=== PATIENT | female | born 1960 | race Caucasian/White ===

== ENCOUNTER → 2017-10-23 08:38 | Outpatient (CLI) | payer OTHER, SELFPAY ==
--- NOTE | 2017-10-23 08:40 | RAD_ITS ---
STUDY: X-RAY - ESOPHAGUS (BARIUM SWALLOW) WITH FLUOROSCOPY REASON FOR EXAM: Female, 57 years old. History of Sjogren's syndrome. TECHNIQUE: 14 view(s) of the esophagus were obtained following swallowing of barium. FLUOROSCOPY TIME (if supplied): (0:25) minutes/seconds COMPARISON: None. FINDINGS: There is no demonstrated esophageal foreign body. There is no demonstrated stricture or mucosal abnormality. Normal gastroesophageal junction, without a demonstrated hiatal hernia. The patient ingested a 12 mm tablet of barium without any difficulty. Normal visualized aortic arch and descending thoracic aorta. Normal visualized pulmonary parenchyma. Normal visualized osseous structures of the thorax. RAD/Esophagus Only IMPRESSION: Normal plain film x-ray examination (barium swallow) of the esophagus. Electronically Signed: Wilfrid Srinivasan MD at 9:34 EST Tel [phone], Service support ,
== END ==
PROVIDERS: Family Provider Family Medicine; PCP Family Medicine; Visit Provider Otolaryngology Otolaryngology/Facial Plastic Surgery
DX: R13.10 Dysphagia, unspecified (principal)
CPT/HCPCS: 74220

== ENCOUNTER 2017-12-03 21:17 | Observation (INO) | payer OTHER, SELFPAY ==
[2017-12-03 21:18] VITALS: BP 140/95; PULSE 77; RESP 20; TEMP 36.9; O2SAT 98; BMI 24.6
--- NOTE | 2017-12-03 22:05 | EKG12_ITS ---
Test Reason : JAW PAIN/L ARM TINGL Blood Pressure : / mmHG Vent. Rate : 067 BPM Atrial Rate : 067 BPM P-R Int : 152 ms QRS Dur : 084 ms QT Int : 392 ms P-R-T Axes : 025 053 043 degrees QTc Int : 414 ms Normal sinus rhythm Normal ECG Confirmed by RAMAN MEJIA ([id number]), news assignment editor CARLOS ORTIZ ([id number]) on 12/08/2017 1:54:56 PM Referred By: ELVIS Confirmed By:RAMAN MEJIA
--- NOTE | 2017-12-03 22:05 | RAD_ITS ---
STUDY: X-RAY CHEST REASON FOR EXAM: Female, 57 years old. Chest pain, jaw pain TECHNIQUE: Single AP portable view of the chest. COMPARISON: 07/27/2017. FINDINGS: The lungs are clear and expanded. Stable right upper lung granuloma. There is no demonstrated pleural abnormality. Normal size heart. Normal mediastinum and rika. Normal visualized pulmonary arteries. Normal visualized aortic arch and descending thoracic aorta. Normal visualized thoracic spine. Normal visualized ribs, clavicles, and shoulders. There is no demonstrated abnormality of the visualized soft tissue structures of the upper abdomen. RAD/Chest 1 View (Portable) IMPRESSION: No acute cardiopulmonary disease.. Stable right upper lung granuloma. Electronically Signed: Ghulam Hardy DO at 23:15 EDT , Service support ,
--- NOTE | 2017-12-03 22:07 | ED.VISSUMM ---
- ER Visit Summary Date of Service: 12/03/17 Chief Complaint: Left-sided jaw pain and left arm pain History of Present Illness: The patient is a 57 F presenting with intermittent left-sided jaw pain and left arm pain. This has been ongoing for the past 2 days. She complains of dizziness associated with this. She denies chest pain or shortness of breath. She has a family history of early heart disease in her father. She is a previous smoker. Denies PE/DVT risk factors. Physical Examination: Vitals are stable. Patient is afebrile. Alert no acute distress. HEENT exam is unremarkable. No intraoral fluctuance. No sublingual edema. No tenderness to palpation of the teeth. Neck is supple. Lungs are clear and equal bilaterally. Heart is regular rate and rhythm. Abdomen is soft nontender nondistended. Extremities are unremarkable. Skin is warm and dry. No focal neurologic deficit. Remainder of exam is unremarkable. Emergency Department Course and Treatment: Patient was given aspirin. EKG is sinus rhythm rate of 67 with no acute ischemic changes. CBC, chemistries unremarkable. Troponin is negative. Chest x-ray shows no acute process. Patient has had intermittent jaw pain while in the emergency department. She is given morphine and Zofran. Will discuss with the hospitalist for observation. Disposition: Observation Impression: Left jaw, left arm pain. This note was generated with MovieSet dictation software. It may contain incorrect words, spelling, and punctuation that were not noted in review of the chart prior to signing ED Disposition - Plan for ED Patient: Chief Complaint: General Illness Referrals: Charles Monroe MD [Primary Care Provider] -
[2017-12-03] MEDS: Aspirin 81 MG TAB.CHEW 324 MG PO (22:37)
[2017-12-03 22:49] LABS: Absolute Lymphocyte Count 2.08 X10^3/ul (0.83-4.51); Absolute Neutrophil Count 3.6 X10^3/uL (2.0-7.7); Basophil# 0.03 X10^3/uL; Basophil% 0.5 % (0-1); Eosinophil# 0.18 X10^3/uL; Eosinophils% 2.9 % (0-5); Hematocrit 41.8 % (37-47); Lymphocyte # 2.08 X10^3/ul (4.0); Lymphocyte % 33.5 % (19-41); Mean Corp Hgb Conc 33.5 g/gl (32-36); Mean Corpuscular Volume 95.7 fL (81-99); Mean Platelet Vol. 10.6 fl (6.2-12.0); Monocyte# 0.35 X10^3/uL; Monocyte% 5.6 % (0-10); Neutrophil # 3.55 X10^3/uL (2.7-7.7); Neutrophil % 57.3 % (47-70); Platelet Count 174 K/mm3 (150-450); RBC Distribution Width CV 12.3 % (11.6-14.6); RBC Distribution Width SD 42.8 fl (35.1-43.9); Red Blood Count 4.37 M/mm3 (4.2-5.4); White Blood Count 6.2 K/mm3 (4.4-11.0)
[2017-12-03 22:50] LABS: POSITIVE COUNT NO; POSITIVE DIFFERENTIAL NO; POSITIVE MORPHOLOGY NO
[2017-12-03 23:02] LABS: Anion Gap 7 (5-15); BUN 21 mg/dL (7-18); BUN/Creat Ratio 28.4 RATIO (10-20); Calcium,Total 8.8 mg/dL (8.5-10.1); Chloride 106 mmol/L (98-107); Creatinine, Serum 0.74 mg/dL (0.55-1.02); EST Glomerular Filtration Rate 87 mL/min (>60); Est Glom Filt Rate - Afr Amer 105 mL/min (>60); Estimated Creatinine Clearance 86.65 ml/min; Glucose 83 mg/dL (74-106); Sodium Level 139 mmol/L (136-145)
[2017-12-03 23:38] VITALS: PULSE 62; RESP 15; O2SAT 98
[2017-12-03] MEDS: Ondansetron 4 MG/2 ML Vial IV (23:45)
--- NOTE | 2017-12-03 23:45 | PCM.HP.STD ---
Problem List (1) Migraines Status: Chronic Qualifiers: Migraine type: unspecified Status migrainosus presence: without status migrainosus Intractability: not intractable Qualified Code(s): G43.909 - Migraine, unspecified, not intractable, without status migrainosus (2) Anxiety and depression Status: Chronic (3) Hiatal hernia Status: Chronic (4) GERD (gastroesophageal reflux disease) Status: Chronic Qualifiers: Esophagitis presence: esophagitis presence not specified Qualified Code(s): K21.9 - Gastro-esophageal reflux disease without esophagitis (5) PFO (patent foramen ovale) Status: Chronic (6) Hypothyroidism Status: Chronic Qualifiers: Hypothyroidism type: unspecified Qualified Code(s): E03.9 - Hypothyroidism, unspecified (7) Chest pain Status: Acute Qualifiers: Chest pain type: unspecified Qualified Code(s): R07.9 - Chest pain, unspecified History of Present Illness Date of Admission: 12/03/17 Chief Complaint: Chest pain The patient is a 57 y/o F w/ PMHx: Migraines, Anxiety and Depression, Hiatal Hernia w/ GERD, Hx PFO, Hx Thyroid nodules w/ Hypothyroidism who presents to the [facility] ED on 12/03/17 with history of ongoing intermittent (lasting hours) left sided jaw pain in addition to LUE paresthesias with associated nausea, dizziness and lightheadedness as well as dyspnea x 3 days. She notes recently increased stress over the last week. She noted ongoing unchanged discomfort but given ongoing discomfort she presented to the ED. In the ED work-up included T98.4, HR 60-70s, BP 140/95, RR 20-->14, 99% on RA, unremarkable CBC, unremarkable BMP, trop normal x 1, EKG NSR, CXR without acute process. In the ED patient administered asa, morphine, zofran. She noted improvement in the ED of her jaw discomfort, still residual LUE paresthesias. She denied any marked associated light or sound sensitivity. Past Medical History Past Medical History (Chronic Problems): Chronic Problems Migraines (Chronic) Anxiety and depression (Chronic) Hiatal hernia (Chronic) GERD (gastroesophageal reflux disease) (Chronic) PFO (patent foramen ovale) (Chronic) Hypothyroidism (Chronic) Allergies latex Allergy (Verified 12/03/17 21:21) Swelling Sulfa (Sulfonamide Antibiotics) Allergy (Verified 12/03/17 21:21) Swelling codeine Adverse Reaction (Verified 12/03/17 21:21) Other AGITATION duloxetine HCl [From Cymbalta] Adverse Reaction (Verified 12/03/17 21:21) Other MENTAL STATUS CHANGE escitalopram oxalate [From Lexapro] Adverse Reaction (Verified 12/03/17 21:21) Other AGITATION paroxetine [Paroxetine] Adverse Reaction (Verified 12/03/17 21:21) Other DEPRESSION/AGITATION venlafaxine HCl [From Effexor] Adverse Reaction (Verified 12/03/17 21:21) Other INTOLERANCE/HYPER Home Medications: Ambulatory Orders Medication Instructions Recorded Clonazepam [Klonopin] 0.5 mg PO QHS 10/07/13 Nicotine [Nicoderm Cq] 21 mg TRANSDERM. DAILY 10/07/13 Rizatriptan Benzoate [Maxalt] 10 mg PO .X1 PRN PRN 10/07/13 Surgical History: - - Cholecystectomy, Hysterectomy, x 3. 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 Tobacco Use: Non-smoker Alcohol: Rare Drugs: None - *Family History Maternal History Items: - - Mother with history of PAF. Paternal History Items: Heart Disease Sibling History Items: Heart Disease - Sister with history of HD. Offspring History Items: Cancer - Daughter with history of breast CA, passed young. Review of Systems Constitutional: Reports: Fatigue. Denies: Chills, Fever, Weight Change HEENT: Reports: Head Aches. Denies: Sinus Congestion, Sinus Drainage Cardiovascular: Reports: Light Headedness. Denies: Chest Pain, Palpitations Respiratory: Reports: Shortness of Breath, Shortness of breath at rest, Shortness of breath upon exertion. Denies: Cough, Sputum production Gastrointestinal: Reports: Abdominal Pain, Nausea. Denies: Vomiting Genitourinary: Denies: Dysuria Musculoskeletal: Denies: Joint Pain, Joint Tenderness Skin: Denies: Rash, Wounds Neurological: Reports: Numbness, Tingling. Denies: Focal weakness Psychiatric: Reports: Anxiety, Depression. Denies: Homicidal Ideations, Suicidal Ideations Hematologic/ Lymphatic: Denies: Easy Bruising, Easy Bleeding VTE Information - Inpt Only VTE Present on Admission: No VTE Mechan Device Prophylaxis: SCD's VTE Pharm Prophylaxis ordered?: Yes Patient Problems: Active and Suspected Problems Chest pain (Acute) Subjective: Seated upright in the ED bed, fatigued appearing, scleral injection. Objective: Physical Examination: General: awake, alert, oriented x 3 and cooperative, seated upright in the ED bed in no apparent distress. Skin: normal color, turgor, no icterus, cyanosis. HEENT: AT/NC, EOMI, PERRLA, dry MM, scleral injection BL, no carotid bruits or JVD noted. Lungs: CTA bilaterally, moderate effort, mild decrease BL bases, no rales, ronchi or wheezing. Heart: Regular rate and rhythm; no gallop, rub audible. Abdomen: soft, NTTP, ND, normal BS, no HSM. Extremities: no cyanosis, clubbing, or edema. Neurological: patient awake, alert, oriented x 3; cognitive function intact; pupils equally reactive to light and accomodation; cranial nerves II-XII grossly normal, moving all 4 extremities, no focal deficits, strength mildly to moderately globally decreased secondary to acute presentation, ongoing LUE paresthesias. Psychiatric: affect appears fatigued, no acute evidence of depressive or anxiety feelings. - Physical Exam Vital Signs Temp Pulse Resp BP Pulse Ox 98.4 F 62 15 140/95 H 98 12/03/17 21:18 12/03/17 23:38 12/03/17 23:38 12/03/17 21:18 12/03/17 23:38 Oxygen Delivery Method Room Air Weight: 162 lb 0.636 oz Body Mass Index (BMI) 24.6 Laboratory Tests Past 24 Hrs 12/03/17 12/03/17 22:30 22:30 WBC 6.2 RBC 4.37 Hgb 14.0 Hct 41.8 MCV 95.7 MCH 32.0 MCHC 33.5 RDW 12.3 RDW Differential 42.8 Plt Count 174 MPV 10.6 Immature Gran % (Auto) 0.200 Neut % (Auto) 57.3 Lymph % (Auto) 33.5 [place] % (Auto) 5.6 Eos % (Auto) 2.9 Baso % (Auto) 0.5 Absolute Neuts (auto) 3.6 Absolute Lymphs (auto) 2.08 Total Counted Not Reportable Sodium 139 Potassium 4.0 Chloride 106 Carbon Dioxide 26.0 Anion Gap 7 BUN 21 H Creatinine 0.74 Estim Creat Clear Calc 86.65 Est GFR (MDRD) Af Amer 105 Est GFR (MDRD) Non-Af 87 BUN/Creatinine Ratio 28.4 H Glucose 83 Calcium 8.8 Troponin I < 0.02 Assessment/Plan Active and Suspected Problems Chest pain (Acute) The patient is a 57 y/o F w/ PMHx: Migraines, Anxiety and Depression, Hiatal Hernia w/ GERD, Hx PFO, Hx Thyroid nodules w/ Hypothyroidism who presents to the [facility] ED on 12/03/17 with history of ongoing intermittent left sided jaw pain in addition to LUE paresthesias with associated nausea, dizziness and lightheadedness as well as dyspnea x 3 days. She notes recently increased stress over the last week. (1) Chest Pain versus Atypical Complex Migraine: In the ED work-up included T98.4, HR 60-70s, BP 140/95, RR 20-->14, 99% on RA, unremarkable CBC, unremarkable BMP, trop normal x 1, EKG NSR, CXR without acute process. Will admit to PCU, place on a monitored bed to assure no acute myocardial infarction with serial cardiac enzymes and EKGs. If enzymes remain unremarkable and clinically appropriate will pursue stress ECHO in AM. If cardiac evaluation unremarkable and ongoing or recurrent sxs may need to consider cardiology evaluation and also may be atypical complex migraine as well. ASA, NG, morphine. FLP in AM. Mag pending. (2) Anxiety and Depression: Ongoing following of her daughter from Breast CA, maintain on klonopin, noted allergies listed to SSRIs. (3) Hiatal Hernia w/ GERD: Maintain on Famotidine. Prior evaluation per Dr. Costa w/ unremarkable barium swallow, recent EGD per Dr. Li with hiatal hernia. (4) Hypothyroidism: Continue home synthroid regimen once dose confirmed, TSH and FT4 pending. (5) Hx PFO: Known, stable. (6) DVT Prophylaxis: SCDs, lovenox. Code Visit OBSV E&M: 67703 Initial observation care L3
--- NOTE | 2017-12-03 23:52 | HP.PCM_ITS ---
Problem List (1) Migraines Status: Chronic Qualifiers: Migraine type: unspecified Status migrainosus presence: without status migrainosus Intractability: not intractable Qualified Code(s): G43.909 - Migraine, unspecified, not intractable, without status migrainosus (2) Anxiety and depression Status: Chronic (3) Hiatal hernia Status: Chronic (4) GERD (gastroesophageal reflux disease) Status: Chronic Qualifiers: Esophagitis presence: esophagitis presence not specified Qualified Code(s) : K21.9 - Gastro-esophageal reflux disease without esophagitis (5) PFO (patent foramen ovale) Status: Chronic (6) Hypothyroidism Status: Chronic Qualifiers: Hypothyroidism type: unspecified Qualified Code(s): E03.9 - Hypothyroidism , unspecified (7) Chest pain Status: Acute Qualifiers: Chest pain type: unspecified Qualified Code(s): R07.9 - Chest pain, unspecified History of Present Illness Date of Admission: 12/03/17 Chief Complaint: Chest pain The patient is a 57 y/o F w/ PMHx: Migraines, Anxiety and Depression, Hiatal Hernia w/ GERD, Hx PFO, Hx Thyroid nodules w/ Hypothyroidism who presents to the [facility] ED on 12/03/17 with history of ongoing intermittent (lasting hours) left sided jaw pain in addition to LUE paresthesias with associated nausea, dizziness and lightheadedness as well as dyspnea x 3 days. She notes recently increased stress over the last week. She noted ongoing unchanged discomfort but given ongoing discomfort she presented to the ED. In the ED work-up included T98.4, HR 60-70s, BP 140/95, RR 20-->14, 99% on RA, unremarkable CBC, unremarkable BMP, trop normal x 1, EKG NSR, CXR without acute process. In the ED patient administered asa, morphine, zofran. She noted improvement in the ED of her jaw discomfort, still residual LUE paresthesias. She denied any marked associated light or sound sensitivity. Past Medical History Past Medical History (Chronic Problems): Chronic Problems Migraines (Chronic) Anxiety and depression (Chronic) Hiatal hernia (Chronic) GERD (gastroesophageal reflux disease) (Chronic) PFO (patent foramen ovale) (Chronic) Hypothyroidism (Chronic) Allergies latex Allergy (Verified 12/03/17 21:21) Swelling Sulfa (Sulfonamide Antibiotics) Allergy (Verified 12/03/17 21:21) Swelling codeine Adverse Reaction (Verified 12/03/17 21:21) Other AGITATION duloxetine HCl [From Cymbalta] Adverse Reaction (Verified 12/03/17 21:21) Other MENTAL STATUS CHANGE escitalopram oxalate [From Lexapro] Adverse Reaction (Verified 12/03/17 21:21) Other AGITATION paroxetine [Paroxetine] Adverse Reaction (Verified 12/03/17 21:21) Other DEPRESSION/AGITATION venlafaxine HCl [From Effexor] Adverse Reaction (Verified 12/03/17 21:21) Other INTOLERANCE/HYPER Home Medications: Ambulatory Orders Medication Instructions Recorded Clonazepam [Klonopin] 0.5 mg PO QHS 10/07/13 Nicotine [Nicoderm Cq] 21 mg TRANSDERM. DAILY 10/07/13 Rizatriptan Benzoate [Maxalt] 10 mg PO .X1 PRN PRN 10/07/13 Surgical History: - - Cholecystectomy, Hysterectomy, x 3. 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 Tobacco Use: Non-smoker Alcohol: Rare Drugs: None - *Family History Maternal History Items: - - Mother with history of PAF. Paternal History Items: Heart Disease Sibling History Items: Heart Disease - Sister with history of HD. Offspring History Items: Cancer - Daughter with history of breast CA, passed young. Review of Systems Constitutional: Reports: Fatigue. Denies: Chills, Fever, Weight Change HEENT: Reports: Head Aches. Denies: Sinus Congestion, Sinus Drainage Cardiovascular: Reports: Light Headedness. Denies: Chest Pain, Palpitations Respiratory: Reports: Shortness of Breath, Shortness of breath at rest, Shortness of breath upon exertion. Denies: Cough, Sputum production Gastrointestinal: Reports: Abdominal Pain, Nausea. Denies: Vomiting Genitourinary: Denies: Dysuria Musculoskeletal: Denies: Joint Pain, Joint Tenderness Skin: Denies: Rash, Wounds Neurological: Reports: Numbness, Tingling. Denies: Focal weakness Psychiatric: Reports: Anxiety, Depression. Denies: Homicidal Ideations, Suicidal Ideations Hematologic/ Lymphatic: Denies: Easy Bruising, Easy Bleeding VTE Information - Inpt Only VTE Present on Admission: No VTE Mechan Device Prophylaxis: SCD's VTE Pharm Prophylaxis ordered?: Yes Patient Problems: Active and Suspected Problems Chest pain (Acute) Subjective: Seated upright in the ED bed, fatigued appearing, scleral injection. Objective: Physical Examination: General: awake, alert, oriented x 3 and cooperative, seated upright in the ED bed in no apparent distress. Skin: normal color, turgor, no icterus, cyanosis. HEENT: AT/NC, EOMI, PERRLA, dry MM, scleral injection BL, no carotid bruits or JVD noted. Lungs: CTA bilaterally, moderate effort, mild decrease BL bases, no rales, ronchi or wheezing. Heart: Regular rate and rhythm; no gallop, rub audible. Abdomen: soft, NTTP, ND, normal BS, no HSM. Extremities: no cyanosis, clubbing, or edema. Neurological: patient awake, alert, oriented x 3; cognitive function intact; pupils equally reactive to light and accomodation; cranial nerves II-XII grossly normal, moving all 4 extremities, no focal deficits, strength mildly to moderately globally decreased secondary to acute presentation, ongoing LUE paresthesias. Psychiatric: affect appears fatigued, no acute evidence of depressive or anxiety feelings. - Physical Exam Vital Signs Temp Pulse Resp BP Pulse Ox 98.4 F 62 15 140/95 H 98 12/03/17 21:18 12/03/17 23:38 12/03/17 23:38 12/03/17 21:18 12/03/17 23:38 Oxygen Delivery Method Room Air Weight: 162 lb 0.636 oz Body Mass Index (BMI) 24.6 Laboratory Tests Past 24 Hrs 12/03/17 12/03/17 22:30 22:30 WBC 6.2 RBC 4.37 Hgb 14.0 Hct 41.8 MCV 95.7 MCH 32.0 MCHC 33.5 RDW 12.3 RDW Differential 42.8 Plt Count 174 MPV 10.6 Immature Gran % (Auto) 0.200 Neut % (Auto) 57.3 Lymph % (Auto) 33.5 [place] % (Auto) 5.6 Eos % (Auto) 2.9 Baso % (Auto) 0.5 Absolute Neuts (auto) 3.6 Absolute Lymphs (auto) 2.08 Total Counted Not Reportable Sodium 139 Potassium 4.0 Chloride 106 Carbon Dioxide 26.0 Anion Gap 7 BUN 21 H Creatinine 0.74 Estim Creat Clear Calc 86.65 Est GFR (MDRD) Af Amer 105 Est GFR (MDRD) Non-Af 87 BUN/Creatinine Ratio 28.4 H Glucose 83 Calcium 8.8 Troponin I < 0.02 Assessment/Plan Active and Suspected Problems Chest pain (Acute) The patient is a 57 y/o F w/ PMHx: Migraines, Anxiety and Depression, Hiatal Hernia w/ GERD, Hx PFO, Hx Thyroid nodules w/ Hypothyroidism who presents to the [facility] ED on 12/03/17 with history of ongoing intermittent left sided jaw pain in addition to LUE paresthesias with associated nausea, dizziness and lightheadedness as well as dyspnea x 3 days. She notes recently increased stress over the last week. (1) Chest Pain versus Atypical Complex Migraine: In the ED work-up included T98.4, HR 60-70s, BP 140/95, RR 20-->14, 99% on RA, unremarkable CBC, unremarkable BMP, trop normal x 1, EKG NSR, CXR without acute process. Will admit to PCU, place on a monitored bed to assure no acute myocardial infarction with serial cardiac enzymes and EKGs. If enzymes remain unremarkable and clinically appropriate will pursue stress ECHO in AM. If cardiac evaluation unremarkable and ongoing or recurrent sxs may need to consider cardiology evaluation and also may be atypical complex migraine as well. ASA, NG, morphine. FLP in AM. Mag pending. (2) Anxiety and Depression: Ongoing following of her daughter from Breast CA, maintain on klonopin, noted allergies listed to SSRIs. (3) Hiatal Hernia w/ GERD: Maintain on Famotidine. Prior evaluation per Dr. Costa w/ unremarkable barium swallow, recent EGD per Dr. Li with hiatal hernia. (4) Hypothyroidism: Continue home synthroid regimen once dose confirmed, TSH and FT4 pending. (5) Hx PFO: Known, stable. (6) DVT Prophylaxis: SCDs, lovenox. Code Visit OBSV E&M: 17670 Initial observation care L3
[2017-12-04] VITALS (13 sets, daily range): BP systolic 108–150; BP diastolic 62–90; PULSE 55–77; RESP 12–18; TEMP 36.4–36.6; O2SAT 92–99; BMI 24.3; BMI 24.4
[2017-12-04] MEDS: 0.9% Normal Saline 1,000 ML 125 ML IV (01:17)
[2017-12-04] MEDS: clonazePAM 0.5 MG Tablet PO ×2 (01:19→21:30)
[2017-12-04 01:32] LABS: Magnesium 2.2 mg/dL (1.6-2.6); T4 Free Direct 1.11 ng/dL (0.76-1.46); Thyroid Stim Hormone (TSH) 4.78 uIU/mL (0.358-3.74)
[2017-12-04 02:54] LABS: Hematocrit 40.6 % (37-47); Hemoglobin 14.2 g/dl (12.0-15.0); Mean Corpuscular Hgb 32.6 pg (27.0-32.0); Mean Corpuscular Volume 93.1 fL (81-99); Mean Platelet Vol. 10.3 fl (6.2-12.0); Platelet Count 203 K/mm3 (150-450); RBC Distribution Width SD 40.7 fl (35.1-43.9); Red Blood Count 4.36 M/mm3 (4.2-5.4); Scan Indicated on CBC? Y/N NO; White Blood Count 6.1 K/mm3 (4.4-11.0)
[2017-12-04 03:28] LABS: Anion Gap 9 (5-15); BUN 17 mg/dL (7-18); BUN/Creat Ratio 26.6 RATIO (10-20); Calcium,Total 8.6 mg/dL (8.5-10.1); Chloride 106 mmol/L (98-107); Cholesterol 198 mg/dL (200); Creatinine, Serum 0.64 mg/dL (0.55-1.02); EST Glomerular Filtration Rate 102 mL/min (>60); Est Glom Filt Rate - Afr Amer 124 mL/min (>60); Estimated Creatinine Clearance 100.19 ml/min; Glucose 80 mg/dL (74-106); High Density Lipoprotein 51 mg/dL; Potassium 3.7 mmol/L (3.5-5.1); Sodium Level 140 mmol/L (136-145); Triglycerides 88 mg/dL; Very Low Density Lipoprotein 18 mg/dL (5-40)
[2017-12-04 05:39] LABS: International Normalized Ratio 0.9; Partial Thromboplast Time 29.2 Seconds (24.1-36.2); Prothrombin Time (Protime)PT. 12.4 SECONDS (11.7-14.9)
[2017-12-04] MEDS: Aspirin E.C. 81 MG Tablet PO (05:47)
--- NOTE | 2017-12-04 05:55 | EKG12_ITS ---
Test Reason : AM Blood Pressure : / mmHG Vent. Rate : 055 BPM Atrial Rate : 055 BPM P-R Int : 178 ms QRS Dur : 088 ms QT Int : 432 ms P-R-T Axes : 065 057 046 degrees QTc Int : 413 ms Sinus bradycardia with sinus arrhythmia Otherwise normal ECG When compared with ECG of 03-DEC-2017 21:24, MANUAL COMPARISON REQUIRED, DATA IS UNCONFIRMED Confirmed by RAMAN MEJIA ([id number]), video editor CARLOS ORTIZ ([id number]) on 12/08/2017 2:46:18 PM Referred By: BRYCE Confirmed By:RAMAN MEJIA
--- NOTE | 2017-12-04 05:55 | STEWCON_ITS ---
Reason For Study: Chest Pain Stress Results Protocol: Stress Echocardiogram Maximum Predicted HR: 165 bpm Target HR: 140 bpm% Maximum Pr edicted HR: 91 % DurationHeart Rate Stage (mm:ss) (bpm) BPCom ment BASELINE 72 140/80 3 ML OF DILUTED DEFINITY USED DURING STRESS [place] PROTOCOL- STAGE 1 3:00 11 2 128/80 [place] PROTOCOL- STAGE 2 3:00 15 0 134/82LEG FATIGUE RECOVERY 82 110/78 Stress Duration: 6:00 mm:ss Maximum Stress HR: 150 bpm Baseline Echocardiogram Findings The estimated ejection fraction is 65 %. Stress Echo Wall motion Data Resting WMIntermediate WMStress WM Resting Wall Motion Wall Motion Stress No regional wall motion No regional wall motion abnormalities noted. abnormalities noted. EKG Data Normal intervals are noted. The patient exercised according to the regular [place] protocol for a total duration of 6:00. The maximum heart rate attained was 150 beats per minute. This was 90% of maximum predicted heart rate. The patient exercised into stage 3 of the [place] protocol. During stress, there were no ST or T wave changes noted to suggest ischemia. No clinical angina was noted. No arrhythmias noted. Interpretation Summary The study was technically difficult. Contrast injection was performed. The estimated ejection fraction is 65 %. Normal adequate treadmill echocardiogram. Negative for ischemia by EKG and echocardiographic criteria. No anginal symptoms noted. No arrhythmias noted. Appropriate blood pressure response to exercise. Average exercise capacity for age. Test terminated due to the attainment of target heart rate. Final LVEF is 75%. Decreased sensitivity due to poor echo windows requiring Definity agent enhancement. No complications. Ordering Physician: Henny Jaimes Referring Physician: Fernando Costa Performed By: Rosa Elena Purvis, CHUCHO, RVT
[2017-12-04] MEDS: Levothyroxine 25 MCG TABLET PO (07:01)
[2017-12-04] MEDS: oxyCODONE 5 MG Tablet PO ×2 (09:47→21:30)
[2017-12-04] MEDS: Enoxaparin 40 MG/0.4 ML Syringe SC (14:26)
[2017-12-04] MEDS: Famotidine 20 MG Tablet PO ×2 (14:28→21:30)
[2017-12-04] MEDS: 0.9% NaCl Peripheral Flush Adult/Peds IV (17:08)
[2017-12-04 18:14] LABS: Erythrocyte Sedimentation Rate 3 mm/hr (0-30)
--- NOTE | 2017-12-04 20:57 | PCM.PROGNOTE ---
Patient Problems: Active and Suspected Problems Chest pain (Acute) Subjective: Patient is a 57-year-old female with a past medical history of migraines, anxiety/depression, hiatal hernia, GERD, patent foramen ovale, hypothyroidism possible Sjogren's syndrome who presented to the ED on 12/02/17 c/o severe L jaw pain and numbness in her left arm. The pain came and went and was not associated with exertion. She describes it as severe and sharp/knife like and it brings her to tears. She denied fever, chills, sore throat, sore tooth. She denied and bad.sore teeth. No increase with pain when chewing. She was admitted to PCU and serial CE's were ordered and were negative. Telemetry has no significant ectopy or dysrhythmia. Stress test was negative and she had no pain with the stress test but, when she got back to her room the pain recurred and was severe, bringing her to tears. It lasted 40 minutes. Her L hand still feels funny. No weakness in the Left arm....she has never had this numbness before. No rash on the face. No hx of shingles. she saw Dr. Ricks a few years ago because she was falling a lot and tells me that an MRI of the brain (Spet 2015) at that time was negative. There is a FH of MS. The MRI did show minimal Left side chronic otomastoiditis and empty sellar S.. - Physical Exam General: Alert, Oriented x3, Cooperative, No apparent distress - at the present time....I di not see her when she had the pain today HEENT: Atraumatic, PERRLA, EOMI, Normocephalic Oral: No Gingival or Mucosal Lesions/ Ulcerations, Dry Mucosa, - - teeth appear to be in good repair. No pain with palpation of the L mandible, the L TMJ or the Left submandibular area. There is no pain with palpation of the L parotid. There is no submandibular, cervical or posterior cervical lymph nodes that are tender or palpable. There is no nuchal rigidity. Neck: Supple, No JVD, Negative Carotid Bruits, No Nodes, No Nuchal Rigidity, Trachea Midline Lungs: Clear to auscultation Cardiovascular: Regular rate, Regular Rhythm, Normal S1, Normal S2, No murmurs, No Gallop Abdomen: Bowel Sounds Present, Soft, Non Tender, Non-Distended Extremities: No clubbing, No cyanosis, No edema Skin: No rashes Neurological: Cranial nerves II-XII grossly intact, Neuro grossly intact Psych/Mental Status: Normal Affect, Appropriate Vital Signs Temp Pulse Resp BP Pulse Ox 97.9 F 73 18 108/62 99 12/04/17 19:34 12/04/17 19:34 12/04/17 19:34 12/04/17 19:34 12/04/17 19:34 Oxygen Delivery Method Room Air Weight: 160 lb 4.417 oz Body Mass Index (BMI) 24.3 Intake and Output for Last 24 Hours 12/02/17 12/03/17 12/04/17 23:59 23:59 23:59 Intake Total 612 / 612 Balance 612 / 612 Laboratory Tests Past 24 Hrs 12/04/17 12/04/17 12/04/17 02:00 02:00 02:00 WBC 6.1 RBC 4.36 Hgb 14.2 Hct 40.6 MCV 93.1 MCH 32.6 H MCHC 35.0 RDW 12.0 RDW Differential 40.7 Plt Count 203 MPV 10.3 ESR PT INR APTT Sodium 140 Potassium 3.7 Chloride 106 Carbon Dioxide 25.0 Anion Gap 9 BUN 17 Creatinine 0.64 Estim Creat Clear Calc 100.19 Est GFR (MDRD) Af Amer 124 Est GFR (MDRD) Non-Af 102 BUN/Creatinine Ratio 26.6 H Glucose 80 Calcium 8.6 Troponin I < 0.02 Triglycerides 88 Cholesterol 198 LDL Cholesterol 129 VLDL Cholesterol 18 HDL Cholesterol 51 12/04/17 12/04/17 12/04/17 04:55 06:48 12:42 WBC RBC Hgb Hct MCV MCH MCHC RDW RDW Differential Plt Count MPV ESR PT 12.4 INR 0.9 APTT 29.2 Sodium Potassium Chloride Carbon Dioxide Anion Gap BUN Creatinine Estim Creat Clear Calc Est GFR (MDRD) Af Amer Est GFR (MDRD) Non-Af BUN/Creatinine Ratio Glucose Calcium Troponin I < 0.02 < 0.02 Triglycerides Cholesterol LDL Cholesterol VLDL Cholesterol HDL Cholesterol 12/04/17 17:54 WBC RBC Hgb Hct MCV MCH MCHC RDW RDW Differential Plt Count MPV ESR 3 PT INR APTT Sodium Potassium Chloride Carbon Dioxide Anion Gap BUN Creatinine Estim Creat Clear Calc Est GFR (MDRD) Af Amer Est GFR (MDRD) Non-Af BUN/Creatinine Ratio Glucose Calcium Troponin I Triglycerides Cholesterol LDL Cholesterol VLDL Cholesterol HDL Cholesterol Assessment/Plan Active and Suspected Problems Chest pain (Acute) Impressions 1. Severe stabbing L mandible pain that comes and goes. She is afraid to go home because the pain is so severe. She also has new numbness of the LUE with no associated weakness. Differential would include Temporal arteritis, trigeminal neuralgia, dental abscess. Will check Xrays of the left mandible and get an MRI of the brain with and without contrast. Consult Dr. Rivero in the AM. Order pain medication if it comes back. 2. suspected Sjogren's syndrome 3. Hypothyroidism 4. Hiatal hernia/GERD 5. PFO keep the patient in the hospital tonight for further evaluation/observation for LUE numbness associated with severe jaw pain Code Visit OBSV E&M: 96442 Subsequent observation care L2
[2017-12-05] VITALS (8 sets, daily range): BP systolic 98–143; BP diastolic 62–79; PULSE 52–69; RESP 12–18; TEMP 36.3–36.9; O2SAT 95–99
[2017-12-05] MEDS: Levothyroxine 25 MCG TABLET PO (05:36)
--- NOTE | 2017-12-05 05:55 | MRI_ITS ---
STUDY: MRI BRAIN WITH AND WITHOUT CONTRAST REASON FOR EXAM: Female, 57 years old. lue numbness, lt jaw pain TECHNIQUE: Standardized multiplanar fat and water weighted pulse sequences were obtained. 7 ml of Gadavist contrast material was administered intravenously for the contrast portion of the examination. COMPARISON: None. FINDINGS: Normal size of the ventricles and extra-axial spaces for the patient's age. There are a limited number of small white matter hyperintensities, distributed throughout the deep white matter tracts of the cerebral hemispheres, consistent with mild chronic white matter ischemic changes. There are no demyelinating plagues of the supratentorial brain, brainstem or cerebellum. There are no findings suspicious for multiple sclerosis (MS). Normal bilateral basal ganglia. Normal thalami. There is no extra-axial fluid accumulation. Normal flow voids within the major intracranial circulation suggesting patency by spin echo criteria. Normal venous enhancement. There is no enhancing intra-axial or extra-axial abnormality. Normal sella turcica, pituitary gland, infundibular stalk, optic chiasm and hypothalamus. Normal tectal plate and pineal gland. Normal midbrain, chan and medulla. Normal cerebellum. Normal basal cisterns. Normal bilateral temporal bones. Normal bilateral internal auditory canals. No demonstrated orbital abnormality, within the constraints of a routine brain study. Normal visualized paranasal sinuses. Normal calvarium and skull base. Normal visualized soft tissue structures. Normal visualized upper cervical spine. MRI/Brain W/WO Contrast IMPRESSION: Involutional changes of the brain, as described above. Electronically Signed: Itz Kendall MD at 14:45 EDT Tel , Service support ,
[2017-12-05] MEDS: Aspirin E.C. 81 MG Tablet PO (09:33)
[2017-12-05] MEDS: LORazepam 2 MG/ML Syringe 1 MG IV (11:24)
[2017-12-05] MEDS: 0.9% NaCl Peripheral Flush Adult/Peds IV (11:24)
--- NOTE | 2017-12-05 16:00 | NURSING ---
THIS RN TAKING OVER CARE AT THIS TIME.
--- NOTE | 2017-12-05 16:31 | DCINST_ITS ---
- Discharge Diagnoses Current Active Problems: Current Active and Chronic Problems Migraines (Chronic) Anxiety and depression (Chronic) Hiatal hernia (Chronic) GERD (gastroesophageal reflux disease) (Chronic) PFO (patent foramen ovale) (Chronic) Hypothyroidism (Chronic) Chest pain (Acute) You will use the following diet at home:: Full liquid, Other - avoid eating or drinking things that are very hot or very cold in temperature Your liquids should be the consistency of: Regular/Thin Discharge Activity: Return to Normal Activity, May not drive while taking narcotic pain medications. Call your doctor if you observe: Fever of 101 or Higher, Uncontrolled pain Additional Instructions: 1. The stress test was negative. There were no dysrhythmias on the heart monitor. The blood work shoed no evidence of damage to the heart muscle. The heart is GOOD. The jaw pain is not coming form the heart. 2. The MRI of the brain with and without contrast showed NO tumors and no evidence of MS. The Xray of the left jaw showed no evidence of abscess. The ESR or sed rate was normal so you do not have temporal arteritis. My best guess is the pain is coming from a bad tooth. You have some large fillings in the left jaw and sometimes one will loosen and let foot underneath the filling and it affects the nerve.....when this happens. the nerve gets irritated and can cause sensitivy to heat, cold and to biting down on the tooth. I would stick to room temperature liquids and soft foods. Call your dentist and discuss with him. If the pain is not due to a problem with the tooth call Dr. Ricks and follow up with him. Allergies/Adverse Reactions: Allergies latex Allergy (Verified 12/03/17 21:21) Swelling Sulfa (Sulfonamide Antibiotics) Allergy (Verified 12/03/17 21:21) Swelling codeine Adverse Reaction (Verified 12/03/17 21:21) Other AGITATION duloxetine HCl [From Cymbalta] Adverse Reaction (Verified 12/03/17 21:21) Other MENTAL STATUS CHANGE escitalopram oxalate [From Lexapro] Adverse Reaction (Verified 12/03/17 21:21) Other AGITATION omeprazole Adverse Reaction (Verified 12/04/17 00:43) Diarrhea pantoprazole [From Protonix] Adverse Reaction (Verified 12/04/17 00:43) Diarrhea paroxetine [Paroxetine] Adverse Reaction (Verified 12/03/17 21:21) Other DEPRESSION/AGITATION venlafaxine HCl [From Effexor] Adverse Reaction (Verified 12/03/17 21:21) Other INTOLERANCE/HYPER Medications to take at Discharge Clonazepam [Klonopin] 0.5 mg PO QHS 10/07/13 Nicotine [Nicoderm Cq] 14 mg TRANSDERM. DAILY 10/07/13 Rizatriptan Benzoate [Maxalt] 10 mg PO .X1 PRN PRN 10/07/13 Synthroid 25 mcg PO DAILY@0600 12/04/17 Hydrocodone/Acetaminophen [Vicodin 5-300 mg Tablet] 1 - 2 tab PO Q6H PRN PRN 7 Days #20 tab 12/05/17 The following prescriptions were given: Hydrocodone/Acetaminophen [Vicodin 5-300 mg Tablet] 1 - 2 tab PO Q6H PRN PRN 7 Days #20 tab PRN Reason: Pain Primary Care Physician: Charles Monroe MD [Primary Care Provider] - Please follow up with your Primary Care Physician in: 7-10 days Proposed Discharge Date: 12/05/17
--- NOTE | 2017-12-05 17:00 | DCINST_ITS ---
- Discharge Diagnoses Current Active Problems: Current Active and Chronic Problems Migraines (Chronic) Anxiety and depression (Chronic) Hiatal hernia (Chronic) GERD (gastroesophageal reflux disease) (Chronic) PFO (patent foramen ovale) (Chronic) Hypothyroidism (Chronic) Chest pain (Acute) You will use the following diet at home:: Full liquid, Other - avoid eating or drinking things that are very hot or very cold in temperature Your liquids should be the consistency of: Regular/Thin Discharge Activity: Return to Normal Activity, May not drive while taking narcotic pain medications. Call your doctor if you observe: Fever of 101 or Higher, Uncontrolled pain Additional Instructions: 1. The stress test was negative. There were no dysrhythmias on the heart monitor. The blood work shoed no evidence of damage to the heart muscle. The heart is GOOD. The jaw pain is not coming form the heart. 2. The MRI of the brain with and without contrast showed NO tumors and no evidence of MS. The Xray of the left jaw showed no evidence of abscess. The ESR or sed rate was normal so you do not have temporal arteritis. My best guess is the pain is coming from a bad tooth. You have some large fillings in the left jaw and sometimes one will loosen and let foot underneath the filling and it affects the nerve.....when this happens. the nerve gets irritated and can cause sensitivy to heat, cold and to biting down on the tooth. I would stick to room temperature liquids and soft foods. Call your dentist and discuss with him. If the pain is not due to a problem with the tooth call Dr. Ricks and follow up with him. 3. NO parent should have a child pass away before they do. I do not know if that is something you ever recover from. Anxiety and depression go hand in hand and right now you are only getting treated with a medication for anxiety and it is addictive. Anxiety and depression sometimes cause people to have exaggerated responses to pain. When you are depressed every pain is 10 times worse. I have been depressed and suicidal in the past and it is a terrible way to feel. What works best to get you back to looking forward rather than backward is a combination of an antidepressant and th erapy.....I would have been a long time ago had I not found a good therapist. I may be way off track but you seem very tense and hypervigilant. Please think about this. Allergies/Adverse Reactions: Allergies latex Allergy (Verified 12/03/17 21:21) Swelling Sulfa (Sulfonamide Antibiotics) Allergy (Verified 12/03/17 21:21) Swelling codeine Adverse Reaction (Verified 12/03/17 21:21) Other AGITATION duloxetine HCl [From Cymbalta] Adverse Reaction (Verified 12/03/17 21:21) Other MENTAL STATUS CHANGE escitalopram oxalate [From Lexapro] Adverse Reaction (Verified 12/03/17 21:21) Other AGITATION omeprazole Adverse Reaction (Verified 12/04/17 00:43) Diarrhea pantoprazole [From Protonix] Adverse Reaction (Verified 12/04/17 00:43) Diarrhea paroxetine [Paroxetine] Adverse Reaction (Verified 12/03/17 21:21) Other DEPRESSION/AGITATION venlafaxine HCl [From Effexor] Adverse Reaction (Verified 12/03/17 21:21) Other INTOLERANCE/HYPER Medications to take at Discharge Clonazepam [Klonopin] 0.5 mg PO QHS 10/07/13 Nicotine [Nicoderm Cq] 14 mg TRANSDERM. DAILY 10/07/13 Rizatriptan Benzoate [Maxalt] 10 mg PO .X1 PRN PRN 10/07/13 Synthroid 25 mcg PO DAILY@0600 12/04/17 Hydrocodone/Acetaminophen [Vicodin 5-300 mg Tablet] 1 - 2 tab PO Q6H PRN PRN 7 Days #20 tab 12/05/17 The following prescriptions were given: Hydrocodone/Acetaminophen [Vicodin 5-300 mg Tablet] 1 - 2 tab PO Q6H PRN PRN 7 Days #20 tab PRN Reason: Pain Primary Care Physician: Charles Monroe MD [Primary Care Provider] - Please follow up with your Primary Care Physician in: 7-10 days Proposed Discharge Date: 12/05/17
--- NOTE | 2017-12-05 17:51 | DS.PCM_ITS ---
Discharge Date and Diagnosis Date of Admission: 12/03/17 Date of Discharge: 12/05/17 - Primary Discharge Diagnosis Left jaw pain with paresthesias of the LUE - Secondary Discharge Diagnosis Chronic Problems Migraines (Chronic) Anxiety and depression (Chronic) Hiatal hernia (Chronic) GERD (gastroesophageal reflux disease) (Chronic) PFO (patent foramen ovale) (Chronic) Hypothyroidism (Chronic) Hospital Course and Treatment Imaging Results: 12/05/17 21:29 Mandible Less Than 4 Views [RAD] Routine Clinical Impression(s) from Imaging Studies Chest X-Ray 12/03/17 22:05 IMPRESSION: No acute cardiopulmonary disease.. Stable right upper lung granuloma. Electronically Signed: Ghulam Hardy DO at 23:15 EDT , Service support , Brain MRI 12/05/17 05:55 IMPRESSION: Involutional changes of the brain, as described above. Electronically Signed: Itz Kendall MD at 14:45 EDT Tel , Service support , Mandible X-Ray 12/05/17 21:29 IMPRESSION: Normal x-ray examination of the mandible. Electronically Signed: Itz Kendall MD at 14:46 EDT Tel , Service support , Laboratory Tests 12/03/17 12/03/17 12/03/17 22:30 22:30 22:30 WBC 6.2 RBC 4.37 Hgb 14.0 Hct 41.8 MCV 95.7 MCH 32.0 MCHC 33.5 RDW 12.3 RDW Differential 42.8 Plt Count 174 MPV 10.6 Immature Gran % (Auto) 0.200 Neut % (Auto) 57.3 Lymph % (Auto) 33.5 [place] % (Auto) 5.6 Eos % (Auto) 2.9 Baso % (Auto) 0.5 Absolute Neuts (auto) 3.6 Absolute Lymphs (auto) 2.08 Total Counted Not Reportable ESR PT INR APTT Sodium 139 Potassium 4.0 Chloride 106 Carbon Dioxide 26.0 Anion Gap 7 BUN 21 H Creatinine 0.74 Estim Creat Clear Calc 86.65 Est GFR (MDRD) Af Amer 105 Est GFR (MDRD) Non-Af 87 BUN/Creatinine Ratio 28.4 H Glucose 83 Calcium 8.8 Magnesium 2.2 Troponin I < 0.02 Triglycerides Cholesterol LDL Cholesterol VLDL Cholesterol HDL Cholesterol TSH 4.78 H Free T4 1.11 12/03/17 12/04/17 12/04/17 22:30 02:00 02:00 WBC 6.1 RBC 4.36 Hgb 14.2 Hct 40.6 MCV 93.1 MCH 32.6 H MCHC 35.0 RDW 12.0 RDW Differential 40.7 Plt Count 203 MPV 10.3 Immature Gran % (Auto) Neut % (Auto) Lymph % (Auto) [place] % (Auto) Eos % (Auto) Baso % (Auto) Absolute Neuts (auto) Absolute Lymphs (auto) Total Counted ESR PT INR APTT Sodium 140 Potassium 3.7 Chloride 106 Carbon Dioxide 25.0 Anion Gap 9 BUN 17 Creatinine 0.64 Estim Creat Clear Calc 100.19 Est GFR (MDRD) Af Amer 124 Est GFR (MDRD) Non-Af 102 BUN/Creatinine Ratio 26.6 H Glucose 80 Calcium 8.6 Magnesium Cancelled Troponin I Triglycerides 88 Cholesterol 198 LDL Cholesterol 129 VLDL Cholesterol 18 HDL Cholesterol 51 TSH Free T4 12/04/17 12/04/17 12/04/17 02:00 04:55 06:48 WBC RBC Hgb Hct MCV MCH MCHC RDW RDW Differential Plt Count MPV Immature Gran % (Auto) Neut % (Auto) Lymph % (Auto) [place] % (Auto) Eos % (Auto) Baso % (Auto) Absolute Neuts (auto) Absolute Lymphs (auto) Total Counted ESR PT 12.4 INR 0.9 APTT 29.2 Sodium Potassium Chloride Carbon Dioxide Anion Gap BUN Creatinine Estim Creat Clear Calc Est GFR (MDRD) Af Amer Est GFR (MDRD) Non-Af BUN/Creatinine Ratio Glucose Calcium Magnesium Troponin I < 0.02 < 0.02 Triglycerides Cholesterol LDL Cholesterol VLDL Cholesterol HDL Cholesterol TSH Free T4 12/04/17 12/04/17 12:42 17:54 WBC RBC Hgb Hct MCV MCH MCHC RDW RDW Differential Plt Count MPV Immature Gran % (Auto) Neut % (Auto) Lymph % (Auto) [place] % (Auto) Eos % (Auto) Baso % (Auto) Absolute Neuts (auto) Absolute Lymphs (auto) Total Counted ESR 3 PT INR APTT Sodium Potassium Chloride Carbon Dioxide Anion Gap BUN Creatinine Estim Creat Clear Calc Est GFR (MDRD) Af Amer Est GFR (MDRD) Non-Af BUN/Creatinine Ratio Glucose Calcium Magnesium Troponin I < 0.02 Triglycerides Cholesterol LDL Cholesterol VLDL Cholesterol HDL Cholesterol TSH Free T4 none Operations: None Procedures: Stress test Summary of Care Provided: Patient is a 57-year-old female with a past medical history of migraines, anxiety/depression, hiatal hernia, GERD, patent foramen ovale, hypothyroidism possible Sjogren's syndrome who presented to the ED on 12/02/17 c/o severe L jaw pain and numbness in her left arm. The pain came and went and was not associated with exertion. She described it as severe and sharp/knife like and it brings her to tears. She denied fever, chills, sore throat, sore tooth. She denied and bad.sore teeth. No increase with pain when chewing. She was admitted to PCU and serial CE's were ordered and were negative. Telemetry has no significant ectopy or dysrhythmia. Stress test was negative and she had no pain with the stress test but, when she got back to her room the pain recurred and was severe, bringing her to tears. It lasted 40 minutes. Her L hand still feels funny. No weakness in the Left arm....she has never had this numbness before. No rash on the face. No hx of shingles. she saw Dr. Ricks a few years ago because she was falling a lot and tells me that an MRI of the brain (Spet 2015) at that time was negative. There is a FH of MS. The MRI did show minimal Left side chronic otomastoiditis and empty sellar S.. She was discharged home and was to see her dentist later that day. If there is no dental source for the jaw pain she will follow up with Dr. Ricks for possible Trigeminal neuralgia. This note was generated with [employer] software. It may contain incorrect words, spelling, and punctuation that were not noted in checking the note before signing. Discharge Activity: Return to Normal Activity, May not drive while taking narcotic pain medications. Call your doctor if you observe: Fever of 101 or Higher, Uncontrolled pain Home Medications: Medications to take at Discharge Clonazepam [Klonopin] 0.5 mg PO QHS 10/07/13 Nicotine [Nicoderm Cq] 14 mg TRANSDERM. DAILY 10/07/13 Rizatriptan Benzoate [Maxalt] 10 mg PO .X1 PRN PRN 10/07/13 Synthroid 25 mcg PO DAILY@0600 12/04/17 Hydrocodone/Acetaminophen [Vicodin 5-300 mg Tablet] 1 - 2 tab PO Q6H PRN PRN 7 Days #20 tab 12/05/17 Following Prescrptions Were Given to Patient: Hydrocodone/Acetaminophen [Vicodin 5-300 mg Tablet] 1 - 2 tab PO Q6H PRN PRN 7 Days #20 tab PRN Reason: Pain Primary Care Physician: Charles Monroe MD [Primary Care Provider] - Please follow up with your Primary Care Physician in: 7-10 days Disposition: Home Minutes spent on discharge:: 30 Patient Condition:: Good Medical Necessity - Tobacco Use Smoking Status: Former smoker Tobacco Use: Non-smoker Meaningful Use Info Meaningful Use Diagnoses (Choose all that apply): None applicable
--- NOTE | 2017-12-05 21:29 | RAD_ITS ---
STUDY: X-RAY - MANDIBLE (COMPLETE) REASON FOR EXAM: Female, 57 years old. PAIN left sided jaw pain x 1 week NKI TECHNIQUE: 6 view(s) of the mandible were obtained. COMPARISON: None. FINDINGS: Normal mandible. Normal visualized right temporomandibular joint. Normal visualized left temporomandibular joint. The remaining visualized osseous structures are normal. The soft tissue structures are unremarkable. RAD/Mandible Less Than 4 Views IMPRESSION: Normal x-ray examination of the mandible. Electronically Signed: Itz Kendall MD at 14:46 EDT Tel , Service support ,
== END 2017-12-05 17:18 | disposition home or self-care (01) ==
LOC: ED 22:08 → PCU 12-04 00:01
PROVIDERS: Admitting Provider Family Medicine; Emergency Provider Emergency Medicine; Family Provider Family Medicine; PCP Family Medicine; Visit Provider Internal Medicine
DX: R68.84 Jaw pain (principal); R07.89 Other chest pain; M79.602 Pain in left arm; Z82.49 Family history of ischemic heart disease and other diseases of the circulatory system; Z87.891 Personal history of nicotine dependence; G43.909 Migraine, unspecified, not intractable, without status migrainosus; F32.9 Major depressive disorder, single episode, unspecified; F41.9 Anxiety disorder, unspecified; K21.9 Gastro-esophageal reflux disease without esophagitis; E03.9 Hypothyroidism, unspecified; Q21.1 Atrial septal defect; K44.9 Diaphragmatic hernia without obstruction or gangrene; R20.2 Paresthesia of skin; Z79.899 Other long term (current) drug therapy
CPT/HCPCS: 36415; 70100; 70553; 71045; 80048; 80061; 83735; 84439; 84443; 84484; 85025; 85027; 85610; 85652; 85730; 93005; 93017; 93350; 96361; 96372; 96374; 96375; 99218; 99285; A9585; J7030; Q9957; A4216; C8928; G0378; J2405

== ENCOUNTER → 2018-03-10 16:42 | Outpatient (CLI) | payer OTHER, SELFPAY ==
--- NOTE | 2018-03-10 16:44 | BI_ITS ---
MAMMOGRAPHY - BILATERAL SCREENING REASON FOR EXAM: Female, 57 years old. Routine annual screening examination. PERTINENT HISTORY: Daughter with breast cancer. Mother with breast cancer. Grandmother with breast cancer. Occasional right lateral breast tenderness. TECHNIQUE: Digital bilateral breast brian (3D mammographic acquisition) in the CC and MLO projections. 2-D mediolateral oblique (MLO) and craniocaudad (CC) views of both breasts were obtained. CAD: Full Field Digital Mammography with Computer Added Detection was performed. COMPARISON: Comparison is made with prior study dated January 29, 2017 and January 11, 2016. FINDINGS: Breast Composition: The breasts are heterogeneously dense, which may obscure small masses. There are no dominant masses or suspicious calcifications. No other significant abnormalities are identified. There has been no significant change since the prior study. BI/SCREENING MAMM (CAD), BILAT IMPRESSION: Stable bilateral screening mammogram. Yearly follow-up mammogram recommended. (A) ASSESSMENT CATEGORY: BIRADS Category 1: Negative. A letter regarding these results will be sent to the patient by the facility within 30 days. Approximately 10% of breast cancers are not detected by mammography. A normal mammogram should not delay biopsy of a clinically suspicious abnormality. [id number] Electronically Signed: Wilfrid Srinivasan MD at 9:17 EDT Tel [phone], Service support ,
== END ==
PROVIDERS: Family Provider Family Medicine; PCP Family Medicine; Visit Provider Obstetrics & Gynecology
DX: Z12.31 Encounter for screening mammogram for malignant neoplasm of breast (principal)
CPT/HCPCS: 77063; 77067

== ENCOUNTER → 2018-03-24 15:41 | Outpatient (CLI) | payer OTHER, SELFPAY ==
--- NOTE | 2018-03-24 15:42 | CT_ITS ---
STUDY: CT CHEST WITHOUT CONTRAST REASON FOR EXAM: Female, 57 years old. Follow-up lung nodule RADIATION DOSAGE (If Supplied By Facility): CTDIvol = ( 8.96 ) mGy, DLP = ( 353.85 ) mGycm TECHNIQUE: Transaxial imaging was performed without the administration of intravenous contrast material. Individualized dose optimization techniques were used for this CT. COMPARISON: Previous study of 08/06/2017 FINDINGS: There are multiple bilateral calcified granulomas. There are mild diffuse emphysematous changes of the upper lobes. There has been interval resolution of a 4.3 mm noncalcified nodule of the right upper lobe seen on the previous study. No new nodules are seen. There is no demonstrated pleural abnormality. The heart size is normal. There is no pericardial effusion. There are numerous scattered nonpathologically enlarged mediastinal nodes. There are calcified right hilar nodes. Normal unenhanced pulmonary arteries. Normal aorta arch and descending thoracic aorta. Normal osseous structures. There is no demonstrated abnormality of the visualized upper abdomen. CT/Chest without Contrast IMPRESSION: 1. Interval resolution of previously noted 4.3 mm noncalcified nodule of the right upper lobe. 2. There are multiple bilateral calcified granulomas. Calcified right hilar nodes are seen. 3. Mild diffuse emphysematous changes of the upper lobes. 4. There are numerous scattered nonpathologically enlarged mediastinal nodes, appearing similar to the previous study. Electronically Signed: Basilio Urbina MD at 16:16 EDT , Service support ,
== END ==
PROVIDERS: Family Provider Family Medicine; PCP Family Medicine; Visit Provider Family Medicine
DX: R91.1 Solitary pulmonary nodule (principal)
CPT/HCPCS: 71250

== ENCOUNTER → 2018-05-30 12:09 | Outpatient (CLI) | payer OTHER, SELFPAY ==
[2018-05-30 13:43] LABS: Anion Gap 7 (5-15); BUN 15 mg/dL (7-18); BUN/Creat Ratio 18.8 RATIO (10-20); Calcium,Total 9.3 mg/dL (8.5-10.1); Chloride 105 mmol/L (98-107); EST Glomerular Filtration Rate 79 mL/min (>60); Est Glom Filt Rate - Afr Amer 96 mL/min (>60); Glucose 78 mg/dL (74-106); Potassium 4.1 mmol/L (3.5-5.1); Sodium Level 141 mmol/L (136-145)
[2018-05-30 14:31] LABS: Bacteria 0 SEEN /hpf (None Seen); Mucous, Urine 0 SEEN /hpf (<or=2+); Red Blood Cells-Urine 0 SEEN /hpf (0-5)
[2018-05-30 14:35] LABS: Color, Urine Straw (Yellow); Glucose, Dipstick Normal (Normal); Ketone-Dipstick Negative (Negative); Leukocyte Esterase-Dipstick 25 /ul (Negative); Nitrite-Dipstick Negative (Negative); Occult Blood-Urine Negative /ul (Negative); Protein-Dipstick Negative (Negative); Specific Gravity, Urine 1.005 (1.002-1.030); Urine Bilirubin Dipstick Negative (Negative); Urine Clarity Clear (Clear); Urine Urobilinogen Normal (Normal); Urine pH 6.5 (5.0 - 8.0)
[2018-05-30 14:58] LABS: Squamous Epithelial Cells - UA 0-5 SEEN /hpf (5-10); White Blood Cells 0-5 SEEN /hpf (0-5)
== END ==
PROVIDERS: Family Provider Family Medicine; PCP Family Medicine; Visit Provider Nurse Practitioner Family
DX: N30.91 Cystitis, unspecified with hematuria (principal); R34 Anuria and oliguria
CPT/HCPCS: 36415; 76770; 80048; 81001; 87086; 87088

== ENCOUNTER → 2018-07-22 07:32 | Outpatient (CLI) | payer OTHER, SELFPAY ==
[2018-07-22 10:57] LABS: ALB/GLOB Ratio 1.1 RATIO (0.9-2.4); AST(SGOT) 16 U/L (15-37); Alanine Aminotransfer ALT/SGPT 27 U/L (13-56); Albumin, Serum 3.9 g/dL (3.2-5.0); Alkaline Phosphatase 79 U/L (45-117); Anion Gap 10 (5-15); BUN 16 mg/dL (7-18); BUN/Creat Ratio 23.3 RATIO (10-20); Calcium,Total 8.7 mg/dL (8.5-10.1); Chloride 104 mmol/L (98-107); Creatinine, Serum 0.69 mg/dL (0.55-1.02); EST Glomerular Filtration Rate 94 mL/min (>60); Est Glom Filt Rate - Afr Amer 114 mL/min (>60); Free T3 2.7 pg/mL (2.18-3.98); Globulin 3.6 g/dL (2.2-4.2); Glucose 87 mg/dL (74-106); Potassium 3.9 mmol/L (3.5-5.1); Protein, Total 7.5 g/dL (6.4-8.2); Sodium Level 138 mmol/L (136-145); T4 Total, Thyroxin 11.9 ug/dL (4.8-13.9)
[2018-07-27 13:41] LABS: HPV Reflexed? NOT INDICATED
== END ==
PROVIDERS: Obstetrics & Gynecology; Family Provider Family Medicine; PCP Family Medicine; Referring Provider Internal Medicine Endocrinology, Diabetes & Metabolism; Visit Provider Internal Medicine Endocrinology, Diabetes & Metabolism
DX: E55.9 Vitamin D deficiency, unspecified (principal); Z12.4 Encounter for screening for malignant neoplasm of cervix; E03.9 Hypothyroidism, unspecified
CPT/HCPCS: 80053; 82533; 84436; 84443; 84481; 88175; G0145

== ENCOUNTER → 2018-10-30 10:09 | Outpatient (CLI) | payer OTHER, SELFPAY | PROVIDERS: Family Provider Family Medicine; PCP Family Medicine; Referring Provider Family Medicine; Visit Provider Family Medicine | DX: R39.15 Urgency of urination (principal) | CPT/HCPCS: 87086; 87088 ==

== ENCOUNTER → 2018-11-25 07:29 | Outpatient (CLI) | payer OTHER, SELFPAY ==
[2018-11-22 11:49] VITALS: BMI 23.9
[2018-11-25 10:20] LABS: Absolute Lymphocyte Count 1.22 X10^3/ul (0.83-4.51); Absolute Neutrophil Count 4.7 X10^3/uL (2.0-7.7); Basophil# 0.03 X10^3/uL; Basophil% 0.4 % (0-1); Eosinophil# 0.24 X10^3/uL; Eosinophils% 3.6 % (0-5); Hematocrit 42.4 % (37-47); Hemoglobin 14.3 g/dl (12.0-15.0); Lymphocyte # 1.22 X10^3/ul (4.0); Lymphocyte % 18.3 % (19-41); Mean Corp Hgb Conc 33.7 g/gl (32-36); Mean Corpuscular Hgb 32.6 pg (27.0-32.0); Mean Corpuscular Volume 96.6 fL (81-99); Monocyte# 0.51 X10^3/uL; Monocyte% 7.6 % (0-10); Neutrophil # 4.67 X10^3/uL (2.7-7.7); Platelet Count 206 K/mm3 (150-450); RBC Distribution Width SD 41.1 fl (35.1-43.9); Red Blood Count 4.39 M/mm3 (4.2-5.4); White Blood Count 6.7 K/mm3 (4.4-11.0)
[2018-11-25 10:24] LABS: POSITIVE COUNT NO; POSITIVE DIFFERENTIAL NO; POSITIVE MORPHOLOGY NO
[2018-11-25 11:02] LABS: ALB/GLOB Ratio 1.1 RATIO (0.9-2.4); AST(SGOT) 21 U/L (15-37); Alanine Aminotransfer ALT/SGPT 30 U/L (13-56); Alkaline Phosphatase 83 U/L (45-117); Anion Gap 8 (5-15); BUN 17 mg/dL (7-18); BUN/Creat Ratio 25.5 RATIO (10-20); Calcium,Total 8.7 mg/dL (8.5-10.1); Chloride 104 mmol/L (98-107); Creatinine, Serum 0.67 mg/dL (0.55-1.02); EST Glomerular Filtration Rate 97 mL/min (>60); Est Glom Filt Rate - Afr Amer 118 mL/min (>60); Free T3 2.6 pg/mL (2.18-3.98); Globulin 3.7 g/dL (2.2-4.2); Glucose 89 mg/dL (74-106); Potassium 4.3 mmol/L (3.5-5.1); Protein, Total 7.7 g/dL (6.4-8.2); Sodium Level 137 mmol/L (136-145); T4 Free Direct 1.17 ng/dL (0.76-1.46); Thyroid Stim Hormone (TSH) 2.26 uIU/mL (0.358-3.74)
== END ==
PROVIDERS: Family Provider Family Medicine; PCP Family Medicine; Referring Provider Internal Medicine Endocrinology, Diabetes & Metabolism; Visit Provider Internal Medicine Endocrinology, Diabetes & Metabolism
DX: E03.9 Hypothyroidism, unspecified (principal)
CPT/HCPCS: 36415; 80053; 84439; 84443; 84481; 85025

== ENCOUNTER → 2018-12-10 09:52 | Outpatient (CLI) | payer OTHER, SELFPAY ==
[2018-11-22 11:49] VITALS: BMI 23.9
[2018-12-10 12:34] LABS: Magnesium 2.4 mg/dL (1.6-2.6)
[2018-12-10 12:42] LABS: Vitamin B12 587 pg/mL (211-911); Vitamin D,25 Hydroxy 59.2 ng/mL (29.95-100.01)
== END ==
PROVIDERS: Family Provider Family Medicine; PCP Family Medicine; Referring Provider Family Medicine; Visit Provider Family Medicine
DX: E55.9 Vitamin D deficiency, unspecified (principal); J06.9 Acute upper respiratory infection, unspecified
CPT/HCPCS: 36415; 82306; 82607; 83735

== ENCOUNTER → 2019-01-21 13:00 | Outpatient (CLI) | payer OTHER, SELFPAY ==
[2018-11-22 11:49] VITALS: BMI 23.9
[2019-01-21 17:52] LABS: Absolute Lymphocyte Count 1.84 X10^3/ul (0.83-4.51); Absolute Neutrophil Count 5.1 X10^3/uL (2.0-7.7); Basophil# 0.03 X10^3/uL; Basophil% 0.4 % (0-1); Eosinophil# 0.24 X10^3/uL; Eosinophils% 3.1 % (0-5); Hematocrit 41.6 % (37-47); Hemoglobin 14.1 g/dl (12.0-15.0); Lymphocyte # 1.84 X10^3/ul (4.0); Lymphocyte % 24.1 % (19-41); Mean Corp Hgb Conc 33.9 g/gl (32-36); Mean Corpuscular Hgb 32.8 pg (27.0-32.0); Mean Corpuscular Volume 96.7 fL (81-99); Mean Platelet Vol. 10.7 fl (6.2-12.0); Monocyte# 0.41 X10^3/uL; Monocyte% 5.4 % (0-10); Neutrophil # 5.12 X10^3/uL (2.7-7.7); Neutrophil % 66.9 % (47-70); Platelet Count 243 K/mm3 (150-450); RBC Distribution Width CV 12.9 % (11.6-14.6); RBC Distribution Width SD 44.7 fl (35.1-43.9); White Blood Count 7.7 K/mm3 (4.4-11.0)
[2019-01-21 18:02] LABS: POSITIVE COUNT NO; POSITIVE DIFFERENTIAL NO; POSITIVE MORPHOLOGY NO
[2019-01-21 18:21] LABS: Erythrocyte Sedimentation Rate 6 mm/hr (0-30)
[2019-01-21 18:50] LABS: ALB/GLOB Ratio 1.1 RATIO (0.9-2.4); AST(SGOT) 22 U/L (15-37); Alanine Aminotransfer ALT/SGPT 33 U/L (13-56); Alkaline Phosphatase 79 U/L (45-117); Anion Gap 7 (5-15); BUN 16 mg/dL (7-18); CRP < 2.90 mg/L (0.0-3.0); Calcium,Total 8.6 mg/dL (8.5-10.1); Chloride 106 mmol/L (98-107); Creatinine, Serum 0.94 mg/dL (0.55-1.02); EST Glomerular Filtration Rate 65 mL/min (>60); Est Glom Filt Rate - Afr Amer 79 mL/min (>60); Globulin 3.6 g/dL (2.2-4.2); Glucose 98 mg/dL (74-106); Potassium 4.1 mmol/L (3.5-5.1); Protein, Total 7.6 g/dL (6.4-8.2); Sodium Level 140 mmol/L (136-145); Thyroid Stim Hormone (TSH) 2.19 uIU/mL (0.358-3.74)
[2019-01-25 16:08] LABS: Immunoglobulin A 115 mg/dL (87-352)
[2019-01-26 17:20] LABS: Deamidated Gliadin IgA 3 units (0-19); Deamidated Gliadin IgG 2 units (0-19); Endomysial Antibody IgA Negative (Negative); H. Pylori Antibody (IgG) 0.26 (0.00-0.79); t-Transglutaminase IgA <2 U/mL (0-3)
[2019-01-31 12:06] LABS: Alternaria alternata <0.10 kU/L (Class 0); Aspergillus fumigatus <0.10 kU/L (Class 0); Bahia Grass <0.10 kU/L (Class 0); Beef <0.10 kU/L (Class 0); Bermuda Grass <0.10 kU/L (Class 0); Bluegrass, Kentucky <0.10 kU/L (Class 0); Cat Hair/Dander, Standard <0.10 kU/L (Class 0); Cedar, Mountain 0.13 kU/L (Class 0/I); Chocolate <0.10 kU/L (Class 0); Cladosporium herbarum <0.10 kU/L (Class 0); Cockroach, American <0.10 kU/L (Class 0); Corn <0.10 kU/L (Class 0); D farinae Mite <0.10 kU/L (Class 0); D pteronyssinus <0.10 kU/L (Class 0); Dog Epithelia <0.10 kU/L (Class 0); Egg, Whole <0.10 kU/L (Class 0); Elm, American White <0.10 kU/L (Class 0); Hazelnut Tree <0.10 kU/L (Class 0); Hickory, White <0.10 kU/L (Class 0); Johnson Grass <0.10 kU/L (Class 0); Maple/Box Elder <0.10 kU/L (Class 0); Milk (Cow) <0.10 kU/L (Class 0); Mucor racemosus <0.10 kU/L (Class 0); Mugwort <0.10 kU/L (Class 0); Mulberry, White <0.10 kU/L (Class 0); Nettle <0.10 kU/L (Class 0); Oak, White <0.10 kU/L (Class 0); Peanut <0.10 kU/L (Class 0); Penicillium chrysogen <0.10 kU/L (Class 0); Pigweed, Rough <0.10 kU/L (Class 0); Plantain, English <0.10 kU/L (Class 0); Pork <0.10 kU/L (Class 0); Ragweed, Short/Common <0.10 kU/L (Class 0); Sheep Sorrel(Dock) <0.10 kU/L (Class 0); Soybean <0.10 kU/L (Class 0); Stemphylium herbarum <0.10 kU/L (Class 0); Sweet Gum <0.10 kU/L (Class 0); Sycamore, American <0.10 kU/L (Class 0); Wheat <0.10 kU/L (Class 0)
[2019-02-01 13:16] LABS: ANTINUCLEAR ANTIBODIES DIRECT Positive (Negative)
== END ==
PROVIDERS: Family Provider Family Medicine; PCP Family Medicine; Referring Provider Family Medicine; Visit Provider Family Medicine
DX: R21 Rash and other nonspecific skin eruption (principal); K58.9 Irritable bowel syndrome, unspecified
CPT/HCPCS: 80053; 82784; 83516; 84443; 85025; 85652; 86003; 86005; 86038; 86140; 86255; 86677

== ENCOUNTER → 2019-02-27 10:28 | Outpatient (CLI) | payer OTHER, SELFPAY ==
[2018-11-22 11:49] VITALS: BMI 23.9
[2019-02-27 10:36] LABS: Bacteria 0 SEEN /hpf (None Seen); Mucous, Urine 0 SEEN /hpf (<or=2+); Red Blood Cells-Urine 0 SEEN /hpf (0-5)
[2019-02-27 11:05] LABS: Color, Urine Yellow (Yellow); Glucose, Dipstick Normal (Normal); Ketone-Dipstick Negative (Negative); Leukocyte Esterase-Dipstick 100 /ul (Negative); Nitrite-Dipstick Negative (Negative); Occult Blood-Urine 50 /ul (Negative); Protein-Dipstick Negative (Negative); Urine Bilirubin Dipstick Negative (Negative); Urine Clarity Clear (Clear); Urine Urobilinogen Normal (Normal); Urine pH 6.5 (5.0 - 8.0)
[2019-02-27 11:20] LABS: Squamous Epithelial Cells - UA 0-5 SEEN /hpf (5-10); White Blood Cells 10-25 SEEN /hpf (0-5)
== END ==
PROVIDERS: Family Provider Family Medicine; PCP Family Medicine; Referring Provider Family Medicine; Visit Provider Family Medicine
DX: N39.0 Urinary tract infection, site not specified (principal)
CPT/HCPCS: 81001; 87086; 87088

== ENCOUNTER 2019-03-02 06:00 | Emergency (ER) | payer OTHER, SELFPAY ==
[2018-11-22 11:49] VITALS: BMI 23.9
[2019-03-02 06:01] VITALS: BP 157/100; PULSE 78; RESP 14; TEMP 36.4; O2SAT 99; BMI 24.0
[2019-03-02 06:10] VITALS: TEMP 36.4
[2019-03-02 06:16] LABS: Mucous, Urine 0 SEEN /hpf (<or=2+)
[2019-03-02 06:27] LABS: Color, Urine Yellow (Yellow); Glucose, Dipstick Normal (Normal); Ketone-Dipstick Negative (Negative); Leukocyte Esterase-Dipstick 500 /ul (Negative); Nitrite-Dipstick Negative (Negative); Occult Blood-Urine 250 /ul (Negative); Protein-Dipstick Negative (Negative); Urine Bilirubin Dipstick Negative (Negative); Urine Clarity Cloudy (Clear); Urine Urobilinogen Normal (Normal)
[2019-03-02 06:28] LABS: Bacteria 1+ /hpf (None Seen); Red Blood Cells-Urine 0-5 SEEN /hpf (0-5); Squamous Epithelial Cells - UA 0-5 SEEN /hpf (5-10); White Blood Cells 25-50 SEEN /hpf (0-5)
--- NOTE | 2019-03-02 06:36 | ED.DCSUM_ITS ---
- ER Visit Summary Date of Service: 03/02/19 Chief Complaint: UTI History of Present Illness: The patient is a 58 F who presents with UTI symptoms. This began about 4 days ago. She complains of bladder pressure, urinary frequency urgency and dysuria. She was recently started on Keflex but states her symptoms are getting worse. No fevers no nausea or vomiting. She also complains of hives for 3 to 4 months which she has been seeing different physicians for but is uncertain if this is related. Physical Examination: Afebrile vitals unremarkable Moist mucous members Heart regular rate and rhythm Lungs clear Abdomen soft nontender Alert Test Results: UA shows 500 leukocyte esterase and 25-50 WBCs with 1+ bacteria. Emergency Department Course and Treatment: Urinalysis remains consistent with cystitis. A new culture was sent. We will discontinue Keflex and treat with Cipro. Treatment Plan: [] Disposition: Discharge Impression: UTI This note was generated with rag [employer] bone dictation software. It may contain incorrect words, spelling, and punctuation that were not noted in review of the chart prior to signing ED Disposition - Plan for ED Patient: Referrals: Charles Monroe MD [Primary Care Provider] -
--- NOTE | 2019-03-02 06:36 | ED.DEP ---
ED Disposition - Plan for ED Patient: Instructions: ED UTI Cystitis Female Prescriptions: Ciprofloxacin [Cipro] 500 mg PO BID #14 tab Referrals: Charles Monroe MD [Primary Care Provider] -
[2019-03-02 06:45] VITALS: BP 136/76; PULSE 78; RESP 15; O2SAT 99
== END 2019-03-02 06:45 | disposition home or self-care (01) ==
PROVIDERS: Emergency Provider Emergency Medicine; Family Provider Family Medicine; PCP Family Medicine
DX: N39.0 Urinary tract infection, site not specified (principal); G43.909 Migraine, unspecified, not intractable, without status migrainosus; Z72.0 Tobacco use
CPT/HCPCS: 81001; 87077; 87086; 87088; 87186; 99282

== ENCOUNTER → 2019-03-09 17:39 | Outpatient (CLI) | payer OTHER, SELFPAY ==
[2019-03-02 06:01] VITALS: BMI 24.0
== END ==
PROVIDERS: Family Provider Family Medicine; PCP Family Medicine; Visit Provider Family Medicine
DX: N39.0 Urinary tract infection, site not specified (principal)
CPT/HCPCS: 87086; 87088

== ENCOUNTER → 2019-03-19 07:30 | Outpatient (CLI) | payer OTHER, SELFPAY ==
[2019-03-02 06:01] VITALS: BMI 24.0
== END ==
PROVIDERS: Family Provider Family Medicine; PCP Family Medicine; Referring Provider Family Medicine; Visit Provider Family Medicine
DX: N39.0 Urinary tract infection, site not specified (principal)
CPT/HCPCS: 87086; 87088

== ENCOUNTER → 2019-04-28 | Outpatient (CLI) | payer OTHER, SELFPAY ==
--- NOTE | 2019-04-28 12:07 | BI_ITS ---
MAMMOGRAPHY - BILATERAL SCREENING REASON FOR EXAM: Female, 58 years old. Routine annual screening examination. PERTINENT HISTORY: Daughter with breast cancer. Mother with breast cancer. Grandmother with breast cancer. TECHNIQUE: Digital bilateral breast kaylee (3D mammographic acquisition) in the CC and MLO projections. 2-D mediolateral oblique (MLO) and craniocaudad (CC) views of both breasts were obtained. CAD: Full Field Digital Mammography with Computer Added Detection was performed. COMPARISON: Comparison is made with prior study dated March 10, 2018 and January 29, 2017. FINDINGS: Breast Composition: The breasts are heterogeneously dense, which may obscure small masses. There are no dominant masses or suspicious calcifications. Questionable focal area of architectural distortion in the upper lateral aspect of the right breast. This most likely represents superimposition of tissue. The patient will be recalled for additional views. No other significant abnormalities are identified. BI/SCREEN MAMM (CAD) W/KAYLEE BILAT IMPRESSION: Possible area of architectural distortion in the upper deep lateral portion of the right breast as described. The patient will be recalled for additional views including 90 degree lateral and compression spot views. Recall Side: Right Breast ASSESSMENT CATEGORY: BIRADS Category 0: Incomplete. Need additional imaging evaluation. A letter regarding these results will be sent to the patient by the facility within 30 days. Approximately 10% of breast cancers are not detected by mammography. A normal mammogram should not delay biopsy of a clinically suspicious abnormality. [id number] Electronically Signed: Wilfrid Srinivasan, at 12:56 EDT , Service support ,
== END | disposition home or self-care (01) ==
LOC: OPBI 12:05
PROVIDERS: Family Provider Family Medicine; PCP Family Medicine; Referring Provider Obstetrics & Gynecology; Visit Provider Obstetrics & Gynecology
DX: Z12.31 Encounter for screening mammogram for malignant neoplasm of breast (principal)
CPT/HCPCS: 77063; 77067

== ENCOUNTER → 2019-04-29 09:16 | Outpatient (CLI) | payer OTHER, SELFPAY ==
--- NOTE | 2019-04-29 09:18 | BI_ITS ---
MAMMOGRAPHY - UNILATERAL DIAGNOSTIC: RIGHT BREAST REASON FOR EXAM: Female, 58 years old. Architectural distortion in the lateral aspect of the right breast. PERTINENT HISTORY: Daughter with breast cancer. Mother with breast cancer. Grandmother with breast cancer. TECHNIQUE: Compression spot views of the right breast in the mediolateral oblique and craniocaudad projections were obtained. CAD: Full Field Digital Mammography with Computer Added Detection was performed. COMPARISON: Comparison is made with prior mammogram dated April 28, 2019. FINDINGS: Breast Composition: The breasts are heterogeneously dense, which may obscure small masses. There are no dominant masses or suspicious calcifications. Correlation with ultrasound is recommended for further evaluation. No other significant abnormalities are identified. BI/DIAG MAMM W/CAD, UNILAT IMPRESSION: No abnormality seen on the additional mammographic views. Correlation with ultrasound is recommended. ASSESSMENT CATEGORY: BIRADS Category 0: Incomplete. Need additional imaging evaluation. A letter regarding these results will be sent to the patient by the facility within 30 days. Approximately 10% of breast cancers are not detected by mammography. A normal mammogram should not delay biopsy of a clinically suspicious abnormality. Electronically Signed: Wilfrid Srinivasan, at 10:29 EDT , Service support ,
--- NOTE | 2019-04-29 09:46 | US_ITS ---
STUDY: ULTRASOUND BREAST - RIGHT REASON FOR EXAM: Female, 58 years old. Palpable lump in the right breast. TECHNIQUE: Axial and longitudinal images of the RIGHT breast were performed with a high resolution ultrasound transducer. COMPARISON: Comparison is made with prior mammogram done earlier in the day. FINDINGS: RIGHT Breast: The upper outer quadrant of the right breast was examined by ultrasound. There is homogeneous glandular tissue. No solid or cystic mass lesion is seen. US/Breast Limited Unilateral IMPRESSION: Unremarkable sonographic examination of the upper outer quadrant of the right breast. ASSESSMENT CATEGORY: BIRADS Category 1: Negative. A letter regarding these results will be sent to the patient by the facility within 30 days. Electronically Signed: Wilfrid Srinivasan, at 10:26 EDT , Service support ,
== END ==
PROVIDERS: Family Provider Family Medicine; PCP Family Medicine; Referring Provider Obstetrics & Gynecology; Visit Provider Obstetrics & Gynecology
DX: N63.11 Unspecified lump in the right breast, upper outer quadrant (principal); Z80.3 Family history of malignant neoplasm of breast
CPT/HCPCS: 76642; 77065

== ENCOUNTER → 2019-08-27 15:14 | Outpatient (CLI) | payer OTHER, SELFPAY ==
[2019-05-06 08:46] VITALS: BMI 24.0
== END ==
PROVIDERS: Family Provider Family Medicine; PCP Family Medicine; Referring Provider Family Medicine; Visit Provider Family Medicine
DX: R30.0 Dysuria (principal)
CPT/HCPCS: 87086; 87088; 87186

== ENCOUNTER → 2019-09-13 07:43 | Outpatient (CLI) | payer OTHER, SELFPAY ==
[2019-05-06 08:46] VITALS: BMI 24.0
[2019-09-13 10:31] LABS: ALB/GLOB Ratio 1.2 RATIO (0.9-2.4); AST(SGOT) 19 U/L (15-37); Alanine Aminotransfer ALT/SGPT 27 U/L (13-56); Albumin, Serum 3.9 g/dL (3.2-5.0); Alkaline Phosphatase 69 U/L (45-117); Anion Gap 4 (5-15); BUN 16 mg/dL (7-18); BUN/Creat Ratio 21.7 RATIO (10-20); Chloride 107 mmol/L (98-107); Creatinine, Serum 0.74 mg/dL (0.55-1.02); EST Glomerular Filtration Rate 86 mL/min (>60); Est Glom Filt Rate - Afr Amer 104 mL/min (>60); Free T3 2.8 pg/mL (2.18-3.98); Globulin 3.2 g/dL (2.2-4.2); Glucose 92 mg/dL (74-106); Potassium 3.9 mmol/L (3.5-5.1); Protein, Total 7.1 g/dL (6.4-8.2); Sodium Level 139 mmol/L (136-145); T4 Free Direct 1.11 ng/dL (0.76-1.46); Thyroid Stim Hormone (TSH) 1.76 uIU/mL (0.358-3.74)
== END ==
PROVIDERS: Family Provider Family Medicine; PCP Family Medicine; Referring Provider Internal Medicine Endocrinology, Diabetes & Metabolism; Visit Provider Internal Medicine Endocrinology, Diabetes & Metabolism
DX: E04.2 Nontoxic multinodular goiter (principal); N39.0 Urinary tract infection, site not specified
CPT/HCPCS: 36415; 80053; 84439; 84443; 84481; 87086; 87088

== ENCOUNTER → 2019-10-15 07:50 | Outpatient (CLI) | payer OTHER, SELFPAY ==
[2019-05-06 08:46] VITALS: BMI 24.0
[2019-10-15 10:35] LABS: Cholesterol 200 mg/dL (200); High Density Lipoprotein 54 mg/dL; Triglycerides 79 mg/dL; Very Low Density Lipoprotein 16 mg/dL (5-40)
[2019-10-15 10:41] LABS: Vitamin D,25 Hydroxy 35.6 ng/mL (29.95-100.01)
== END ==
PROVIDERS: PCP Family Medicine; Referring Provider Family Medicine; Visit Provider Family Medicine
DX: Z13.220 Encounter for screening for lipoid disorders (principal); E55.9 Vitamin D deficiency, unspecified
CPT/HCPCS: 36415; 80061; 82306

== ENCOUNTER → 2019-11-08 11:54 | Outpatient (CLI) | payer OTHER, SELFPAY ==
[2019-05-06 08:46] VITALS: BMI 24.0
--- NOTE | 2019-11-08 11:57 | MRI_ITS ---
STUDY: BILATERAL BREAST MR WITHOUT AND WITH CONTRAST REASON FOR EXAM: Female, 59 years old. Dense breasts. History of breast cancer in daughter. TECHNIQUE: Multi-sequence multi-echo imaging of both breasts was performed with a dedicated breast coil. T1-weighted and T2-weighted images were performed before the administration of contrast. T1-weighted images were also performed after the administration of iv Dotarem 15ml without complications. COMPARISON: Mammograms dated April 29, 2019, breast MRI dated May 23, 2017 and mammograms dated January 29, 2017. FINDINGS: RIGHT BREAST: The breast tissue is scattered fibroglandular densities with no background enhancement. There are no abnormal enhancing masses or areas of non-mass enhancement in the right breast. LEFT BREAST: The breast tissue is scattered fibroglandular densities with no background enhancement. There are no abnormal enhancing masses or areas of non-mass enhancement in the left breast. There are no enlarged or abnormal lymph nodes. There is no abnormality in the visualized regions of the chest or liver. MRI/Breast Bilateral W/O and W IMPRESSION: No abnormality on the breast MRI with contrast. Yearly follow up mammogram recommended. CATEGORY: BIRADS Category 1: Negative. A letter regarding these results will be sent to the patient by the facility within 30 days. Electronically Signed: Gliles Gandhi MD at 11:38 EST , Service support ,
== END ==
PROVIDERS: PCP Family Medicine; Referring Provider Nurse Practitioner Women's Health; Visit Provider Nurse Practitioner Women's Health
DX: R92.2 Inconclusive mammogram (principal); Z80.3 Family history of malignant neoplasm of breast
CPT/HCPCS: 77049; 87086; 87088; A9575; A4216; C8908

== ENCOUNTER → 2020-02-21 16:38 | Outpatient (CLI) | payer OTHER, SELFPAY ==
[2019-05-06 08:46] VITALS: BMI 24.0
[2020-02-21 17:56] LABS: Absolute Lymphocyte Count 1.63 X10^3/uL (0.83-4.51); Absolute Neutrophil Count 3.7 X10^3/uL (2.0-7.7); Basophil# 0.02 X10^3/uL; Basophil% 0.3 % (0-1); Eosinophil# 0.15 X10^3/uL; Eosinophils% 2.5 % (0-5); Hematocrit 41.7 % (37-47); Hemoglobin 14.1 g/dL (12.0-15.0); Lymphocyte # 1.63 X10^3/ul (4.0); Lymphocyte % 27.3 % (19-41); Mean Corp Hgb Conc 33.8 g/dL (32-36); Mean Corpuscular Hgb 33.7 pg (27.0-32.0); Mean Corpuscular Volume 99.8 fL (81-99); Mean Platelet Vol. 10.7 fl (6.2-12.0); Monocyte# 0.44 X10^3/uL; Monocyte% 7.4 % (0-10); NRBC Flagged by Analyzer 0 % (0-5); Neutrophil # 3.71 X10^3/uL (2.7-7.7); Neutrophil % 62.2 % (47-70); Platelet Count 249 K/mm3 (150-450); RBC Distribution Width CV 12.3 % (11.6-14.6); RBC Distribution Width SD 44.7 fl (35.1-43.9); Red Blood Count 4.18 M/mm3 (4.2-5.4)
[2020-02-21 18:20] LABS: ALB/GLOB Ratio 1.1 RATIO (0.9-2.4); AST(SGOT) 20 U/L (15-37); Alanine Aminotransfer ALT/SGPT 33 U/L (13-56); Albumin, Serum 4.1 g/dL (3.2-5.0); Alkaline Phosphatase 71 U/L (45-117); Anion Gap 6 (5-15); BUN 16 mg/dL (7-18); BUN/Creat Ratio 23.5 RATIO (10-20); Calcium,Total 9.3 mg/dL (8.5-10.1); Chloride 103 mmol/L (98-107); Creatinine, Serum 0.68 mg/dL (0.55-1.02); EST Glomerular Filtration Rate 94 mL/min (>60); Est Glom Filt Rate - Afr Amer 114 mL/min (>60); Globulin 3.7 g/dL (2.2-4.2); Glucose 79 mg/dL (74-106); Protein, Total 7.8 g/dL (6.4-8.2); Sodium Level 139 mmol/L (136-145)
== END ==
PROVIDERS: PCP Family Medicine; Referring Provider Family Medicine; Visit Provider Family Medicine
DX: R59.1 Generalized enlarged lymph nodes (principal)
CPT/HCPCS: 36415; 80053; 85025

== ENCOUNTER → 2020-03-31 15:16 | Outpatient (CLI) | payer OTHER, SELFPAY ==
[2019-05-06 08:46] VITALS: BMI 24.0
== END ==
PROVIDERS: PCP Family Medicine; Referring Provider Family Medicine; Visit Provider Family Medicine
DX: N39.0 Urinary tract infection, site not specified (principal)
CPT/HCPCS: 87086; 87088

== ENCOUNTER → 2020-04-17 15:17 | Outpatient (CLI) | payer OTHER, SELFPAY ==
[2019-05-06 08:46] VITALS: BMI 24.0
--- NOTE | 2020-04-17 15:22 | US_ITS ---
STUDY: SUPERFICIAL ULTRASOUND - LEFT NECK REASON FOR EXAM: Female, 59 years old. Lower left neck mass. TECHNIQUE: A superficial ultrasound was performed with real-time and static boswell-scale imaging. COMPARISON: CT of the chest, 03-24-18. Thyroid ultrasound, 06-12-16. FINDINGS: Real-time sonographic imaging was performed over the palpable mass in the left supraclavicular region. In this region, there is a 0.9 x 0.6 x 0.6 cm lymph node as well as a 1.0 x 0.5 x 0.7 lymph node. Both have normal sonographic morphology. US/Head/Neck Soft Tissue IMPRESSION: 2 benign-appearing lymph nodes which correlate with palpable mass in the left neck. Electronically Signed: Kal Weathers DO at 20:10 EDT Tel [phone], Service support ,
== END ==
PROVIDERS: PCP Family Medicine; Referring Provider Family Medicine; Visit Provider Family Medicine
DX: R22.1 Localized swelling, mass and lump, neck (principal)
CPT/HCPCS: 76536

== ENCOUNTER → 2020-07-27 15:40 | Outpatient (CLI) | payer OTHER, SELFPAY ==
[2019-05-06 08:46] VITALS: BMI 24.0
== END ==
PROVIDERS: PCP Family Medicine; Referring Provider Family Medicine; Visit Provider Family Medicine
DX: Z20.828 Contact with and (suspected) exposure to other viral communicable diseases (principal)
CPT/HCPCS: 87635; U0003

== ENCOUNTER → 2021-01-16 11:50 | Outpatient (CLI) | payer OTHER, SELFPAY ==
[2020-12-27 08:10] VITALS: BMI 24.0
--- NOTE | 2021-01-16 11:53 | RAD_ITS ---
STUDY: X-RAY - THORACIC SPINE REASON FOR EXAM: Female, 60 years old. THORACIC BACK PAIN TECHNIQUE: 3 view(s) of the thoracic spine were obtained. COMPARISON: None. FINDINGS: Normal kyphosis of the thoracic spine. There is no substantial scoliosis. There is multilevel endplate spondylosis of the thoracic vertebrae. There is multilevel disc space narrowing of the thoracic spine. The soft tissue structures are unremarkable. RAD/Thoracic Spine 2 Views IMPRESSION: Multilevel disc space narrowing and spondylosis. Electronically Signed: Wilfrid Srinivasan MD at 9:31 EDT , Service support ,
--- NOTE | 2021-01-16 11:55 | RAD_ITS ---
STUDY: X-RAY - CERVICAL SPINE REASON FOR EXAM: Female, 60 years old. NECK PAIN TECHNIQUE: 5 view(s) of the cervical spine were obtained including oblique views. COMPARISON: None FINDINGS: Normal anterior atlantoaxial articulation. Normal odontoid process. There is straightening of the normal cervical lordosis. Normal vertebral bodies and endplates. Normal disc space heights. Normal visualized intervertebral neuroforamina. The soft tissue structures are unremarkable. RAD/Cerv Spine 4 or 5 Views IMPRESSION: Normal x-ray examination of the visualized cervical spine. Electronically Signed: Wilfrid Srinivasan MD at 9:31 EDT , Service support ,
== END ==
PROVIDERS: PCP Family Medicine; Referring Provider Family Medicine; Visit Provider Family Medicine
DX: M54.2 Cervicalgia (principal); M54.6 Pain in thoracic spine
CPT/HCPCS: 72050; 72070

== ENCOUNTER → 2021-01-19 07:28 | Outpatient (CLI) | payer OTHER, SELFPAY ==
[2019-05-06 08:46] VITALS: BMI 24.0
[2020-12-27 08:10] VITALS: BMI 24.0
--- NOTE | 2021-01-19 07:31 | BI_ITS ---
MAMMOGRAPHY - BILATERAL SCREENING REASON FOR EXAM: Female, 60 years old. Routine annual screening examination. PERTINENT HISTORY: Daughter with breast cancer. Mother with breast cancer. Grandmother with breast cancer. TECHNIQUE: Digital bilateral breast kaylee (3D mammographic acquisition) in the CC and MLO projections. 2-D mediolateral oblique (MLO) and craniocaudad (CC) views of both breasts were obtained. CAD: Full Field Digital Mammography with Computer Added Detection was performed. COMPARISON: Comparison is made with prior examination dated 04/28/2019 and 03/10/2008. FINDINGS: Breast Composition: The breasts are heterogeneously dense, which may obscure small masses. There are no dominant masses or suspicious calcifications. No other significant abnormalities are identified. There has been no significant change since the prior study. BI/SCRN MAMM (CAD)W/KAYLEE BILAT IMPRESSION: Stable bilateral screening mammogram. Yearly follow-up mammogram recommended. (A) ASSESSMENT CATEGORY: BIRADS Category 1: Negative. A letter regarding these results will be sent to the patient by the facility within 30 days. Approximately 10% of breast cancers are not detected by mammography. A normal mammogram should not delay biopsy of a clinically suspicious abnormality. [id number] Electronically Signed: Wilfrid Srinivasan MD at 8:30 EDT , Service support ,
== END ==
PROVIDERS: PCP Family Medicine; Referring Provider Nurse Practitioner Women's Health; Visit Provider Nurse Practitioner Women's Health
DX: Z12.31 Encounter for screening mammogram for malignant neoplasm of breast (principal)
CPT/HCPCS: 77063; 77067

== ENCOUNTER 2021-02-06 07:00 | Outpatient (RCR) | payer OTHER, SELFPAY ==
[2020-12-27 08:10] VITALS: BMI 24.0
--- NOTE | 2021-01-30 08:14 | HP.PTEVAL ---
Patient's Visit Information SHAGUFTA JAMES is a 60 year old F referred to Physical Therapy by Dr. Charles Hernandez MD with a diagnosis of Thoracic Spine Pain. Date of Evaluation: 01/30/21 Physical Therapist: KURT Arnold - Visit Plan Frequency: 1x/Week Duration: 4 Weeks Plan: 1X/ week for 4 weeks to learn and postural stretching program, scapular and postural HEP and H&W rountine with HEP. HEP: mid row with green t-band, Prone thoracic extension, Rhomboid stretch in anson pose, and levator stretch - Subjective Pt reports that she started with thoracic pain about a month ago and upper shoulder pain.. She has no pain currently but she had intense enough pain and spasms that she went to Dr and he ordered an x-ray. He gave her a muscle relaxor and she only took it twice. She is on Alieve. 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 Her daughter pulled on her a lot to get out of bed. She has LB issues and does have some disc issues but it seems to have moved up to LB area. Her x-ray of her neck is normal and thoracic shows some mild spondylosis and smaller disc height. She has no weakness in her arms. She had a couple weeks of spasms in thoracic area. No N&T or arm weakness. She has pain in her neck at night and tries to sleep without a pillow. She has no DAN. - Pain thoracic Pain Intensity (Out of 10): 0 No DAN Pain Intensity (Out of 10): 0 - Objective Gait: walks with normal gait pattern with very little thoracic or L-spine movement/rotation. Director Consumer strength (R handed): R 45 L 45. Posture: sits with slightly rounded shoulders and slight FW head posture. UE AROM B WFL. UE MMT: Shld flex 4-/5, abd 4-/5, ER 4-/5, IR 4/5. C-spine AROM: flex 100%, ext 75%, SB B 75%, Rot L 65% and Rot R 75%. Palpation: tender and tight mid and lower trap, rhomboids. Prone thoracic mobs felt good to the patient.... - Goals Goal 1:: I HEP and gym routine Goal Time Frame: 4-6 Weeks Goal 2:: Sit with upright posture during treatment sessions Goal Time Frame: 4-6 Weeks Goal 3:: Decrease complaints of upper back tightness and spasm Goal Time Frame: 4-6 Weeks Goal 4:: Be able to come home from work at the end of the day with 50% less pain Goal Time Frame: 4-6 Weeks - Rehabilitation Potential Rehabilitation Potential: Good - Anticipated Interventions Patient/Client Instruction: Educate patient on: Condition, Plan of Care For the Purpose of:: To decrease pain, To increase ROM, To improve nutrient delivery to tissue, To improve muscle performance and motor function, To improve ability to perform ADL's, To increase tolerance to activity/condition/position, To improve performance and independence with ADL's, To improve ability of physical actions for home/community/work/leisure, To decrease soft tissue restriction, To increase flexibility/ROM Therapeutic Exercise to Include: Strength training, Body mechanics, Postural training, Flexibilty training, Passive ROM, Active ROM, Dynamic Lumbar Stabilization, Scapular Strength/Stabilization For the Purpose of:: To improve nutrient delivery to tissue, To increase oxygenation perfusion, To improve muscle performance and motor function, To improve ability to perform ADL's, To increase tolerance to activity/condition/position, To improve performance and independence with ADL's, To improve health of tissue, To decrease soft tissue restriction, To increase flexibility/ROM Manual Therapy Techniques to Include: Mobilization, Passive ROM, Soft tissue mobilization For the Purpose of:: To increase ROM, To improve nutrient delivery to tissue, To improve muscle performance and motor function, To improve ability to perform ADL's, To increase tolerance to activity/condition/position, To decrease soft tissue restriction, To increase flexibility/ROM IF ES: Yes Cryotherapy (ice pack, ice massage): Yes Thermo therapy (hot pack): Yes Ultrasound (thermal/non thermal): Yes For the Purpose of:: To decrease pain, To improve nutrient delivery to tissue Thank you for the opportunity to evaluate your patient. For Medicare and Medicare HMO plans, please review the plan of care and approve it. It will need to be FAXED BACK to us at [phone] for Medicare purposes. For Medicare only, by signing this I certify the plan of care. Please let me know if there are questions or concerns regarding this plan of care. Physician Signature: Date:
--- NOTE | 2021-06-27 11:52 | HP.PTDCNRP_ITS ---
SHAGUFTA JAMES was seen in my office for initial evaluation on 01/30/21. The following Plan of Care was established for this patient: Initial Frequency: 1x/Week Initial Duration: 4 Weeks Patient/Client Instruction: Educate patient on: Condition, Plan of Care For the Purpose of:: To decrease pain, To increase ROM, To improve nutrient delivery to tissue, To improve muscle performance and motor function, To improve ability to perform ADL's, To increase tolerance to activity/condition/position, To improve performance and independence with ADL's, To improve ability of physical actions for home/community/work/leisure, To decrease soft tissue restriction, To increase flexibility/ROM Therapeutic Exercise to Include: Strength training, Body mechanics, Postural training, Flexibilty training, Passive ROM, Active ROM, Dynamic Lumbar Stabilization, Scapular Strength/Stabilization For the Purpose of:: To improve nutrient delivery to tissue, To increase oxygenation perfusion, To improve muscle performance and motor function, To impr ove ability to perform ADL's, To increase tolerance to activity/condition/position, To improve performance and independence with ADL's, To improve health of tissue, To decrease soft tissue restriction, To increase flexibility/ROM Manual Therapy Techniques to Include: Mobilization, Passive ROM, Soft tissue mobilization For the Purpose of:: To increase ROM, To improve nutrient delivery to tissue, To improve muscle performance and motor function, To improve ability to perform ADL's, To increase tolerance to activity/condition/position, To decrease soft tissue restriction, To increase flexibility/ROM IF ES: Yes Cryotherapy (ice pack, ice massage): Yes Thermo therapy (hot pack): Yes Ultrasound (thermal/non thermal): Yes For the Purpose of:: To decrease pain, To improve nutrient delivery to tissue This patient was last seen in our office 02/06/21. Pertinent comments regarding their Physical therapy will appear below: DC PT as pt did not reschedule At this point I will be discontinuing this patient from physical therapy. I would be happy to see this patient again in the future if found appropriate by the physician. Thank you! Maeve Hanson, MPT Balance/Gait/Functional tests - Balance/Special Test Scores Oswestry Low Back Score: 6
== END 2021-02-06 19:00 | disposition home or self-care (01) ==
LOC: PT 07:00
PROVIDERS: PCP Family Medicine; Referring Provider Family Medicine; Visit Provider Family Medicine
DX: M54.6 Pain in thoracic spine (principal)
CPT/HCPCS: 97110; 97161

== ENCOUNTER 2021-02-10 18:54 | Emergency (ER) | payer OTHER, SELFPAY ==
[2020-12-27 08:10] VITALS: BMI 24.0
[2021-02-10 18:55] VITALS: BP 130/67; PULSE 78; RESP 16; TEMP 36.6; O2SAT 96; BMI 24.4
--- NOTE | 2021-02-10 19:52 | EDS_ITS ---
HPI History of Present Illness Chief Complaint: Abscess Narrative Narrative: Patient is a 60-year-old female with a history of rheumatoid arthritis on methotrexate who presents to the emergency department for suspected abscess to right groin. It has been present over the past 10 days. She has had abscesses in her axilla before but never in her groin. She is never been diagnosed with MRSA. She has been feeling nauseous but not vomiting. She denies any fevers. No abdominal pain or back pain. She denies any vaginal bleeding or discharge. No urinary symptoms. She has been taking [id number] pain medicine for this which has not been giving significant relief. She currently describes the pain as severe. No history of diabetes. [facility] Medical History (Updated 02/10/21 @ 19:[address] Robbie Vaughn DO) Sjogren's disease Thyroid disease Home Medications clonazepam 0.5 mg PO QHS 10/07/13 [History Last Taken 12/02/17 22:00] nicotine 14 mg TRANSDERM. DAILY 10/07/13 [History Last Taken 12/04/17 00:44] rizatriptan 10 mg PO .X1 PRN PRN 10/07/13 [History Last Taken Unknown] levothyroxine 25 mcg tablet 25 mcg PO DAILY 05/30/18 [History Last Taken Unknown] ascorbate calcium (vitamin C) 500 mg tablet 500 mg PO DAILY 12/27/20 [History Last Taken Unknown] biotin 10,000 mcg capsule mcg PO 12/27/20 [History Last Taken Unknown] cholecalciferol (vitamin D3) 50 mcg (2,000 unit) capsule 50 mcg PO DAILY 12/27/20 [History Last Taken Unknown] folic acid 1 mg tablet 2 mg PO DAILY tablet 12/27/20 [History Last Taken Unknown] mecobalamin (vitamin B12) 5,000 mcg disintegrating tablet mcg PO 12/27/20 [History Last Taken Unknown] methotrexate sodium 7.5 mg tablet 7.5 mg PO QWEEK 12/27/20 [History Last Taken Unknown] pyridoxine (vitamin B6) 25 mg tablet 25 mg PO DAILY 12/27/20 [History Last Taken Unknown] clindamycin HCl 450 mg PO TID 7 Days #63 cap 02/10/21 [Rx Last Taken Unknown] Allergy/AdvReac Type Severity Reaction Status Date / Time latex Allergy Swelling Verified 02/10/21 18:55 Sulfa (Sulfonamide Allergy Swelling Verified 02/10/21 18:55 Antibiotics) codeine AdvReac Other Verified 02/10/21 18:55 duloxetine HCl AdvReac Other Verified 02/10/21 18:55 [From Cymbalta] escitalopram oxalate AdvReac Other Verified 02/10/21 18:55 [From Lexapro] omeprazole AdvReac Diarrhea Verified 02/10/21 18:55 pantoprazole [From Protonix] AdvReac Diarrhea Verified 02/10/21 18:55 paroxetine [Paroxetine] AdvReac Other Verified 02/10/21 18:55 venlafaxine HCl AdvReac Other Verified 02/10/21 18:55 [From Effexor] Family History Daughter Breast cancer triple negative Mother Heart disease Breast cancer Father Heart disease Colon cancer Grandmother Breast cancer maternal Surgical History History of cholecystectomy Hx of section Hx of hysterectomy Hx of tonsillectomy Social History adopted: No household members: spouse current occupational status: employed current occupation: [employer] pets and animals: No Smoking Status: Current every day smoker second hand exposure: No alcohol intake: current alcohol intake frequency: holidays/special occasions only seatbelt use: always do you feel safe at home: Yes ROS ROS ED Constitutional Constitutional ED: Denies chills or fever(s) Eyes Eyes: Denies change in vision ENT ENT ED: Denies epistaxis or rhinorrhea Cardiovascular Cardiovascular: Denies chest pain or palpitations Respiratory/Chest Respiratory/Chest: Denies cough, dyspnea or dyspnea on exertion Gastrointestinal Gastrointestinal: Reports nausea; Denies abdominal pain, diarrhea or vomiting Genitourinary Genitourinary ED: Denies dysuria, hematuria or urinary frequency Musculoskeletal Musculoskeletal: Denies back pain or neck pain Integumentary Reports abscess Neurologic Neurologic: Denies dizziness, headache(s) or weakness EXAM Physical Exam Const Vital Signs: 02/10/21 18:55 Temperature 97.9 F Temperature Source Temporal Pulse Rate 78 Respiratory Rate 16 Blood Pressure 130/67 H Blood Pressure Mean 88 Pulse Ox 96 Oxygen Delivery Method Room Air Positive well nourished and well developed General Appearance ED: well developed and NAD HEENT Reports normocephalic, head/scalp atraumatic and moist mucous membranes Eyes PERRL and EOMs intact bilaterally Neck supple Resp normal respiratory effort and clear to auscultation bilaterally Cardio regular rate and regular rhythm GI Palpation: soft; Negative for guarding or rebound tenderness present Back/Spine no CVA tenderness Extremity normal to inspection General Extremety ED: Negative for edema General Extremity: Negative for edema Neuro no sensory deficits noted Sensorium / Orientation: alert Motor Exam: strength 5/5 throughout Psych mental status grossly normal Skin Skin Narrative: Over the right labia majora there is erythema, warmth and tenderness. Bedside ultrasound was performed which did not show any large fluid collection. This does not extend down to the perineum. No crepitus appreciated. MDM MDM MDM Narrative Medical decision making narrative: Patient presents the ED for suspected abscess to right groin. On physical exam there does appear to be cellulitis. Bedside ultrasound did not show a large fluid collection. No indication for drainage of this abscess. Will cover with antibiotics. She states that she cannot take Bactrim so will cover with clindamycin. She is to follow-up with her PCP. Return precautions are reviewed with her including developing systemic symptoms or spreading of the rash. She understands and is agreeable this plan. Discharged home in stable condition. All questions were answered. Discharge Plan Triage Chief Complaint: Abscess ED Provider: Robbie Vaughn Dx/Rx/DC Orders Clinical Impression: Abscess Instructions: ED Abscess Antibiotic Treatment Only Prescriptions: New clindamycin HCl 150 mg capsule 450 mg PO TID 7 Days Qty: 63 RF: 0 No Action levothyroxine [Synthroid] 25 mcg tablet 25 mcg PO DAILY RF: 0 methotrexate sodium 7.5 mg tablet 7.5 mg tablet 7.5 mg PO QWEEK RF: 0 cholecalciferol (vitamin D3) 50 mcg (2,000 unit) capsule 50 mcg PO DAILY RF: 0 pyridoxine (vitamin B6) 25 mg tablet 25 mg PO DAILY RF: 0 mecobalamin (vitamin B12) 5,000 mcg tablet,disintegrating PO RF: 0 ascorbate calcium (vitamin C) 500 mg tablet 500 mg PO DAILY RF: 0 biotin 10,000 mcg capsule PO RF: 0 folic acid 1 mg tablet 2 mg PO DAILY RF: 0 clonazepam 0.5 MG tablet 0.5 mg PO QHS RF: 0 rizatriptan 10 MG tablet 10 mg PO .X1 PRN PRN (Reason: Migraine Symptoms) RF: 0 nicotine 21 MG patch 14 mg TRANSDERM. DAILY RF: 0 Primary Care Provider: Chrales Hernandez Referrals: Charles Hernandez MD [Primary Care Provider] - 3-5 Days if not improving Disposition Disposition: Home, self care
[2021-02-10 20:07] VITALS: BP 130/67; PULSE 78; RESP 16; O2SAT 96
== END 2021-02-10 20:07 | disposition home or self-care (01) ==
LOC: ED 20:00
PROVIDERS: Emergency Provider Emergency Medicine; PCP Family Medicine
DX: L02.214 Cutaneous abscess of groin (principal); F17.200 Nicotine dependence, unspecified, uncomplicated; M06.9 Rheumatoid arthritis, unspecified; E07.9 Disorder of thyroid, unspecified; Z79.899 Other long term (current) drug therapy
CPT/HCPCS: 99282

== ENCOUNTER → 2021-02-27 11:16 | Outpatient (CLI) | payer OTHER, SELFPAY ==
[2021-02-10 18:55] VITALS: BMI 24.4
[2021-02-27 15:28] LABS: T4 Free Direct 1.19 ng/dL (0.76-1.46); T4 Total, Thyroxin 12.7 ug/dL (4.8-13.9); Thyroid Stim Hormone (TSH) 1.87 uIU/mL (0.358-3.74)
== END ==
PROVIDERS: PCP Family Medicine; Visit Provider Family Medicine
DX: E03.9 Hypothyroidism, unspecified (principal)
CPT/HCPCS: 36415; 84436; 84439; 84443; 84481

== ENCOUNTER → 2021-06-18 17:39 | Outpatient (CLI) | payer OTHER, SELFPAY | PROVIDERS: PCP Family Medicine; Referring Provider Family Medicine; Visit Provider Family Medicine | DX: Z20.822 Contact with and (suspected) exposure to COVID-19 (principal) | CPT/HCPCS: 87635; U0005; U0003 ==

== ENCOUNTER → 2021-06-22 07:28 | Outpatient (CLI) | payer OTHER, SELFPAY | PROVIDERS: Visit Provider Family Medicine | DX: Z20.822 Contact with and (suspected) exposure to COVID-19 (principal) | CPT/HCPCS: 87635; U0005; U0003 ==

== ENCOUNTER → 2021-06-25 16:14 | Outpatient (CLI) | payer OTHER, SELFPAY ==
--- NOTE | 2021-06-25 16:17 | RAD_ITS ---
INDICATION: EORDER EXAMINATION/TECHNIQUE: X-RAY - XR Chest 2 Views COMPARISON: 12/03/2017. FINDINGS: LINES/DEVICES: None. LUNGS: Subtle calcifications visualized in the lateral aspect of the right upper lobe demonstrate no significant increase in comparison to the prior study suggestive of calcified granulomas. Peribronchial cuffing bilateral hilar prominence demonstrate no significant change. The bronchovascular interstitial lung markings otherwise unremarkable, no evidence of focal infiltrate or consolidation is seen. No evidence of pneumothorax or pleural effusion. No evidence of parenchymal lung mass. MEDIASTINUM AND CARDIOVASCULAR STRUCTURES: Cardiac silhouette not enlarged. Central airways and mediastinal contour are unremarkable. BONES AND SOFT TISSUES: Unremarkable. RAD/Chest PA and Lateral IMPRESSION: No radiographic evidence of acute cardiopulmonary disease. Electronically Signed: Washington Maciel MD at 11:41 EDT Tel , Service support ,
== END ==
PROVIDERS: PCP Family Medicine; Referring Provider Family Medicine; Visit Provider Family Medicine
DX: Z20.822 Contact with and (suspected) exposure to COVID-19 (principal)
CPT/HCPCS: 71046

== ENCOUNTER → 2021-06-27 17:52 | Outpatient (CLI) | payer OTHER, SELFPAY | PROVIDERS: PCP Family Medicine; Referring Provider Family Medicine; Visit Provider Family Medicine | DX: U07.1 COVID-19 (principal) | CPT/HCPCS: 87635; U0005; U0003 ==

== ENCOUNTER 2021-06-29 14:17 | Outpatient (CLI) | payer OTHER, SELFPAY ==
[2021-06-29 14:26] VITALS: BP 110/88; PULSE 85; RESP 16; TEMP 36.8; O2SAT 98; BMI 24.3
[2021-06-29] MEDS: 0.9% Saline Lock 10 ML Syringe IV (14:30)
[2021-06-29] MEDS: Acetaminophen 325 MG Tablet 650 MG PO (16:18)
[2021-06-29 16:30] VITALS: BP 121/66; PULSE 76; RESP 16; TEMP 38.7; O2SAT 94
== END 2021-06-29 16:31 | disposition home or self-care (01) ==
LOC: MS3OUT 14:20 → MS3 14:21
PROVIDERS: PCP Family Medicine; Referring Provider Nurse Practitioner Adult Health; Visit Provider Nurse Practitioner Adult Health
DX: Z23 Encounter for immunization (principal); U07.1 COVID-19
CPT/HCPCS: J7050; M0243; A4216; Q0240

== ENCOUNTER 2021-08-21 19:22 | Emergency (ER) | payer OTHER, SELFPAY ==
[2021-08-21 19:23] VITALS: BP 147/81; PULSE 94; RESP 18; TEMP 37; O2SAT 95; BMI 25.0
--- NOTE | 2021-08-21 21:30 | ED.VIS.FEGU ---
HPI HPI - Female History of Present Illness Chief Complaint: Female C/O Informant: patient Pain Pain: Positive for Pelvic Pain and Vulvar Pain Onset: Yesterday Context: Sudden Onset Timing: Intermittent Quality: Positive for Burning Location: - (Vagina) Current Severity: Mild Maximum Severity: Severe Worsened by: - (Urination) Bleeding Issue: Negative for Vaginal bleeding Associated Symptoms Associated Symptoms: Positive for Dysuria; Negative for Frequency, Urgency and Hematuria Narrative Narrative: Patient is a mid woman with history of Covid, autoimmune disorder, PFO, hypothyroidism, hiatal hernia and depression with anxiety presents with dysuria. She states she feels a bump. She did contact her grooming salon manager who tested her urine yesterday and states it was negative. 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 Twin Muñoz who requested she come to the hospital. She denies fever, chills night sweats. She denies nausea, vomiting or diarrhea. She states she has not had a bowel movement in 2 days. She is still passing gas. She is status post x3. She denies prior history of bowel obstruction. She denies fever, chills night sweats. Prior similar symptoms: No Recent Illness/Hospitalization: No [facility] Medical History (Updated 08/21/21 @ 22:[address] Bijan Dwyer MD) Sjogren's disease Thyroid disease Home Medications clonazepam 0.5 mg PO QHS 10/07/13 [History Last Taken 12/02/17 22:00] nicotine 7 mg TRANSDERM. DAILY 10/07/13 [History Last Taken 12/04/17 00:44] levothyroxine 25 mcg tablet 25 mcg PO DAILY 05/30/18 [History Last Taken Unknown] biotin 10,000 mcg capsule 10,000 mcg PO DAILY 12/27/20 [History Last Taken Unknown] cholecalciferol (vitamin D3) 50 mcg (2,000 unit) capsule 50 mcg PO DAILY 12/27/20 [History Last Taken Unknown] folic acid 1 mg tablet 1 mg PO DAILY tablet 12/27/20 [History Last Taken Unknown] mecobalamin (vitamin B12) 5,000 mcg disintegrating tablet 5,000 mcg PO DAILY 12/27/20 [History Last Taken Unknown] methotrexate sodium 7.5 mg tablet 7.5 mg PO QWEEK 12/27/20 [History Last Taken Unknown] pyridoxine (vitamin B6) 25 mg tablet 25 mg PO DAILY 12/27/20 [History Last Taken Unknown] nitrofurantoin monohyd/m-cryst 100 mg PO Q12 #10 capsule 08/21/21 [Rx Last Taken Unknown] phenazopyridine [Pyridium] 200 mg PO TID #6 tab 08/21/21 [Rx Last Taken Unknown] Allergy/AdvReac Type Severity Reaction Status Date / Time latex Allergy Swelling Verified 08/21/21 19:26 Sulfa (Sulfonamide Allergy Swelling Verified 08/21/21 19:26 Antibiotics) codeine AdvReac Other Verified 08/21/21 19:26 duloxetine HCl AdvReac Other Verified 08/21/21 19:26 [From Cymbalta] escitalopram oxalate AdvReac Other Verified 08/21/21 19:26 [From Lexapro] omeprazole AdvReac Diarrhea Verified 08/21/21 19:26 pantoprazole [From Protonix] AdvReac Diarrhea Verified 08/21/21 19:26 paroxetine [Paroxetine] AdvReac Other Verified 08/21/21 19:26 venlafaxine HCl AdvReac Other Verified 08/21/21 19:26 [From Effexor] Family History Daughter Breast cancer triple negative Mother Heart disease Breast cancer Father Heart disease Colon cancer Grandmother Breast cancer maternal Surgical History History of cholecystectomy Hx of section Hx of hysterectomy Hx of tonsillectomy Social History adopted: No household members: spouse current occupational status: employed current occupation: [employer] pets and animals: No Smoking Status: Former smoker second hand exposure: No alcohol intake: current alcohol intake frequency: holidays/special occasions only seatbelt use: always do you feel safe at home: Yes ROS ROS ED Constitutional Constitutional ED: Denies chills, fever(s), subjective or sweats Gastrointestinal Gastrointestinal: Reports constipation; Denies abdominal pain, diarrhea, melena, nausea or vomiting Genitourinary Genitourinary ED: Reports dysuria; Denies hematuria, urinary frequency or vaginal bleeding Musculoskeletal Musculoskeletal: Denies arthralgias, myalgias or neck pain Integumentary Denies Abrasions or rash Neurologic Neurologic: Denies paresthesias or weakness EXAM Physical Exam Const Vital Signs: 08/21/21 19:23 Temperature 98.6 F Temperature Source Temporal Pulse Rate 94 Respiratory Rate 18 Blood Pressure 147/81 H Blood Pressure Mean 103 Pulse Ox 95 Oxygen Delivery Method Room Air Positive well nourished and well developed General Appearance ED: well developed and NAD; Negative for pallor HEENT HEENT Narrative: Head is atraumatic normocephalic. Ears normal. Eyes PERRL and EOMs intact bilaterally General Eye ED: Negative for pale conjunctiva or scleral icterus Neck no lymphadenopathy, supple and no JVD Resp normal respiratory effort and clear to auscultation bilaterally Cardio regular rate, regular rhythm, S1 normal heart sound, no murmurs and no JVD GI normal to inspection, nondistended, normoactive bowel sounds, soft to palpation, non-tender and non-distended no CVA tenderness External Female Exam: externally tender localized (Patient has erythema and inflammation of the urethra with tenderness to touch) and tenderness of urethra; Negative for normal appearance of the urethra Speculum Exam - Vagina: other There is tenderness to palpation of the bladder. ; Negative for vagina atrophic mucosa, vaginal cyst, vaginal erythema, foreign body in vagina, vaginal laceration, vaginal lesion, vaginal bleeding, tissue present in vagina or vaginal tenderness Bimanual Exam - Adnexa, Other: Negative for adexal tenderness, adexal mass or cul-de-sac fullness Back/Spine no CVA tenderness Extremity normal to inspection Neuro oriented x3 and CN's II-XII intact bilaterally Sensorium / Orientation: alert and oriented to person Psych mental status grossly normal Skin no rashes or lesions noted and no wounds General Skin Exam: Negative for jaundice or pallor MDM MDM MDM Narrative Medical decision making narrative: CBC was obtained since she is a immunosuppressive agents as white count and differential. UA was obtained. Lab Data Attestation: I reviewed the patient's lab results. Lab results narrative: Patient's white count is upper end of normal. Basic metabolic panel is unremarkable. Urine is consistent with infection. Culture was sent that she is on immunosuppressive agents. Since this is a lower tract infection she was treated with Azo and Macrobid. Prescriptions were sent to her pharmacy. She was discharged to home. Labs: Laboratory Results - last 24 hr 11/30/21 11/30/21 11/30/21 21:40 21:40 22:15 WBC 10.8 RBC 4.22 Hgb 14.1 Hct 41.0 MCV 97.2 MCH 33.4 H MCHC 34.4 RDW Std Deviation 44.9 H RDW Coeff of Jimbo 12.6 Plt Count 228 MPV 10.2 Immature Gran % (Auto) 0.400 Neut % (Auto) 78.9 H Lymph % (Auto) 12.3 L Smyth % (Auto) 6.7 Eos % (Auto) 1.4 Baso % (Auto) 0.3 Absolute Neuts (auto) 8.5 H Absolute Lymphs (auto) 1.32 Nucleated RBC % 0 Sodium 139 Potassium 4.0 Chloride 105 Carbon Dioxide 27.0 Anion Gap 7 BUN 16 Creatinine 0.97 Estim Creat Clear Calc 63.77 Est GFR (MDRD) Af Amer 76 Est GFR (MDRD) Non-Af 63 BUN/Creatinine Ratio 16.5 Glucose 98 Calcium 9.0 Urine Color Leslie Urine Clarity Cloudy Urine pH 5.0 Ur Specific Huntley 1.015 Urine Protein 30 H Urine Glucose (UA) Normal Urine Ketones Negative Urine Occult Blood 250 H Urine Nitrite Positive H Urine Bilirubin 3 H Urine Urobilinogen 8 H Ur Leukocyte Esterase 500 H Urine RBC 25-50 SEEN Urine WBC 50-100 SEEN Ur Squamous Epith Cells 0-5 SEEN Amorphous Sediment 1+ URATE Urine Bacteria 1+ Urine Mucus 0 SEEN Discharge Plan Triage Chief Complaint: Female C/O ED Provider: Bijan Dwyer Dx/Rx/DC Orders Clinical Impression: Acute hemorrhagic cystitis Instructions: ED CYSTITIS Female Adult Prescriptions: New nitrofurantoin monohyd/m-cryst [nitrofurantoin monohyd/m-cryst] 100 MG capsule 100 mg PO Q12 Qty: 10 RF: 0 phenazopyridine [Pyridium] 200 mg tablet 200 mg PO TID Qty: 6 RF: 0 No Action levothyroxine [Synthroid] 25 mcg tablet 25 mcg PO DAILY RF: 0 methotrexate sodium 7.5 mg tablet 7.5 mg tablet 7.5 mg PO QWEEK RF: 0 cholecalciferol (vitamin D3) 50 mcg (2,000 unit) capsule 50 mcg PO DAILY RF: 0 pyridoxine (vitamin B6) 25 mg tablet 25 mg PO DAILY RF: 0 mecobalamin (vitamin B12) 5,000 mcg tablet,disintegrating 5,000 mcg PO DAILY RF: 0 biotin 10,000 mcg capsule 10,000 mcg PO DAILY RF: 0 folic acid 1 mg tablet 1 mg PO DAILY RF: 0 clonazepam 0.5 MG tablet 0.5 mg PO QHS RF: 0 nicotine 21 MG patch 7 mg TRANSDERM. DAILY RF: 0 Primary Care Provider: Lex Dean Referrals: Lex Dean MD [Primary Care Provider] - 3-5 Days if not improving
[2021-08-21] MEDS: Ondansetron 4 MG/2 ML Vial IV (21:31)
[2021-08-21] MEDS: Morphine 4 MG/ML Syringe IV (21:31)
[2021-08-21 21:54] LABS: Absolute Lymphocyte Count 1.32 X10^3/uL (0.83-4.51); Absolute Neutrophil Count 8.5 X10^3/uL (2.0-7.7); Basophil# 0.03 X10^3/uL; Basophil% 0.3 % (0-1); Eosinophil# 0.15 X10^3/uL; Eosinophils% 1.4 % (0-5); Hemoglobin 14.1 g/dL (12.0-15.0); Lymphocyte # 1.32 X10^3/ul (0.83-4.51); Lymphocyte % 12.3 % (19-41); Mean Corp Hgb Conc 34.4 g/dL (32-36); Mean Corpuscular Hgb 33.4 pg (27.0-32.0); Mean Corpuscular Volume 97.2 fL (81-99); Mean Platelet Vol. 10.2 fl (6.2-12.0); Monocyte# 0.72 X10^3/uL; Monocyte% 6.7 % (0-10); NRBC Flagged by Analyzer 0 % (0-5); Neutrophil % 78.9 % (47-70); Platelet Count 228 K/mm3 (150-450); RBC Distribution Width CV 12.6 % (11.6-14.6); RBC Distribution Width SD 44.9 fl (35.1-43.9); Red Blood Count 4.22 M/mm3 (4.2-5.4); White Blood Count 10.8 K/mm3 (4.4-11.0)
[2021-08-21 22:09] LABS: Anion Gap 7 (5-15); BUN 16 mg/dL (7-18); BUN/Creat Ratio 16.5 RATIO (10-20); Chloride 105 mmol/L (98-107); Creatinine, Serum 0.97 mg/dL (0.55-1.02); EST Glomerular Filtration Rate 63 mL/min (>60); Est Glom Filt Rate - Afr Amer 76 mL/min (>60); Estimated Creatinine Clearance 63.77 ml/min; Glucose 98 mg/dL (74-106); Sodium Level 139 mmol/L (136-145)
[2021-08-21 22:23] LABS: Mucous, Urine 0 SEEN /hpf (<or=2+)
[2021-08-21 22:25] LABS: Color, Urine Amber (Yellow); Glucose, Dipstick Normal (Normal); Ketone-Dipstick Negative (Negative); Leukocyte Esterase-Dipstick 500 /ul (Negative); Nitrite-Dipstick Positive (Negative); Occult Blood-Urine 250 /ul (Negative); Protein-Dipstick 30 mg/dl (Negative); Specific Gravity, Urine 1.015 (1.002-1.030); Urine Clarity Cloudy (Clear); Urine Urobilinogen 8 mg/dl (Normal)
[2021-08-21 22:27] LABS: Urine Bilirubin Dipstick 3 mg/dL (Negative)
[2021-08-21 22:31] LABS: Bacteria 1+ /hpf (None Seen); Red Blood Cells-Urine 25-50 SEEN /hpf (0-5); Squamous Epithelial Cells - UA 0-5 SEEN /hpf (5-10); White Blood Cells 50-100 SEEN /hpf (0-5)
[2021-08-21 22:32] LABS: Amorphous Sediment 1+ URATE
[2021-08-21] MEDS: Nitrofurantoin Macrocrystals 100 MG Capsule PO (23:19)
[2021-08-21] MEDS: Phenazopyridine 95 MG Tablet 190 MG PO (23:19)
== END 2021-08-21 23:28 | disposition home or self-care (01) ==
LOC: ED 21:46
PROVIDERS: Emergency Provider Emergency Medicine; PCP Family Medicine
DX: N30.01 Acute cystitis with hematuria (principal); Z79.899 Other long term (current) drug therapy; Z87.891 Personal history of nicotine dependence
CPT/HCPCS: 80048; 81001; 85025; 87086; 87088; 96374; 96375; 99284; A4216; J2405

== ENCOUNTER → 2022-01-29 | Outpatient (CLI) | payer OTHER, SELFPAY ==
--- NOTE | 2022-01-29 07:49 | BI_ITS ---
MAMMOGRAPHY - BILATERAL SCREENING REASON FOR EXAM: Female, 61 years old. Routine annual screening examination. PERTINENT HISTORY: Daughter with breast cancer. Mother with breast cancer. Grandmother with breast cancer. TECHNIQUE: Digital bilateral breast kaylee (3D mammographic acquisition) in the CC and MLO projections. 2-D mediolateral oblique (MLO) and craniocaudad (CC) views of both breasts were obtained. CAD: Full Field Digital Mammography with Computer Added Detection was performed. COMPARISON: Comparison is made with prior study dated 01/19/2021 and 04/29/2019. FINDINGS: Breast Composition: The breasts are heterogeneously dense, which may obscure small masses. There are no dominant masses or suspicious calcifications. No other significant abnormalities are identified. There has been no significant change since the prior study. BI/SCRN MAMM (CAD)W/KAYLEE BILAT IMPRESSION: Stable bilateral screening mammogram. Yearly follow-up mammogram recommended. (A) ASSESSMENT CATEGORY: BIRADS Category 1: Negative. A letter regarding these results will be sent to the patient by the facility within 30 days. Approximately 10% of breast cancers are not detected by mammography. A normal mammogram should not delay biopsy of a clinically suspicious abnormality. [id number] Electronically Signed: Wilfrid Srinivasan MD at 9:31 EDT ,
== END | disposition home or self-care (01) ==
LOC: OPBI 07:49
PROVIDERS: PCP Family Medicine; Referring Provider Nurse Practitioner Women's Health; Visit Provider Nurse Practitioner Women's Health
DX: Z12.31 Encounter for screening mammogram for malignant neoplasm of breast (principal)
CPT/HCPCS: 77063; 77067

== ENCOUNTER 2022-05-10 11:21 | Emergency (ER) | payer OTHER, SELFPAY ==
[2022-05-10 11:22] VITALS: BP 140/81; PULSE 68; RESP 18; TEMP 36.1; O2SAT 99; BMI 24.9
--- NOTE | 2022-05-10 11:46 | CT_ITS ---
STUDY: CT BRAIN WITHOUT CONTRAST REASON FOR EXAM: Female, 61 years old. Head injury due to a fall. R vision disturbance RADIATION DOSAGE (If Supplied By Facility): CTDIvol = ( 44.99 ) mGy, DLP = ( 779.24 ) mGycm TECHNIQUE: Transaxial CT imaging of the brain was performed without administration of intravenous contrast material. Individualized dose optimization techniques were used for this CT. COMPARISON: No relevant priors. FINDINGS: Normal soft tissue structures. Normal calvarium. Normal size ventricles and extra-axial spaces for the patient''s age. Normal white matter tracts of the cerebral hemispheres. Normal basal ganglia and thalami. Normal brainstem. Normal cerebellum. There is no intracranial hemorrhage. There are no findings of an acute ischemic infarction. Normal visualized paranasal sinuses. CT/Brain/Head without Contrast IMPRESSION: Normal unenhanced CT scan of the brain. Electronically Signed: Wilfrid Srinivasan MD at 12:11 EDT ,
--- NOTE | 2022-05-10 11:46 | CT_ITS ---
STUDY: CT CERVICAL SPINE WITHOUT CONTRAST REASON FOR EXAM: Female, 61 years old. Neck injury due to a fall. Right-sided visual problems. RADIATION DOSAGE (If Supplied By Facility): CTDIvol = ( 20.28 ) mGy, DLP = ( 1203.39 ) mGycm TECHNIQUE: High resolution transaxial imaging was performed without contrast material. Sagittal and coronal images were reconstructed. Individualized dose optimization techniques were used for this CT. COMPARISON: None FINDINGS: Minimal degree of mucosal thickening of the left mastoid air cells. Normal craniovertebral junction. Normal anterior atlantoaxial articulation. Normal odontoid process. There is straightening of the normal cervical lordosis. Normal vertebral bodies and posterior osseous elements. C2-3: Normal endplates. Normal disc height and morphology. Normal central canal and intervertebral neuroforamina. C3-4: Normal endplates. Normal disc height and morphology. Normal central canal and intervertebral neuroforamina. C4-5: Normal endplates. Normal disc height and morphology. Normal central canal and intervertebral neuroforamina. C5-6: Mild degree of disc space narrowing at the C5-C6 level. C6-7: Normal endplates. Normal disc height and morphology. Normal central canal and intervertebral neuroforamina. C7-T1: Normal endplates. Normal disc height and morphology. Normal central canal and intervertebral neuroforamina. Normal visualized soft tissue structures. CT/Spine Cervical without Contras IMPRESSION: Mild degree of disc space narrowing at the C5-C6 level. Loss of the normal cervical lordosis. Electronically Signed: Wilfrid Srinivasan MD at 12:10 EDT ,
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
[2022-05-10 14:11] VITALS: BP 119/73; PULSE 69; RESP 16
== END 2022-05-10 14:13 | disposition home or self-care (01) ==
PROVIDERS: Emergency Provider Emergency Medicine; PCP Family Medicine; Visit Provider Emergency Medicine
DX: S09.90XA Unspecified injury of head, initial encounter (principal); M35.00 Sjogren syndrome, unspecified; V19.3XXA Pedal cyclist (driver) (passenger) injured in unspecified nontraffic accident, initial encounter; Z87.891 Personal history of nicotine dependence; H53.9 Unspecified visual disturbance; S16.1XXA Strain of muscle, fascia and tendon at neck level, initial encounter; R11.0 Nausea; Z86.16 Personal history of COVID-19
CPT/HCPCS: 70450; 72125; 99282; A4216

== ENCOUNTER → 2022-05-28 | Outpatient (CLI) | payer OTHER, SELFPAY | END | disposition home or self-care (01) | PROVIDERS: PCP Family Medicine; Referring Provider Family Medicine; Visit Provider Family Medicine | DX: R39.9 Unspecified symptoms and signs involving the genitourinary system (principal) | CPT/HCPCS: 87086; 87088 ==

== ENCOUNTER → 2022-06-18 | Outpatient (CLI) | payer OTHER, SELFPAY ==
[2022-06-18 12:13] LABS: Vitamin D,25 Hydroxy 39.2 ng/mL
[2022-06-18 12:21] LABS: Cholesterol 237 mg/dL (200); Free T3 3.2 pg/mL (2.18-3.98); High Density Lipoprotein 59 mg/dL; T4 Free Direct 1.26 ng/dL (0.76-1.46); Thyroid Stim Hormone (TSH) 1.94 uIU/mL (0.358-3.74); Triglycerides 121 mg/dL; Very Low Density Lipoprotein 24 mg/dL (5-40)
[2022-06-20 00:07] LABS: Thyroid Peroxidase AB 13 IU/mL (0-34)
[2022-06-20 16:27] LABS: Thyroglobulin Antibody < 1.0 IU/mL (0.0-0.9)
== END | disposition home or self-care (01) ==
LOC: LAB 11:13
PROVIDERS: PCP Family Medicine; Referring Provider Internal Medicine Endocrinology, Diabetes & Metabolism; Visit Provider Internal Medicine Endocrinology, Diabetes & Metabolism
DX: E03.8 Other specified hypothyroidism (principal); M35.00 Sjogren syndrome, unspecified; E04.2 Nontoxic multinodular goiter; E55.9 Vitamin D deficiency, unspecified
CPT/HCPCS: 36415; 80061; 82306; 84439; 84443; 84481; 86376; 86800

== ENCOUNTER → 2022-09-24 | Outpatient (CLI) | payer OTHER, SELFPAY ==
[2022-09-24 18:03] LABS: Hematocrit 42.3 % (37-47); Hemoglobin 14.2 g/dL (12.0-15.0); Mean Corp Hgb Conc 33.6 g/dL (32-36); Mean Corpuscular Volume 98.4 fL (81-99); Mean Platelet Vol. 10.8 fl (6.2-12.0); Platelet Count 250 K/mm3 (150-450); RBC Distribution Width SD 43.7 fl (35.1-43.9); White Blood Count 6.8 K/mm3 (4.4-11.0)
[2022-09-24 18:44] LABS: ALB/GLOB Ratio 1.3 RATIO (0.9-2.4); AST(SGOT) 12 U/L (15-37); Alanine Aminotransfer ALT/SGPT 22 U/L (13-56); Albumin, Serum 4.2 g/dL (3.2-5.0); Alkaline Phosphatase 79 U/L (45-117); Anion Gap 5 (5-15); BUN 10 mg/dL (7-18); BUN/Creat Ratio 14.3 RATIO (10-20); Calcium,Total 9.7 mg/dL (8.5-10.1); Chloride 104 mmol/L (98-107); EST Glomerular Filtration Rate 91 mL/min (>60); Est Glom Filt Rate - Afr Amer 110 mL/min (>60); Globulin 3.2 g/dL (2.2-4.2); Glucose 110 mg/dL (74-106); Potassium 3.9 mmol/L (3.5-5.1); Protein, Total 7.4 g/dL (6.4-8.2); Sodium Level 140 mmol/L (136-145)
== END | disposition home or self-care (01) ==
LOC: MTLAB 16:56
PROVIDERS: PCP Family Medicine; Referring Provider Family Medicine; Visit Provider Family Medicine
DX: R11.0 Nausea (principal)
CPT/HCPCS: 36415; 80053; 85027

== ENCOUNTER → 2022-11-04 | Outpatient (CLI) | payer OTHER, SELFPAY ==
[2022-11-04 10:15] LABS: T4 Free Direct 1.09 ng/dL (0.76-1.46); Thyroid Stim Hormone (TSH) 2.01 uIU/mL (0.358-3.74)
== END | disposition home or self-care (01) ==
PROVIDERS: PCP Family Medicine; Referring Provider Internal Medicine Endocrinology, Diabetes & Metabolism; Visit Provider Internal Medicine Endocrinology, Diabetes & Metabolism
DX: E03.9 Hypothyroidism, unspecified (principal)
CPT/HCPCS: 36415; 84439; 84443

== ENCOUNTER → 2023-01-09 | Outpatient (CLI) | payer OTHER, SELFPAY ==
[2023-01-09 10:23] LABS: T4 Free Direct 1.26 ng/dL (0.76-1.46); Thyroid Stim Hormone (TSH) 1.94 uIU/mL (0.358-3.74)
== END | disposition home or self-care (01) ==
LOC: MTLAB 07:04
PROVIDERS: PCP Family Medicine; Referring Provider Nurse Practitioner Family; Visit Provider Nurse Practitioner Family
DX: E03.8 Other specified hypothyroidism (principal); E06.3 Autoimmune thyroiditis
CPT/HCPCS: 36415; 84439; 84443

== ENCOUNTER 2023-02-12 05:31 | Day surgery (SDC) | payer OTHER, SELFPAY ==
[2023-02-12 05:59] VITALS: BP 131/78; PULSE 76; RESP 16; TEMP 36.7; O2SAT 97; BMI 23.4
[2023-02-12] MEDS: Lactated Ringers 1,000 ML 15 ML IV (06:08)
--- NOTE | 2023-02-12 06:30 | COLBX_PTH ---
PATIENT: SHAGUFTA JAMES LOC: EN U#:[id number] AGE/SX: 62/F ROOM: RE02/12/[address]: Dr. Karlo Seaman DO : 1960 BED: DIS: 02/12/2023 SPEC #: [id number] RECD: 02/12/23 10:39 STATUS: ELIN RECecil #: [id number] SHIVA: 02/12/23 06:[address]: Karlo Seaman DEPT: SURGICAL PATHOLOGY RECD BY: Priti Roy ENTERED: 02/12/23 11:40 SP TYPE: COLON BX OTHR DR: Dr. Aster Melendez MD Tissues: Sigmoid colon biopsy Procedures: Surgery Specimen Level IV HEADER OPERATION: Colonoscopy (MAC) with polypectomy PRE-OP DIAGNOSIS: Nausea, family history colon cancer TISSUE SUBMITTED: Sigmoid polyp MICROSCOPIC DIAGNOSIS Sigmoid colon polyp, biopsy: Hyperplastic polyp. AM:nato 02/13/2023 MICROSCOPIC DESCRIPTION Slides are reviewed. GROSS DESCRIPTION Received in fixative is one container labeled with the patient's name and designated sigmoid polyp. The specimen consists of one irregular fragment of light valencia soft tissue that measures 0.3 x 0.3 x 0.1 cm. The specimen is totally submitted in one cassette. / SJ:rg 02/12/2023 TC:5 CPT: 15279
--- NOTE | 2023-02-12 06:38 | HP.PCM_ITS ---
History and Physical Date of Admission: 02/12/23 62 F who presents to the office today to establish with GI. Starting in 08/2022 she experienced 6 wks of nausea. She also had no appetite. No illness preceded these symptoms. No vomiting, heartburn, acid reflux, dysphagia, abdominal pain, diarrhea, constipation, melena, hematochezia. Promethazine was helpful. The nausea and anorexia resolved spontaneously. 10/02/[address] Reddy: Z-line regular, gastritis, normal duodenum; bxs showed mild chronic inactive gastritis, neg celiac, neg duodenitis, neg esophagitis She has Sjogren's. 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 [place] father and paternal aunt had colon cancer mother and daughter had breast cancer She started [facility] [address] Li, due for next screening colonoscopy ROS Const Constitutional: Positive for fatigue and weakness ENT ENT: No difficulty swallowing Gastro GI: Positive for nausea/dyspepsia; No abdominal pain, belching, bloating, change in bowel habits, change in stool character, coffee ground emesis, constipation, cramping, diarrhea, heartburn, difficulty swallowing, feeling full early, excessive flatus, incontinent of stools, Vomiting blood/hematemesis, Blood in stool, loose stools, Black,tarry stools, pain with swallowing, vomiting or other Musc Musculoskeletal: Positive for muscle cramps, muscle weakness, numbness, tingling and leg pain at night; No joint pain Skin Skin: No yellowing of the eye or itchy eyes Neuro Neurology: Positive for weakness, numbness and tingling Psych Psychiatric: Positive for anxiety and No depression Endo Endocrine: Positive for fatigue Aller/Imm Allergy/Immunologic: No itchy eyes Rubén/Lymp Hematologic/Lymphatic: No easy bleeding or easy bruising Exam Const General: cooperative, healthy appearing and comfortable Orientation: alert, awake and oriented x3 Quality Reporting Tobacco Screening ([facility] 138) Smoking Status: Former smoker Assessment and Plan Assessment and Plan (1) Nausea: ?Status:?Acute ?Plan: 62 yo female with Sjogren's had 6 wks of nausea and anorexia which resolved spontaneously Inactive gastritis on bx Nausea due to ?autoimmune flare (2) FH: colon cancer: ?Status:?Acute ?Plan: Due for screening colonoscopy I have examined the patient and the H&P has been reviewed. There are no clinical changes since date of exam.
[2023-02-12 07:05] VITALS: BP 100/52; BP 131/78; PULSE 67; RESP 14; TEMP 36.6; O2SAT 99
--- NOTE | 2023-02-12 07:08 | OP.COLON_ITS ---
Patient Name: Marie Day Procedure Date: 02/12/2023 6:26 AM Date of : 1960 Age: 62 Procedure: Colonoscopy Indications: Screening for colorectal malignant neoplasm Providers: Karlo Seaman DO Medicines: Monitored Anesthesia Care Patient Profile: This is a 62 year old female. Refer to note in patient chart for documentation of history and physical. Last Colonoscopy: none. The patient's first colonoscopy is today. Complications: No immediate complications. Procedure: Pre-Anesthesia Assessment: - Prior to the procedure, a History and Physical was performed, and patient medications and allergies were reviewed. The patient is competent. The risks and benefits of the procedure and the sedation options and risks were discussed with the patient. All questions were answered and informed consent was obtained. Patient identification and proposed procedure were verified by the physician in the pre-procedure area. Mental Status Examination: alert and oriented. Airway Examination: normal oropharyngeal airway and neck mobility. Respiratory Examination: clear to auscultation. CV Examination: normal. Prophylactic Antibiotics: The patient does not require prophylactic antibiotics. Prior Anticoagulants: The patient has taken no previous anticoagulant or antiplatelet agents. After reviewing the risks and benefits, the patient was deemed in satisfactory condition to undergo the procedure. The anesthesia plan was to use monitored anesthesia care (MAC). Immediately prior to administration of medications, the patient was re-assessed for adequacy to receive sedatives. The heart rate, respiratory rate, oxygen saturations, blood pressure, adequacy of pulmonary ventilation, and response to care were monitored throughout the procedure. The physical status of the patient was re-assessed after the procedure. After I obtained informed consent, the scope was passed under direct vision. Throughout the procedure, the patient's blood pressure, pulse, and oxygen saturations were monitored continuously. The colonoscope was introduced through the anus and advanced to the cecum, identified by appendiceal orifice and ileocecal valve. The colonoscopy was performed without difficulty. The patient tolerated the procedure well. The quality of the bowel preparation was adequate. Scope In: 6:44:45 AM Scope Withdrawal Time 0 hours 10 minutes 4 seconds Scope Out: 6:58:39 AM Total Procedure Duration Time 0 hours 13 minutes 54 seconds Findings: The perianal and digital rectal examinations were normal. A 8 mm polyp was found in the sigmoid colon. The polyp was sessile. The polyp was removed with a hot snare. Resection and retrieval were complete. Verification of patient identification for the specimen was done. Estimated blood loss was minimal. A few small-mouthed diverticula were found in the recto-sigmoid colon and sigmoid colon. The exam was otherwise without abnormality on direct and retroflexion views. Impression: - One 8 mm polyp in the sigmoid colon, removed with a hot snare. Resected and retrieved. - Diverticulosis in the recto-sigmoid colon and in the sigmoid colon. - The examination was otherwise normal on direct and retroflexion views. Recommendation: - Discharge patient to home. - Resume previous diet. - Continue present medications. - Await pathology results. - Repeat colonoscopy in 5 years for surveillance. Procedure Code(s): --- Professional --- 98230, Colonoscopy, flexible; with removal of tumor(s), polyp(s), or other lesion(s) by snare technique CPT copyright 2017 [employer]. All rights reserved. The codes documented in this report are preliminary and upon traffic control officer review may be revised to meet current compliance requirements. Karlo Seaman DO 02/12/2023 7:07:54 AM This report has been signed electronically. Number of Addenda: 0 Note Initiated On: 02/12/2023 6:26 AM
--- NOTE | 2023-02-12 07:09 | OP.CCLET_ITS ---
02/12/2023 Aster [address]endez [address] [place] [address] Re : Colonoscopy procedure for Marie Day Dear Dr. Melendez This procedure was performed on Sunday, February 12, 2023. My impressions and recommendations are as follows: Impressions : - One 8 mm polyp in the sigmoid colon, removed with a hot snare. Resected and retrieved. - Diverticulosis in the recto-sigmoid colon and in the sigmoid colon. - The examination was otherwise normal on direct and retroflexion views. Recommendations : - Discharge patient to home. - Resume previous diet. - Continue present medications. - Await pathology results. - Repeat colonoscopy in 5 years for surveillance. My findings are described in the full procedure note, which is enclosed. If I can be of further assistance, please feel free to contact me at . Sincerely, Karlo Seaman, 02/12/2023 7:07:54 AM This report has been signed electronically.
[2023-02-12 07:10] VITALS: BP 131/78; BP 96/49; PULSE 85; RESP 16; O2SAT 98
[2023-02-12 07:15] VITALS: BP 111/61; BP 131/78; PULSE 69; RESP 16; O2SAT 99
[2023-02-12 07:20] VITALS: BP 131/78; BP 97/55; PULSE 67; RESP 16; TEMP 36.7; O2SAT 100
[2023-02-12 07:30] VITALS: BP 131/78
== END 2023-02-12 08:01 | disposition home or self-care (01) ==
LOC: EN 05:32 → AC 05:33
PROVIDERS: PCP Family Medicine; Referring Provider Family Medicine; Visit Provider Internal Medicine Gastroenterology
PROC: 0DJD8ZZ Inspection of Lower Intestinal Tract, Via Natural or Artificial Opening Endoscopic (ICD-10-PCS; CPT 45378; principal; 2023-02-12 06:25)
DX: Z12.11 Encounter for screening for malignant neoplasm of colon (principal); K57.30 Diverticulosis of large intestine without perforation or abscess without bleeding; Z80.0 Family history of malignant neoplasm of digestive organs; Z87.891 Personal history of nicotine dependence; K63.5 Polyp of colon
CPT/HCPCS: 45385; 88305; J7120; J2405

== ENCOUNTER → 2023-02-14 | Outpatient (CLI) | payer OTHER, SELFPAY ==
--- NOTE | 2023-02-14 07:08 | BI_ITS ---
MAMMOGRAPHY - BILATERAL SCREENING REASON FOR EXAM: Female, 62 years old. Routine annual screening examination. PERTINENT HISTORY: Daughter with breast cancer. Mother with breast cancer. Grandmother with breast cancer. TECHNIQUE: Digital bilateral breast kaylee (3D mammographic acquisition) in the CC and MLO projections. 2-D mediolateral oblique (MLO) and craniocaudad (CC) views of both breasts were obtained. CAD: Full Field Digital Mammography with Computer Added Detection was performed. COMPARISON: Screening mammogram from January 29, 2022, January 19, 2022. FINDINGS: Breast Composition: The breasts are heterogeneously dense, which may obscure small masses. There is an asymmetry in the right retroareolar slightly inner breast, anterior depth, approximately 3.7 cm posterior to the nipple that is best seen on CC and 3-D cc views and is slightly more conspicuous than on prior study. Further assessment with spot compression and ultrasound if needed is recommended. No other significant abnormalities are identified. BI/SCRN MAMM (CAD)W/KAYLEE BILAT IMPRESSION: Further imaging evaluation recommended, as described above. (E) Recall Side: Right Breast ASSESSMENT CATEGORY: BIRADS Category 0: Incomplete. Need additional imaging evaluation. A letter regarding these results will be sent to the patient by the facility within 30 days. Approximately 10% of breast cancers are not detected by mammography. A normal mammogram should not delay biopsy of a clinically suspicious abnormality. Electronically Signed: Dandy Irving DO at 16:02 EDT ,
== END | disposition home or self-care (01) ==
LOC: OPBI 07:08
PROVIDERS: PCP Family Medicine; Referring Provider Nurse Practitioner Women's Health; Visit Provider Nurse Practitioner Women's Health
DX: Z12.31 Encounter for screening mammogram for malignant neoplasm of breast (principal)
CPT/HCPCS: 77063; 77067

== ENCOUNTER → 2023-02-19 | Outpatient (CLI) | payer OTHER, SELFPAY ==
--- NOTE | 2023-02-19 13:03 | BI_ITS ---
MAMMOGRAPHY - UNILATERAL DIAGNOSTIC: LEFT BREAST REASON FOR EXAM: Female, 62 years old. Abnormal screening mammogram. PERTINENT HISTORY: Daughter with breast cancer. Mother with breast cancer. Grandmother with breast cancer. TECHNIQUE: Compression spot views of the right breast were obtained. CAD: Full Field Digital Mammography with Computer Added Detection was performed. COMPARISON: Comparison is made with prior mammogram dated February 14, 2023. FINDINGS: Breast Composition: The breasts are heterogeneously dense, which may obscure small masses. Once again, there is a 1.8 cm x 2.2 cm irregular mass in the slightly inner upper aspect of the right breast. Correlation with ultrasound is recommended. No other significant abnormalities are identified. BI/DIAG MAMM W/CAD, UNILAT IMPRESSION: 1.8 cm x 2.2 cm irregular mass in the slightly inner upper aspect of the right breast as described. Correlation with ultrasound is recommended. ASSESSMENT CATEGORY: BIRADS Category 0: Incomplete. Need additional imaging evaluation. A letter regarding these results will be sent to the patient by the facility within 30 days. Approximately 10% of breast cancers are not detected by mammography. A normal mammogram should not delay biopsy of a clinically suspicious abnormality. Electronically Signed: Wilfrid Srinivasan MD at 14:24 EDT ,
--- NOTE | 2023-02-19 13:03 | US_ITS ---
STUDY: ULTRASOUND BREAST - RIGHT REASON FOR EXAM: Female, 62 years old. Abnormal screening mammogram. TECHNIQUE: Axial and longitudinal images of the RIGHT breast were performed with a high resolution ultrasound transducer. # OF IMAGES: 25 COMPARISON: Comparison is made with prior mammogram done earlier today. FINDINGS: RIGHT Breast: The mammographic abnormality corresponds to a 1 cm x 1.2 cm x 1 cm lobulated solid mass at the 1:00 position of the breast at 3 cm. US/Breast Limited Unilateral IMPRESSION: The mammographic abnormality corresponds to a 1 cm x 1.2 cm x 1 cm lobulated solid mass 1:00 position just at 3 cm from the nipple. Biopsy recommended. ASSESSMENT CATEGORY: BIRADS Category 5: Highly Suggestive of Malignancy - Appropriate Action Should Be Taken. A letter regarding these results will be sent to the patient by the facility within 30 days. Electronically Signed: Wilfrid Srinivasan MD at 14:22 EDT ,
== END | disposition home or self-care (01) ==
LOC: OPUS 13:00
PROVIDERS: PCP Family Medicine; Referring Provider Nurse Practitioner Women's Health; Visit Provider Nurse Practitioner Women's Health
DX: R92.2 Inconclusive mammogram (principal); R92.8 Other abnormal and inconclusive findings on diagnostic imaging of breast
CPT/HCPCS: 76642; 77061; 77065; G0279

== ENCOUNTER → 2023-02-21 | Outpatient (CLI) | payer OTHER, SELFPAY ==
--- NOTE | 2023-02-21 12:44 | BI_ITS ---
MAMMOGRAPHY - UNILATERAL DIAGNOSTIC: RIGHT BREAST REASON FOR EXAM: Female, 62 years old. Clip placement. PERTINENT HISTORY: Right breast biopsy. TECHNIQUE: Digital unilateral breast brian (3D mammographic acquisition) in the CC and MLO projections. 2-D mediolateral oblique (MLO) and craniocaudad (CC) views of both breasts were obtained. CAD: Full Field Digital Mammography with Computer Added Detection was performed. COMPARISON: Comparison is made with prior study February 14, 2023 and February 19, 2023. FINDINGS: Breast Composition: The breasts are heterogeneously dense, which may obscure small masses. A tissue clip marker is seen in the retroareolar region of the right breast. No other significant abnormalities are identified. BI/DIAG MAMM W/CAD, UNILAT IMPRESSION: A tissue clip marker is seen in the retroareolar region of the right breast. ASSESSMENT CATEGORY: BIRADS Category 2: Benign. A letter regarding these results will be sent to the patient by the facility within 30 days. Approximately 10% of breast cancers are not detected by mammography. A normal mammogram should not delay biopsy of a clinically suspicious abnormality. Electronically Signed: Wilfrid Srinivasan MD at 14:00 EDT ,
== END | disposition home or self-care (01) ==
LOC: OPBI 12:42
PROVIDERS: PCP Family Medicine; Referring Provider Surgery; Visit Provider Surgery
DX: R92.2 Inconclusive mammogram (principal); Z98.890 Other specified postprocedural states
CPT/HCPCS: 77065

== ENCOUNTER → 2023-03-26 | Outpatient (CLI) | payer OTHER, SELFPAY ==
--- NOTE | 2023-03-26 12:48 | MRI_ITS ---
STUDY: BILATERAL BREAST MR WITHOUT AND WITH CONTRAST REASON FOR EXAM: Female, 62 years old. Biopsy-proven right invasive duct carcinoma. TECHNIQUE: Multi-sequence multi-echo imaging of both breasts was performed with a dedicated breast coil. T1-weighted and T2-weighted images were performed before the administration of contrast. T1-weighted images were also performed after the intravenous administration of 15 mL of Clariscan contrast. COMPARISON: Bilateral mammogram dated December 15, 2022, unilateral right diagnostic mammogram dated February 19, 2023 and ultrasound-guided biopsy images dated February 21, 2023. FINDINGS: RIGHT BREAST: Heterogeneously dense fibroglandular tissue with minimal background enhancement. Irregular area of clumped and non-mass enhancement in the right breast at the 12:00 position measuring approximately 3.5 cm x 2.7 cm x 2.6 cm. Due to clip artifact in the enhancing region. This lesion represents the index lesion. LEFT BREAST: Heterogeneously dense fibroglandular tissue with minimal background enhancement. No abnormal enhancing masses or areas of non-mass enhancement in the left breast. Shotty lymph nodes in both axillary with no abnormal lymph node morphology. No abnormality in the visualized regions of the chest or liver. MRI/Breast Bilateral W/O and W IMPRESSION: Irregular enhancing right breast mass as described, representing the index lesion with tissue clip artifact. No other significant abnormality. CATEGORY: BIRADS Category 6: Known Biopsy-Proven Malignancy - Appropriate Action Should Be Taken. A letter regarding these results will be sent to the patient by the facility within 30 days. Electronically Signed: Gilles Gandhi MD at 10:19 EDT ,
[2023-03-26 13:16] LABS: CREATININE FINGERSTICK < 0.9 mg/dL (0.55-1.02); EGFR FINGERSTICK > 60.0000 mL/min (>60)
== END | disposition home or self-care (01) ==
PROVIDERS: PCP Family Medicine; Referring Provider Internal Medicine Hematology & Oncology; Visit Provider Internal Medicine Hematology & Oncology
DX: R92.2 Inconclusive mammogram (principal); Z80.3 Family history of malignant neoplasm of breast
CPT/HCPCS: 77049; A9575; A4216; C8908

== ENCOUNTER → 2023-04-14 | Outpatient (CLI) | payer OTHER, SELFPAY ==
[2023-04-18 16:09] LABS: HPV APTIMA, High Risk Negative (Negative)
== END | disposition home or self-care (01) ==
LOC: LABSPEC 15:09
PROVIDERS: PCP Family Medicine; Referring Provider Nurse Practitioner Women's Health; Visit Provider Nurse Practitioner Women's Health
DX: Z12.4 Encounter for screening for malignant neoplasm of cervix (principal)
CPT/HCPCS: 87624; 88175; G0145

== ENCOUNTER 2023-06-23 12:18 | Emergency (ER) | payer OTHER, SELFPAY ==
[2023-06-23 12:20] VITALS: BP 141/75; PULSE 76; RESP 16; TEMP 36.2; O2SAT 100; BMI 23.5
--- NOTE | 2023-06-23 14:15 | CT_ITS ---
EXAM: CT HEAD WITHOUT INTRAVENOUS CONTRAST CLINICAL INDICATION: Headache. TECHNIQUE: Multiple axial images were obtained of the head without intravenous contrast. This CT exam was performed using one or more of the following dose reduction techniques: automated exposure control, adjustment of the mA and/or kV according to patient size, and/or use of iterative reconstruction technique. RADIATION DOSE: CTDIvol = 44.99 mGy, DLP = 779.24 mGy-cm COMPARISON: CT head without contrast 05/10/2022. FINDINGS: BRAIN AND EXTRA-AXIAL SPACES: Unremarkable. No intra- or extra-axial hemorrhage. No evidence of acute infarct. No intracranial mass or mass effect. There is preservation of the boswell/white matter interface. Posterior fossa structures are unremarkable. Ventricles are appropriate for age. No hydrocephalus. Basal cisterns are patent. BONES/JOINTS: Unremarkable. No discrete lytic or blastic abnormalities. SINUSES: Unremarkable as visualized. Clear. MASTOID AIR CELLS: Unremarkable. Clear. ORBITS: Visualized globes, extraocular muscles, optic nerves and retrobulbar fat appear unremarkable. CT/Brain/Head without Contrast IMPRESSION: Negative head/brain CT without intravenous contrast and unchanged when compared to 05/10/2022. Electronically Signed: Fidencio Tran MD at 15:49 EDT ,
--- NOTE | 2023-06-23 14:26 | EX.ED.DYSGE1 ---
HPI <BRADLEY Gutierrez - Last Filed: 06/23/23 16:02> History of Present Illness Chief Complaint: General Illness Narrative Narrative: Patient is a 62-year-old female with history of GERD, breast cancer who was recently admitted to the [facility] for breast abscess. Per the patient, she was discharged June 08, 2023, and was placed on oral antibiotics. She finished the antibiotics yesterday. Today around 3 in the morning she developed significant headaches which she does have history of headaches, she also complains of multiple episode of diarrhea. Patient states she feels generally weak and ill and she is here for evaluation. She denies any chest pain or shortness of breath. Denies any abdominal pain. Denies any blood in stool or vomit. PFSH <BRADLEY Gutierrez - Last Filed: 06/23/23 16:02> [facility] Medical History Anxiety Back pain Bladder disease Breast CA Cancer COVID-19 Dental crowns present Depression Easy bruising Former smoker Gastric reflux Gastritis History of pain when walking History of stress test Injury of head and neck Leg cramps Loss of hearing Low iron Migraine headache Nausea and vomiting PFO (patent foramen ovale) Post-menopausal Sjogren's disease Tachycardia Thyroid disease Wears glasses Home Medications nicotine 21 mg/24 hr daily transdermal patch 7 mg TRANSDERM. DAILY nicotine 10/07/13 [History Last Taken 12/04/17 00:44] biotin 10,000 mcg capsule 10,000 mcg PO DAILY 12/27/20 [History Last Taken Unknown] cholecalciferol (vitamin D3) 50 mcg (2,000 unit) capsule 50 mcg PO DAILY 12/27/20 [History Last Taken Unknown] folic acid 1 mg tablet 1 mg PO DAILY 12/27/20 [History Last Taken Unknown] pyridoxine (vitamin B6) 25 mg tablet 25 mg PO DAILY 12/27/20 [History Last Taken Unknown] ascorbic acid (vitamin C) 500 mg capsule 500 mg PO DAILY 09/30/22 [History Last Taken Unknown] rizatriptan 10 mg tablet (Maxalt) 10 mg PO PRN PRN MIGRAINES 09/30/22 [History Last Taken Unknown] levothyroxine 25 mcg tablet (Synthroid) 25 mcg PO DAILY #90 tabs 11/04/22 [Rx Last Taken 02/12/23] magnesium 250 mg tablet 250 mg PO MOWEFR 02/11/23 [History Last Taken Unknown] anastrozole 1 mg tablet 1 mg PO DAILY 04/04/23 [History Last Taken Unknown] clonazepam 0.5 mg tablet 3 mg PO QHS anxiety/sleep 04/14/23 [History Last Taken Unknown] Allergy/AdvReac Type Severity Reaction Status Date / Time latex Allergy Swelling Verified 06/23/23 12:19 Sulfa (Sulfonamide Allergy Swelling Verified 06/23/23 12:19 Antibiotics) codeine AdvReac Other Verified 06/23/23 12:19 duloxetine HCl AdvReac Other Verified 06/23/23 12:19 [From Cymbalta] escitalopram oxalate AdvReac Other Verified 06/23/23 12:19 [From Lexapro] omeprazole AdvReac Diarrhea Verified 06/23/23 12:19 pantoprazole [From Protonix] AdvReac Diarrhea Verified 06/23/23 12:19 paroxetine [Paroxetine] AdvReac Other Verified 06/23/23 12:19 venlafaxine HCl AdvReac Other Verified 06/23/23 12:19 [From Effexor] Family History Daughter Breast cancer triple negative Mother Heart disease Breast cancer Father Heart disease Colon cancer Grandmother Breast cancer maternal Other Alcohol abuse Anxiety Autoimmune disorder Cervical cancer Depression Hypertension Surgical History History of cholecystectomy Hx of section Hx of colonoscopy Hx of esophagogastroduodenoscopy Hx of hysterectomy Hx of tonsillectomy Social History adopted: No household members: spouse current occupational status: employed current occupation: [employer] pets and animals: No Smoking Status: Former smoker second hand exposure: No alcohol intake: never substance use type: does not use what type of physical activity do you participate in: decline to answer seatbelt use: always do you feel safe at home: Yes ROS <BRADLEY Gutierrez - Last Filed: 06/23/23 16:02> ROS ED ROS Narrative Constitutional: Negative for fever, weight loss. Positive for weakness, chills Eyes: Negative for vision loss, vision change, double vision ENT: Negative for any sore throat, ear pain, congestion Cardiovascular: Negative for any chest pain, tightness, palpitations Respiratory: Negative for any cough, sputum production, hemoptysis, dyspnea, dyspnea on exertion, orthopnea Gastrointestinal: Negative for any abdominal pain, vomiting, constipation, blood in stool, blood in vomit. Positive for nausea, diarrhea : Negative for any urinary frequency, dysuria, retention, blood in urine Muscle skeletal: Negative for any muscle joint pain, stiffness, myalgias, arthralgias, neck pain, back pain Neurological: Negative for any headache, syncope, numbness or tingling, dizziness Skin: Negative for any rashes, lumps, itching, abrasions, lacerations Psychiatric: Negative for any depression, anxiety, stress, suicidal ideation, homicidal ideation Hematologic: Negative for any easy bruising, excessive bruising, easy bleeding Allergies: Negative for any eczema, hives, rash EXAM <BRADLEY Gutierrez - Last Filed: 06/23/23 16:02> Physical Exam Narrative Exam Narrative: Vital signs reviewed. HEET: Head normocephalic atraumatic, TMs clear bilaterally. Posterior pharynx is clear, dry mucous membranes. Nares clear bilaterally. Neck: Supple with no lymphadenopathy or tenderness. No signs of meningismus, negative jolt sign. Cardiac: Regular rate and rhythm no murmurs gallops or rubs, equal peripheral pulses bilaterally. Respiratory: Lungs clear to auscultation bilaterally. No chest tenderness. Patient's right breast where there was an abscess looks well-appearing. There is no induration, no cellulitis, no drainage Abdomen: Soft, nontender, nondistended. No abdominal bruit or pulsatile masses. No hepatosplenomegaly Extremities: No peripheral edema, no signs of gross trauma or deformity. Active full range of motion of all extremities. Neuro: Cranial nerves II through XII intact, no focal neurological deficits. Skin: Clean dry and intact with no rash, purpura, petechiae, vesicles or pustules. Backs/flank: No CVA tenderness, no midline spinal tenderness, no deformity. Psych: Normal mood and affect. No SI, HI or acute psychosis. Const Vital Signs: 06/23/23 12:20 Temperature 97.1 F L Temperature Source Temporal Pulse Rate 76 Respiratory Rate 16 Blood Pressure 141/75 H Blood Pressure Mean 97 Pulse Ox 100 Oxygen Delivery Method Room Air <Dr. Tan Torres DO - Last Filed: 06/24/23 00:18> Physical Exam Const Vital Signs: 06/23/23 12:20 Temperature 97.1 F L Temperature Source Temporal Pulse Rate 76 Respiratory Rate 16 Blood Pressure 141/75 H Blood Pressure Mean 97 Pulse Ox 100 Oxygen Delivery Method Room Air MDM <BRADLEY Gutierrez - Last Filed: 06/23/23 16:02> [facility] Lab Data Labs: Laboratory Results - last 24 hr 06/23/23 06/23/23 06/23/23 14:20 14:30 14:37 WBC 8.4 RBC 4.46 Hgb 14.7 Hct 45.1 MCV 101.1 H MCH 33.0 H MCHC 32.6 RDW Std Deviation 44.9 H RDW Coeff of Jimbo 12.0 Plt Count 315 MPV 10.2 Immature Gran % (Auto) 0.400 Neut % (Auto) 71.1 H Lymph % (Auto) 20.9 [place] % (Auto) 5.1 Eos % (Auto) 1.7 Baso % (Auto) 0.8 Absolute Neuts (auto) 6.0 Absolute Lymphs (auto) 1.76 Nucleated RBC % 0 Sodium 138 Potassium 4.2 Chloride 107 Carbon Dioxide 26.0 Anion Gap 5 BUN 9 Creatinine 0.64 Estim Creat Clear Calc 94.30 Est GFR (MDRD) Af Amer 122 Est GFR (MDRD) Non-Af 101 BUN/Creatinine Ratio 14.1 Glucose 84 Lactic Acid 0.6 Calcium 10.0 Total Bilirubin 0.60 AST 39 H ALT 37 Alkaline Phosphatase 81 Total Protein 7.5 Albumin 3.9 Globulin 3.6 Albumin/Globulin Ratio 1.1 Lipase 55 Urine Color Yellow Urine Clarity Clear Urine pH 7.0 Ur Specific [place] 1.015 Urine Protein Negative Urine Glucose (UA) Normal Urine Ketones Negative Urine Occult Blood Negative Urine Nitrite Negative Urine Bilirubin Negative Urine Urobilinogen Normal Ur Leukocyte Esterase Negative Urine RBC 0 SEEN Urine WBC 0 SEEN Ur Squamous Epith Cells 0-5 SEEN Urine Bacteria 0 SEEN Urine Mucus 0 SEEN Radiography Diagnostic Testing: Clinical Impression(s) from Imaging Studies Brain CT 06/23/23 14:15 IMPRESSION: Negative head/brain CT without intravenous contrast and unchanged when compared to 05/10/2022. Electronically Signed: Fidencio Tran MD at 15:49 EDT , Chest X-Ray 06/23/23 14:47 IMPRESSION: Minimal linear scarring in the medial aspect of the right lower lobe. Surgical clips are seen overlying the right axilla and right breast. Electronically Signed: Wilfrid Srinivasan MD at 15:05 EDT , Treatment and Re-Evaluation :: Patient is no obvious distress, patient's vital signs are stable. Patient presents to the emergency department with complaints of 1 day of feeling of weakness, headache, diarrhea and nausea. Secondary to the patient being on antibiotics for several weeks, patient will have a stool sample ordered for concern of any C. difficile. Patient received some basic laboratory values, 2 view chest x-ray rule out pneumonia, COVID, flu. Urinalysis to ensure there is no UTI. Checked the patient's oral temperature myself it was 98.5. Patient looks generally well. There is no evidence suspect any worsening infection to the right breast as it looks well-appearing. Patient on reevaluation felt much better. Patient's Reglan, Benadryl did help the patient's headache. Patient CT of the brain was unremarkable. Chest x-ray was unremarkable, no evidence of any pneumonia. Brain CT showed no metastasis disease. Patient's urinalysis was negative for any infection. Patient's CBC showed a normal white blood cell count. Patient's lactic acid was negative. Patient's chemistries were unremarkable. Patient's COVID flu was negative. Repeat vital signs are stable. On reassessment, the patient did feel better, she states that she would like to be discharged home. She will follow-up outpatient. She is instructed return for any worsening symptoms. Patient is happy with the plan of care, patient had a negative work-up today, patient stable for discharge. <Dr. Tan Torres, DO - Last Filed: 06/24/23 00:18> MDM MDM Narrative Medical decision making narrative: I have personally performed a face to face assessment of the patient and have reviewed the JOI Note. I performed a substantive portion of the visit including all aspects of the following. My bansal findings include: History: Generalized weakness that has been getting worse over the past few days. Patient was recently admitted to [facility] for a breast abscess after a mastectomy. Patient has been on antibiotics for this. Patient denies any discharge or drainage. Patient denies any fevers or chills. Patient presents with nausea, vomiting, diarrhea, patient denies any hematemesis or coffee-ground emesis. Patient denies any melena or hematochezia. Patient admits to a headache. Patient is concerned for dehydration and recurrent infection. Exam: Vital signs are stable. Patient is afebrile. Patient is in no acute distress. Oral mucosa is pink and moist. Neck is supple. Trachea is midline. There is no JVD. Heart was regular rate and rhythm. Lungs are clear and equal bilaterally. Abdomen is soft. Bowel sounds are normal. There is no tenderness. Cranial nerves II through XII are intact. There are no focal motor or sensory deficits noted. Extremities are intact. There is no calf tenderness or edema noted. Medical Decision Making: Differential diagnosis includes sepsis, gastroenteritis, C. difficile colitis, urinary tract infection, electrolyte abnormality, COVID-19 infection, influenza infection, pneumonia, and intracranial bleeding. CT scan of the brain will be obtained to assess for intracranial bleeding. Chest x-ray will be obtained to assess for pneumonia chest. COVID-19 rapid antigen will be obtained to assess for COVID-19 infection. Influenza A and influenza B antigens will be obtained to assess for influenza infection. CBC will be obtained to assess for leukocytosis and anemia. Comprehensive metabolic profile will be obtained to assess for hepatic function, renal function, and electrolyte abnormality. Urinalysis will be obtained to assess for urinary tract infection. C. difficile PCR will be obtained to assess for C. difficile infection. Lactate will be obtained to assess for sepsis. Patient was given IV fluids, Reglan, and Benadryl. CBC was reviewed and was essentially within normal limits. Comprehensive metabolic profile was reviewed and was essentially within normal limits. Lipase was reviewed and was normal. Lactate was reviewed and was normal at 0.6. Urinalysis was reviewed. There is no evidence of urinary tract infection or hematuria. COVID-19 rapid antigen was reviewed and was negative. Influenza A and influenza B antigens were reviewed and were negative. Portable 1 view chest x-ray was obtained. On my independent interpretation, lung worthy are clear. There is normal cardiac silhouette. Bony thorax is normal. There is no acute process noted. Radiologist also interpreted the x-ray and agrees. CT scan of the brain was obtained. There is no acute intracranial abnormality. This was interpreted by the radiologist and was also independently reviewed by myself. Patient is feeling better on reevaluation. Patient was instructed to follow-up with her primary care physician in 5 to 7 days. Patient was instructed return if worse in any way. Patient understood and was agreeable with the plan. All questions were answered. Lab Data Labs: Laboratory Results - last 24 hr 06/23/23 06/23/23 06/23/23 14:20 14:30 14:37 WBC 8.4 RBC 4.46 Hgb 14.7 Hct 45.1 MCV 101.1 H MCH 33.0 H MCHC 32.6 RDW Std Deviation 44.9 H RDW Coeff of Jimbo 12.0 Plt Count 315 MPV 10.2 Immature Gran % (Auto) 0.400 Neut % (Auto) 71.1 H Lymph % (Auto) 20.9 [place] % (Auto) 5.1 Eos % (Auto) 1.7 Baso % (Auto) 0.8 Absolute Neuts (auto) 6.0 Absolute Lymphs (auto) 1.76 Nucleated RBC % 0 Sodium 138 Potassium 4.2 Chloride 107 Carbon Dioxide 26.0 Anion Gap 5 BUN 9 Creatinine 0.64 Estim Creat Clear Calc 94.30 Est GFR (MDRD) Af Amer 122 Est GFR (MDRD) Non-Af 101 BUN/Creatinine Ratio 14.1 Glucose 84 Lactic Acid 0.6 Calcium 10.0 Total Bilirubin 0.60 AST 39 H ALT 37 Alkaline Phosphatase 81 Total Protein 7.5 Albumin 3.9 Globulin 3.6 Albumin/Globulin Ratio 1.1 Lipase 55 Urine Color Yellow Urine Clarity Clear Urine pH 7.0 Ur Specific [place] 1.015 Urine Protein Negative Urine Glucose (UA) Normal Urine Ketones Negative Urine Occult Blood Negative Urine Nitrite Negative Urine Bilirubin Negative Urine Urobilinogen Normal Ur Leukocyte Esterase Negative Urine RBC 0 SEEN Urine WBC 0 SEEN Ur Squamous Epith Cells 0-5 SEEN Urine Bacteria 0 SEEN Urine Mucus 0 SEEN Radiography Diagnostic Testing: Clinical Impression(s) from Imaging Studies Brain CT 06/23/23 14:15 IMPRESSION: Negative head/brain CT without intravenous contrast and unchanged when compared to 05/10/2022. Electronically Signed: Fidencio Tran MD at 15:49 EDT , Chest X-Ray 06/23/23 14:47 IMPRESSION: Minimal linear scarring in the medial aspect of the right lower lobe. Surgical clips are seen overlying the right axilla and right breast. Electronically Signed: Wilfrid Srinivasan MD at 15:05 EDT , Discharge Plan Triage Chief Complaint: General Illness ED Midlevel Provider: Meek Espino ED Provider: Tan Torres Dx/Rx/DC Orders Clinical Impression: Migraines, Nausea Instructions: ED, Migraine (Classical) Prescriptions: No Action cholecalciferol (vitamin D3) 50 mcg (2,000 unit) capsule 50 mcg PO DAILY pyridoxine (vitamin B6) 25 mg tablet 25 mg PO DAILY biotin 10,000 mcg capsule 10,000 mcg PO DAILY folic acid 1 mg tablet 1 mg PO DAILY ascorbic acid (vitamin C) 500 mg capsule 500 mg PO DAILY rizatriptan [Maxalt] 10 mg tablet 10 mg PO PRN PRN (Reason: MIGRAINES) anastrozole 1 mg tablet 1 mg PO DAILY nicotine 21 MG patch 7 mg TRANSDERM. DAILY Patient Comments: Pt now uses a 14 mg patch. She removed it at 0045 on 12/04/17. Nicotine. . clonazepam 0.5 mg tablet 3 mg PO QHS Patient Comments: anxiety/sleep magnesium 250 mg Tablet 250 mg PO MOWEFR levothyroxine [Synthroid] 25 mcg tablet 25 mcg PO DAILY Qty: 90 3RF Primary Care Provider: Aster Melendez Referrals: Aster Melendez MD [Primary Care Provider] - Activity Restrictions/Additional Instructions: Please follow-up outpatient. Your negative work-up today. Please return for any worsening symptoms Disposition Disposition: Home, Self Care Discharge Date/Time: 06/23/23 16:09
[2023-06-23 14:30] LABS: Absolute Lymphocyte Count 1.76 X10^3/uL (0.83-4.51); Basophil# 0.07 X10^3/uL; Basophil% 0.8 % (0-1); Eosinophil# 0.14 X10^3/uL; Eosinophils% 1.7 % (0-5); Hematocrit 45.1 % (37-47); Hemoglobin 14.7 g/dL (12.0-15.0); Lymphocyte # 1.76 X10^3/ul (0.83-4.51); Lymphocyte % 20.9 % (19-41); Mean Corp Hgb Conc 32.6 g/dL (32-36); Mean Corpuscular Volume 101.1 fL (81-99); Mean Platelet Vol. 10.2 fl (6.2-12.0); Monocyte# 0.43 X10^3/uL; Monocyte% 5.1 % (0-10); NRBC Flagged by Analyzer 0 % (0-5); Neutrophil # 5.98 X10^3/uL (2.7-7.7); Neutrophil % 71.1 % (47-70); Platelet Count 315 K/mm3 (150-450); RBC Distribution Width SD 44.9 fl (35.1-43.9); Red Blood Count 4.46 M/mm3 (4.2-5.4); White Blood Count 8.4 K/mm3 (4.4-11.0)
[2023-06-23] MEDS: 0.9% Normal Saline (1000mL) 1,000 ML 1000 ML IV (14:34)
[2023-06-23] MEDS: DiphenhydrAMINE 50 MG/ML Syringe 25 MG IV (14:35)
[2023-06-23] MEDS: Metoclopramide 10 MG/2 ML Vial IV (14:35)
[2023-06-23 14:41] LABS: Bacteria 0 SEEN /hpf (None Seen); Mucous, Urine 0 SEEN /hpf (<or=2+); Red Blood Cells-Urine 0 SEEN /hpf (0-5); White Blood Cells 0 SEEN /hpf (0-5)
--- NOTE | 2023-06-23 14:47 | RAD_ITS ---
STUDY: X-RAY CHEST REASON FOR EXAM: Female, 62 years old. Cough TECHNIQUE: Single AP portable view of the chest. COMPARISON: Comparison is made with prior study. FINDINGS: Surgical clips are seen overlying the right axilla and right breast. The lungs are clear and expanded. Scattered calcified granulomas. Minimal linear scarring in the medial aspect of the right lower lobe. There is no demonstrated pleural abnormality. Normal size heart. Normal mediastinum and rika. Normal visualized pulmonary arteries. Normal visualized aortic arch and descending thoracic aorta. Normal visualized thoracic spine. Normal visualized ribs, clavicles, and shoulders. There is no demonstrated abnormality of the visualized soft tissue structures of the upper abdomen. RAD/Chest 1 View (Portable) IMPRESSION: Minimal linear scarring in the medial aspect of the right lower lobe. Surgical clips are seen overlying the right axilla and right breast. Electronically Signed: Wilfrid Srinivasan MD at 15:05 EDT ,
[2023-06-23 14:49] LABS: Color, Urine Yellow (Yellow); Glucose, Dipstick Normal (Normal); Ketone-Dipstick Negative (Negative); Leukocyte Esterase-Dipstick Negative /ul (Negative); Nitrite-Dipstick Negative (Negative); Occult Blood-Urine Negative /ul (Negative); Protein-Dipstick Negative (Negative); Specific Gravity, Urine 1.015 (1.002-1.030); Urine Bilirubin Dipstick Negative (Negative); Urine Clarity Clear (Clear); Urine Urobilinogen Normal (Normal)
[2023-06-23 14:55] LABS: ALB/GLOB Ratio 1.1 RATIO (0.9-2.4); AST(SGOT) 39 U/L (15-37); Alanine Aminotransfer ALT/SGPT 37 U/L (13-56); Albumin, Serum 3.9 g/dL (3.2-5.0); Alkaline Phosphatase 81 U/L (45-117); Anion Gap 5 (5-15); BUN 9 mg/dL (7-18); BUN/Creat Ratio 14.1 RATIO (10-20); Chloride 107 mmol/L (98-107); Creatinine, Serum 0.64 mg/dL (0.55-1.02); EST Glomerular Filtration Rate 101 mL/min (>60); Est Glom Filt Rate - Afr Amer 122 mL/min (>60); Globulin 3.6 g/dL (2.2-4.2); Glucose 84 mg/dL (74-106); Lipase 55 U/L (13-75); Potassium 4.2 mmol/L (3.5-5.1); Protein, Total 7.5 g/dL (6.4-8.2); Sodium Level 138 mmol/L (136-145)
[2023-06-23 15:05] LABS: Squamous Epithelial Cells - UA 0-5 SEEN /hpf (5-10)
[2023-06-23 15:26] LABS: Lactic Acid 0.6 mmol/L (0.4-1.9)
== END 2023-06-23 16:09 | disposition home or self-care (01) ==
PROVIDERS: Nurse Practitioner; Emergency Provider Emergency Medicine; PCP Family Medicine; Visit Provider Emergency Medicine
DX: G43.909 Migraine, unspecified, not intractable, without status migrainosus (principal); R11.0 Nausea; Z87.891 Personal history of nicotine dependence; Z86.16 Personal history of COVID-19
CPT/HCPCS: 70450; 71045; 80053; 81001; 83605; 83690; 85025; 87428; 96374; 96375; 99283; J7030; A4216

== ENCOUNTER → 2023-06-27 | Outpatient (CLI) | payer OTHER, SELFPAY | END | disposition home or self-care (01) | LOC: LAB 14:35 | PROVIDERS: PCP Family Medicine; Referring Provider Family Medicine; Visit Provider Family Medicine | DX: E03.9 Hypothyroidism, unspecified (principal) | CPT/HCPCS: 36415; 84443 ==

== ENCOUNTER → 2023-09-03 | Outpatient (CLI) | payer OTHER, SELFPAY ==
--- NOTE | 2023-09-03 12:40 | ECHODONC_ITS ---
Reason For Study: Non Rheumatic MR Procedure This was a 2D Doppler, Color Flow transthoracic echocardiogram. Myocardial strain analysis was performed in this exam to aid in the assessment of cardiac function. Exam performed in department. Left Ventricle Normal LV size. Left ventricular systolic function is normal. The estimated ejection fraction is 62 %. Stage 1 diastolic dysfunction. No regional wall motion abnormalities noted. Right Ventricle Normal RV size. Normal systolic function. Atria Normal left atrium. Normal right atrium. Mitral Valve Normal mitral valve. Tricuspid Valve Normal tricuspid valve. Aortic Valve Normal aortic valve. Trisinus/trileaflet aortic valve. Pulmonic Valve Normal pulmonic valve. Great Vessels Normal aortic root. The pulmonary artery is normal size. Normal inferior vena cava. Pericardium/Pleural No pericardial effusion. MMode/2D Measurements & Calculations LVIDd: 4.2 cm IVSd: 0.85 cm Ao root diam: 2.6 cm LVIDs: 2.7 cm LVPWd: 0.95 cm RVDd: 2.8 cm FS: 35.2 % LAV(MOD-bp): 24.8 ml LVAd ap4: 20.1 cm2 SV(MOD-sp4): 28.6 ml LAV(MOD-bp) Indexed: 14.9 ml/m2 LVLd ap4: 6.9 cm LAV(MOD-sp2): 22.3 ml EDV(MOD-sp4): 47.8 ml LAV(MOD-sp4): 25.5 ml EDV(sp4-el): 49.7 ml LVAs ap4: 11.1 cm2 LVLs ap4: 5.6 cm ESV(MOD-sp4): 19.2 ml ESV(sp4-el): 18.8 ml EF(MOD-sp4): 59.9 % EF(sp4-el): 62.1 % SV(sp4-el): 30.9 ml LA A4 area: 12.1 cm2 LA dimension(2D): 3.1 cm RA A4 area: 9.6 cm2 TAPSE: 2.6 cm Time Measurements MV dec time: 0.35 sec Doppler Measurements & Calculations MV E max adryan: 53.3 cm/sec Lat Peak E' Adryan: 9.7 cm/sec Med Peak E' Adryan: 7.2 cm/sec MV A max adryan: 57.0 cm/sec E/E' lat: 5.5 E/E' med: 7.4 MV E/A: 0.93 Ao V2 max: 117.2 cm/sec LV V1 max: 98.9 cm/sec MV dec slope: 152.4 cm/sec2 Ao max P.5 mmHg LV V1 max P.9 mmHg Ao V2 mean: 85.9 cm/sec LV V1 mean P.1 mmHg Ao mean P.2 mmHg LV V1 mean: 66.5 cm/sec Ao V2 VTI: 24.5 cm LV V1 VTI: 21.8 cm AV (velocity ratio): 0.89 PA V2 max: 82.1 cm/sec PI end-d adryan: 123.1 cm/sec TR max adryan: 223.3 cm/sec TR max P.9 mmHg ECHO/ONC Echo Complete Interpretation Summary Normal LV size. Left ventricular systolic function is normal. The estimated ejection fraction is 62 %. Stage 1 diastolic dysfunction. The global longitudinal strain is normal. The global longitudinal strain = -20 % (normal). Ordering Physician: Gigi Valero Referring Physician: Aster Melendez Performed By: Marichuy Nichols, CHUCHO, RVT
== END | disposition home or self-care (01) ==
LOC: CVS 12:39
PROVIDERS: PCP Family Medicine; Referring Provider Internal Medicine Cardiovascular Disease; Visit Provider Internal Medicine Cardiovascular Disease
DX: I34.0 Nonrheumatic mitral (valve) insufficiency (principal)
CPT/HCPCS: 93306; 93356

== ENCOUNTER → 2023-10-20 | Outpatient (CLI) | payer OTHER, SELFPAY | END | disposition home or self-care (01) | LOC: LABSPEC 15:08 | PROVIDERS: PCP Family Medicine; Referring Provider Otolaryngology; Visit Provider Otolaryngology | DX: J32.8 Other chronic sinusitis (principal) | CPT/HCPCS: 87070; 87205 ==

== ENCOUNTER 2023-10-26 09:19 | Emergency (ER) | payer OTHER, SELFPAY ==
[2023-10-26 09:20] VITALS: BP 103/79; PULSE 66; RESP 18; TEMP 36; O2SAT 100; BMI 24.3
--- NOTE | 2023-10-26 09:32 | EX.ED.DYSGE1 ---
HPI History of Present Illness Chief Complaint: Anxiety Detail of Chief Complaint: Anxiety Informant: patient Narrative Narrative: Patient presents to the emergency department complaint of feeling anxious for the last 2 days. Patient states she has not slept in 2 days. She is currently transitioning off of her clonazepam and has been slowly weaning over the last 3 weeks. Patient states that she had some flank family trauma that occurred this week and it has triggered her anxiety. She has had sensation of racing heart at times and feels like she cannot take a good deep breath in. She spoke with her primary care physician on-call for her physician and was advised to come to the ER to get evaluated. Patient also states that over the last 3 days she has had diarrhea about 5-6 episodes per day. She denies any fever or cough or sore throat. [facility] Medical History Anxiety Back pain Bladder disease Breast CA Cancer Cystocele Dense breast tissue Depression Family history of breast cancer in first degree relative FH: colon cancer Gastric reflux Gastritis Goiter History of pain when walking IBS (irritable bowel syndrome) Injury of head and neck Migraine headache PFO (patent foramen ovale) Post-menopausal Sinus infection Sjogren's disease Tachycardia Thyroid disease Home Medications nicotine 21 mg/24 hr daily transdermal patch 7 mg TRANSDERM. DAILY nicotine 10/07/13 [History Last Taken 12/04/17 00:44] biotin 10,000 mcg capsule 10,000 mcg PO DAILY 12/27/20 [History Last Taken Unknown] cholecalciferol (vitamin D3) 50 mcg (2,000 unit) capsule 50 mcg PO DAILY 12/27/20 [History Last Taken Unknown] pyridoxine (vitamin B6) 25 mg tablet 25 mg PO DAILY 12/27/20 [History Last Taken Unknown] ascorbic acid (vitamin C) 500 mg capsule 500 mg PO DAILY 09/30/22 [History Last Taken Unknown] rizatriptan 10 mg tablet (Maxalt) 10 mg PO PRN PRN MIGRAINES 09/30/22 [History Last Taken Unknown] anastrozole 1 mg tablet 1 mg PO DAILY 04/04/23 [History Last Taken Unknown] calcium carbonate 600 mg-vitamin D3 20 mcg (800 unit) chewable tablet (Caltrate 600 plus D) 1 tab PO DAILY 07/30/23 [History Last Taken Unknown] clonazepam 0.5 mg tablet 1 mg PO TID PRN anxiety/sleep 07/30/23 [History Last Taken Unknown] folic acid 1 mg tablet 2 mg PO DAILY 07/30/23 [History Last Taken Unknown] mupirocin calcium 2 % topical cream 1 applic topical TID 08/13/23 [History Last Taken Unknown] magnesium 250 mg tablet 500 mg PO DAILY PRN 08/27/23 [History Last Taken Unknown] mecobalamin (vitamin B12) 1,000 mcg chewable tablet 1,000 mcg PO DAILY 08/27/23 [History Last Taken Unknown] metoprolol succinate 25 mg tablet,extended release 24 hr (Toprol XL) 25 mg PO DAILY #90 tabs 08/27/23 [Rx Last Taken Unknown] levothyroxine 25 mcg tablet (Synthroid) 25 mcg PO DAILY #90 tabs 10/20/23 [Rx Last Taken Unknown] hydroxyzine pamoate 25 mg capsule (Vistaril) 25 mg PO TID PRN anxiety #30 caps 10/26/23 [Rx Last Taken Unknown] Allergy/AdvReac Type Severity Reaction Status Date / Time ciprofloxacin [From Cipro] Allergy Intermediate Other Verified 10/26/23 09:20 latex Allergy Swelling Verified 10/26/23 09:20 Sulfa (Sulfonamide Allergy Swelling Verified 10/26/23 09:20 Antibiotics) Antifungal - Imidazole AdvReac Severe Hearing Verified 10/26/23 09:20 Loss clindamycin AdvReac Severe Abd Verified 10/26/23 09:20 cramps/diarrhea hydroxychloroquine AdvReac Severe suicidal Verified 10/26/23 09:20 [From Plaquenil] thoughts metoprolol AdvReac Intermediate Other Verified 10/26/23 09:20 codeine AdvReac Other Verified 10/26/23 09:20 duloxetine HCl AdvReac Other Verified 10/26/23 09:20 [From Cymbalta] escitalopram oxalate AdvReac Other Verified 10/26/23 09:20 [From Lexapro] omeprazole AdvReac Diarrhea Verified 10/26/23 09:20 pantoprazole [From Protonix] AdvReac Diarrhea Verified 10/26/23 09:20 paroxetine [Paroxetine] AdvReac Other Verified 10/26/23 09:20 venlafaxine HCl AdvReac Other Verified 10/26/23 09:20 [From Effexor] Family History Daughter Breast cancer triple negative Mother Heart disease Breast cancer Hypertension Afib Father Heart disease Colon cancer Hypertension Grandmother Breast cancer maternal Diabetes Grandfather CVA (cerebral vascular accident) Diabetes Sister Hypertension Other Alcohol abuse Anxiety Autoimmune disorder Cervical cancer Depression Surgical History History of cholecystectomy Hx of section Hx of colonoscopy Hx of esophagogastroduodenoscopy Hx of hysterectomy Hx of tonsillectomy Social History adopted: No household members: spouse current occupational status: employed current occupation: [employer] pets and animals: No Smoking Status: Former smoker second hand exposure: No alcohol intake: never substance use type: does not use what type of physical activity do you participate in: decline to answer seatbelt use: always do you feel safe at home: Yes ROS ROS ED Review of Systems ROS Unobtainable: other Constitutional Constitutional ED: Reports lethargy; Denies chills, fever(s), sweats or weight loss Eyes Eyes: Denies blurry vision, change in vision or diplopia ENT ENT ED: Denies rhinorrhea or sore throat Cardiovascular Cardiovascular: Reports racing heartbeat; Denies chest pain or orthopnea Respiratory/Chest Respiratory/Chest: Reports dyspnea; Denies cough, dyspnea on exertion, orthopnea or sputum Gastrointestinal Gastrointestinal: Denies abdominal pain, diarrhea, nausea or vomiting Genitourinary Genitourinary ED: Denies dysuria, hematuria or urinary frequency Musculoskeletal Musculoskeletal: Denies arthralgias, back pain, myalgias or neck pain Integumentary Denies abscess, Abrasions or rash Neurologic Neurologic: Denies headache(s) or weakness Psychiatric Psychiatric: Denies anxiety, depression or suicidal thoughts Endocrine Endocrinology: Denies polydipsia, polyphagia or polyuria Hematologic/Lymphatic Hematologic/Lymphatic: Denies easy bleeding, easy bruising or lymphadenopathy Allergic/Immunologic Allergic/Immunologic ED: Denies mouth swelling, tongue swelling or urticaria EXAM Physical Exam Const Vital Signs: 10/26/23 09:20 Temperature 96.8 F L Temperature Source Temporal Pulse Rate 66 Respiratory Rate 18 Blood Pressure 103/79 Blood Pressure Mean 87 Pulse Ox 100 Oxygen Delivery Method Room Air Positive well nourished and well developed General Appearance ED: well developed and NAD HEENT Reports TM's clear and moist mucous membranes normocephalic and atraumatic; Negative for trauma or tenderness Tympanic Membrane ED: Yes TM's clear Eyes PERRL and EOMs intact bilaterally General Eye ED: Negative for pale conjunctiva or scleral icterus Neck no lymphadenopathy, supple and no JVD General: Negative for tenderness Chest Wall inspection of chest normal and palpation of chest normal Chest: Negative for tenderness Resp normal respiratory effort and clear to auscultation bilaterally Effort and Inspection: Negative for respiratory distress or pain with movement Auscultation: Negative for rhonchi, wheezes or diminished lung sounds Cardio regular rate, regular rhythm, S1 normal heart sound, S2 normal heart sound and no murmurs Peripheral Pulses: pulses 2+ throughout GI normal to inspection, nondistended, normoactive bowel sounds, soft to palpation, non-tender, non-distended and no masses Back/Spine no CVA tenderness and no thoracic nor lumbar tenderness Extremity normal to inspection General Extremety ED: Negative for edema General Extremity: Negative for edema Neuro oriented x3, CN's II-XII intact bilaterally, no sensory deficits noted and gait normal Sensorium / Orientation: awake, alert, oriented to person, oriented to place and oriented to time Motor Exam: strength 5/5 throughout and strength abnormal Psych mental status grossly normal Skin no rashes or lesions noted and no wounds MDM MDM MDM Narrative Medical decision making narrative: Patient presents with anxiety and currently being weaned off her benzos. Patient was started recently 3 days ago on trazodone but she is having hard time sleeping at night. She has had increased stressors this week. Comes in for concern of elevated heart rate and the fact she has had recent diarrhea x 3 days. EKG obtained arrival showed sinus bradycardia with a rate of 58 bpm with no acute ST segment changes. CBC with differential white count 6.4 with hemoglobin 15 and platelet count 217. Chemistries unremarkable. TSH normal at 0.95. Troponin normal at 30. While in department she did receive Vistaril p.o. At this point she does not want to go back on benzos and she wants to continue with her wean. She will discuss the trazodone with her doctor. I will write her a prescription for as needed Vistaril. COVID flu and RSV testing all negative. Lab Data Attestation: I reviewed the patient's lab results. Labs: Laboratory Results - last 24 hr 10/26/23 09:40 WBC 6.4 RBC 4.44 Hgb 15.0 Hct 42.5 MCV 95.7 MCH 33.8 H MCHC 35.3 RDW Std Deviation 43.6 RDW Coeff of Jimbo 12.4 Plt Count 217 MPV 9.8 Immature Gran % (Auto) 0.200 Neut % (Auto) 82.1 H Lymph % (Auto) 12.4 L [place] % (Auto) 4.3 Eos % (Auto) 0.5 Baso % (Auto) 0.5 Absolute Neuts (auto) 5.2 Absolute Lymphs (auto) 0.79 L Nucleated RBC % 0 Sodium 136 Potassium 3.8 Chloride 105 Carbon Dioxide 27.0 Anion Gap 4 L BUN 9 Creatinine 0.77 Estim Creat Clear Calc 77.40 Est GFR (MDRD) Af Amer 99 Est GFR (MDRD) Non-Af 82 BUN/Creatinine Ratio 11.7 Glucose 116 H Calcium 9.7 Troponin I High Sens 3 TSH 0.95 EKG Initial EKG: Attestation: I personally reviewed and interpreted this EKG as follows: Comments: Sinus rhythm with rate of 58 bpm with no acute ST segment changes Discharge Plan Triage Chief Complaint: Anxiety ED Provider: Sheng Milan Dx/Rx/DC Orders Clinical Impression: Anxiety, Diarrhea Instructions: ED Anxiety Reaction, ED Diarrhea, Unknown Cause Prescriptions: New hydroxyzine pamoate [Vistaril] 25 mg capsule 25 mg PO TID PRN (Reason: anxiety) Qty: 30 0RF No Action cholecalciferol (vitamin D3) 50 mcg (2,000 unit) capsule 50 mcg PO DAILY pyridoxine (vitamin B6) 25 mg tablet 25 mg PO DAILY biotin 10,000 mcg capsule 10,000 mcg PO DAILY folic acid 1 mg tablet 2 mg PO DAILY ascorbic acid (vitamin C) 500 mg capsule 500 mg PO DAILY rizatriptan [Maxalt] 10 mg tablet 10 mg PO PRN PRN (Reason: MIGRAINES) anastrozole 1 mg tablet 1 mg PO DAILY Caltrate 600 plus D 600 mg-20 mcg (800 unit) tablet,chewable 1 tab PO DAILY mecobalamin (vitamin B12) 1,000 mcg tablet,chewable 1,000 mcg PO DAILY metoprolol succinate [Toprol XL] 25 mg tablet extended release 24 hr 25 mg PO DAILY Qty: 90 1RF mupirocin calcium 2 % cream 1 applic topical TID nicotine 21 MG patch 7 mg TRANSDERM. DAILY Patient Comments: Pt now uses a 14 mg patch. She removed it at 0045 on 12/04/17. Nicotine. . clonazepam 0.5 mg tablet 1 mg PO TID PRN (Reason: anxiety/sleep) Patient Comments: anxiety/sleep magnesium 250 mg tablet 500 mg PO DAILY PRN levothyroxine [Synthroid] 25 mcg tablet 25 mcg PO DAILY Qty: 90 0RF Primary Care Provider: Aster Melendez Referrals: Aster Melendez MD [Primary Care Provider] - Disposition Disposition: Home, Self Care
[2023-10-26] MEDS: 0.9% Normal Saline (1000mL) 1,000 ML 1000 ML IV (09:44)
[2023-10-26 09:47] LABS: Absolute Lymphocyte Count 0.79 X10^3/uL (0.83-4.51); Absolute Neutrophil Count 5.2 X10^3/uL (2.0-7.7); Basophil# 0.03 X10^3/uL; Basophil% 0.5 % (0-1); Eosinophil# 0.03 X10^3/uL; Eosinophils% 0.5 % (0-5); Hematocrit 42.5 % (37-47); Lymphocyte # 0.79 X10^3/ul (0.83-4.51); Lymphocyte % 12.4 % (19-41); Mean Corp Hgb Conc 35.3 g/dL (32-36); Mean Corpuscular Hgb 33.8 pg (27.0-32.0); Mean Corpuscular Volume 95.7 fL (81-99); Mean Platelet Vol. 9.8 fl (6.2-12.0); Monocyte# 0.27 X10^3/uL; Monocyte% 4.3 % (0-10); NRBC Flagged by Analyzer 0 % (0-5); Neutrophil # 5.22 X10^3/uL (2.7-7.7); Neutrophil % 82.1 % (47-70); Platelet Count 217 K/mm3 (150-450); RBC Distribution Width CV 12.4 % (11.6-14.6); RBC Distribution Width SD 43.6 fl (35.1-43.9); Red Blood Count 4.44 M/mm3 (4.2-5.4); White Blood Count 6.4 K/mm3 (4.4-11.0)
--- OUTSIDE RECORDS SUMMARY | 2023-10-26 09:57 | XMS RPT_ITS | CCD ---
Author Name Unknown Address [address] [place] [address] Organization [facility] Care Team Providers Care Allocation Analyst Name Role Phone Charles Hernandez DO Primary Care Provider Aster Melendez Primary Care Provider Aster Melendez Primary Care Provider Aster Melendez Primary Care Provider CATHY INTERIANO Attending Unavailabl e ASTER MELENDEZ Primary Care Unavailable ROYCE WELLS Referring Unavailable Al Aster S Unavailable Unavailable Unavailable Aster Melendez Primary Care Provider [phone] Chengiff Aster S Unavailable Adams Castelan Unavailable Valerio Teague Unavailable Yamil Ortiz Unavailable ISAIAH DURAN CNP Referring Unavailable ISAIAH DURAN CNP Attending Unavailable YAMIL ORTIZ Attending Unavailable ASTER MELENDEZ Primary Care Unavailable Dr. Yamil Ortiz Attending Unavailable Al, Dr. Aster Puentes Primary Care Unavail able Dr. Yamil Ortiz Attending Unavailable Al, Dr. Aster Puentes Primary Care Unavail able Dr. Yamil Ortiz Referring Unavailable Al, Dr. Aster Puentes Primary Care Unavail able Fer, Dr. Yamil Vasquez Attending Unavailable Dr. Yamil Ortiz Referring Unavailable Al, Dr. Aster Puentes Primary Care Unavail able Lucho, Ms. Katey Bocanegra Referring Un available Fer, Dr. Yamil Vasquez Attending Unavailable Joniyah, Dr. Aster Puentes Primary Care Unavail able Tom, Ms. Pastrana Attending Unavailable Fer, Dr. Yamil Vasquez Referring Unavailable Joniyah, Dr. Aster Puentes Primary Care Unavail able LALO, [facility] Attending Unavaila ble Fer, Dr. Yamil Vasquez Referring Unavailable Joniyah, Dr. Aster Puentes Primary Care Unavail able Fer, Dr. Yamil Vasquez Attending Unavailable Fer, Dr. Yamil Vasquez Attending Unavailable Jollvicki, Dr. Aster Puentes Primary Care Unavail able Joniyah, Dr. Aster Puentes Primary Care Unavail able Fer, Dr. Yamil Vasquez Attending Unavailable Marbella Gross Attending Unavailable Joniyah, Dr. Aster Puentes Primary Care Unavail able Joniyah, Dr. Aster Puentes Primary Care Unavail able Fer, Dr. Yamil Vasquez Attending Unavailable Joniyah, Dr. Aster Puentes Primary Care Unavail able Fer, Dr. Yamil Vasquez Attending Unavailable Jollvicki, Dr. Aster Puentes Primary Care Unavail able Al, Dr. Aster Puentes Attending Unavail able Yamil Ortiz MD Unavailable [place] DO Madan Margaux Unavailable Al, Dr. Aster Puentes Primary Care Unavail able Flip, Dr. Adams Swartz Attending U navailable Natabhayan, Dr. Adams Swartz Admitting U navailable Self, Irasema Referring Unavailable Yamil Ortiz Attending Unavailable Al, Dr. Aster Puentes Primary Care Unavail able Yamil Ortiz Attending Unavailable Yamil Ortiz Referring Unavailable Al, Dr. Aster Puentes Primary Care Unavail able Yamil Ortiz Admitting Unavailable Aster Melendez MD Primary Care Provider Un available MARBELLA GROSS Attending Unavailable JOASTER PICKENS Primary Care Unavailable JOASTER PICKENS Primary Care Unavailable Melissa Tran Attending Unavailable ROYCE WELLS Referring Unavailable JOASTER PICKENS Primary Care Unavailable ROYCE WELLS Attending Unavailable MEEK TORRES Attending Unavailable JOASTER PICKENS Primary Care Unavailable AMI MEEK A Referring Unavailable ASTER MELENDEZ Primary Care Unavailable MEEK TORRES Referring Unavailable MEEK TORRES Attending Unavailable ASTER MELENDEZ Primary Care Unavailable MEEK TORRES Referring Unavailable Allergies Allergy Classification Reported Allergen(s) Allergy Type Date of Onset Reaction(s) Facility (20 sources) Codeine; Translations: [CODEINE] Drug Allergy 6 Mental Status Change, Unknown [facility] Work Phone: (20 sources) DULoxetine; Translations: [DULOXETINE] Drug Allergy 0 Mental Status Change, Unknown [facility] (20 sources) Escitalopram; Translations: [ESCITALOPRAM OXALATE] Drug Allergy 0 Unknown [facility] Work Phone: [phone] (20 sources) Hydroxychloroqui ne; Translations: [HYDROXYCHLOROQU INE] Drug Allergy 9 Other: See Comments [facility] Work Phone: (20 sources) Latex; Translations: [LATEX] Propensity to adverse reactions 7 Swelling, Unknown [facility] Work Phone: (20 sources) PARoxetine; Translations: [PAROXETINE] Drug Allergy 0 [facility] Work Phone: (20 sources) Sulfonamides (Antibiotic); Translations: [SULFA (SULFONAMIDE ANTIBIOTICS)] Propensity to adverse reactions 6 GI Upset, Unknown [facility] Work Phone: (20 sources) venlafaxine; Translations: [VENLAFAXINE ANALOGUES] Drug Allergy 0 Intolerance, Unknown [facility] Work Phone: (11 sources) Escitalopram; Translations: [Lexapro] Drug Allergy [facility] [address] Work Phone: (13 sources) Omeprazole; Translations: [omeprazole] Drug Allergy 3 Unknown [facility] (12 sources) pantoprazole; Translations: [Protonix] Drug Allergy 3 Unknown [place]orbvc[facility] [address] [address] Work Phone: (11 sources) Sulfonamides (Antibiotic); Translations: [Sulfa Drugs] Allergy to drug (finding) [place]Uzrfosfd[facility] [address] [address] Work Phone: (11 sources) Latex Exam Gloves MISC; Translations: [Latex Exam Gloves MISC] Allergy to drug (finding) ZT[facility]Wlqpyfjs[facility] [address] [address] Work Phone: (1 source) pantoprazole; Translations: [PANTOPRAZOLE] Drug Allergy 3 [facility] (1 source) venlafaxine; Translations: [VENLAFAXINE] Drug Allergy 3 [facility] Medications Current Medications Medication Drug Class(es) Dates Sig (Normalized) Sig (Original) calcium carbonate 1500 mg / cholecalciferol 800 unt oral tablet (1 source) Vitamin D take 1 tablet by mouth once daily Caltrate 600 + D oral tablet ; 1 tab(s) orally once a day Quantity: 0 Refills: 0 Ordered: 04-Jun-2023 Charlotte Garza Generic Substitution Allowed enteric contrast (will be provided with radiology test) (1 source) Start: 08-29-2023 End: 08-30-2023 enteric contrast (will be provided with radiology test) Indications: Malignant neoplasm of lower-inner quadrant of right breast of female, estrogen receptor positive (HCC) , Lung nodules For CT CHESTABD/PEL W IVCON Routine order Administer, As Directed One Time Only, via Oral, Rectal, both Oral and Rectal, Enteric Tube, Stoma or Indwelling Catheter, Enteric Contrast as designated per enteric contrast guidelines 1 Each 0 08/29/2023 08/30/2023 Active Completed/Discontinued Medications Medication Drug Class(es) Dates Sig (Normalized) Sig (Original) anastrozole 1 mg oral tablet (7 sources) Aromatase Inhibitor Start: 03-31-2023 End: 08-29-2023 take 1 tablet by mouth once daily anastrozole (ARIMIDEX) 1 mg tablet Take 1 tablet by mouth once daily. 30 tablet 5 03/31/2023 08/29/2023 Discontinued Problems Active Problems Problem Classification Problem Date Documented Date Episodic/Chronic Adjustment disorders (20 sources) Adjustment disorder with anxious mood; Translations: [Adjustment disorder with anxiety] Onset: 09-10-20 06 09-10-2006 Chronic Bacterial infection; unspecified site (1 source) Methicillin susceptible Staphylococcus aureus infection as the cause of diseases classified elsewhere; Translations: [Methicillin suscep staph infct causing dis classd elswhr] Onset: 06-08-20 Episodic Cancer of breast (20 sources) Malignant neoplasm of upper-outer quadrant of female breast; Translations: [Malignant neoplasm of upper-outer quadrant of right female breast] Onset: 04-03-20 Chronic Cancer of breast (1 source) Personal history of malignant neoplasm of breast; Translations: [Personal history of malignant neoplasm of breast] Onset: 06-08-20 Episodic Complications of surgical procedures or medical care (9 sources) Breast infection; Translations: [Other postoperative infection] Onset: 06-04-20 Episodic Deficiency and other anemia (1 source) Anemia, unspecified; Translations: [Anemia, unspecified] Onset: 06-08-20 Episodic Fluid and electrolyte disorders (1 source) Hyperkalemia; Translations: [Hyperkalemia] Onset: 06-08-20 Episodic Gastritis and duodenitis (1 source) Chronic superficial gastritis; Translations: [Chronic superficial gastritis without bleeding] Chronic Headache; including migraine (20 sources) Migraine with aura; Translations: [Migraine with aura] Onset: 11-12-19 07 11-12-2006 Chronic Nonmalignant breast conditions (20 sources) Solitary cyst of breast; Translations: [Solitary cyst of unspecified breast] Onset: 11-15-19 09 11-15-2008 Episodic Other bone disease and musculoskeletal deformities (1 source) Subungual exostosis; Translations: [Other specified disorders of bone, unspecified site] Episodic Other circulatory disease (1 source) Abnormal peripheral pulse; Translations: [Other specified symptoms and signs involving the circulatory and respiratory systems] Episodic Other endocrine disorders (1 source) Hypoglycemia; Translations: [Hypoglycemia, unspecified] Chronic Other gastrointestinal disorders (20 sources) Irritable bowel syndrome; Translations: [Irritable bowel syndrome without diarrhea] Onset: 01-16-20 06 01-15-2006 Chronic Other gastrointestinal disorders (2 sources) Abdominal bloating; Translations: [Abdominal distension (gaseous)] Episodic Other gastrointestinal disorders (1 source) Diarrhea, unspecified; Translations: [Diarrhea, unspecified] Onset: 06-08-20 Episodic Other lower respiratory disease (1 source) Multiple nodules of lung; Translations: [Other nonspecific abnormal finding of lung field] 08-29-2023 Episodic Other skin disorders (1 source) Dystrophia unguium; Translations: [Nail dystrophy] Episodic Residual codes; unclassified (1 source) Family history of breast cancer; Translations: [Family history of malignant neoplasm of breast] Episodic Residual codes; unclassified (3 sources) History of right mastectomy; Translations: [Acquired absence of breast and nipple] Onset: 06-19-2006-19-2023 Episodic Residual codes; unclassified (1 source) Acquired absence of unspecified breast and nipple; Translations: [Acquired absence of unspecified breast and nipple] Onset: 06-10-20 Episodic Residual codes; unclassified (2 sources) Acquired absence of right breast and nipple; Translations: [Acquired absence of right breast and nipple] Onset: 06-08-20 Episodic Residual codes; unclassified (2 sources) Family history of malignant neoplasm of digestive organs; Translations: [Family history of malignant neoplasm of digestive organs] Onset: 04-03-20 Episodic Residual codes; unclassified (1 source) Family history of malignant neoplasm of other organs or systems; Translations: [Family history of malignant neoplasm of organs or systems] Onset: 06-10-20 Episodic Residual codes; unclassified (2 sources) Family history of ischemic heart disease and other diseases of the circulatory system; Translations: [Family hx of ischem heart dis and oth dis of the circ sys] Onset: 04-03-20 Episodic Residual codes; unclassified (1 source) Family history of arthritis; Translations: [Family history of arthritis] Onset: 06-10-20 Episodic Residual codes; unclassified (1 source) Family history of epilepsy and other diseases of the nervous system; Translations: [Family history of epilepsy and oth dis of the nervous sys] Onset: 05-20-20 Episodic Residual codes; unclassified (1 source) Acquired absence of both cervix and uterus; Translations: [Acquired absence of both cervix and uterus] Onset: 06-08-20 Episodic Residual codes; unclassified (1 source) Acquired absence of other specified parts of digestive tract; Translations: [Acquired absence of other specified parts of digestive tract] Onset: 06-08-20 Episodic Residual codes; unclassified (1 source) Estrogen receptor positive tumor; Translations: [Estrogen receptor positive status [ER+]] 05-09-2023 Episodic Screening and history of mental health and substance abuse codes (2 sources) Personal history of nicotine dependence; Translations: [Personal history of nicotine dependence] Onset: 06-08-20 Episodic Skin and subcutaneous tissue infections (1 source) Cellulitis 06-04-2023 Episodic Substance-related disorders (20 sources) Tobacco user; Translations: [Nicotine dependence, unspecified, uncomplicated] Onset: 09-10-20 06 09-10-2006 Chronic Systemic lupus erythematosus and connective tissue disorders (20 sources) Keratoconjunctivitis sicca, in Sjogren's syndrome; Translations: [Sicca syndrome with keratoconjunctivitis] Onset: 04-30-2004-30-2019 Chronic Thyroid disorders (20 sources) Non-toxic multinodular goiter; Translations: [Nontoxic multinodular goiter] Onset: 11-25-1911-25-2007 Chronic Unclassified (2 sources) POST OP - SWOLLEN AND SORE / FEVER / NV / BODY ACHES 06-04-2023 Past or Other Problems Problem Classification Problem Date Documented Da te Episodic/Chronic Abdominal pain (20 sources) Right upper quadrant pain; Translations: [Right upper quadrant pain] Onset: 09-28-2013 09-28-2013 Episodic Allergic reactions (20 sources) Chronic urticaria; Translations: [Other urticaria] Onset: 04-30-2019 04-30-2019 Episodic Gastrointestinal hemorrhage (20 sources) Hemorrhage of rectum and anus; Translations: [Hemorrhage of anus and rectum] Onset: 09-04-2006 09-04-2006 Episodic Lymphadenitis (20 sources) Lymphadenopathy; Translations: [Enlarged lymph nodes, unspecified] Onset: 11-04-2007 11-04-2007 Episodic Nausea and vomiting (4 sources) Nausea; Translations: [Nausea] Onset: 10-02-2022 Episodic Other connective tissue disease (20 sources) Muscle pain; Translations: [Myalgia and myositis, unspecified] Onset: 01-15-2006 01-15-2006 Episodic Other gastrointestinal disorders (1 source) Abdominal distension (gaseous); Translations: [Abdominal bloating] Onset: 10-02-2022 Episodic Other lower respiratory disease (20 sources) Lung field abnormal; Translations: [Nonspecific abnormal findings on radiological and other examination of lung field] Onset: 04-17-2007 04-17-2007 Episodic Other non-traumatic joint disorders (20 sources) Chronic pain of left upper limb; Translations: [Pain in left shoulder] Onset: 08-20-2021 08-20-2021 Episodic Other screening for suspected conditions (not mental disorders or infectious disease) (20 sources) Patient encounter status; Translations: [Encounter for screening for malignant neoplasm of colon] Onset: 08-27-2012 08-27-2012 Episodic Residual codes; unclassified (20 sources) History of difficult intubation; Translations: [Other specified personal risk factors, not elsewhere classified] Onset: 10-21-2013 10-21-2013 Episodic Residual codes; unclassified (20 sources) Postmenopausal state; Translations: [Asymptomatic menopausal state] Onset: 08-20-2021 08-20-2021 Episodic Residual codes; unclassified (2 sources) Estrogen receptor positive status [ER+]; Translations: [ESTROGEN RECEPTOR POSITIVE STATUS] Onset: 04-30-2023 Episodic Residual codes; unclassified (2 sources) Family history of malignant neoplasm of breast; Translations: [Family history of malignant neoplasm of breast] Onset: 02-20-2023 Episodic Residual codes; unclassified (1 source) Family history of diabetes mellitus; Translations: [Family history of diabetes mellitus] Onset: 04-08-2023 Episodic Residual codes; unclassified (2 sources) Family history of other specified conditions; Translations: [Family history of other specified conditions] Onset: 02-27-2023 Episodic Urinary tract infections (20 sources) Acute cystitis; Translations: [Acute cystitis without hematuria] Onset: 08-20-2021 08-20-2021 Episodic Results Test Name Value Interpretation Reference Range Facil ity Vital Signs Date Time Vital Sign Value Performing Clinician Facility 08-29-2023 08:36-0500 Body temperature 97.5 [degF] Meek Torres DO Work Phone: [facility] 08-29-2023 08:36-0500 Body weight 74.84 kg Meek Torres DO Work Phone: [facility] 08-29-2023 08:36-0500 Diastolic blood pressure 81 mm[Hg] Meek Torres DO Work Phone: [facility] 08-29-2023 08:36-0500 Heart rate 77 /min Meek Torres DO Work Phone: [facility] 08-29-2023 08:36-0500 Systolic blood pressure 121 mm[Hg] Meek Torres DO Work Phone: [facility] 06-10-2023 10:05-0400 Body mass index (BMI) [Ratio] 26.46 kg/m2 Aster Swartz Jolliff Work Phone: [facility] Work Phone: 06-10-2023 10:05-0400 Body surface area Derived from formula 1.79 m2 Aster S Jolliff Work Phone: [facility] Work Phone: 06-10-2023 10:05-0400 Body temperature 97.7 [degF] Aster Swartz Jolliff Work Phone: [facility] Work Phone: 06-10-2023 10:05-0400 Body weight 72.12 kg Aster S Jolliff Work Phone: [facility] Work Phone: 06-10-2023 10:05-0400 Diastolic blood pressure 77 mm[Hg] Aster S Jolliff Work Phone: [facility] Work Phone: 06-10-2023 10:05-0400 Heart rate 71 /min Aster S Jolliff Work Phone: [facility] Work Phone: 06-10-2023 10:05-0400 Systolic blood pressure 136 mm[Hg] Aster S Jolliff Work Phone: [facility] Work Phone: 06-08-2023 13:40-0400 Body temperature 97.34 [degF] Aster Melendez Other Phone: [facility] 06-08-2023 13:40-0400 Diastolic blood pressure 74 mm[Hg] Aster Jolliff Other Phone: [facility] 06-08-2023 13:40-0400 Heart rate 71 /min Aster Jolliff Other Phone: [facility] 06-08-2023 13:40-0400 Respiratory rate 16 /min Aster Jolliff Other Phone: [facility] 06-08-2023 13:40-0400 SaO2% (BldA) [Mass fraction] 98 % Aster Jolliff Other Phone: [facility] 06-08-2023 13:40-0400 Systolic blood pressure 118 mm[Hg] Aster Jolliff Other Phone: [facility] 06-04-2023 11:30-0400 Body temperature 100.3 [degF] Aster S Jolliff Work Phone: [facility] Work Phone: 04-30-2023 06:55-0400 Body height 172.5 cm Yamil Ortiz MD Work Phone: [facility] 04-30-2023 06:55-0400 Body mass index (BMI) [Ratio] 24.36 kg/m2 Yamil Ortiz MD Work Phone: [facility] 04-30-2023 06:55-0400 Body weight 72.5 kg Yamil Ortiz MD Work Phone: [facility] 04-08-2023 09:14-0400 Body height 165.1 cm Aster S Jolliff Work Phone: TT-Xxbpxlgqrw-Wfoqf [facility] Work Phone: 04-08-2023 09:14-0400 Body mass index (BMI) [Ratio] 26.3 kg/m2 Aster S Jolliff Work Phone: YQ-Dyjfmxzilt-Uackw a 160 Work Phone: 04-08-2023 09:14-0400 Body surface area Derived from formula 1.79 m2 Aster Swartz Jolliff Work Phone: OR-Injlxjtvfn-Dpzqv a [address] Work Phone: 04-08-2023 09:14-0400 Body temperature 97.34 [degF] Aster Swartz Jolliff Work Phone: RG-Jrrfdgkggt-Dafex [facility] [address] Work Phone: 04-08-2023 09:14-0400 Body weight 71.7 kg Aster S Jolliff Work Phone: ON-Stgnftpbbh-Kryzh a [address] Work Phone: 04-08-2023 09:14-0400 Diastolic blood pressure 69 mm[Hg] Aster Swartz Jolliff Work Phone: BD-Buzmlhjnpg-Alwec [facility] [address] Work Phone: 04-08-2023 09:14-0400 Heart rate 70 /min Aster Swartz Jolliff Work Phone: ZZ-Itnrhrpzlv-Mxmmb a 160 Work Phone: 04-08-2023 09:14-0400 Respiratory rate 16 /min Aster Swartz Jolliff Work Phone: SH-Gwopuwdxbv-Xdzwb a [address] Work Phone: 04-08-2023 09:14-0400 SaO2% (BldA) [Mass fraction] 98 % Aster Swartz Jolliff Work Phone: GE-Tpurlzhgvh-Pxkvs a 160 Work Phone: 04-08-2023 09:14-0400 Systolic blood pressure 115 mm[Hg] Aster S Jolliff Work Phone: KR-Piwwiycfpz-Goqvz a 160 Work Phone: 02-27-2023 11:32-0400 Body height 171.45 cm Aster S Jolliff Work Phone: OC-Pbqvhepm-Kfzhusd e 2470 Work Phone: 02-27-2023 11:32-0400 Body mass index (BMI) [Ratio] 24.07 kg/m2 Aster Anandiff Work Phone: CP-Mienrlcs-Kdfhoix e 9011 Work Phone: 02-27-2023 11:32-0400 Body surface area Derived from formula 1.83 m2 Aster Esparzalliff Work Phone: LM-Lvtqehhw-Brdddkq e 1136 Work Phone: 02-27-2023 11:32-0400 Body temperature 98.24 [degF] Aster Anandiff Work Phone: QI-Ufibkptg-Ttzfxcr e 5227 Work Phone: 02-27-2023 11:32-0400 Body weight 70.76 kg Aster Anandiff Work Phone: IJ-Ntxrayek-Zydxyta e 9923 Work Phone: 02-27-2023 11:32-0400 Diastolic blood pressure 61 mm[Hg] Aster Anandiff Work Phone: EF-Oabiiuxr-Adantbv e 4812 Work Phone: 02-27-2023 11:32-0400 Heart rate 73 /min Aster Esparzalliff Work Phone: BQ-Hnaccpwp-Kzjnhiv e 0030 Work Phone: 02-27-2023 11:32-0400 Respiratory rate 18 /min Aster Esparzalliff Work Phone: SB-Eatwvnzr-Hiqmiaq e 8857 Work Phone: 02-27-2023 11:32-0400 SaO2% (BldA) [Mass fraction] 97 % Aster Esparzalliff Work Phone: EQ-Uzwdsbic-Auxrxtc e 2475 Work Phone: 02-27-2023 11:32-0400 Systolic blood pressure 91 mm[Hg] Aster Melendez Work Phone: DK-Ehtwxovu-Alfvdbl e 2470 Work Phone: 02-20-2023 14:55-0400 Body height 172.7 cm Marbella Gross MD Work Phone: [facility] 02-20-2023 14:55-0400 Body temperature 97.59 [degF] Marbella Gross MD Work Phone: [facility] 02-20-2023 14:55-0400 Body weight 71.22 kg Marbella Gross MD Work Phone: [facility] 02-20-2023 14:55-0400 Diastolic blood pressure 66 mm[Hg] Marbella Gross MD Work Phone: [facility] 02-20-2023 14:55-0400 Heart rate 82 /min Marbella Gross MD Work Phone: [facility] 02-20-2023 14:55-0400 SaO2% (BldA) [Mass fraction] 99 % Marbella Gross MD Work Phone: [facility] 02-20-2023 14:55-0400 Systolic blood pressure 108 mm[Hg] Marbella Gross MD Work Phone: [facility] 10-09-2022 09:06-0500 Body temperature 98.49 [degF] Melissa Marc PA-C Work Phone: [facility] 10-09-2022 09:06-0500 Body weight 70.76 kg Melissa [place] PA-C Work Phone: [facility] 10-09-2022 09:06-0500 Diastolic blood pressure 70 mm[Hg] Melissa [place] PA-C Work Phone: [facility] 10-09-2022 09:06-0500 Heart rate 99 /min Melissa [place] PA-C Work Phone: [facility] 10-09-2022 09:06-0500 SaO2% (BldA) [Mass fraction] 99 % Melissa Marc PA-C Work Phone: [facility] 10-09-2022 09:06-0500 Systolic blood pressure 116 mm[Hg] Melissa Tran PA-C Work Phone: [facility] 10-02-2022 13:45-0500 Diastolic blood pressure 74 mm[Hg] Royce Wells MD Work Phone: [facility] 10-02-2022 13:45-0500 Heart rate 62 /min Royce Wells MD Work Phone: [facility] 10-02-2022 13:45-0500 Respiratory rate 19 /min Royce Wells MD Work Phone: [facility] 10-02-2022 13:45-0500 SaO2% (BldA) [Mass fraction] 97 % Royce Wells MD Work Phone: [facility] 10-02-2022 13:45-0500 Systolic blood pressure 144 mm[Hg] Royce Wells MD Work Phone: [facility] 10-02-2022 13:18-0500 Body temperature 97 [degF] Royce Wells MD Work Phone: [facility] 10-02-2022 12:47-0500 Body height 172.7 cm Royce Wells MD Work Phone: [facility] 10-02-2022 12:47-0500 Body weight 71.22 kg Royce Wells MD Work Phone: [facility] 10-01-2022 10:40-0500 Body height 172.7 cm Royce Wells MD Work Phone: [facility] 10-01-2022 10:40-0500 Body temperature 97.3 [degF] Royce Wells MD Work Phone: [facility] 10-01-2022 10:40-0500 Body weight 71.31 kg Royce Wells MD Work Phone: [facility] 10-01-2022 10:40-0500 Diastolic blood pressure 88 mm[Hg] Royce Wells MD Work Phone: [facility] 10-01-2022 10:40-0500 Heart rate 89 /min Royce Wells MD Work Phone: [facility] 10-01-2022 10:40-0500 SaO2% (BldA) [Mass fraction] 99 % Royce Wells MD Work Phone: [facility] 10-01-2022 10:40-0500 Systolic blood pressure 132 mm[Hg] Royce Wells MD Work Phone: [facility] 03-22-2022 08:30-0400 Body height 170.2 cm Genny Fields MD Work Phone: [facility] 03-22-2022 08:30-0400 Body temperature 98.1 [degF] Genny Fields MD Work Phone: [facility] 03-22-2022 08:30-0400 Body weight 73.94 kg Genny Fields MD Work Phone: [facility] 03-22-2022 08:30-0400 Diastolic blood pressure 73 mm[Hg] Genny Fields MD Work Phone: [facility] 03-22-2022 08:30-0400 Heart rate 63 /min Genny Fields MD Work Phone: [facility] 03-22-2022 08:30-0400 Systolic blood pressure 112 mm[Hg] Genny Fields MD Work Phone: [facility] Encounters Encounter Date Encounter Type Care Provider Facility Start: 08-29-2023 End: 08-29-2023 ambulatory MEEK TORRES Facility:[facility] Start: 08-29-2023 End: 08-29-2023 ambulatory Meek Torres DO Work Phone: Hematology/Oncology Procedures Date Procedure Procedure Detail Performing Clinician Start: 06-04-2023 End: 06-04-2023 EKG impression Annalisa Buckley Start: 04-30-2023 Radiological examination surgical specimen Yamil Ortiz MD Work Phone: Start: 04-30-2023 NM SENTINEL NODE INJ FOR BX NO SCAN PERFORMED Yamil Ortiz MD Work Phone: Start: 04-30-2023 SURGICAL PATHOLOGY RESULTS Yamil radford MD Work Phone: Start: 03-04-2023 Nonphysician telephone assessment 21-30 min Aster Esparzalliff Work Phone: Start: 02-20-2023 BREAST BIOPSY RIGHT (POC) SURG USE ONLY Marbella Gross MD Work Phone: Start: 10-02-2022 Esophagogastroduodenoscopy transoral diagnostic Royce Wells MD Work Phone: Start: 05-26-2020 Lipid 1996 panel - Serum or Plasma Meek Torres DO Work Phone: Start: 10-10-2012 Mammography Raf Romeo Work Phone: Start: 09-11-2012 Colonoscopy Raf Aguilarfred Work Phone: Biopsy of breast Aster Swartz Jolli ff Work Phone: section Aster S Jolli ff Work Phone: History of mastectomy S/P partia l mastectomy Aster S Jolliff Work Phone: Hysterectomy Aster S Jolliff Work Phone: Operation on gallbladder Aster S Jolliff Work Phone: Tonsillectomy and adenoidectomy Aster S Jolliff Work Phone: Plan of Treatment Date Care Activity Detail Author Start: 06-08-2026 Diabetes Screening Diabetes Screening [facility] Start: 05-26-2025 Lipid 1996 panel - Serum or Plasma Lipid Screening [facility] Start: 05-26-2025 LIPID SCREEN LIPID SCREEN [facility] Start: 02-01-2025 DIABETES SCREEN DIABETES SCREEN [facility] Start: 02-16-2024 DIABETES SCREEN DIABETES SCREEN [facility] Start: 10-07-2023 EPV, Provider: Yamil Ortiz, Status: Pen, Time: 3:00 PM EPV, Provider: Yamil Ortiz, Status: Pen, Time: 3:00 PM [id number] Work Phone: Start: 10-07-2023 End: 10-07-2023 Patient encounter procedure [facility] Start: 07-30-2023 End: 10-29-2023 Immunodeficiency panel - Blood by Flow cytometry (FC) [facility] Work Phone: Immunizations Immunization Date Immunization Notes Care Provider Jesse canela 12-21-2020 COVID-19 vaccine, fu ll dose (MODERNA) Raf Romeo Work Phone: [facility] 11-23-2020 COVID-19 vaccine, fu ll dose (MODERNA) Raf Romeo Work Phone: [facility] Payers Date Payer Category Payer Unknown 2018 Private Health Insurance [facility] UMR CHOICE PLUS IR TIM [id number] 2018-Present [phone] [address] [address] [place] [address] O [id number] 2018 Private Health Insurance [id number] 2018 Unknown [id number] 1962 Unknown [id number] 2.16.840.1.574805.3.579. 2.159 1962 Unknown [id number] 2.16.840.1.213749.3.579. 2.1245 1962 Unknown [id number] 2.16.840.1.167313.3.579. 2.356 1962 Unknown [id number] 2.16.840.1.811405.3.579. 2.356 1962 Unknown [id number] 2.16.840.1.225099.3.579. 2.356 1962 Unknown [id number] 2.16.840.1.920354.3.579. 2.356 1962 Unknown [id number] 2.16.840.1.151893.3.579. 2.356 1962 Unknown [id number] 2.16.840.1.257509.3.579. 2.356 1962 Unknown [id number] 2.16.840.1.766325.3.579. 2.356 1962 Unknown [id number] 2.16.840.1.618043.3.579. 2.356 1962 Unknown [id number] 2.16.840.1.248063.3.579. 2.356 1962 Unknown [id number] 2.16.840.1.130691.3.579. 2.356 1962 Unknown [id number] 2.16.840.1.242683.3.579. 2.356 1962 Unknown [id number] 2.16.840.1.407319.3.579. 2.356 1962 Unknown [id number] 2.16.840.1.873462.3.579. 2.356 1962 Unknown [id number] 2.16.840.1.243489.3.579. 2.356 1962 Unknown [id number] 2.16.840.1.221263.3.579. 2.356 1962 Unknown [id number] 2.16.840.1.404029.3.579. 2.356 Self-pay Social History Date Type Detail Facility Start: 08-27-2012 End: 10-09-2022 Tobacco smoking status NHIS Ex-smoker [facility] End: 09-22-2013 History of tobacco use Current smoker [facility] End: 09-22-2013 History of tobacco use Cigarette Smoker [facility] Start: 08-27-2012 End: 03-06-2023 Cigarettes smoked current (pack per day) - Reported 0.5 [facility] Start: 08-27-2012 End: 10-09-2022 Tobacco use and exposure Smokeless tobacco non-user [facility] Start: 01-08-2022 End: 08-29-2023 Alcohol intake Current drinker of alcohol (finding) [facility] Start: 04-21-2007 History SDOH Alcohol Comment couple times a year [facility] Start: 1960 Sex Assigned At Female [facility] Start: 03-12-2022 End: 06-24-2023 Exposure to SARS-CoV-2 (event) Not sure [facility] Start: 02-20-2023 End: 03-06-2023 Tobacco use panel [facility] Adult Depression Screening Assessment 2 [facility] Start: 03-21-2020 Gender identity Identifies as female gender (finding) [facility] Start: 03-21-2020 Sexual orientation Heterosexual (finding) [facility] Tobacco smoking consumption unknown [facility] Start: 1960 Sex Assigned At Not on file [facility] Work Phone: Functional Status Date Assessment Result Facility Functional observable [facility] Mental Status Date Assessment Result Facility 06-04-2023 Cognitive functions [id number] [facility] Clinical Notes 01-08-2022 to 08-29-2023 Meek Torres DO - 08/29/2023 8:55 AM Ping Palafox LPN - 08/29/2023 8:39 AM ESTTelephone [facility] - Charlotte Regalado - 07/30/2023 12:39 PM Erica Ortiz MD - 04/30/2023 12:05 PM EDT Note Date & Type Note Facility 08-29-2023 Note HNO ID: [id number] Author: Meek Torres DO Service: ? Author Type: Physician Type: Progress Notes Filed: 08/29/2023 12:34 PM Note Text: Oncologic problem(s): 1) pT2 (2.7 cm) pN0(sln) M0 grade 2 ER/RI positive, HER2 nonamplified pathologic stage IA invasive ductal carcinoma of the right breast. HPI: The patient is a 62-year-old female with a past medical history significant for goiter, migraine headaches and IBS. 02/14/2023: Bilateral screening mammography was performed. This demonstrated an asymmetry in the right retroareolar slightly inner breast at the anterior depth approximately 3.7 cm posterior to the nipple which is more conspicuous than on prior studies. Further assessment with spot compression and ultrasound is recommended. BI-RADS Category 0. 02/19/2023: Patient completed right breast diagnostic mammography which demonstrated a 1.8 x 2.2 cm irregular mass in the slightly inner aspect of the right breast, recommend correlation with ultrasound. 02/19/2023: Right breast ultrasound was performed. The mammographic abnormality corresponds to a 1 x 1.2 x 1 cm lobulated solid mass at the 1 o'clock position of the breast about 3 cm from the nipple. Biopsy is recommended. BI-RADS Category 5 02/20/2023: Core biopsy of the right breast. Pathology: RIGHT BREAST, CORE BIOPSY: -- INVASIVE DUCTAL CARCINOMA, GRADE 2, SEE NOTE Estrogen Receptor (ER) Positive 99 % Stain intensity: strong Internal controls: present and stained as expected External controls: appropriately stained Progesterone Receptor (RI) Positive 95 % Stain intensity: moderate to strong Internal controls: present and stained as expected External controls: appropriately stained HER2 (ERBB2) IMMUNOHISTOCHEMISTRY ASSAY Interpretation: EQUIVOCAL for HER2 (ERBB2) Expression Score: 2+ HER2 (ERBB2) Status by FISH: Non amplified INTERPRETATION: NEGATIVE for HER2 (ERBB2) GENE AMPLIFICATION 02/21/2023: Unilateral right breast diagnostic mammogram was performed. This demonstrated that the breasts are heterogeneously dense. There is a tissue clip marker seen in the retroareolar region of the right breast. 03/26/2023: Bilateral breast MRI with and without contrast was performed. This demonstrated an irregular area of clumped and none mass enhancement in the right breast at the 12 o'clock position measuring approximately 3.5 x 2.7 x 2.6 cm, this lesion appears to represent the index lesion in the right breast. No abnormalities are noted in the left breast. No evidence of adenopathy is noted, specifically there is evidence for shotty lymph nodes in both axilla with no abnormal appearance or morphology. No abnormalities noted in the chest or liver. Underwent right breast lumpectomy along with axillary sentinel lymph node biopsy and reresection of right posterior, right inferior, right superior, right medial, right anterior and right lateral margin and right posterior margin on 04/30/2023. Pathology: -Invasive ductal carcinoma in situ -1 lymph node negative for carcinoma. -Minute focus of invasive ductal carcinoma 1 mm from final inked margin, right posterior margin reexcision Synoptic report available in scanned documents. Developed right breast abscess. MSSA. Cefadroxil 500 mg BID through 06/22/2023. Previous therapy: 1) Adjuvant RT. Completed 08/19/2023. Current therapy: 1) Anastrozole. Presents for ongoing oncologic management. Interim history: Recently diagnosed with nasal colonization MRSA. On a several month course of mupirocin. Was having intermittent palpitations. Prescribed beta-rolando by Dr. Valero. Hasn't started. Off anastrozole during radiation anastrozole. Has not yet restarted. No complaints today. PAST MEDICAL HISTORY Diagnosis Date Excessive or frequent menstruation Heavy periods resolved Family history of malignant neoplasm of breast Hypothyroidism Iron deficiency anemia, unspecified Anemia, iron def. PMH - PAST MEDICAL HISTORY OF migraines PMH - PAST MEDICAL HISTORY OF fibromyalgia resolved PMH - PAST MEDICAL HISTORY OF depression PMH - PAST MEDICAL HISTORY OF 'whole in heart'/PFO Premenstrual tension syndromes PMS Sjogren's syndrome (HCC) Symptomatic menopausal or female climacteric states PAST SURGICAL HISTORY Procedure Laterality Date >=3 1985 1990, 1997 DELIVERY ONLY , low cervicalx3 with bto COLONOSCOPY 2018 COLONOSCOPY W/BIOPSY 09/11/[address] Marsh COLONOSCOPY SCREENING 2022 Dr Jurgen SAMUELS 10/02/2022 LAPAROSCOPY SURG CHOLECYSTECTOMY 10/14/2013 LIG/TRNSXJ FLP TUBE ABDL/VAG APPR UNI/BI Tubal ligation PAST SURGICAL HISTORY OF 07/2006 basal cell ca on nose/atypia of hip SKIN BX, 1 LESION 11/11/2007 Skin biopsy SKIN BX, 1 LESION 11/11/2007 Skin biopsy THYROID RIGHT FINE NEEDLE ASPIRATION 12/14/2007 Bilateral thyroid FNA TOTAL ABDOMINAL HYSTERECT W/WO RMVL TUBE OVARY 01/2008 (more content not included)... [facility] 08-29-2023 History of Present illness Narrative Oncologic problem(s): 1) pT2 (2.7 cm) pN0(sln) M0 grade 2 ER/RI positive, HER2 nonamplified pathologic stage IA invasive ductal carcinoma of the right breast. HPI: The patient is a 62-year-old female with a past medical history significant for goiter, migraine headaches and IBS. 02/14/2023: Bilateral screening mammography was performed. This demonstrated an asymmetry in the right retroareolar slightly inner breast at the anterior depth approximately 3.7 cm posterior to the nipple which is more conspicuous than on prior studies. Further assessment with spot compression and ultrasound is recommended. BI-RADS Category 0. 02/19/2023: Patient completed right breast diagnostic mammography which demonstrated a 1.8 x 2.2 cm irregular mass in the slightly inner aspect of the right breast, recommend correlation with ultrasound. 02/19/2023: Right breast ultrasound was performed. The mammographic abnormality corresponds to a 1 x 1.2 x 1 cm lobulated solid mass at the 1 o'clock position of the breast about 3 cm from the nipple. Biopsy is recommended. BI-RADS Category 5 02/20/2023: Core biopsy of the right breast. Pathology: RIGHT BREAST, CORE BIOPSY: -- INVASIVE DUCTAL CARCINOMA, GRADE 2, SEE NOTE Estrogen Receptor (ER) Positive 99 % Stain intensity: strong Internal controls: present and stained as expected External controls: appropriately stained Progesterone Receptor (RI) Positive 95 % Stain intensity: moderate to strong Internal controls: present and stained as expected External controls: appropriately stained HER2 (ERBB2) IMMUNOHISTOCHEMISTRY ASSAY Interpretation: EQUIVOCAL for HER2 (ERBB2) Expression Score: 2+ HER2 (ERBB2) Status by FISH: Non amplified INTERPRETATION: NEGATIVE for HER2 (ERBB2) GENE AMPLIFICATION 02/21/2023: Unilateral right breast diagnostic mammogram was performed. This demonstrated that the breasts are heterogeneously dense. There is a tissue clip marker seen in the retroareolar region of the right breast. 03/26/2023: Bilateral breast MRI with and without contrast was performed. This demonstrated an irregular area of clumped and none mass enhancement in the right breast at the 12 o'clock position measuring approximately 3.5 x 2.7 x 2.6 cm, this lesion appears to represent the index lesion in the right breast. No abnormalities are noted in the left breast. No evidence of adenopathy is noted, specifically there is evidence for shotty lymph nodes in both axilla with no abnormal appearance or morphology. No abnormalities noted in the chest or liver. Underwent right breast lumpectomy along with axillary sentinel lymph node biopsy and reresection of right posterior, right inferior, right superior, right medial, right anterior and right lateral margin and right posterior margin on 04/30/2023. Pathology: -Invasive ductal carcinoma in situ -1 lymph node negative for carcinoma. -Minute focus of invasive ductal carcinoma 1 mm from final inked margin, right posterior margin reexcision Synoptic report available in scanned documents. Developed right breast abscess. MSSA. Cefadroxil 500 mg BID through 06/22/2023. Previous therapy: 1) Adjuvant RT. Completed 08/19/2023. Current therapy: 1) Anastrozole. Presents for ongoing oncologic management. Interim history: Recently diagnosed with nasal colonization MRSA. On a several month course of mupirocin. Was having intermittent palpitations. Prescribed beta-rolando by Dr. Valero. Hasn't started. Off anastrozole during radiation anastrozole. Has not yet restarted. No complaints today. PAST MEDICAL HISTORY Diagnosis Date Excessive or frequent menstruation Heavy periods resolved Family history of malignant neoplasm of breast Hypothyroidism Iron deficiency anemia, unspecified Anemia, iron def. PMH - PAST MEDICAL HISTORY OF migraines PMH - PAST MEDICAL HISTORY OF fibromyalgia resolved PMH - PAST MEDICAL HISTORY OF depression PMH - PAST MEDICAL HISTORY OF 'whole in heart'/PFO Premenstrual tension syndromes PMS Sjogren's syndrome (HCC) Symptomatic menopausal or female climacteric states PAST SURGICAL HISTORY Procedure Laterality Date >=3 1984 1990, 1997 DELIVERY ONLY , low cervicalx3 with bto COLONOSCOPY 2018 COLONOSCOPY W/BIOPSY 09/11/[address] Marsh COLONOSCOPY SCREENING 2022 Dr Seaman EGD 10/02/2022 LAPAROSCOPY SURG CHOLECYSTECTOMY 10/14/2013 LIG/TRNSXJ FLP TUBE ABDL/VAG APPR UNI/BI Tubal ligation PAST SURGICAL HISTORY OF 07/2006 basal cell ca on nose/atypia of hip SKIN BX, 1 LESION 11/11/2007 Skin biopsy SKIN BX, 1 LESION 11/11/2007 Skin biopsy THYROID RIGHT FINE NEEDLE ASPIRATION 12/14/2007 Bilateral thyroid FNA TOTAL ABDOMINAL HYSTERECT W/WO RMVL TUBE OVARY 01/2008 Done by and [facility] Allergen Reactions Codeine Mental Status Change Cymbalta [Duloxetin* Mental Status Change Effexor [Venlafaxin* Intolerance hyper Latex Swelling Lexapro [Escitalopr* caused agitation Paroxetine sx's of anxiety/depression worse with agitation Plaquenil [Hydroxyc* Other: See Comments Suicidal thought Sulfa (Sulfonamide * GI Upset Social History Tobacco Use Smoking status: Former Packs/day: 0.50 Years: 30.00 Additional pack years: 0.00 Total pack years: 15.00 Types: Cigarettes Quit date: 09/22/2013 Years since quittin.9 Smokeless tobacco: Never Vaping Use Vaping Use: Never used Substance Use Topics Alcohol use: Yes Comment: couple times a year Drug use: No Family History Problem Relation Age of Onset Breast Cancer Mother other (atrial fib) Mother Heart Father Colon Cancer Father dx 79 caught at early stage GI Father colon polyps Cancer Father melanoma dx 78 Graves Disease Father Hypertension Sister GI Brother colon polyps Diabetes Maternal Grandmother Breast Cancer Maternal Grandmother bilateral - first dx at 52, contralateral 85 Diabetes Maternal Grandfather Diabetes Paternal Grandmother other (multiple sclorosis) Paternal Grandmother Diabetes Paternal Grandfather Breast Cancer Daughter 25 bilateral mastectomy ROS: Constitutional: No fever. No drenching night sweats. Normal appetite. No unexplained weight loss. No significant fatigue. Neuro: No recent DAN, vertigo, dizziness or imbalance. No symptoms of sensory neuropathy. HEENT: No recent change in voice, vision or hearing. Resp: No cough, wheeze of hemoptysis. No shortness of breath at rest. No CROCKER. CVS: No exertional chest pain, PND or orthopnea. No extremity swelling/edema. No symptoms of claudication. No painful or tender varicose veins. GI: No dysgeusia. No symptoms of stomatitis. No dysphagia or odynophagia. No reflux, n/v, change in bowel habits. No abdominal pain, bloating or distension. No black or bloody stools. : No dysuria or gross hematuria. No symptoms of bladder outlet obstruction. Endo: No hot flashes. No polyuria or polydipsia. No heat or cold intolerance. Musculoskeletal: No bone, back, joint and muscular pain. Derm: No current rash. No history of jaundice. No diffuse pruritis. Heme: No unusual bleeding and unexplained bruising. Psych: Normal mood. PHYSICAL EXAM: Vitals: Blood pressure 121/81, pulse 77, temperature 36.4 C (97.5 F), weight 74.8 kg (165 lb), last menstrual period 01/11/2008. Well-appearing and in no acute distress. EYES: Sclerae are anicteric bilaterally. LYMPHATIC: There is no palpable cervical, supraclavicular, axillary or inguinal adenopathy. RESPIRATORY: Inspiratory breath sounds are of normal intensity in all worthy. No rales, wheezes or rhonchi. CARDIOVASCULAR: Rhythm is regular. BREAST: ABDOMEN: The abdomen is nondistended. Extremities: No swelling or edema. SKIN: No jaundice. ASSESSMENT/PLAN: (C50.111, Z17.0) Malignant neoplasm of central portion of right breast in female, estrogen receptor positive (HCC) (primary encounter diagnosis) Assessment: -pT2 (2.7 cm) pN0(sln) M0 grade 2 ER/RI positive, HER2 nonamplified pathologic stage IA invasive ductal carcinoma of the right breast. -Oncotype DX recurrence score 18. Distant recurrence risk at 9 years 5% with use of AI or tamoxifen alone. No benefit from chemotherapy. -Again discussed rationale for continued AI therapy. Goal will be for 7 years of therapy. -Has history of osteopenia. Again discussed candidate for Zometa. She has dental issues due to Sjogren's but will be getting dental evaluation. -Spent time today discussing standard follow-up for early stage breast cancer. She is rather uncomfortable with the idea of no imaging. I discussed the rationale for as indicated radiographic studies, but due to her family history of cancer particularly her daughter, she understandably has rather significant anxiety over potential recurrence. We therefore discussed the pros and cons of imaging and she would feel comfortable with at least one imaging study and not necessarily on a routine basis. She has a history of lung nodules so CT of chest, abdomen pelvis is reasonable. We decided to pursue that several months down the road when she is adequately recovered completely from radiation. Plan: -Provided another dental clearance form. -Restart anastrozole. -Labs, CTs then OV in about 3 months. Portions of this documentation were copied and pasted from previous office visit notes in order to provide a cohesive continuity of the history. The note has been reviewed and edited and updated as necessary. Activity Duration Chart accessed 5 minutes Exam room 15 minutes Exam room 3 minutes Current session 3 minutes Total time: 28 minutes I spent a total of 30 minutes on the date of the service which included preparing to see the patient, [id number] patient care, completing clinical documentation, obtaining and/or reviewing separately obtained history, performing a medically appropriate examination, counseling and educating the patient/family/caregiver, ordering medications, tests, or procedures, communicating with other HCPs (not separately reported), and communicating results to the patient/family/caregiver. Meek Torres DO documented in this encounter [facility] 08-29-2023 Nurse Note Est. Pt, 2 month F/U Ping Paez LPN documented in this encounter [facility] 07-30-2023 Miscellaneous Notes Spoke with patient, advising what Dr. Torres sent as the patient had not been anthony to read his message as of the time of the call, and scheduled labs for later today. Charlotte Regalado I responded to the muzu tv message. Please schedule her for the lab work. Meek Torres DO Pt calling in (See Med Advice message she sent today) Please review and contact pt as she is very nervous. Wondering if there is some sort of immune booster he can prescribe. Pt stated she reached out to her PCP and was directed to reach out to her Oncologist. documented in this encounter [facility] 06-17-2023 Note HNO ID: [id number] Author: Meek Torres DO Service: ? Author Type: Physician Type: Progress Notes Filed: 06/18/2023 5:55 PM Note Text: Patient self referred for recent diagnosis of breast cancer. The impression and plan will be communicated by way of the shared electronic record or faxed under separate cover letter. HPI: The patient is a 62-year-old female with a past medical history significant for goiter, migraine headaches and IBS. 02/14/2023: Bilateral screening mammography was performed. This demonstrated an asymmetry in the right retroareolar slightly inner breast at the anterior depth approximately 3.7 cm posterior to the nipple which is more conspicuous than on prior studies. Further assessment with spot compression and ultrasound is recommended. BI-RADS Category 0. 02/19/2023: Patient completed right breast diagnostic mammography which demonstrated a 1.8 x 2.2 cm irregular mass in the slightly inner aspect of the right breast, recommend correlation with ultrasound. 02/19/2023: Right breast ultrasound was performed. The mammographic abnormality corresponds to a 1 x 1.2 x 1 cm lobulated solid mass at the 1 o'clock position of the breast about 3 cm from the nipple. Biopsy is recommended. BI-RADS Category 5 02/20/2023: Core biopsy of the right breast. Pathology: RIGHT BREAST, CORE BIOPSY: -- INVASIVE DUCTAL CARCINOMA, GRADE 2, SEE NOTE Estrogen Receptor (ER) Positive 99 % Stain intensity: strong Internal controls: present and stained as expected External controls: appropriately stained Progesterone Receptor (RI) Positive 95 % Stain intensity: moderate to strong Internal controls: present and stained as expected External controls: appropriately stained HER2 (ERBB2) IMMUNOHISTOCHEMISTRY ASSAY Interpretation: EQUIVOCAL for HER2 (ERBB2) Expression Score: 2+ HER2 (ERBB2) Status by FISH: Non amplified INTERPRETATION: NEGATIVE for HER2 (ERBB2) GENE AMPLIFICATION 02/21/2023: Unilateral right breast diagnostic mammogram was performed. This demonstrated that the breasts are heterogeneously dense. There is a tissue clip marker seen in the retroareolar region of the right breast. 03/26/2023: Bilateral breast MRI with and without contrast was performed. This demonstrated an irregular area of clumped and none mass enhancement in the right breast at the 12 o'clock position measuring approximately 3.5 x 2.7 x 2.6 cm, this lesion appears to represent the index lesion in the right breast. No abnormalities are noted in the left breast. No evidence of adenopathy is noted, specifically there is evidence for shotty lymph nodes in both axilla with no abnormal appearance or morphology. No abnormalities noted in the chest or liver. Underwent right breast lumpectomy along with axillary sentinel lymph node biopsy and reresection of right posterior, right inferior, right superior, right medial, right anterior and right lateral margin and right posterior margin on 04/30/2023. Pathology: -Invasive ductal carcinoma in situ -1 lymph node negative for carcinoma. -Minute focus of invasive ductal carcinoma 1 mm from final inked margin, right posterior margin reexcision Synoptic report available in scanned documents. Developed right breast abscess. MSSA. On cefadroxil 500 mg BID through 06/22. On anastrozole. Hair thinning. No hot flashes. Recent colonoscopy by Dr. Seaman. PAST MEDICAL HISTORY Diagnosis Date Excessive or frequent menstruation Heavy periods resolved Family history of malignant neoplasm of breast Hypothyroidism Iron deficiency anemia, unspecified Anemia, iron def. PMH - PAST MEDICAL HISTORY OF migraines PMH - PAST MEDICAL HISTORY OF fibromyalgia resolved PMH - PAST MEDICAL HISTORY OF depression PMH - PAST MEDICAL HISTORY OF 'whole in heart'/PFO Premenstrual tension syndromes PMS Sjogren's syndrome (HCC) Symptomatic menopausal or female climacteric states PAST SURGICAL HISTORY Procedure Laterality Date >=3 1985 1990, 1997 DELIVERY ONLY , low cervicalx3 with bto COLONOSCOPY 2017 COLONOSCOPY W/BIOPSY 09/11/[address] Marsh COLONOSCOPY SCREENING 2022 Dr Seaman EGD 10/02/2022 LAPAROSCOPY SURG CHOLECYSTECTOMY 10/14/2013 LIG/TRNSXJ FLP TUBE ABDL/VAG APPR UNI/BI Tubal ligation PAST SURGICAL HISTORY OF 07/2006 basal cell ca on nose/atypia of hip SKIN BX, 1 LESION 11/11/2007 Skin biopsy SKIN BX, 1 LESION 11/11/2007 Skin biopsy THYROID RIGHT FINE NEEDLE ASPIRATION 12/14/2007 Bilateral thyroid FNA TOTAL ABDOMINAL HYSTERECT W/WO RMVL TUBE OVARY 01/2008 Done by and [facility] ALLERGIES Allergen Reactions Codeine Mental Status Change Cymbalta [Duloxetin* Mental Status Change Effexor [Venlafaxin* Intolerance hyper Latex Swelling Lexapro [Escitalopr* caused agitation Paroxetine sx's of anxiety/depression worse with agitation Plaquenil [Hydroxyc* Other: See Comme (more content not included)... [facility] 06-09-2023 Note Send Summary: Discharge Summary Providers: Provider RoleProvider Name Adams BurdenValerio ballard Megan E PrimaryJolliff, Amy S Note Recipients: Aster Melendez MD - [id number] [] Discharge: Summary: Admission Date: .04-Jun-2023 11:56:00 Discharge Date: 08-Jun-2023 Attending Physician at Discharge: Adams Castelan Admission Reason: R breast pain and swelling x1d.(1) Final Discharge Diagnoses: Abscess of right breast Procedures: IR guided aspiration of abscess R breast Condition at Discharge: Satisfactory Disposition at Discharge: .Home Hospital Course: adm for cellulitis and abscess R breast 1m after R breast partial mastectomy for Ca. aspiration by IR; c/s +MSSA. iv vanco and zosyn until micro and transitioned to keflex x2wks on Dc. OP follow up with Dr Ortiz on 06/10/23. Discharge Information: and Continuing Care: Lab Results - Pending: None Radiology Results - Pending: None Discharge Instructions: Activity: activity as tolerated. May shower.. May not drive while taking narcotics. Nutrition/Diet: resume normal diet Wound Care: Wound Site: right breast Wound Type: surgical incision Instructions: no lotions, creams, or tub soaks Follow Up Appointments: Follow-Up Appointment 01: Physician/Dept/Service: primary doctor Call to Schedule in: 1 week Follow-Up Appointment 02: Physician/Dept/Service: Dr Yamil Ortiz Reason for Referral: breast surgeon Call to Schedule in: 2-3 days Scheduled Date/Time: 10-Jun-2023 Discharge Medications: Home Medication nicotine 14 mg/24 hr transdermal film, extended release - 1 patch transdermal once a day folic acid 1 mg oral tablet - 1 tab(s) orally once a day Vitamin C 500 mg oral capsule - 1 cap(s) orally once a day anastrozole 1 mg oral tablet - 1 tab(s) orally once a day Biotin 10,000 mcg oral tablet, disintegrating - 1 tab(s) orally once a day levothyroxine 25 mcg (0.025 mg) oral tablet - 1 tab(s) orally once a day Vitamin B6 25 mg oral tablet - 1 tab(s) orally once a day Caltrate 600 + D oral tablet - 1 tab(s) orally once a day lactobacillus acidophilus oral tablet - 1 tab(s) orally once a day cefadroxil 500 mg oral capsule - 1 cap(s) orally every 12 hours PRN Medication traMADol 50 mg oral tablet - 1 tab(s) orally every 6 hours, As Needed -for severe pain magnesium carbonate 250 mg oral capsule - 1 cap(s) orally once a day, As Needed Maxalt 10 mg oral tablet - 1 tab(s) orally once a day, As Needed clonazePAM 1 mg oral tablet - 1 tab(s) orally 3 times a day, As Needed DNR Status: Code StatusCode Status order at time of discharge: Full Code Electronic Signatures: Adams Castelan) (Signed 09-Jun-2023 11:27) Authored: Send Summary, Summary Content, Ongoing Care, DNR Status, Note Completion Last Updated: 09-Jun-2023 11:27 by Adams Castelan) References: 1. Data Referenced From History and Physical 04-Jun-2023 19:51 [facility] 06-04-2023 Note Clinical Note - Phar irwin v2: Education: Additional NotesHome Medications Review Status for Reconciliation: Complete Med Status: Patient Currently Takes Medications Drug Name: nicotine 14 mg/24 hr transdermal film, extended release Instructions: 1 patch transdermal once a day Drug Name: folic acid 1 mg oral tablet Instructions: 1 tab(s) orally once a day Drug Name: Vitamin C 500 mg oral capsule Instructions: 1 cap(s) orally once a day Drug Name: anastrozole 1 mg oral tablet Instructions: 1 tab(s) orally once a day Drug Name: Maxalt 10 mg oral tablet Instructions: 1 tab(s) orally once a day, As Needed Drug Name: clonazePAM 1 mg oral tablet Instructions: 1 tab(s) orally 3 times a day, As Needed Drug Name: Biotin 10,000 mcg oral tablet, disintegrating Instructions: 1 tab(s) orally once a day Drug Name: levothyroxine 25 mcg (0.025 mg) oral tablet Instructions: 1 tab(s) orally once a day Drug Name: Vitamin B6 25 mg oral tablet Instructions: 1 tab(s) orally once a day Drug Name: traMADol 50 mg oral tablet Instructions: 1 tab(s) orally every 6 hours, As Needed -for severe pain Drug Name: magnesium carbonate 250 mg oral capsule Instructions: 1 cap(s) orally once a day, As Needed Drug Name: Caltrate 600 + D oral tablet Instructions: 1 tab(s) orally once a day per patient Allergy: Allergies Summary Allergy Allergen: NKDA Type: Reaction: Allergen: Latex Type: Latex Reaction: Flushing Intolerance Allergen: codeine Type: Drug Reaction: Mood Alteration Allergen: sulfa drugs Type: Drug Category Reaction: GI Upset Electronic Signatures: Charlotte Garza (DocuSign) (Signed 04-Jun-2023 14:58) Authored: Education, Allergy Last Updated: 04-Jun-2023 14:58 by Charlotte Garza (DocuSign) [facility] 06-02-2023 Miscellaneous Notes Cancelled as directed [facility]- please cancel today's appointment and reschedule 06/04/2023 @ 2:20 pm. Patient is aware. Liliana Goldstein LPN documented in this encounter [facility] 05-09-2023 Note MARIE JAMES was p resented at Breast Tumor Board Conference Conference date: 08-May-2023 Presenting Provider(s): Dr. Yamil Ortiz Present at Conference: Medical Oncology, Radiation Oncology, Surgical Oncology and Pathology Reviewed Conference Review Type: Treatment Planning Impression Right breast biopsy Feb 2023 [facility]. S/p right breast magseed localized partial mastectomy, injection of radiotracer and isosulfan blue for intraoperative lymphatic mapping, right axillary sentinel lymph node biopsy with intraoperative mapping, right breast local tissue rearrangement. 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 Path stage: pT2 pN0(sn) cM0 stage IA. National Guidelines discussed: yes Recommendations Molecular testing/biomarkers/lab studies: Oncotype Testing Hormonal: Aromatase Inhibitor Radiation therapy: Postop Radiation Referrals Med Onc Rad Onc Disclaimer [facility] tumor board recommendations represent the consensus opinion of physicians present at a weekly patient care conference. The treating SCC physician is not always present, and many of the physicians formulating the recommendation have not personally seen or examined the patient under discussion. It is understood that the treating SCC physician considers the expertise of the Tumor Board Recommendation in formulating his/her plan for the patient. However, in many situations, based on individualized patient considerations, a different plan is determined by the treating physician to be the optimal medical management. Electronic Signatures: Mei Paul (PT REG) (Signed 09-May-2023 11:10) Authored: Impression, Recommendations, Note, Disclaimer Last Updated: 09-May-2023 11:10 by Mei Paul (PT REG) [facility] 05-01-2023 Note History & Physical R eviewed: I have reviewed the History and Physical dated: 08-Apr-2023 History and Physical reviewed and relevant findings noted. Patient examined to review pertinent physical findings.: No significant changes Home Medications Reviewed: no changes noted Allergies Reviewed: no changes noted ERAS (Enhanced Recovery After Surgery): ERAS Patient: no Consent: COVID-19 Consent: COVID-19 Risk ConsentSurgeon has reviewed bansal risks related to the risk of love COVID-19 and if they contract COVID-19 what the risks are. Electronic Signatures: Yamil Ortiz) (Signed 28-May-2023 22:16) Authored: History & Physical Reviewed, ERAS, Consent, Note Completion Last Updated: 28-May-2023 22:16 by Yamil Ortiz) [facility] 04-30-2023 Note PROCEDURE DETAILS Preoperative Diagnosis: Right breast invasive ductal carcinoma, ER+/RI+/HER-, clinical stage IA Postoperative Diagnosis: Right breast invasive ductal carcinoma, ER+/RI+/HER-, clinical stage IA Surgeon: Yamil Ortiz Resident/Fellow/Other Scada Engineer: Andry Garsia Procedure: 1. Injection of radiotracer for intraoperative lymphatic mapping. 2. Injection of isosulfan blue for intraoperative lymphatic mapping. 3. Right axillary sentinel lymph node biopsy with dual tracer intraoperative lymphatic mapping. 4. Right breast Magseed localized partial mastectomy. 5. Right breast local tissue rearrangement. 6. Intraoperative radiograph interpretation Anesthesia: Andrew Cortez Estimated Blood Loss: 50 cc Findings: right breast tissue with magseed, biopsy clip in specimen on xray; right axillary SLN x1 Specimens(s) Collected: yes, right breast tissue; shave cavity margins; right axillary SLN x1 Patient Returned To/Condition: PACU/stable Operative Report: INDICATIONS FOR PROCEDURE: Marie James is a 62-year-old female who presented with a screen detected right breast mass for which core needle biopsy yielded invasive ductal carcinoma, ER+, RI+, HER2-; [id number] Stage IA. We met in surgical consultation, and I personally reviewed her imaging and pathology. I recommended right partial mastectomy, and right axillary sentinel lymph node biopsy. Following a detailed discussion regarding risks, benefits, and alternatives, informed consent was obtained, and we agreed to proceed. Prior to her procedure today she had a magnetic seed (Magseed) placed in the previously biopsied right breast for intraoperative localization purposes. My personal review of her post procedure images demonstrated the Magseed in good position relative to the mass and biopsy clip. DESCRIPTION OF PROCEDURE: The patient was brought to the operating room and positioned supine on the OR table. Following patient identification and a time-out procedure, SCDs were applied, and antibiotics were administered. General anesthesia was initiated. I personally injected technetium-99 and 4mL of isosulfan blue into the patients right breast for dual tracer intraoperative lymphatic mapping. The breast was massaged for 5 minutes. I used the Neoprobe to confirm uptake of the radiotracer in the breast and axilla, and the Sentimag probe to cofirm placement of the Magseed within the right breast. The operative field was prepped and draped in a standard sterile fashion. We turned our attention to the right breast. The cancer was located in the superior breast at mid depth. A periareolar incision was chosen to hide the surgical scar in a cosmetic location. 1% lidocaine was injected subcutaneously. The skin was incised sharply. Dissection was carried down through skin and subcutaneous tissues. Soft tissue flaps were then raised in all directions: superior, inferior, medial, and lateral. The tumor was located superior and medial to our incision; therefore, a tunneling technique was used. I identified the anterior mastectomy plane between the subcutaneous tissues and the anterior breast parenchyma. I then developed the mastectomy flap widely up to and beyond the lesion. The Sentimag probe was used to identify the Magseed in the area targeted for excision, and a marking stitch was placed within it for dissection purposes. This area was widely and circumferentially dissected from the surrounding tissues using electrocautery. The specimen was excised and labeled as right breast tissue. It was marked with a double short stitch superior, double long stitch lateral, and a single stitch anterior. I personally inked all 6 margins of the entire specimen with the Vector kit using colors as prescribed. It was placed into the Trident machine for an intraoperative radiograph which demonstrated the mass, the biopsy clip, and the Magseed within the specimen. I personally interpreted these images intraoperatively. The specimen was then sent to Pathology for permanent section. I then proceeded to take shave cavity margins circumferentially: superior, medial, inferior, lateral, anterior, posterior, and final posterior. Each was removed, marked with a clip and ink on the new margin, and sent separately to Pathology for permanent section. The excision cavity was copiously irrigated with warm sterile saline solution. Hemostasis was achieved. I then placed marking clips circumferentially around the cavity: superior, inferior, medial, lateral, posterior and anterior. The specimen measured 4 cm x 4 cm x 2.5 cm, and with shave cavity margins, the soft tissue defect was approximately 48 sq cm; therefore, local tissue rearrangement was performed. Surrounding breast parenchyma was mobilized circumferentially from the anterior mastectomy plane anteriorly and posteriorly from within the breast parenchyma. Once mobilized, th (more content not included)... [facility] 04-30-2023 History of Present illness Narrative Marie James is a 62 year old female s/p right breast magseed localized partial mastectomy, right axillary sentinel lymph node biopsy with intraoperative mapping and right breast tissue rearrangement on 04/30/23 for right breast invasive ductal carcinoma, grade 2, ER+ 99%, RI + 95%, HER2 negative, clinical stage IA. Final pathology showed [id number], clinical stage IA.Breast cancer history:02/26/23 Radiology consult of outside images showed developing focal asymmetry visualized in the medial superior right breast at mid depth. This persists on additional mammographic views as an equal density mass with partially spiculated and partially obscured borders. Ultrasound confirms an irregular heterogeneously hypoechoic mass at the 1 o'clock position, 3 cm from the nipple measuring 1.2 x 1.0 x 1.0 cm. There is minimal internal Doppler blood flow. This corresponds in size and location with the mammographic finding. There are no sonographic images of the right axilla.Post biopsy right mammogram shows the tissue marker is approximately 5 mm lateral to the mass in the craniocaudal view, and located at the superior margin of the mass in the orthogonal plane.At our initial consultation, I recommended referral to genetics, bilateral breast MRI. We tentatively planned right breast partial mastectomy, sentinel lymph node biopsy.Genetic testing via 84-gene Multi Cancer Panel was negative for pathogenic mutations.Breast MRI 03/26/23 at [facility]-- outside consult: There is clumped non mass enhancement throughout thesuperior and central right breast both lateral and medial to the nipple line. The non mass enhancement is estimated at 3.5 cm transversely by 2.6 cm AP by 3.6 cm craniocaudal. Sonographically, the area of concern measures 1.2 x 1.0 x 1.0 cm). No extension to the overlying skin surface or underlying pectoralis muscle. No axillary or internal mammary lymphadenopathy. On my review with radiology, there is an enhancing mass in the lateral breast possibly consistent with an intramammary lymph node.Dr. Meek Torres in medical oncology at [facility] recommended starting anastrazole. She reports insomnia if taken at night, mild joint pain, otherwise tolerating.On 04/08/23 left breast and axillary ultrasound showed biopsy-proven malignancy, 1 o'clock position right breast 3 cm from the nipple with the greatest overall ultrasound dimension of 2.4 cm, in comparison to 3.5 cm of clumped non mass enhancement on MRI. No abnormal intramammary lymph node. Benign-appearing right breast mass at the 9 o'clock position 7 cm from the nipple likely correlating with a lateral central area of enhancement on MRI. Attention to this area on follow-up studies recommended. Benign right axillary lymph nodes.On 04/30/23 s/p right breast magseed localized partial mastectomy, right axillary sentinel lymph node biopsy with intraoperative mapping and right breast tissue rearrangement on for right breast invasive ductal carcinoma, grade 2, ER+ 99%, RI + 95%, HER2 negative, clinical stage IA. 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 No hormone replacement therapy, no fertility medications.Family History: daughter with breast cancer, triple negative, diagnosed age 25, . Genetics testing negative.Mother with ER positive breast cancer, diagnosed age 80, alive.Maternal grandmother with ER positive breast cancer diagnosed age 53, .Father with colon cancer age 80, alive.Paternal aunt with colon cancer diagnosed age 79, . [id number] Work Phone: 04-30-2023 History of Present illness Narrative Marie James is a 62 year old female s/p right breast magseed localized partial mastectomy, right axillary sentinel lymph node biopsy 04/30/23 for right breast invasive ductal carcinoma, grade 2, ER+ 99%, RI + 95%, HER2 negative, clinical stage IA. Final pathology showed 2.7 cm invasive carcinoma, grade 2, margins negative, 0/1 LN, [id number], stage IA.Breast cancer history:02/26/23 Radiology consult of outside images showed developing focal asymmetry visualized in the medial superior right breast at mid depth. This persists on additional mammographic views as an equal density mass with partially spiculated and partially obscured borders. Ultrasound confirms an irregular heterogeneously hypoechoic mass at the 1 o'clock position, 3 cm from the nipple measuring 1.2 x 1.0 x 1.0 cm. There is minimal internal Doppler blood flow. This corresponds in size and location with the mammographic finding. There are no sonographic images of the right axilla.Post biopsy right mammogram shows the tissue marker is approximately 5 mm lateral to the mass in the craniocaudal view, and located at the superior margin of the mass in the orthogonal plane.At our initial consultation, I recommended referral to genetics, bilateral breast MRI. We tentatively planned right breast partial mastectomy, sentinel lymph node biopsy.Genetic testing via 84-gene Multi Cancer Panel was negative for pathogenic mutations.Breast MRI 03/26/23 at [facility]-- outside consult: There is clumped non mass enhancement throughout thesuperior and central right breast both lateral and medial to the nipple line. The non mass enhancement is estimated at 3.5 cm transversely by 2.6 cm AP by 3.6 cm craniocaudal. Sonographically, the area of concern measures 1.2 x 1.0 x 1.0 cm). No extension to the overlying skin surface or underlying pectoralis muscle. No axillary or internal mammary lymphadenopathy. On my review with radiology, there is an enhancing mass in the lateral breast possibly consistent with an intramammary lymph node.Dr. Meek Torres in medical oncology at [facility] recommended starting anastrazole. She reports insomnia if taken at night, mild joint pain, otherwise tolerating.On 04/08/23 left breast and axillary ultrasound showed biopsy-proven malignancy, 1 o'clock position right breast 3 cm from the nipple with the greatest overall ultrasound dimension of 2.4 cm, in comparison to 3.5 cm of clumped non mass enhancement on MRI. No abnormal intramammary lymph node. Benign-appearing right breast mass at the 9 o'clock position 7 cm from the nipple likely correlating with a lateral central area of enhancement on MRI. Attention to this area on follow-up studies recommended. Benign right axillary lymph nodes.On 04/30/23 s/p right breast magseed localized partial mastectomy, right axillary sentinel lymph node biopsy. Pathology showed 2.7 cm invasive carcinoma, grade 2, margins negative, 0/1 LN, [id number], stage IA.She presents today for postoperative visit. 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 No hormone replacement therapy, no fertility medications.Family History: daughter with breast cancer, triple negative, diagnosed age 25, . Genetics testing negative.Mother with ER positive breast cancer, diagnosed age 80, alive.Maternal grandmother with ER positive breast cancer diagnosed age 53, .Father with colon cancer age 80, alive.Paternal aunt with colon cancer diagnosed age 79, . [facility] Work Phone: 04-30-2023 History of Present illness Narrative Marie James is a 62 year old female s/p right breast Magseed localized partial mastectomy, right axillary sentinel lymph node biopsy 04/30/23 for right breast invasive ductal carcinoma, grade 2, ER+ 99%, RI + 95%, HER2 negative, clinical stage IA. Final pathology showed 2.7 cm invasive carcinoma, grade 2, margins negative, 0/1 LN, [id number], stage IA.She was seen in [facility] on 06/08/23 for right breast abscess. Started on IV antibiotics. On 06/05/23, she had ultrasound guided aspiration (30 ccs purulent fluid), which was sent for culture and showed MSSA. She was converted to PO cefadroxil and discharged on 06/08/23. On 06/09 she noted purulent drainage from lateral skin opening of the breast incision, and was able to express infected material. Today in the shower she was able to express more pus, this also spontaneously drains through the day. No fever, minimal pain. 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 No hormone replacement therapy, no fertility medications.Family History: daughter with breast cancer, triple negative, diagnosed age 25, . Genetics testing negative.Mother with ER positive breast cancer, diagnosed age 80, alive.Maternal grandmother with ER positive breast cancer diagnosed age 53, .Father with colon cancer age 80, alive.Paternal aunt with colon cancer diagnosed age 79, . [facility] Work Phone: 04-30-2023 Note Additional Instructi ons: Handouts Given: Topic 1anesthesia education Topic 2medication education Topic 3surgical site infection education Electronic Signatures: Kori Ball) (Signed 30-Apr-2023 10:50) Authored: Additional Instructions Last Updated: 30-Apr-2023 10:50 by Kori Ball) [facility] 04-30-2023 History and physical note History & Physical Reviewed: I have reviewed the History and Physical dated: 08-Apr-2023 History and Physical reviewed and relevant findings noted. Patient examined to review pertinent physical findings.: No significant changes Home Medications Reviewed: no changes noted Allergies Reviewed: no changes noted ERAS (Enhanced Recovery After Surgery): ERAS Patient: no Consent: COVID-19 Consent: COVID-19 Risk Consent Surgeon has reviewed bansal risks related to the risk of love COVID-19 and if they contract COVID-19 what the risks are. Electronic Signatures: Yamil Ortiz) (Signed 28-May-2023 22:16) Authored: History & Physical Reviewed, ERAS, Consent, Note Completion Last Updated: 28-May-2023 22:16 by Yamil Ortiz) [facility] Work Phone: 04-30-2023 History and physical note History & Physical Reviewed: I have reviewed the History and Physical dated: 08-Apr-2023 History and Physical reviewed and relevant findings noted. Patient examined to review pertinent physical findings.: No significant changes Home Medications Reviewed: no changes noted Allergies Reviewed: no changes noted ERAS (Enhanced Recovery After Surgery): ERAS Patient: no Consent: COVID-19 Consent: COVID-19 Risk Consent Surgeon has reviewed bansal risks related to the risk of love COVID-19 and if they contract COVID-19 what the risks are. Electronic Signatures: Yamil Ortiz) (Signed 28-May-2023 22:16) Authored: History & Physical Reviewed, ERAS, Consent, Note Completion Last Updated: 28-May-2023 22:16 by Yamil Ortiz) documented in this encounter [facility] Work Phone: 04-30-2023 Miscellaneous Notes PROCEDURE DETAILS Preoperative Diagnosis: Right breast invasive ductal carcinoma, ER+/RI+/HER-, clinical stage IA Postoperative Diagnosis: Right breast invasive ductal carcinoma, ER+/RI+/HER-, clinical stage IA Surgeon: Yamil Ortiz Resident/Fellow/Other Scada Engineer: Andry Garsia Procedure: 1. Injection of radiotracer for intraoperative lymphatic mapping. 2. Injection of isosulfan blue for intraoperative lymphatic mapping. 3. Right axillary sentinel lymph node biopsy with dual tracer intraoperative lymphatic mapping. 4. Right breast Magseed localized partial mastectomy. 5. Right breast local tissue rearrangement. 6. Intraoperative radiograph interpretation Anesthesia: Andrew Cortez Estimated Blood Loss: 50 cc Findings: right breast tissue with magseed, biopsy clip in specimen on xray; right axillary SLN x1 Specimens(s) Collected: yes, right breast tissue; shave cavity margins; right axillary SLN x1 Patient Returned To/Condition: PACU/stable Operative Report: INDICATIONS FOR PROCEDURE: Marie James is a 62-year-old female who presented with a screen detected right breast mass for which core needle biopsy yielded invasive ductal carcinoma, ER+, RI+, HER2-; [id number] Stage IA. We met in surgical consultation, and I personally reviewed her imaging and pathology. I recommended right partial mastectomy, and right axillary sentinel lymph node biopsy. Following a detailed discussion regarding risks, benefits, and alternatives, informed consent was obtained, and we agreed to proceed. Prior to her procedure today she had a magnetic seed (Magseed) placed in the previously biopsied right breast for intraoperative localization purposes. My personal review of her post procedure images demonstrated the Magseed in good position relative to the mass and biopsy clip. DESCRIPTION OF PROCEDURE: The patient was brought to the operating room and positioned supine on the OR table. Following patient identification and a time-out procedure, SCDs were applied, and antibiotics were administered. General anesthesia was initiated. I personally injected technetium-99 and 4mL of isosulfan blue into the patient? s right breast for dual tracer intraoperative lymphatic mapping. The breast was massaged for 5 minutes. I used the Neoprobe to confirm uptake of the radiotracer in the breast and axilla, and the Sentimag probe to cofirm placement of the Magseed within the right breast. The operative field was prepped and draped in a standard sterile fashion. We turned our attention to the right breast. The cancer was located in the superior breast at mid depth. A periareolar incision was chosen to hide the surgical scar in a cosmetic location. 1% lidocaine was injected subcutaneously. The skin was incised sharply. Dissection was carried down through skin and subcutaneous tissues. Soft tissue flaps were then raised in all directions: superior, inferior, medial, and lateral. The tumor was located superior and medial to our incision; therefore, a tunneling technique was used. I identified the anterior mastectomy plane between the subcutaneous tissues and the anterior breast parenchyma. I then developed the mastectomy flap widely up to and beyond the lesion. The Sentimag probe was used to identify the Magseed in the area targeted for excision, and a marking stitch was placed within it for dissection purposes. This area was widely and circumferentially dissected from the surrounding tissues using electrocautery. The specimen was excised and labeled as right breast tissue. It was marked with a double short stitch superior, double long stitch lateral, and a single stitch anterior. I personally inked all 6 margins of the entire specimen with the Vector kit using colors as prescribed. It was placed into the Trident machine for an intraoperative radiograph which demonstrated the mass, the biopsy clip, and the Magseed within the specimen. I personally interpreted these images intraoperatively. The specimen was then sent to Pathology for permanent section. I then proceeded to take shave cavity margins circumferentially: superior, medial, inferior, lateral, anterior, posterior, and final posterior. Each was removed, marked with a clip and ink on the new margin, and sent separately to Pathology for permanent section. The excision cavity was copiously irrigated with warm sterile saline solution. Hemostasis was achieved. I then placed marking clips circumferentially around the cavity: superior, inferior, medial, lateral, posterior and anterior. The specimen measured 4 cm x 4 cm x 2.5 cm, and with shave cavity margins, the soft tissue defect was approximately 48 sq cm; therefore, local tissue rearrangement was performed. Surrounding breast parenchyma was mobilized circumferentially from the anterior mastectomy plane anteriorly and posteriorly from within the breast parenchyma. Once mobilized, the superior medial and inferior lateral pillars were advanced centrally and secured to each other with a dyed 3-0 Vicryl suture in an interrupted fashion to close the defect. Hemostasis was reconfirmed. The more superficial layer of tissue that had been mobilized in the breast at the beginning of the procedure was similarly closed in order to create a cosmetic effect. We turned our attention to the axilla. An incision was marked at the base of the hair-bearing skin. 1% lidocaine was injected subcutaneously. An incision was made sharply. Dissection was carried down through the skin and subcutaneous tissues to the clavipectoral fascia, which was widely incised. I used the Neoprobe to identify an area of increased radiotracer uptake, which led us to a lymph node. It was carefully dissected from surrounding tissues using electrocautery. Small clips were used on branching vessels and lymphatics. The lymph node was excised and labled right axillary sentinel lymph node #1, hot and blue. It was sent to Pathology for permanent section. We searched extensively for an additional sentinel node but there were no additional visibly blue lymph nodes, no lymph nodes with increased radiotracer uptake, and no palpably suspicious nodes. The axilla was copiously irrigated with warm sterile saline solution. Hemostasis was achieved. 0.5% Marcaine was injected subcutaneously for analgesia into both the breast and axillary incisions. The incisions were then closed in layers with an interrupted 3-0 Vicryl in the deep dermis followed by a running subcuticular 4-0 Monocryl for the skin. Skin glue, sterile dressings, fluffs, and a surgical bra were then applied. The patient tolerated the procedure well. There were no immediate complications. All counts were correct. Estimated blood loss was 50 cc. I was present for and performed the entire procedure. The patient was then awakened and transported to the PACU in stable condition. Yamil Ortiz MD Breast Surgical Oncology pager [phone] Note Recipients: Aster Melendez MD - [phone] [] Tabby Synoptic Op Report: Breast [place] Node Biopsy Operation performed with curative intent: yes Tracer(s) used to identify sentinel nodes in the upfront surgery (non-neoadjuvant) setting: dye and radioactive tracer All nodes (colored or non-colored) present at the end of a dye-filled lymphatic channel were removed: yes All significantly radioactive nodes were removed: yes All palpably suspicious nodes were removed: not applicable Biopsy-proven positive nodes marked with clips prior to chemotherapy were identified and removed: not applicable Attestation: Note Completion: Attending Attestation I performed the procedure without a resident Electronic Signatures: Yamil Ortiz) (Signed 30-Apr-2023 14:03) Authored: Post-Operative Note, Chart Review, Note Completion Last Updated: 30-Apr-2023 14:03 by Yamil Ortiz) documented in this encounter [facility] Work Phone: 04-30-2023 Note Formatting of this n ote is different from the original. PROCEDURE DETAILS Preoperative Diagnosis: Right breast invasive ductal carcinoma, ER+/RI+/HER-, clinical stage IA Postoperative Diagnosis: Right breast invasive ductal carcinoma, ER+/RI+/HER-, clinical stage IA Surgeon: Yamil Ortiz Resident/Fellow/Other Scada Engineer: Andry Garsia Procedure: 1. Injection of radiotracer for intraoperative lymphatic mapping. 2. Injection of isosulfan blue for intraoperative lymphatic mapping. 3. Right axillary sentinel lymph node biopsy with dual tracer intraoperative lymphatic mapping. 4. Right breast Magseed localized partial mastectomy. 5. Right breast local tissue rearrangement. 6. Intraoperative radiograph interpretation Anesthesia: Andrew Cortez Estimated Blood Loss: 50 cc Findings: right breast tissue with magseed, biopsy clip in specimen on xray; right axillary SLN x1 Specimens(s) Collected: yes, right breast tissue; shave cavity margins; right axillary SLN x1 Patient Returned To/Condition: PACU/stable Operative Report: INDICATIONS FOR PROCEDURE: Marie James is a 62-year-old female who presented with a screen detected right breast mass for which core needle biopsy yielded invasive ductal carcinoma, ER+, RI+, HER2-; [id number] Stage IA. We met in surgical consultation, and I personally reviewed her imaging and pathology. I recommended right partial mastectomy, and right axillary sentinel lymph node biopsy. Following a detailed discussion regarding risks, benefits, and alternatives, informed consent was obtained, and we agreed to proceed. Prior to her procedure today she had a magnetic seed (Magseed) placed in the previously biopsied right breast for intraoperative localization purposes. My personal review of her post procedure images demonstrated the Magseed in good position relative to the mass and biopsy clip. DESCRIPTION OF PROCEDURE: The patient was brought to the operating room and positioned supine on the OR table. Following patient identification and a time-out procedure, SCDs were applied, and antibiotics were administered. General anesthesia was initiated. I personally injected technetium-99 and 4mL of isosulfan blue into the patient? s right breast for dual tracer intraoperative lymphatic mapping. The breast was massaged for 5 minutes. I used the Neoprobe to confirm uptake of the radiotracer in the breast and axilla, and the Sentimag probe to cofirm placement of the Magseed within the right breast. The operative field was prepped and draped in a standard sterile fashion. We turned our attention to the right breast. The cancer was located in the superior breast at mid depth. A periareolar incision was chosen to hide the surgical scar in a cosmetic location. 1% lidocaine was injected subcutaneously. The skin was incised sharply. Dissection was carried down through skin and subcutaneous tissues. Soft tissue flaps were then raised in all directions: superior, inferior, medial, and lateral. The tumor was located superior and medial to our incision; therefore, a tunneling technique was used. I identified the anterior mastectomy plane between the subcutaneous tissues and the anterior breast parenchyma. I then developed the mastectomy flap widely up to and beyond the lesion. The Sentimag probe was used to identify the Magseed in the area targeted for excision, and a marking stitch was placed within it for dissection purposes. This area was widely and circumferentially dissected from the surrounding tissues using electrocautery. The specimen was excised and labeled as right breast tissue. It was marked with a double short stitch superior, double long stitch lateral, and a single stitch anterior. I personally inked all 6 margins of the entire specimen with the Vector kit using colors as prescribed. It was placed into the Trident machine for an intraoperative radiograph which demonstrated the mass, the biopsy clip, and the Magseed within the specimen. I personally interpreted these images intraoperatively. The specimen was then sent to Pathology for permanent section. I then proceeded to take shave cavity margins circumferentially: superior, medial, inferior, lateral, anterior, posterior, and final posterior. Each was removed, marked with a clip and ink on the new margin, and sent separately to Pathology for permanent section. The excision cavity was copiously irrigated with warm sterile saline solution. Hemostasis was achieved. I then placed marking clips circumferentially around the cavity: superior, inferior, medial, lateral, posterior and anterior. The specimen measured 4 cm x 4 cm x 2.5 cm, and with shave cavity margins, the soft tissue defect was approximately 48 sq cm; therefore, local tissue rearrangement was performed. Surrounding breast parenchyma was mobilized circumferentially from the anterior mastectomy plane anteriorly and posteriorly from within the breast parenchyma. Once mobilized, the superior medial and inferior lateral pillars were advanced centrally and secured to each other with a dyed 3-0 Vicryl suture in an interrupted fashion to close the defect. Hemostasis was reconfirmed. The more superficial layer of tissue that had been mobilized in the breast at the beginning of the procedure was similarly closed in order to create a cosmetic effect. We turned our attention to the axilla. An incision was marked at the base of the hair-bearing skin. 1% lidocaine was injected subcutaneously. An incision was made sharply. Dissection was carried down through the skin and subcutaneous tissues to the clavipectoral fascia, which was widely incised. I used the Neoprobe to identify an area of increased radiotracer uptake, which led us to a lymph node. It was carefully dissected from surrounding tissues using electrocautery. Small clips were used on branching vessels and lymphatics. The lymph node was excised and labled right axillary sentinel lymph node #1, hot and blue. It was sent to Pathology for permanent section. We searched extensively for an additional sentinel node but there were no additional visibly blue lymph nodes, no lymph nodes with increased radiotracer uptake, and no palpably suspicious nodes. The axilla was copiously irrigated with warm sterile saline solution. Hemostasis was achieved. 0.5% Marcaine was injected subcutaneously for analgesia into both the breast and axillary incisions. The incisions were then closed in layers with an interrupted 3-0 Vicryl in the deep dermis followed by a running subcuticular 4-0 Monocryl for the skin. Skin glue, sterile dressings, fluffs, and a surgical bra were then applied. The patient tolerated the procedure well. There were no immediate complications. All counts were correct. Estimated blood loss was 50 cc. I was present for and performed the entire procedure. The patient was then awakened and transported to the PACU in stable condition. Yamil Ortiz MD Breast Surgical Oncology pager [phone] Note Recipients: Aster Melendez MD - [id number] [] Tabby Synoptic Op Report: Breast [place] Node Biopsy Operation performed with curative intent: yes Tracer(s) used to identify sentinel nodes in the upfront surgery (non-neoadjuvant) setting: dye and radioactive tracer All nodes (colored or non-colored) present at the end of a dye-filled lymphatic channel were removed: yes All significantly radioactive nodes were removed: yes All palpably suspicious nodes were removed: not applicable Biopsy-proven positive nodes marked with clips prior to chemotherapy were identified and removed: not applicable Attestation: Note Completion: Attending Attestation I performed the procedure without a resident Electronic Signatures: Yamil Ortiz) (Signed 30-Apr-2023 14:03) Authored: Post-Operative Note, Chart Review, Note Completion Last Updated: 30-Apr-2023 14:03 by Yamil Ortiz) [facility] Work Phone: 04-04-[address] Madan Horan's office called and said that he would like to speak to you regarding this patient's treatment. His cell phone number is [phone] He said he is available any time today. The office is faxing over most recent office visit note. Shayla Leone documented in this encounter [facility] 03-31-2023 Miscellaneous Notes I spoke with patient and will get her started on anastrozole while awaiting final surgical plan with Dr. Yamil Ortiz at . I have a call into Dr. Ortiz to coordinate our plan. Meek Torres DO Patient called with concerns with MRI results from [facility]. She is asking if she is to have an appt with Dr. Torres. Please advise. documented in this encounter [facility] 03-27-2023 Miscellaneous Notes I attempted to contact Marie at the number below. The VM is for someone named Loni . I did not leave a message. This patient is still being worked up and has not yet been seen by this office for her current diagnosis. Liliana Goldstein LPN Marie with [facility] called stating she is able to help with any care coordination for patient. - [phone] ext [phone]. She is requesting last OV note and treatment plan. Please fax to [phone] documented in this encounter [facility] 03-17-2023 Miscellaneous Notes Patient states prior auth had not been completed for appointment at [facility] tomorrow. She states [facility] was unable to reach our office and canceled her appt. She states she is rescheduled for 03/26 for MRI @ [facility]. Patient is aware that the MRI order is for bilateral. I also confirmed with [facility] that she is scheduled for a bilateral breast MRI. Liliana Goldstein LPN Patient called stating she is scheduled at [facility] for 10:45 tomorrow. She states order is just for [facility] breast. She states Dr. Torres mentioned lymph nodes and left breast as well. Please resubmit order if needs changed. Please advise patient. Called [facility] and they asked for call back information due to their system being down. When they call back let the patient know if there is anything sooner. [place] Patient states she has Breast MRI scheduled for [place] on 04/01. She is asking if she would be able to have completed at [facility] sooner. Please advise. documented in this encounter [facility] 02-27-2023 Miscellaneous Notes left for her to call me back. Meek Torres DO Dr. Ortiz with Breast Surg Onco is requesting to speak with Dr. Torres at his convenience. Please call her cell at [phone] documented in this encounter [facility] 02-26-2023 History of Present illness Narrative Marie James is a 62 year old female referred by Aubrie Ghosh CNP regarding screen detected right breast invasive ductal carcinoma, grade 2, ER+ 99%, RI + 95%, HER2 2+ with dual rashad pending, clinical stage IA.02/26/23 Radiology consult of outside images showed developing focal asymmetry visualized in the medial superior right breast at mid depth. This persists on additional mammographic views as an equal density mass with partially spiculated and partially obscured borders. Ultrasound confirms an irregular heterogeneously hypoechoic mass at the 1 o'clock position, 3 cm from the nipple measuring 1.2 x 1.0 x 1.0 cm. There is minimal internal Doppler blood flow. This corresponds in size and location with the mammographic finding. There are no sonographic images of the right axilla.Post biopsy right mammogram shows the tissue marker is approximately 5 mm lateral to the mass in the craniocaudal view, and located at the superior margin of the mass in the orthogonal plane.She presents today for surgical consultation. 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 No hormone replacement therapy, no fertility medications.Family History: daughter with breast cancer, triple negative, diagnosed age 25, . Genetics were negative.Mother with ER positive breast cancer, diagnosed age 80, alive.Maternal grandmother with ER positive breast cancer diagnosed age 53, .Father with colon cancer age 80, alive.Paternal aunt with colon cancer diagnosed age 79, .Social History: [facility] [address] Work Phone: 02-26-2023 History of Present illness Narrative Marie James is a 62 year old female referred by Aubrie Ghosh CNP regarding screen detected right breast invasive ductal carcinoma, grade 2, ER+ 99%, RI + 95%, HER2 negative, clinical stage IA. She returns today for repeat left breast/axillary imaging and surgical planning.Breast cancer history:6/7/23 Radiology consult of outside images showed developing focal asymmetry visualized in the medial superior right breast at mid depth. This persists on additional mammographic views as an equal density mass with partially spiculated and partially obscured borders. Ultrasound confirms an irregular heterogeneously hypoechoic mass at the 1 o'clock position, 3 cm from the nipple measuring 1.2 x 1.0 x 1.0 cm. There is minimal internal Doppler blood flow. This corresponds in size and location with the mammographic finding. There are no sonographic images of the right axilla.Post biopsy right mammogram shows the tissue marker is approximately 5 mm lateral to the mass in the craniocaudal view, and located at the superior margin of the mass in the orthogonal plane.At our initial consultation, I recommended referral to genetics, bilateral breast MRI. We tentatively planned right breast partial mastectomy, sentinel lymph node biopsy.Genetic testing via 84-gene Multi Cancer Panel was negative for pathogenic mutations.Breast MRI 03/26/23 at [facility]-- outside consult: There is clumped non mass enhancement throughout thesuperior and central right breast both lateral and medial to the nipple line. The non mass enhancement is estimated at 3.5 cm transversely by 2.6 cm AP by 3.6 cm craniocaudal. Sonographically, the area of concern measures 1.2 x 1.0 x 1.0 cm). No extension to the overlying skin surface or underlying pectoralis muscle. No axillary or internal mammary lymphadenopathy. On my review with radiology, there is an enhancing mass in the lateral breast possibly consistent with an intramammary lymph node.Dr. Meek Torres in medical oncology at [facility] recommended starting anastrazole. She reports insomnia if taken at night, mild joint pain, otherwise tolerating.Today 04/08/23 left breast and axillary ultrasound showed biopsy-proven malignancy, 1 o'clock position right breast 3 cm from the nipple with the greatest overall ultrasound dimension of 2.4 cm, in comparison to 3.5 cm of clumped non mass enhancement on MRI. No abnormal intramammary lymph node. Benign-appearing right breast mass at the 9 o'clock position 7 cm from the nipple likely correlating with a lateral central area of enhancement on MRI. Attention to this area on follow-up studies recommended. 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 No hormone replacement therapy, no fertility medications.Family History: daughter with breast cancer, triple negative, diagnosed age 25, . Genetics testing negative.Mother with ER positive breast cancer, diagnosed age 80, alive.Maternal grandmother with ER positive breast cancer diagnosed age 53, .Father with colon cancer age 80, alive.Paternal aunt with colon cancer diagnosed age 79, . [id number] Work Phone: 02-26-2023 Miscellaneous Notes Patient confirmed OV and MRI was scheduled Scheduled OV as directed. LM for patient to return call. When patient calls, please schedule MRI Breast at [facility] (insurance is verified and in network at [facility]), document and close this note. Charlotte Regalado FISH for HER2 specimen was just received in lab/ordered 02/25/2023. Testing is taking 10-14 days, they are backed up. Liliana Goldstein LPN This patient whom I have seen in the past for a different reason was recently diagnosed with an invasive ductal carcinoma of the right breast. ER/RI positive. HER2 amplification by FISH pending. Please contact pathology lab to get an estimated time on results of FISH test. Add her on to see me as an established complex patient 8:20 AM this coming Friday. She is aware. Additionally she requires an MRI of the breasts. She would like to have that done at [facility] but I am not sure how far out they would be scheduling so lets check to see. Order filed. Meek Torres DO documented in this encounter [facility] 02-25-2023 Miscellaneous Notes Called patient and identified by number and name. She requested a telephone call as soon as pathology available. I have discussed pathology with her - ER/RI positive, invasive ductal. (FISH pending) She acknowledges the above. She has a breast surgeon that she will contact for further treatment. documented in this encounter [facility] 02-20-2023 Note HNO ID: [id number] Author: Renea Cooley RN Service: ? Author Type: Registered Nurse Type: Progress Notes Filed: 02/22/2023 3:41 PM Note Text: UNIVERSAL PROTOCOL / SAFETY CHECKLIST Procedure to be Performed: US guided right needle core breast biopsy Sign In: A Moment of CARE was completed. Personnel directly involved with the procedure wore the appropriate PPE (Personal Protective Equipment). Special equipment: Mammotome biopsy system and clip. Patient/Surrogate Stated/Verified: PATIENT VERIFIED(optional for EMERGENT procedures): Patient name, Date of , Relevant allergies, and The intended procedure Time Out Communication: Intended patient and procedure match the source documents. Consent documented and matches the intended procedure. Relevant labs, photos, and/or imaging studies have been reviewed. Correct side/site marked and visible. Medications required for procedure verified. No fire risk assessment and interventions applicable. Implant(s) inserted: Correct implant(s) confirmed including size and side. and Expiration date(s) reviewed. Sign Out: SIGN OUT (optional for EMERGENT procedures): All specimen containers correctly labeled. No instruments, equipment or retained foreign bodies applicable. Post-procedure follow-up management communicated and Plan of Care Visit completed when applicable. Renea Cooley RN [facility] 02-20-2023 Note HNO ID: [id number] Author: Marbella Gross MD Service: ? Author Type: Physician Type: Progress Notes Filed: 02/22/2023 3:41 PM Note Text: Marie James 1960 REFERRING PHYSICIAN: Self CHIEF COMPLAINT: Consult (US guided right breast biopsy) and Procedure (US guided right core breast biopsy.) HPI: The patient is a 62 year old female presents with abnormal right breast radiographs. She had an US breast studies done at [facility], they are not available for visual review in this patient encounter. She denies palpable breast masses. She denies nipple discharge. She denies previous breast biopsies. She had a daughter who of breast cancer; her mother had breast cancer, she denies ovarian cancer in family. She is BRCA negative. Her gynecological history is as follows: menarche at age 14, , first at age 24, BCP use initially at age 19 for two years, denies breast feeding, surgical menopause age 43, denies HRT use PAST MEDICAL HISTORY Diagnosis Date Excessive or frequent menstruation Heavy periods resolved Family history of malignant neoplasm of breast Hypothyroidism Iron deficiency anemia, unspecified Anemia, iron def. PMH - PAST MEDICAL HISTORY OF migraines PMH - PAST MEDICAL HISTORY OF fibromyalgia resolved PMH - PAST MEDICAL HISTORY OF depression PMH - PAST MEDICAL HISTORY OF 'whole in heart'/PFO Premenstrual tension syndromes PMS Sjogren's syndrome (HCC) Symptomatic menopausal or female climacteric states PAST SURGICAL HISTORY Procedure Laterality Date >=3 1984 1990, 1997 DELIVERY ONLY , low cervicalx3 with bto COLONOSCOPY 2017 COLONOSCOPY W/BIOPSY 09/11/[address] 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 folic acid 1 mg tablet Take 2 tablets by mouth once daily. cholecalciferol, vitamin D3, 10 mcg (400 unit) cap Take 1,000 Units by mouth once daily. ondansetron (ZOFRAN) 4 mg tablet Take 1 tablet by mouth every 8 hours as needed for nausea/vomiting. nicotine (NICODERM) 7 mg/24 hr Apply 1 Patch as directed every 24 hours. Biotin 10,000 mcg cap Take 1 capsule by mouth once daily. SYNTHROID 25 mcg tablet Take 25 mcg by mouth once daily. CLONAZEPAM 0.5 mg tablet Take 0.5 mg by mouth daily at bedtime. rizatriptan benzoate(MAXALT 10 MG TAB) Take one tab as needed for DAN and may repeat in 2 hr x 1dose (Patient taking differently: Take by mouth. Takes as needed per patient) Ascorbic Acid 500 mg cpER Take 500 mg by mouth once daily. ALLERGIES: Codeine, Cymbalta [Duloxetine], Effexor [Venlafaxine Analogues], Latex, Lexapro [Escitalopram Oxalate], Paroxetine, Plaquenil [Hydroxychloroquine], and Sulfa (Sulfonamide Antibiotics) PERSONAL HISTORY: Social History Tobacco Use Smoking status: Former Packs/day: 0.50 Years: 30.00 Pack years: 15.00 Types: Cigarettes Quit date: 09/22/2013 Years since quittin.4 Smokeless tobacco: Never Vaping Use Vaping Use: Never used Substance Use Topics Alcohol use: Yes Comment: couple times a year Drug use: No FAMILY HISTORY Problem Relation Age of Onset Breast Cancer Mother other (atrial fib) Mother Heart Father Colon Cancer Father dx 79 caught at early stage GI Father colon polyps Cancer Father melanoma dx 78 Graves Disease Father Hypertension Sister GI Brother colon polyps Diabetes Maternal Grandmother Breast Cancer Maternal Grandmother bilateral - first dx at 52, contralateral 85 Diabetes Maternal Grandfather Diabetes Paternal Grandmother other (multiple sclorosis) Paternal Grandmother Diabetes Paternal Grandfather Breast Cancer Daughter 25 bilateral mastectomy The review of systems data was entered by the nurse and reviewed by oh Nursing Notes: Sylvie Herrera LPN 02/20/2023 3:02 PM Signed REVIEW OF SYSTEMS: General: The patient denies fatigue, denies weight loss, denies weight gain, denies feeling hot, and denies feelings of cold. Eyes: The patient denies glaucoma, denies eye injury/surgery, wears glasses or contacts. Ear/Nose/Throat: The patient notes allergies, denies hayfever, denies ear infections, and denies bloody noses. Cardiovascular: The patient denies chest pain, denies heart disease, denies high blood pressure,denies (more content not included)... [facility] 02-20-2023 Miscellaneous Notes Order for diagnostic mammogram of right breast to check for clip placement status post ultrasound guided right needle core biopsy faxed to [facility] scheduling department. Fax confirmation sheet received. Renea Cooley RN documented in this encounter [facility] 02-20-2023 Instructions Renea Cooley RN - 02/20/2023 4:15 PM EDT The following instructions are important for you related to your office visit today with the [facility] Surgeons. Instructions After OFFICE BASED BREAST BIOPSY Please do not take aspirin or other blood thinners for the next few days. After the procedure, Steri-Strips and a dressing will be placed on your small incision. The dressing may be removed in five days after the procedure. The Steri-Strips should be left in place until they fall off, usually 10-14 days. If you have bleeding from the biopsy site, hold pressure with a clean gauze. If the bleeding continues, contact our office immediately. I recommend taking Advil or Tylenol for the discomfort. You should wear a comfortable but somewhat tight fitting bra. If you have significant bruising, an ice pack may improve your discomfort. You will have bruising to the area, this is normal and is due to the numbing medication that we used during the procedure and and will go away. If you note any additional difficulties, questions, or concerns, you should contact our office immediately @ [phone] and ask to be transferred to the General Surgery department. documented in this encounter [facility] 02-20-2023 History of Present illness Narrative UNIVERSAL PROTOCOL / SAFETY CHECKLIST Procedure to be Performed: US guided right needle core breast biopsy Sign In: A Moment of CARE was completed. Personnel directly involved with the procedure wore the appropriate PPE (Personal Protective Equipment). Special equipment: Mammotome biopsy system and clip. Patient/Surrogate Stated/Verified: PATIENT VERIFIED(optional for EMERGENT procedures): Patient name, Date of , Relevant allergies, and The intended procedure Time Out Communication: Intended patient and procedure match the source documents. Consent documented and matches the intended procedure. Relevant labs, photos, and/or imaging studies have been reviewed. Correct side/site marked and visible. Medications required for procedure verified. No fire risk assessment and interventions applicable. Implant(s) inserted: Correct implant(s) confirmed including size and side. and Expiration date(s) reviewed. Sign Out: SIGN OUT (optional for EMERGENT procedures): All specimen containers correctly labeled. No instruments, equipment or retained foreign bodies applicable. Post-procedure follow-up management communicated and Plan of Care Visit completed when applicable. Renea Cooley RN Marie James 1960 REFERRING PHYSICIAN: Self CHIEF COMPLAINT: Consult (US guided right breast biopsy) and Procedure (US guided right core breast biopsy.) HPI: The patient is a 62 year old female presents with abnormal right breast radiographs. She had an US breast studies done at [facility], they are not available for visual review in this patient encounter. She denies palpable breast masses. She denies nipple discharge. She denies previous breast biopsies. She had a daughter who of breast cancer; her mother had breast cancer, she denies ovarian cancer in family. She is BRCA negative. Her gynecological history is as follows: menarche at age 14, , first at age 24, BCP use initially at age 19 for two years, denies breast feeding, surgical menopause age 43, denies HRT use PAST MEDICAL HISTORY Diagnosis Date Excessive or frequent menstruation Heavy periods resolved Family history of malignant neoplasm of breast Hypothyroidism Iron deficiency anemia, unspecified Anemia, iron def. PMH - PAST MEDICAL HISTORY OF migraines PMH - PAST MEDICAL HISTORY OF fibromyalgia resolved PMH - PAST MEDICAL HISTORY OF depression PMH - PAST MEDICAL HISTORY OF 'whole in heart'/PFO Premenstrual tension syndromes PMS Sjogren's syndrome (HCC) Symptomatic menopausal or female climacteric states PAST SURGICAL HISTORY Procedure Laterality Date >=3 1984 1990, 1997 DELIVERY ONLY , low cervicalx3 with bto COLONOSCOPY 2017 COLONOSCOPY W/BIOPSY 09/11/[address] 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 folic acid 1 mg tablet Take 2 tablets by mouth once daily. cholecalciferol, vitamin D3, 10 mcg (400 unit) cap Take 1,000 Units by mouth once daily. ondansetron (ZOFRAN) 4 mg tablet Take 1 tablet by mouth every 8 hours as needed for nausea/vomiting. nicotine (NICODERM) 7 mg/24 hr Apply 1 Patch as directed every 24 hours. Biotin 10,000 mcg cap Take 1 capsule by mouth once daily. SYNTHROID 25 mcg tablet Take 25 mcg by mouth once daily. CLONAZEPAM 0.5 mg tablet Take 0.5 mg by mouth daily at bedtime. rizatriptan benzoate(MAXALT 10 MG TAB) Take one tab as needed for DAN and may repeat in 2 hr x 1dose (Patient taking differently: Take by mouth. Takes as needed per patient) Ascorbic Acid 500 mg cpER Take 500 mg by mouth once daily. ALLERGIES: Codeine, Cymbalta [Duloxetine], Effexor [Venlafaxine Analogues], Latex, Lexapro [Escitalopram Oxalate], Paroxetine, Plaquenil [Hydroxychloroquine], and Sulfa (Sulfonamide Antibiotics) PERSONAL HISTORY: Social History Tobacco Use Smoking status: Former Packs/day: 0.50 Years: 30.00 Pack years: 15.00 Types: Cigarettes Quit date: 09/22/2013 Years since quittin.4 Smokeless tobacco: Never Vaping Use Vaping Use: Never used Substance Use Topics Alcohol use: Yes Comment: couple times a year Drug use: No FAMILY HISTORY Problem Relation Age of Onset Breast Cancer Mother other (atrial fib) Mother Heart Father Colon Cancer Father dx 79 caught at early stage GI Father colon polyps Cancer Father melanoma dx 78 Graves Disease Father Hypertension Sister GI Brother colon polyps Diabetes Maternal Grandmother Breast Cancer Maternal Grandmother bilateral - first dx at 52, contralateral 85 Diabetes Maternal Grandfather Diabetes Paternal Grandmother other (multiple sclorosis) Paternal Grandmother Diabetes Paternal Grandfather Breast Cancer Daughter 25 bilateral mastectomy The review of systems data was entered by the nurse and reviewed by oh Nursing Notes: Sylvie Herrera LPN 02/20/2023 3:02 PM Signed REVIEW OF SYSTEMS: General: The patient denies fatigue, denies weight loss, denies weight gain, denies feeling hot, and denies feelings of cold. Eyes: The patient denies glaucoma, denies eye injury/surgery, wears glasses or contacts. Ear/Nose/Throat: The patient notes allergies, denies hayfever, denies ear infections, and denies bloody noses. Cardiovascular: The patient denies chest pain, denies heart disease, denies high blood pressure,denies cardiac stent, denies prior heart attack, denies irregular heart beat, denies high cholesterol, denies poor circulation, denies heart failure, other cardiac issues, denies claudication, denies cold feet, denies peripheral arterial stent. Respiratory: The patient denies tuberculosis, denies pneumonia, denies frequent cough, denies pulmonary embolism, denies shortness of breath, and denies coughing up blood. Gastrointestinal: The patient denies difficulty swallowing, denies acid reflux, denies ulcers, denies vomiting, denies jaundice/hepatitis, notes gallbladder problems, denies black or tarry stools, denies hemorrhoids, denies bleeding from rectum, denies diverticulitis, denies constipation, notes diarrhea, denies loss of stool control, and denies hernias. Kidney/Bladder: The patient denies kidney stones, notes urine infections, and notes bloody urine. Skin: The patient notes a history of skin cancer, denies bleeding/changing moles, and notes a history of skin rash. Neurologic: The patient denies a history of epilepsy/convulsions, notes headaches, denies head/spinal injuries, and denies stroke/TIA. Psychiatric: The patient denies psychiatric medications, notes depression, and denies voices, denies substance abuse. Endocrine: The patient notes thyroid disorders, denies diabetes, and denies hormonal problems. Hematologic: The patient notes a history of bruising, denies bleeding, and denies anemia, denies blood clots. Infections: The patient notes a history of measles and mumps, denies rheumatic fever, and notes sexually transmitted diseases. Musculoskeletal: The patient notes back pain/injury, notes back problems, denies sciatica, notes knee/foot trouble, denies arthritis, or denies gout. When was patient's last Mammogram screening? 2022 Last Colonoscopy: 2022 Sylvie Herrera LPN PHYSICAL EXAMINATION: General: The patient is 62 year old female, well nourished, well hydrated in no acute distress. The patient is oriented to time, place, and person. VITALS: Blood pressure 108/66, pulse 82, temperature 36.4 C (97.6 F), height 172.7 cm (5' 8 ), weight 71.2 kg (157 lb), last menstrual period 01/11/2008, SpO2 99 %. Body mass index is 23.87 kg/m . Head - Normocephalic. EOM intact with sclera clear and no icterus noted. Mouth with mucus membranes moist. Neck - supple with no jugular venous distention noted. Trachea is midline. No thyroid enlargement or thyroid nodules detected. No masses noted. Chest/breast - no asymmetry of breasts noted, no suspicious skin lesions noted, no nipple discharge and both nipples everted, no breast masses noted Lungs - clear to auscultation. Normal breath sounds. No rales/rhonchi/wheezing noted. No labored breathing noted, such as retractions. No cough heard. Heart - normal S1 and S2 auscultated. No rubs/clicks/murmurs noted. Regular rate. Abdomen - soft and benign. . Extremities - no calf tenderness noted. No pitting edema noted. Skin - normal skin integrity. Lymph - no cervical adenopathy detected, no supraclavicular adenopathy detected, no axillary adenopathy detected Neurological - gait normal, no focal deficits noted Psych - calm and appropriate Assessment IMPRESSION: abnormal ultrasound of breast, family history of breast cancer DISCUSSION: I have discussed the above with the patient. I have offered US guided right needle core breast biopsy. I have explained the procedure to the patient. I have counseled the patient as to the risks of the procedure, including but not limited to: infection, bleeding, injury to any blood vessels/nerves, scar tissue, wound infections, complications of anesthesia, etc. - the patient understands. The patient wishes to proceed. I have answered all questions to the patient s satisfaction and the patient has no further questions. I have confirmed and edited as necessary, the PFSH and ROS obtained by others. . Diagnoses: (R92.8) Abnormal ultrasound of breast (Z80.3) Family history of breast cancer PROCEDURE NOTE: Ultrasound guided right breast needle core biopsy with vacuum assistance Indications - BIRADS 5 breast lesion Description of procedure - After informed consent was obtained, patient was brought to the Procedure Room. Appropriate time out protocol was followed. The patient was placed in the supine position. The ultrasound machine was used for identification of the lesion and facilitation of the biopsy in real time imaging. The lesion was identified in the right breast. It was at the 12 - 1 o'clock position, 3 cm from the nipple, about mid depth. The lesion was measured at about 1 cm in size. The transducer was held in the transverse position. The skin was cleansed with a surgical skin preparation. The skin and subcutaneous tissues were infiltrated with 1% xylocaine. A total of 17 ml was used. A small skin gissel was made medial to the lesion with an 11 blade scalpel. The Mammotome Elite device was then positioned into the patient's breast at the lesion site. Ultrasound imaging pictures were captured. Using the vacuum suctioning of the Mammotome device, several core samples of breast tissue were obtained. This was done, simultaneously visualizing with the ultrasound transducer. Once adequate sampling was determined to be done, the Mammotome device was removed and a marker clip was placed at the biopsy site, using ultrasound transducer guidance. Hemostasis was achieved by pressure. No evidence of active bleeding was noted after pressure applied for a period of time. Steristrips were placed to reapproximate the wound edges. Sterile dressing was applied over this. Patient tolerated procedure well. Complications - none EBL - minimal PLAN: Patient states that I can call her with results of the above and also that I can leave a voicemail, if need be. She has been counseled to contact me if any problems develop. Patient acknowledges above. I spent a total of 35 minutes on the date of the service which included preparing to see the patient with review of any pertinent laboratory studies/radiological imaging/medical records, [id number] patient care, obtaining oral medical history from the patient in this encounter, performing a medically appropriate examination, counseling and educating the patient/family/caregiver, and ordering and/or scheduling of medications/tests/procedures, and completing appropriate medical documentation. Marbella Gross MD documented in this encounter [facility] 02-20-2023 Nurse Note REVIEW OF SYSTEMS: General: The patient denies fatigue, denies weight loss, denies weight gain, denies feeling hot, and denies feelings of cold. Eyes: The patient denies glaucoma, denies eye injury/surgery, wears glasses or contacts. Ear/Nose/Throat: The patient notes allergies, denies hayfever, denies ear infections, and denies bloody noses. Cardiovascular: The patient denies chest pain, denies heart disease, denies high blood pressure,denies cardiac stent, denies prior heart attack, denies irregular heart beat, denies high cholesterol, denies poor circulation, denies heart failure, other cardiac issues, denies claudication, denies cold feet, denies peripheral arterial stent. Respiratory: The patient denies tuberculosis, denies pneumonia, denies frequent cough, denies pulmonary embolism, denies shortness of breath, and denies coughing up blood. Gastrointestinal: The patient denies difficulty swallowing, denies acid reflux, denies ulcers, denies vomiting, denies jaundice/hepatitis, notes gallbladder problems, denies black or tarry stools, denies hemorrhoids, denies bleeding from rectum, denies diverticulitis, denies constipation, notes diarrhea, denies loss of stool control, and denies hernias. Kidney/Bladder: The patient denies kidney stones, notes urine infections, and notes bloody urine. Skin: The patient notes a history of skin cancer, denies bleeding/changing moles, and notes a history of skin rash. Neurologic: The patient denies a history of epilepsy/convulsions, notes headaches, denies head/spinal injuries, and denies stroke/TIA. Psychiatric: The patient denies psychiatric medications, notes depression, and denies voices, denies substance abuse. Endocrine: The patient notes thyroid disorders, denies diabetes, and denies hormonal problems. Hematologic: The patient notes a history of bruising, denies bleeding, and denies anemia, denies blood clots. Infections: The patient notes a history of measles and mumps, denies rheumatic fever, and notes sexually transmitted diseases. Musculoskeletal: The patient notes back pain/injury, notes back problems, denies sciatica, notes knee/foot trouble, denies arthritis, or denies gout. When was patient's last Mammogram screening? 2022 Last Colonoscopy: 2022 Sylvie Herrera LPN documented in this encounter [facility] 02-20-2023 History of Present illness Narrative Marie James is a very pleasant 62 year old female diagnosed 02/2023 with right breast invasive ductal carcinoma (IDC), grade 2, ER+99%, RI+95%, HER2-. On 04/30/2023 Dr. Yamil Ortiz performed a right breast magseed localized partial mastectomy, right axillary sentinel lymph node biopsy with intraoperative mapping and right breast tissue rearrangement. She underwent genetic testing via 84 gene Multi Cancer Panel which was negative for pathogenic mutations. She was referred to medical oncology and radiation oncology. She has a family history of breast cancer, see below. She had her post op follow up on 05/20/23 and per patient had 60 cc drained from a seroma. She presents today for right breast pain, redness, and swelling which started last night. She has a fever, chills, nausea, and body aches. She denies any drainage from the area.Stage IA [id number] HISTORY: menarche age 14, , first age 24, OCP's x 5 years, surgical menopause age 47 s/p partial hysterectomy with one ovary intact, no HRT, heterogeneously denseFAMILY CANCER HISTORY:Mother: Breast cancer, age 80 (ER positive)Maternal Grandmother: Breast cancer, age 53 (ER positive)Father: Colon cancer, age 80Paternal Aunt: Colon cancer, age 79 [facility] Work Phone: 10-17-2022 Miscellaneous Notes Patient requesting that her EGD, pathology and post-procedure note be faxed to Dr. Aster Melendez. Faxed to [phone]. Fax confirmation sheet received. Renea Cooley RN documented in this encounter [facility] 10-10-2022 Miscellaneous Notes See pt message Genny Fields MD documented in this encounter [facility] 10-09-2022 Note HNO ID: [id number] Author: Melissa Tran PA-C Service: ? Author Type: Physician Scada Engineer Type: Progress Notes Filed: 10/17/2022 11:32 AM Note Text: FOLLOW UP VISIT - ENDOSCOPY NAME: Marie [facility] NO.: [id number] DATE OF SERVICE: 10/09/2022 : 1960 REFERRING PHYSICIAN: Aster Melendez MD Marie is a patient I am following with Dr. Wells for nausea. Dr. Wells performed upper endoscopy on 10/02/22. Findings per operative report showed: - Z-line regular, 40 cm from the incisors. Biopsied. - Gastritis. Biopsied. - Normal examined duodenum. Biopsied. - Stone cold nml study. Pathology demonstrated: FINAL DIAGNOSIS A. Duodenum, biopsy: - Duodenal mucosa with no significant diagnostic alteration. - No evidence of celiac disease or duodenitis. B. Stomach, biopsy: - Mild chronic inactive gastritis, see comment. C, D. Esophagus, lower and mid, biopsies: - Squamous mucosa with no significant diagnostic alteration. - No evidence of esophagitis or eosinophilia. Diagnosis Comment B. A Helicobacter pylori immunostain will be performed and reported separately. Gross Description A. DUODENUM BIOPSY Received in formalin is one piece of valencia, soft tissue measuring 0.5 x 0.2 x 0.2 cm. Totally submitted in one cassette. B. STOMACH BIOPSY Received in formalin is one piece of valencia, soft tissue measuring 0.4 x 0.2 x 0.2 cm. Totally submitted in one cassette. C. ESOPHAGUS LOWER BIOPSY Received in formalin are two pieces of valencia, soft tissue aggregating to 0.9 x 0.3 x 0.2 cm. Totally submitted in one cassette. D. ESOPHAGUS MID BIOPSY Received in formalin is one piece of valencia, soft tissue measuring 0.8 x 0.2 x 0.2 cm. Totally submitted in one cassette. Gross examination performed at [facility], [address] [facility] [place] [address] TTN 10/02/2022 5:23 PM Performing Lab Diagnostic interpretation performed at [facility], [facility] [address] CLIA# [id number] Screedman/Laborer: Asael Bhatti M.D. Addendum Given the background of chronic gastritis a Helicobacter pylori immunostain was performed on block B1 and is negative for Helicobacter pylori organisms. The patient notes no new complaints since the procedure. Notes some improvement in nausea but states symptoms are still not completely resolved. Notes symptoms are worse in the morning. VITALS: Blood pressure 116/70, pulse 99, temperature 36.9 ?C (98.5 ?F), weight 70.8 kg (156 lb), last menstrual period 01/11/2008, SpO2 99 %. General: patient is alert, cooperative, pleasant and in no acute distress Assessment IMPRESSION: mild chronic gastritis, negative for H. pylori PLAN: The operative findings and pathology report were reviewed with the patient, and the patient has had the opportunity to ask questions and have questions answered. -Trial of carafate -If no improvement in 2-3 weeks, follow up with GI Patient verbalized understanding of all above and agreed with the plan Diagnoses: (K29.30) Chronic superficial gastritis without bleeding (primary encounter diagnosis) (R11.0) Nausea I spent a total of 25 minutes on the date of the service which included preparing to see the patient, [id number] patient care, completing clinical documentation, obtaining and/or reviewing separately obtained history, counseling and educating the patient/family/caregiver, ordering medications, tests, or procedures, communicating with other HCPs (not separately reported), independently interpreting results (not separately reported), and communicating results to the patient/family/caregiver. Melissa Tran PA-C [facility] 10-09-2022 Instructions Melissa Tran PA-C - 10/09/2022 9:36 AM EST -Trial of carafate -If no improvement in 2-3 weeks, follow up with GI The following instructions are important for you related to your office visit today with the [facility]. INSTRUCTIONS FOR PEPTIC ULCER DISEASE/GASTRITIS I discussed with you the findings of your upper endoscopy. Your upper endoscopy demonstrated signs of peptic ulcer disease or irritation. This can be seen as a range of issues from actual ulcers in the stomach or duodenum (first part of the small bowel) or irritation ranging from redness to more significant irritation with erosions of the stomach or duodenum. These conditions are usually caused from a combination of too much acid production or too little protective mucus production in the stomach. Factors that increase acid production include smoking and stress. If you smoke, stopping smoking will often cure these issues without needing other medications. Factors that decrease the stomach's production of protective mucus include alcohol consumption, smoking, aspirin and other anti-inflammatory use. Over the counter medications including antiacids and acid reducing medications including H2 blockers (Zantac and the like) and proton pump inhibitors (prilosec, prevacid and the like) neutralize or prevent acid production. Prescription strength proton pump inhibitors (PPIs) may be necessary if your symptoms persist. Carafate may be added to PPI treatment in refractory cases. Avoiding smoking, alcohol and antiinflammatory medications are important in the successful treatment of peptic diseases. New or worsening symptoms such are epigastric pain, burning, difficulty swallowing or food sticking should be relayed to your physician. Feeling full early after eating, or black, tarry, foul smelling stools are also worrisome. If you have any difficulties or concerns, you should contact our office immediately. If you note any additional difficulties, questions, or concerns, you should contact our office immediately @ [phone] and ask to be transferred to the General Surgery department. documented in this encounter [facility] 10-09-2022 History of Present illness Narrative FOLLOW UP VISIT - ENDOSCOPY NAME: Marie James [facility] NO.: [id number] DATE OF SERVICE: 10/09/2022 : 1960 REFERRING PHYSICIAN: Aster Melendez MD Marie is a patient I am following with Dr. Wells for nausea. Dr. Wells performed upper endoscopy on 10/02/22. Findings per operative report showed: - Z-line regular, 40 cm from the incisors. Biopsied. - Gastritis. Biopsied. - Normal examined duodenum. Biopsied. - Stone cold nml study. Pathology demonstrated: FINAL DIAGNOSIS A. Duodenum, biopsy: - Duodenal mucosa with no significant diagnostic alteration. - No evidence of celiac disease or duodenitis. B. Stomach, biopsy: - Mild chronic inactive gastritis, see comment. C, D. Esophagus, lower and mid, biopsies: - Squamous mucosa with no significant diagnostic alteration. - No evidence of esophagitis or eosinophilia. Diagnosis Comment B. A Helicobacter pylori immunostain will be performed and reported separately. Gross Description A. DUODENUM BIOPSY Received in formalin is one piece of valencia, soft tissue measuring 0.5 x 0.2 x 0.2 cm. Totally submitted in one cassette. B. STOMACH BIOPSY Received in formalin is one piece of valencia, soft tissue measuring 0.4 x 0.2 x 0.2 cm. Totally submitted in one cassette. C. ESOPHAGUS LOWER BIOPSY Received in formalin are two pieces of valencia, soft tissue aggregating to 0.9 x 0.3 x 0.2 cm. Totally submitted in one cassette. D. ESOPHAGUS MID BIOPSY Received in formalin is one piece of valencia, soft tissue measuring 0.8 x 0.2 x 0.2 cm. Totally submitted in one cassette. Gross examination performed at [facility], [address] [facility] [place] [address] TTN 10/02/2022 5:23 PM Performing Lab Diagnostic interpretation performed at [facility], [address] [facility] [address] CLIA# [id number] Screedman/Laborer: Asael Bhatti M.D. Addendum Given the background of chronic gastritis a Helicobacter pylori immunostain was performed on block B1 and is negative for Helicobacter pylori organisms. The patient notes no new complaints since the procedure. Notes some improvement in nausea but states symptoms are still not completely resolved. Notes symptoms are worse in the morning. VITALS: Blood pressure 116/70, pulse 99, temperature 36.9 C (98.5 F), weight 70.8 kg (156 lb), last menstrual period 01/11/2008, SpO2 99 %. General: patient is alert, cooperative, pleasant and in no acute distress Assessment IMPRESSION: mild chronic gastritis, negative for H. pylori PLAN: The operative findings and pathology report were reviewed with the patient, and the patient has had the opportunity to ask questions and have questions answered. -Trial of carafate -If no improvement in 2-3 weeks, follow up with GI Patient verbalized understanding of all above and agreed with the plan Diagnoses: (K29.30) Chronic superficial gastritis without bleeding (primary encounter diagnosis) (R11.0) Nausea I spent a total of 25 minutes on the date of the service which included preparing to see the patient, [id number] patient care, completing clinical documentation, obtaining and/or reviewing separately obtained history, counseling and educating the patient/family/caregiver, ordering medications, tests, or procedures, communicating with other HCPs (not separately reported), independently interpreting results (not separately reported), and communicating results to the patient/family/caregiver. Melissa Tran PA-C documented in this encounter [facility] 10-08-2022 Miscellaneous Notes Called and spoke to patient and is planning on keeping tomorrow appointment. Pt. calling in for results of recent EGD. States she has appt. scheduled for tomorrow am, but does not want to pay another $50 copay if she doesn't need to. Pt checked MyChart for results and can't see them. Please advise and call pt. Mindy George RN documented in this encounter [facility] 10-02-2022 History and physical note Images from the original note were not included. HISTORY AND PHYSICAL Marie James 1960 REFERRING PHYSICIAN: No ref. provider found CHIEF COMPLAINT: Consult (Constant nausea) HPI: The patient is a 61 year old female referred for endoscopy. Marie notes no history of colon complaints. The patient notes the following upper complaints: Marie denies abdominal pain.. Marie notes heartburn. Marie denies dysphagia. Marie denies a history of ulcers/ peptic ulcer disease. Marie has not undergone prior endoscopy. Patient has been experiencing significant nausea as soon as she wakes up in the morning. It has not been relieved with PPIs. She feels heartburn. PAST MEDICAL HISTORY PAST MEDICAL HISTORY Diagnosis Date Excessive or frequent menstruation Heavy periods resolved Family history of malignant neoplasm of breast Hypothyroidism Iron deficiency anemia, unspecified Anemia, iron def. PMH - PAST MEDICAL HISTORY OF migraines PMH - PAST MEDICAL HISTORY OF fibromyalgia resolved PMH - PAST MEDICAL HISTORY OF depression PMH - PAST MEDICAL HISTORY OF 'whole in heart'/PFO Premenstrual tension syndromes PMS Sjogren's syndrome (HCC) Symptomatic menopausal or female climacteric states PAST SURGICAL HISTORY PAST SURGICAL HISTORY Procedure Laterality Date >=3 1984 1990, 1997 DELIVERY ONLY , low cervicalx3 with bto COLONOSCOPY 2018 COLONOSCOPY W/BIOPSY 09/11/[address] 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 cholecalciferol, vitamin D3, (VITAMIN D-3) 10 mcg (400 unit) cap Take 1,000 Units by mouth once daily. folic acid 1 mg tablet Take 1 mg by mouth once daily. nicotine (NICODERM) 7 mg/24 hr Apply 1 Patch as directed every 24 hours. Biotin 10,000 mcg cap Take 1 capsule by mouth once daily. SYNTHROID 25 mcg tablet Take 25 mcg by mouth once daily. CLONAZEPAM 0.5 mg tablet daily at bedtime. rizatriptan benzoate(MAXALT 10 MG TAB) Take one tab as needed for DAN and may repeat in 2 hr x 1dose (Patient taking differently: Take by mouth. Takes as needed per patient) ondansetron (ZOFRAN) 4 mg tablet Take 1 tablet by mouth every 8 hours as needed for nausea/vomiting. No current facility-administered medications for this visit. ALLERGIES: Codeine, Cymbalta [Duloxetine], Effexor [Venlafaxine Analogues], Latex, Lexapro [Escitalopram Oxalate], Paroxetine, Plaquenil [Hydroxychloroquine], and Sulfa (Sulfonamide Antibiotics) PERSONAL HISTORY: SOCIAL HISTORY Social History Tobacco Use Smoking status: Former Packs/day: 0.50 Years: 30.00 Pack years: 15.00 Types: Cigarettes Quit date: 09/22/2013 Years since quittin.0 Smokeless tobacco: Never Vaping Use Vaping Use: Never used Substance Use Topics Alcohol use: Yes Comment: couple times a year Drug use: No FAMILY HISTORY: FAMILY HISTORY FAMILY HISTORY Problem Relation Age of Onset Breast Cancer Mother other (atrial fib) Mother Heart Father Colon Cancer Father dx 79 caught at early stage GI Father colon polyps Cancer Father melanoma dx 78 Graves Disease Father Hypertension Sister GI Brother colon polyps Diabetes Maternal Grandmother Breast Cancer Maternal Grandmother bilateral - first dx at 52, contralateral 85 Diabetes Maternal Grandfather Diabetes Paternal Grandmother other (multiple sclorosis) Paternal Grandmother Diabetes Paternal Grandfather Breast Cancer Daughter 25 bilateral mastectomy REVIEW OF SYMPTOMS: The review of systems data was entered by the nurse and reviewed by oh Nursing Notes: Nadine Wheeler LPN 10/01/2022 11:08 AM Signed REVIEW OF SYSTEMS: General: The patient NOTES fatigue, NOTES weight loss, denies weight gain, denies feeling hot, and NOTES feelings of cold. Eyes: The patient denies glaucoma, denies eye injury/surgery, wears glasses or contacts. Ear/Nose/Throat: The patient denies allergies, denies hayfever, denies ear infections, and denies bloody noses. Cardiovascular: The patient denies chest pain, denies heart disease, denies high blood pressure,denies cardiac stent, denies prior heart attack, denies irregular heart beat, denies high cholesterol, denies poor circulation, denies heart failure, other cardiac issues, denies claudication, NOTES cold feet, denies peripheral arterial stent. Respiratory: The patient denies tuberculosis, denies pneumonia, denies frequent cough, denies pulmonary embolism, denies shortness of breath, and denies coughing up blood. Gastrointestinal: The patient denies difficulty swallowing, NOTES acid reflux, denies ulcers, denies vomiting, denies jaundice/hepatitis, denies gallbladder problems, denies black or tarry stools, denies hemorrhoids, denies bleeding from rectum, denies diverticulitis, denies constipation, NOTES diarrhea, denies loss of stool control, and denies hernias. Kidney/Bladder: The patient denies kidney stones, denies urine infections, and denies bloody urine. Skin: The patient denies a history of skin cancer, denies bleeding/changing moles, and denies a history of skin rash. Neurologic: The patient denies a history of epilepsy/convulsions, denies headaches, denies head/spinal injuries, and denies stroke/TIA. Psychiatric: The patient denies psychiatric medications, NOTES depression, and denies voices, denies substance abuse. Endocrine: The patient NOTES thyroid disorders, denies diabetes, and denies hormonal problems. Hematologic: The patient denies a history of bruising, denies bleeding, and denies anemia, denies blood clots. Infections: The patient denies a history of measles and mumps, denies rheumatic fever, and denies sexually transmitted diseases. Musculoskeletal: The patient denies back pain/injury, denies back problems, denies sciatica, denies knee/foot trouble, denies arthritis, or denies gout. When was patient's last Mammogram screening? 2021 Last Colonoscopy: 2017 Nadine Wheeler LPN PHYSICAL EXAMINATION: General: The patient is 61 year old female, well nourished, well hydrated in no acute distress. The patient is oriented to time, place, and person. VITALS: Blood pressure 132/88, pulse 89, temperature 36.3 C (97.3 F), height 172.7 cm (5' 8 ), weight 71.3 kg (157 lb 3.2 oz), last menstrual period 01/11/2008, SpO2 99 %. Body mass index is 23.9 kg/m . HEENT: Normal cephalic, ataumatic, pupils are equally round, sclera are anicteric, mucous membranes are moist, oropharynx is clear. Neck has no masses, asymmetry or lymphadenopathy. Thyroid is unremarkable. Respiratory: Clear to auscultation and percussion. Normal respiratory excursion and pattern. Cardiac: Examination is regular rate and rhythm. Abdominal exam: Soft, nontender, with no palpable masses. No hepatosplenomegaly. No palpable hernias. Rectal exam: exam deferred Extremities: no clubbing, cyanosis or edema. No adenopathy. Other: LABORATORY VALUES: As Noted RADIOLOGIC STUDIES: As Noted Assessment IMPRESSION: Nausea (primary encounter diagnosis) Abdominal bloating PLAN: I plan to perform upper endoscopy. We discussed the risks and benefits of the planned endoscopy. I have informed the patient that complications can occur including failure to complete the endoscopy and perforation. The patient had the opportunity to ask questions concerning the planned endoscopy. My staff has also explained the procedure to the patient in understandable terms and has given the patient printed material concerning the procedure. The patient freely consents to surgery. I think it is a good place to start with an EGD with multiple biopsies of the small intestine and stomach as well as the esophagus. If the EGD really is unrevealing then I think organ to have to do other work-up such as a gastric emptying study. In addition she may need other work-up such as esophageal manometry and quite possibly a CAT scan. I have told her that I am in the infancy of working her up at this time. I have given her a prescription for Zofran to see if this will help with her nausea. Diagnoses: (R11.0) Nausea (primary encounter diagnosis) (R14.0) Abdominal bloating Return to Clinic: The patient is instructed to follow-up with me 1 week post operatively. Anticipated Surgical Procedure/ CPT Code: Esophagogastroduodenoscopy(EGD) with or without biopies based on clinical findings, removal of polyps or lesions Anticipated Anesthetic: MAC with local Patient weight: Blood pressure 132/88, pulse 89, temperature 36.3 C (97.3 F), height 172.7 cm (5' 8 ), weight 71.3 kg (157 lb 3.2 oz), last menstrual period 01/11/2008, SpO2 99 %. BMI: Body mass index is 23.9 kg/m . Planned antibiotic: none SCDs needed: No Scada Engineer Needed: No Pre Op Clearance: None Anticoagulation: No Diabetic: No Location: [facility] Royce Wells III, MD UPDATED HISTORY AND PHYSICAL EXAMINATION SERVICE DATE: 10/02/2022 SERVICE TIME: 1:05 PM PHYSICAL EXAM MUST BE COMPLETED ON ADMISSION The History and Physical (completed in the past 30 days) has been reviewed and the patient has been examined. The contents accurately reflect the patient's condition with the following additions or revisions since the H&P was completed. Examination indicates no changes. This H&P can be found in the attached. SIGNATURE: Royce Wells III, MD PATIENT NAME: Marie James DATE: October 02, 2022 TIME: 1:05 PM documented in this encounter [facility] 10-01-2022 Note HNO ID: [id number] Author: Royce Wells MD Service: ? Author Type: Physician Type: Progress Notes Filed: 10/01/2022 12:14 PM Note Text: HISTORY AND PHYSICAL Marie James 1960 REFERRING PHYSICIAN: No ref. provider found CHIEF COMPLAINT: Consult (Constant nausea) HPI: The patient is a 61 year old female referred for endoscopy. Marie notes no history of colon complaints. The patient notes the following upper complaints: Marie denies abdominal pain.. Marie notes heartburn. Marie denies dysphagia. Marie denies a history of ulcers/ peptic ulcer disease. Marie has not undergone prior endoscopy. Patient has been experiencing significant nausea as soon as she wakes up in the morning. It has not been relieved with PPIs. She feels heartburn. PAST MEDICAL HISTORY Diagnosis Date Excessive or frequent menstruation Heavy periods resolved Family history of malignant neoplasm of breast Hypothyroidism Iron deficiency anemia, unspecified Anemia, iron def. PMH - PAST MEDICAL HISTORY OF migraines PMH - PAST MEDICAL HISTORY OF fibromyalgia resolved PMH - PAST MEDICAL HISTORY OF depression PMH - PAST MEDICAL HISTORY OF 'whole in heart'/PFO Premenstrual tension syndromes PMS Sjogren's syndrome (HCC) Symptomatic menopausal or female climacteric states PAST SURGICAL HISTORY Procedure Laterality Date >=3 1984 1990, 1997 DELIVERY ONLY , low cervicalx3 with bto COLONOSCOPY 2018 COLONOSCOPY W/BIOPSY 09/11/[address] 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 cholecalciferol, vitamin D3, (VITAMIN D-3) 10 mcg (400 unit) cap Take 1,000 Units by mouth once daily. folic acid 1 mg tablet Take 1 mg by mouth once daily. nicotine (NICODERM) 7 mg/24 hr Apply 1 Patch as directed every 24 hours. Biotin 10,000 mcg cap Take 1 capsule by mouth once daily. SYNTHROID 25 mcg tablet Take 25 mcg by mouth once daily. CLONAZEPAM 0.5 mg tablet daily at bedtime. rizatriptan benzoate(MAXALT 10 MG TAB) Take one tab as needed for DAN and may repeat in 2 hr x 1dose (Patient taking differently: Take by mouth. Takes as needed per patient) ondansetron (ZOFRAN) 4 mg tablet Take 1 tablet by mouth every 8 hours as needed for nausea/vomiting. No current facility-administered medications for this visit. ALLERGIES: Codeine, Cymbalta [Duloxetine], Effexor [Venlafaxine Analogues], Latex, Lexapro [Escitalopram Oxalate], Paroxetine, Plaquenil [Hydroxychloroquine], and Sulfa (Sulfonamide Antibiotics) PERSONAL HISTORY: Social History Tobacco Use Smoking status: Former Packs/day: 0.50 Years: 30.00 Pack years: 15.00 Types: Cigarettes Quit date: 09/22/2013 Years since quittin.0 Smokeless tobacco: Never Vaping Use Vaping Use: Never used Substance Use Topics Alcohol use: Yes Comment: couple times a year Drug use: No FAMILY HISTORY: FAMILY HISTORY Problem Relation Age of Onset Breast Cancer Mother other (atrial fib) Mother Heart Father Colon Cancer Father dx 79 caught at early stage GI Father colon polyps Cancer Father melanoma dx 78 Graves Disease Father Hypertension Sister GI Brother colon polyps Diabetes Maternal Grandmother Breast Cancer Maternal Grandmother bilateral - first dx at 52, contralateral 85 Diabetes Maternal Grandfather Diabetes Paternal Grandmother other (multiple sclorosis) Paternal Grandmother Diabetes Paternal Grandfather Breast Cancer Daughter 25 bilateral mastectomy REVIEW OF SYMPTOMS: The review of systems data was entered by the nurse and reviewed by me Nursing Notes: Nadine Wheeler LPN 10/01/2022 11:08 AM Signed REVIEW OF SYSTEMS: General: The patient NOTES fatigue, NOTES weight loss, denies weight gain, denies feeling hot, and NOTES feelings of cold. Eyes: The patient denies glaucoma, denies eye injury/surgery, wears glasses or contacts. Ear/Nose/Throat: The patient denies allergies, denies hayfever, denies ear infections, and denies bloody noses. Cardiovascular: The patient denies chest pain, denies heart disease, denies high blood pressure,denies cardiac stent, denies prior heart attack, denies irregular heart beat, denies high cholesterol, denies poor circulation, denies heart failure, other cardiac issues, denies claudication, NOTES cold feet, denies peripheral arterial stent. Respiratory: The patient denies tuberculosis, denies pneumonia, denies frequent coug (more content not included)... [facility] 10-01-2022 History of Present illness Narrative HISTORY AND PHYSICAL Mariera James 1960 REFERRING PHYSICIAN: No ref. provider found CHIEF COMPLAINT: Consult (Constant nausea) HPI: The patient is a 61 year old female referred for endoscopy. Marie notes no history of colon complaints. The patient notes the following upper complaints: Marie denies abdominal pain.. Marie notes heartburn. Marie denies dysphagia. Marie denies a history of ulcers/ peptic ulcer disease. Marie has not undergone prior endoscopy. Patient has been experiencing significant nausea as soon as she wakes up in the morning. It has not been relieved with PPIs. She feels heartburn. PAST MEDICAL HISTORY Diagnosis Date Excessive or frequent menstruation Heavy periods resolved Family history of malignant neoplasm of breast Hypothyroidism Iron deficiency anemia, unspecified Anemia, iron def. PMH - PAST MEDICAL HISTORY OF migraines PMH - PAST MEDICAL HISTORY OF fibromyalgia resolved PMH - PAST MEDICAL HISTORY OF depression PMH - PAST MEDICAL HISTORY OF 'whole in heart'/PFO Premenstrual tension syndromes PMS Sjogren's syndrome (HCC) Symptomatic menopausal or female climacteric states PAST SURGICAL HISTORY Procedure Laterality Date >=3 1984 1990, 1997 DELIVERY ONLY , low cervicalx3 with bto COLONOSCOPY 2017 COLONOSCOPY W/BIOPSY 09/11/[address] 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 cholecalciferol, vitamin D3, (VITAMIN D-3) 10 mcg (400 unit) cap Take 1,000 Units by mouth once daily. folic acid 1 mg tablet Take 1 mg by mouth once daily. nicotine (NICODERM) 7 mg/24 hr Apply 1 Patch as directed every 24 hours. Biotin 10,000 mcg cap Take 1 capsule by mouth once daily. SYNTHROID 25 mcg tablet Take 25 mcg by mouth once daily. CLONAZEPAM 0.5 mg tablet daily at bedtime. rizatriptan benzoate(MAXALT 10 MG TAB) Take one tab as needed for DAN and may repeat in 2 hr x 1dose (Patient taking differently: Take by mouth. Takes as needed per patient) ondansetron (ZOFRAN) 4 mg tablet Take 1 tablet by mouth every 8 hours as needed for nausea/vomiting. No current facility-administered medications for this visit. ALLERGIES: Codeine, Cymbalta [Duloxetine], Effexor [Venlafaxine Analogues], Latex, Lexapro [Escitalopram Oxalate], Paroxetine, Plaquenil [Hydroxychloroquine], and Sulfa (Sulfonamide Antibiotics) PERSONAL HISTORY: Social History Tobacco Use Smoking status: Former Packs/day: 0.50 Years: 30.00 Pack years: 15.00 Types: Cigarettes Quit date: 09/22/2013 Years since quittin.0 Smokeless tobacco: Never Vaping Use Vaping Use: Never used Substance Use Topics Alcohol use: Yes Comment: couple times a year Drug use: No FAMILY HISTORY: FAMILY HISTORY Problem Relation Age of Onset Breast Cancer Mother other (atrial fib) Mother Heart Father Colon Cancer Father dx 79 caught at early stage GI Father colon polyps Cancer Father melanoma dx 78 Graves Disease Father Hypertension Sister GI Brother colon polyps Diabetes Maternal Grandmother Breast Cancer Maternal Grandmother bilateral - first dx at 52, contralateral 85 Diabetes Maternal Grandfather Diabetes Paternal Grandmother other (multiple sclorosis) Paternal Grandmother Diabetes Paternal Grandfather Breast Cancer Daughter 25 bilateral mastectomy REVIEW OF SYMPTOMS: The review of systems data was entered by the nurse and reviewed by oh Nursing Notes: Nadine Wheeler LPN 10/01/2022 11:08 AM Signed REVIEW OF SYSTEMS: General: The patient NOTES fatigue, NOTES weight loss, denies weight gain, denies feeling hot, and NOTES feelings of cold. Eyes: The patient denies glaucoma, denies eye injury/surgery, wears glasses or contacts. Ear/Nose/Throat: The patient denies allergies, denies hayfever, denies ear infections, and denies bloody noses. Cardiovascular: The patient denies chest pain, denies heart disease, denies high blood pressure,denies cardiac stent, denies prior heart attack, denies irregular heart beat, denies high cholesterol, denies poor circulation, denies heart failure, other cardiac issues, denies claudication, NOTES cold feet, denies peripheral arterial stent. Respiratory: The patient denies tuberculosis, denies pneumonia, denies frequent cough, denies pulmonary embolism, denies shortness of breath, and denies coughing up blood. Gastrointestinal: The patient denies difficulty swallowing, NOTES acid reflux, denies ulcers, denies vomiting, denies jaundice/hepatitis, denies gallbladder problems, denies black or tarry stools, denies hemorrhoids, denies bleeding from rectum, denies diverticulitis, denies constipation, NOTES diarrhea, denies loss of stool control, and denies hernias. Kidney/Bladder: The patient denies kidney stones, denies urine infections, and denies bloody urine. Skin: The patient denies a history of skin cancer, denies bleeding/changing moles, and denies a history of skin rash. Neurologic: The patient denies a history of epilepsy/convulsions, denies headaches, denies head/spinal injuries, and denies stroke/TIA. Psychiatric: The patient denies psychiatric medications, NOTES depression, and denies voices, denies substance abuse. Endocrine: The patient NOTES thyroid disorders, denies diabetes, and denies hormonal problems. Hematologic: The patient denies a history of bruising, denies bleeding, and denies anemia, denies blood clots. Infections: The patient denies a history of measles and mumps, denies rheumatic fever, and denies sexually transmitted diseases. Musculoskeletal: The patient denies back pain/injury, denies back problems, denies sciatica, denies knee/foot trouble, denies arthritis, or denies gout. When was patient's last Mammogram screening? 2021 Last Colonoscopy: 2017 Nadine Wheeler LPN PHYSICAL EXAMINATION: General: The patient is 61 year old female, well nourished, well hydrated in no acute distress. The patient is oriented to time, place, and person. VITALS: Blood pressure 132/88, pulse 89, temperature 36.3 C (97.3 F), height 172.7 cm (5' 8 ), weight 71.3 kg (157 lb 3.2 oz), last menstrual period 01/11/2008, SpO2 99 %. Body mass index is 23.9 kg/m . HEENT: Normal cephalic, ataumatic, pupils are equally round, sclera are anicteric, mucous membranes are moist, oropharynx is clear. Neck has no masses, asymmetry or lymphadenopathy. Thyroid is unremarkable. Respiratory: Clear to auscultation and percussion. Normal respiratory excursion and pattern. Cardiac: Examination is regular rate and rhythm. Abdominal exam: Soft, nontender, with no palpable masses. No hepatosplenomegaly. No palpable hernias. Rectal exam: exam deferred Extremities: no clubbing, cyanosis or edema. No adenopathy. Other: LABORATORY VALUES: As Noted RADIOLOGIC STUDIES: As Noted Assessment IMPRESSION: Nausea (primary encounter diagnosis) Abdominal bloating PLAN: I plan to perform upper endoscopy. We discussed the risks and benefits of the planned endoscopy. I have informed the patient that complications can occur including failure to complete the endoscopy and perforation. The patient had the opportunity to ask questions concerning the planned endoscopy. My staff has also explained the procedure to the patient in understandable terms and has given the patient printed material concerning the procedure. The patient freely consents to surgery. I think it is a good place to start with an EGD with multiple biopsies of the small intestine and stomach as well as the esophagus. If the EGD really is unrevealing then I think organ to have to do other work-up such as a gastric emptying study. In addition she may need other work-up such as esophageal manometry and quite possibly a CAT scan. I have told her that I am in the infancy of working her up at this time. I have given her a prescription for Zofran to see if this will help with her nausea. Diagnoses: (R11.0) Nausea (primary encounter diagnosis) (R14.0) Abdominal bloating Return to Clinic: The patient is instructed to follow-up with me 1 week post operatively. Anticipated Surgical Procedure/ CPT Code: Esophagogastroduodenoscopy(EGD) with or without biopies based on clinical findings, removal of polyps or lesions Anticipated Anesthetic: MAC with local Patient weight: Blood pressure 132/88, pulse 89, temperature 36.3 C (97.3 F), height 172.7 cm (5' 8 ), weight 71.3 kg (157 lb 3.2 oz), last menstrual period 01/11/2008, SpO2 99 %. BMI: Body mass index is 23.9 kg/m . Planned antibiotic: none SCDs needed: No Scada Engineer Needed: No Pre Op Clearance: None Anticoagulation: No Diabetic: No Location: [facility] Royce Wells III, MD documented in this encounter [facility] 10-01-2022 Nurse Note REVIEW OF SYSTEMS: General: The patient NOTES fatigue, NOTES weight loss, denies weight gain, denies feeling hot, and NOTES feelings of cold. Eyes: The patient denies glaucoma, denies eye injury/surgery, wears glasses or contacts. Ear/Nose/Throat: The patient denies allergies, denies hayfever, denies ear infections, and denies bloody noses. Cardiovascular: The patient denies chest pain, denies heart disease, denies high blood pressure,denies cardiac stent, denies prior heart attack, denies irregular heart beat, denies high cholesterol, denies poor circulation, denies heart failure, other cardiac issues, denies claudication, NOTES cold feet, denies peripheral arterial stent. Respiratory: The patient denies tuberculosis, denies pneumonia, denies frequent cough, denies pulmonary embolism, denies shortness of breath, and denies coughing up blood. Gastrointestinal: The patient denies difficulty swallowing, NOTES acid reflux, denies ulcers, denies vomiting, denies jaundice/hepatitis, denies gallbladder problems, denies black or tarry stools, denies hemorrhoids, denies bleeding from rectum, denies diverticulitis, denies constipation, NOTES diarrhea, denies loss of stool control, and denies hernias. Kidney/Bladder: The patient denies kidney stones, denies urine infections, and denies bloody urine. Skin: The patient denies a history of skin cancer, denies bleeding/changing moles, and denies a history of skin rash. Neurologic: The patient denies a history of epilepsy/convulsions, denies headaches, denies head/spinal injuries, and denies stroke/TIA. Psychiatric: The patient denies psychiatric medications, NOTES depression, and denies voices, denies substance abuse. Endocrine: The patient NOTES thyroid disorders, denies diabetes, and denies hormonal problems. Hematologic: The patient denies a history of bruising, denies bleeding, and denies anemia, denies blood clots. Infections: The patient denies a history of measles and mumps, denies rheumatic fever, and denies sexually transmitted diseases. Musculoskeletal: The patient denies back pain/injury, denies back problems, denies sciatica, denies knee/foot trouble, denies arthritis, or denies gout. When was patient's last Mammogram screening? 2021 Last Colonoscopy: 2017 Nadine Wheeler LPN documented in this encounter [facility] 05-06-2022 Miscellaneous Notes Patient sent a muzu tv message requesting the following refill. Requested Prescriptions Pending Prescriptions Disp Refills folic acid 1 mg tablet 90 tablet 1 Sig: Take 1 tablet by mouth once daily. Patient last appointment: 03/22/2022 Next Appointment: Visit date not found Patient Phone numbers: [phone] (home) Request is for script(s) to be escript to pharmacy. Janis Shelton LPN documented in this encounter [facility] 03-22-2022 History of Present illness Narrative This note was created using Proc[employer]Safer[employer]. Subjective Marie James is a 61 year old female. Doing good Worried about Diabetes Mellitus Type II Runs in family Hungry all the time Overwhelming hunger Fine in am In afternoon to bed time Hungry Light lunch ( chicken salad ) ( egg + turkey ) Shaking and weak and wants to eat right away As child had hypoglycemia Weak and shaking and irritate No headache issue Migraines about once a months Using maxalt They have not decreased in frequency Does not relate this to missing meals Not hurting Sicca stable Not as much Weight gain 163 today (2019 154 ) around 10 lbs wt gain in last 2 yr Not using MTX ( last 2 months still feeling fine 0 Left side lymph node chest area supraclavicular area cause of concern 10 yr plus USG done. Hives are gone. Review of Systems Constitutional: Positive for fatigue. Respiratory: Negative. Cardiovascular: Negative. Objective Last Menstrual Period 01/11/2008 Physical Exam Vitals reviewed. Constitutional: General: She is not in acute distress. Appearance: Normal appearance. She is not ill-appearing or toxic-appearing. Cardiovascular: Rate and Rhythm: Normal rate and regular rhythm. Heart sounds: Normal heart sounds. No murmur heard. No friction rub. No gallop. Pulmonary: Effort: No respiratory distress. Breath sounds: Normal breath sounds. No stridor. No wheezing or rhonchi. Abdominal: General: There is no distension. Palpations: There is no mass. Tenderness: There is no abdominal tenderness. Hernia: No hernia is present. Musculoskeletal: Right shoulder: Normal. Left shoulder: Normal. Right elbow: Normal. Left elbow: Normal. Right wrist: Normal. Left wrist: Normal. Right hand: Normal. Left hand: Normal. Cervical back: No rigidity or tenderness. Thoracic back: Normal. Lumbar back: Normal. Right hip: Normal. Left hip: Normal. Right knee: Normal. Left knee: Normal. Right lower leg: No edema. Left lower leg: No edema. Right ankle: Normal. Left ankle: Normal. Right foot: Normal. Left foot: Normal. Comments: There is no evidence on exam of synovitis, enthesitis, and hypermobility / tenderness. There is no inguinal, axillary or cervical lymphadenopathy noted. Lymphadenopathy: Cervical: No cervical adenopathy. Skin: Findings: No rash. Neurological: Mental Status: She is alert. Psychiatric: Mood and Affect: Mood normal. Behavior: Behavior normal. Thought Content: Thought content normal. Judgment: Judgment normal. 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 RF 16.1 borderline high LUC 3.3 positive nam ( normal < 3) ( 2014 LUC FREDIS 1, FREDIS 2, dsDNA, negative, C3C4 normal CK CBC LFT TSH normal) 2014 RF 30 IU, CCP positive. ) 2017 IgA, IgG Transglutaminase Antibody is negative, IgA levels are normal. 115 mg.dl 2018 gliadin, endomysial antibody negative 01/2019 LUC 1:160 specked, C3C4 normal 01/2019 Sm STUDENT SERVICES REPRESENTATIVE SSA SSB Thyroglobulin and thyroid peroxidase antibody negative, uric acid 4.3, CRP 0.1 mg.dl RF 37 IU CCP negative , SPEP normal ESR 3 mm 2007 to 2018 no cytopenia noted Corneal abrasion 2010 Vaginal atrophy 2010 coconut oil Saliva gland orifice dryness 2010 ( blocked ducts) ( parotid swelling is there recurrent, submandibular swelling ) ( No history of Raynaud, DVT, Serositis, oral ulcer, photosensitivity, renal, hematological issues ) [facility] Rheumatology Dr Hoskins 01/2019 TREATMENT (( allergic to sulfa)) 04/2019 : plaquenil 3 week and suicidal thoughts . OFF 05/25/19 MTX 7.5 mg . Folic 1 mg ( hair loss change to 2 mg ) (( helping with muscle spasm and hives) ( helped with joint pains also ) 12/11 stopped MTX. Vioxx used with relief then off market Prednisone 20 mg ( use 1-2 times a year with relief ) 09/19/2020 Motrin prn use. Using biotene for year. 03/22/22 observe tutu from same, hives not active just observe. See her back in one year. ( if flares will call and resume MTX and change follow up to every 6 months ) Drug and disease monitoring 03/10 cbc normal LFT normal CK normal 2017 urine saud 2017 TSH normal B12 normal cortisol normal Vit D 59 10/2019 cbc cmp esr crrp normal 05/26/2020 cbc cmp normal, Chol 195, LDL 133, trig 74 HDL 48 09/14/2020 ESR CRP CMP CBC normal 01/2021 ESR 18 mm cmp cbc normal 02/10 TSH Mg 2.1 cbc cmp normal 02/10 History of B 12 deficiency 03/22/2202/10 MMA folic acid normal B12 > 2000 ( was on Vit D and B 6 supplement and stopped, Gynae had recommended supplement ) 03/22/22 check level at least once a year, stop for now. Left shoulder pain (12/2020 onset, no fall on this, summer time yard work, Pain in the joint while patient is sleeping, not sleeping on left side, hard to get coat on, with limited .range of motion_ 08/20/2021 Adhesive capsulitis vs rotator cuff tendinitis : OK for PT . 2018 RAST dust mite, Cat dog,grasses, mold, aspergillus, tree weed Negative 2018 RAST mountain cedar tree 0.13 KU/l high low likely false positive 2018 [facility] cow milk, wheat, corn ,peanut, soy, pork, beef, chocolate, egg, seafood grain, 2008 ferritin low 4.7 Hives 09/2018 5 months ( arm bits, breast area) ( spread to chest, torso, belly arms and legs) Seen derm : RAST done Skin biopsy done. TREATMENT Sera 10/10 started 04/30/2019 using . 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 03/22/22 observe. Radha 2014 diagnosis 04/30/2019 observe. Low grade fever since 10/10 ( no chills ) ( tired since 10/10 99.9 ) 03/22/22 resolved on mtx and off mtx 01/11 just observe Devi cramps since 12/2018 ( devi and toes, cannot walk on legs when same, frequency unpredictable about once a week, mostly at night ) CTS night time mild related to work 04/30/2019 Left supraclavicular fullness ( 2009 plus ) USG 2021 comments on 2 lymph nodes, this is not lymphoma. Just observe, just muscle prominence 03/22/22 Hypoglycemia From dumping, effect of caffeine + carbonated drinks, avoid both, spread meals out, and at home, stop snaking. 03/22/22 Lung old granulomas 10/2007 CT before 03/2007 CT Calcified granulomas at the right hilum and within the right lung. Calcified granulomata are seen within the right lung. There is a tiny, 2 mm, noncalcified pulmonary nodule and noncalcified 2 mm subpleural nodule in the right upper lobe laterally at sp 390.5 and sp 384.5. These are unchanged from sp -139 and sp -142 of the March exam. 05/2019 CT lung repeat calcified granulomas : Calcified hilar nodes are consistent with remote granulomatous disease. Stable nonenlarged axillary nodes. 06/10 CT abdomen : 1 cm round lucent focus within the superior left ilium of uncertain significance 06/10 MRI : There is a small fatty lesion in the left iliac bone corresponding to the lesion seen on the CT. No abnormal enhancement. 03/22/22 burnt out sarcoid vs resolved fungal infection. Bilateral hips are normal. Normal SI joints. anxiety and depression ? cymbalta ( not for pain ) mental status change and off effexor intolerance lexapro : paxil intolerance. Rash arm pit / groin ( 08/20/2021 notes detail ) : from dermatographism from shaving: OK for OTC topical steroid, do not use prescription steroid ) 08/20/2021 Osteopenia Hysterectomy 47 ( no HRT ) ( one ovary left behind ) Last DXA 2011, 10/10/2021 DXA : L1 through L4 is 0.965 -0.7 . .LEFT HIP: 0.962 0.2 . .T score LEFT FEMORAL NECK: 0.722 -1.1 T TREATMENT Caltrate D ( chewable ) 03/22/22 using once a day Interstitial cystitis ?? ( pressure and urgency ) get urine culture and positive and is usually positive 08/20/2021 08/20/2021 get urine culture 08/20/2021 stop Vit C, use only 1000 mg if with COVID 10 days. 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 During this patient visit I have spent approximately 20 minutes out of 30 in counseling regarding coordinating care and coordinating care. documented in this encounter [facility] 01-14-2022 Miscellaneous Notes Patient notified of results and provider's instructions. Patient verbalizes understanding. Grisel Kenney RN ----- Message from Raf Romeo sent at 01/14/2022 8:18 AM EDT ----- Please call patient to inform her that her circulation in feet appears normal. If her toenail were to bother her in future, she could have this removed Raf Romeo DPM documented in this encounter [facility] 01-08-2022 Instructions Raf Romeo - 01/08/2022 3:31 PM EDT Suspect your nail is from trauma or underlying bone spur. I do not feel it is fungal. You can continue with topical. It just likely won't help Check xray for bone spur Check circulation for perfusion documented in this encounter [facility] 01-08-2022 History of Present illness Narrative Initial Podiatric Office Visit: Chief Complaint: This 61 year old female who presents with chief complaint:discoloration and thickening of left hallux toenail HPI Patient presents to clinic with complaint of discoloration of left hallux toenail. Patient states the nail started getting thicker one year ago. She started treating the thickening with a dremmel and then the entire nail fall off. Patient states the nail grew back. She was placed on lamisil but after two days, she became very anxious so this was discontinued. She is now applying penlac but is unsure if the nail is improving. Patient denies any pain in the nails. She is here to discuss options for the nail. PAIN EVALUATION No data found in the last 1 encounters. No results found for: HBA1C PCP: Charles Hernandez, DO PAST MEDICAL HISTORY Diagnosis Date Excessive or frequent menstruation Heavy periods resolved Family history of malignant neoplasm of breast Hypothyroidism Iron deficiency anemia, unspecified Anemia, iron def. PMH - PAST MEDICAL HISTORY OF migraines PMH - PAST MEDICAL HISTORY OF fibromyalgia resolved PMH - PAST MEDICAL HISTORY OF depression PMH - PAST MEDICAL HISTORY OF 'whole in heart'/PFO Premenstrual tension syndromes PMS Sjogren's syndrome (HCC) Symptomatic menopausal or female climacteric states Current Outpatient Medications Medication Sig CICLOPIROX TOPICAL Apply to affected area. nicotine (NICODERM) 7 mg/24 hr Apply 1 Patch as directed every 24 hours. Biotin 10,000 mcg cap Take 1 capsule by mouth once daily. folic acid 1 mg tablet Take 1 tablet by mouth once daily. methotrexate 2.5 mg tablet Take 3 tablets by mouth every Friday. Cholecalciferol, Vitamin D3, (VITAMIN D) 25 mcg (1,000 unit) cap Take 1 capsule by mouth once daily. (Patient taking differently: Take 2,000 Units by mouth once daily. ) cyanocobalamin (VITAMIN B-12) 500 mcg tab tab(s) Take 500 mcg by mouth once daily. pyridoxine, vitamin B6, (VITAMIN B-6) 100 mg tablet Take 1 tablet by mouth once daily. SYNTHROID 25 mcg tablet Take 25 mcg by mouth once daily. CLONAZEPAM 0.5 mg tablet daily at bedtime. rizatriptan benzoate(MAXALT 10 MG TAB) Take one tab as needed for DAN and may repeat in 2 hr x 1dose (Patient taking differently: Take by mouth. Takes as needed per patient ) No current facility-administered medications for this visit. ALLERGIES Allergen Reactions Codeine Mental Status Change Cymbalta [Duloxetin* Mental Status Change Effexor [Venlafaxin* Intolerance hyper Latex Swelling Lexapro [Escitalopr* caused agitation Paroxetine sx's of anxiety/depression worse with agitation Plaquenil [Hydroxyc* Other: See Comments Suicidal thought Sulfa (Sulfonamide * GI Upset PAST SURGICAL HISTORY Procedure Laterality Date DELIVERY ONLY , low cervicalx3 with bto COLONOSCOPY 2017 COLONOSCOPY W/BIOPSY 09-11-[address] Marsh LAPAROSCOPY SURG CHOLECYSTECTOMY 10/14/13 LIG/TRNSXJ FLP TUBE ABDL/VAG APPR UNI/BI Tubal ligation PAST SURGICAL HISTORY OF 07/2006 basal cell ca on nose/atypia of hip SKIN BX, 1 LESION 11/11/2007 Skin biopsy SKIN BX, 1 LESION 11/11/2007 Skin biopsy THYROID RIGHT FINE NEEDLE ASPIRATION 12/14/07 Bilateral thyroid FNA TOTAL ABDOMINAL HYSTERECT W/WO RMVL TUBE OVARY 01/2008 Done by and [facility] FAMILY HISTORY Problem Relation Age of Onset Breast Cancer Mother other (atrial fib) Mother Heart Father Colon Cancer Father dx 79 caught at early stage GI Father colon polyps Cancer Father melanoma dx 78 Hypertension Sister GI Brother colon polyps Diabetes Maternal Grandmother Breast Cancer Maternal Grandmother bilateral - first dx at 52, contralateral 85 Diabetes Maternal Grandfather Diabetes Paternal Grandmother other (multiple sclorosis) Paternal Grandmother Diabetes Paternal Grandfather Breast Cancer Daughter 25 bilateral mastectomy Social History Tobacco Use Smoking status: Former Smoker Packs/day: 0.50 Years: 30.00 Pack years: 15.00 Types: Cigarettes Quit date: 09/22/2013 Years since quittin.3 Smokeless tobacco: Never Used Vaping Use Vaping Use: Never used Substance Use Topics Alcohol use: Yes Comment: couple times a year Drug use: No REVIEW OF SYSTEMS GENERAL: Negative for Malaise, significant weight loss, fever RESPIRATORY: Negative for cough, wheezing and shortness of breath CARDIOVASCULAR: Negative for chest pain, leg swelling and palpitations GI: Negative for abdominal discomfort, blood in stools or black stools and change in bowel habits : Negative for dysuria, frequency and incontinence MUSCULOSKELETAL: Negative for joint pain or swelling, back pain, and muscle pain. SKIN: Negative for lesions, rash, and itching. HEMATOLOGY/LYMPHOLOGY Negative for prolonged bleeding, bruising easily, and swollen nodes. ENDOCRINE: Negative for cold or heat intolerance, polyuria, polydipsia and goiter. NEURO: negative Physical Exam: Constitutional: Pt is a well developed 61 year old female who is alert, oriented and cooperative Eyes: Following during examination. No redness or drainage. Respiratory: RR normal and nonlabored. Even breathing. No evidence of distress or shortness of breath. Psychology: Patient is engaged during conversation. Normal affect and mood. Does not appear depressed or anxious during encounter. Vascular: Dorsalis pedis and posterior tibial pulses nonpalpable left Capillary Fill time >5 seconds to digits 1-5 b/l Skin temperature warm to cool proximal to distal b/l Hair growth absent to digits Neurological: intact light touch/epicritic sensation b/l intact protective sensation no significant neurological deficits Dermatological: Left hallux toenail is thick, discolored deformed. Right hallux toenail is incurvated and painful without signs of infection. Webspaces clean and dry 1-4 b/l. Skin appears well hydrated and supple. good color, texture, turgor. No open lesions present. No callosities present. Musculoskeletal/Orthopaedic: Patient has pain to palpation of right hallux toenail Foot type is neutral structurally AJ ROM is full with knee extended and flexed 1st MPJ is full when loaded and no pain or crepitus are noted with ROM. MTJ, STJ are full and free of pain and crepitus. +5/5 muscle strength dorsiflexion, plantarflexion, inversion, eversion b/l Spurring is noted to distal tuft of b/l hallux Radiographs: ordered ASSESSMENT: (L60.3) Onychodystrophy (primary encounter diagnosis) Pain in toe (M89.8X9) Subungual exostosis (R09.89) Diminished pulses in lower extremity PLAN: A review of the patient's PMH and Podiatric physical exam was completed. We discussed the possible etiologies of discolored, dystrophic, and thickened nails including fungus, yeast, mold as well as in some instances, prior trauma, or mechanical causes such as repetitive microtrauma in shoe gear. We discussed topical medication for discolored toenails which has very low success but no major side effects. We discussed oral medication. Patient will need hepatic testing prior to use. Patient informed of risks associated with Lamisil. We discussed removal of toenails. Patient is using penlac but does not notice any improvement. I suspect the discoloration is not fungal as I do not see any other toenails affected. This could be more due to trauma. I am going to check xrays to see if she has underlying bone spur that could be causing the nail deformity. I discussed removal of toenails. Would hold on any attempted removal until pvr obtained Right hallux toenail debrided today. Small bleed present and band aid applied Raf Romeo DPM Podiatry [address] [facility] [address] Dept: [phone] Dept AMB ROOMING INTAKE FLOWSHEET DATA Risk Screening Do you have concerns about personal safety or safety in the home?: No documented in this encounter [facility] Diagnosis Sjogren's syndrome with keratoconjunctivitis sicca (HCC)- Primary Hypoglycemia Hypoglycemia, unspecified [facility] Diagnosis Nausea- Primary Nausea alone Abdominal bloating Flatulence, eructation, and gas pain Nausea- Primary Nausea alone [facility] Diagnosis Nausea- Primary Nausea alone Abdominal bloating Flatulence, eructation, and gas pain [facility] Diagnosis Chronic superficial gastritis without bleeding- Primary Atrophic gastritis without mention of hemorrhage Nausea Nausea alone [facility] Diagnosis Abnormal ultrasound of breast Other (abnormal) findings on radiological examination of breast Family history of breast cancer Family history of malignant neoplasm of breast [facility] Diagnosis Malignant neoplasm of upper-outer quadrant of right breast in female, estrogen receptor positive (HCC)- Primary [facility] Psychological: appropriate mood & behaviorBreast: right breast: periareolar incision intact. Erythema and edema improved, especially centrally and laterally.Neurological: A&O [id number]: ROM intactCardiovascular: RRRRespiratory/Thorax: clearHead/Neck: atraumaticSkin: intact, dryConstitutional: afebrile [facility]* Diagnosis Mastitis- Primary Inflammatory disease of breast [facility] Diagnosis Malignant neoplasm of unspecified site of right female breast (CMS/HCC) Other abnormal and inconclusive findings on diagnostic imaging of breast Estrogen receptor positive status (ER+) Estrogen receptor positive status [ER+] documented in this encounter [facility] Work Phone: Evaluation note* Diagnosis Malignant neoplasm of lower-inner quadrant of right breast of female, estrogen receptor positive (HCC)- Primary Lung nodules Other nonspecific abnormal finding of lung field [facility]* HISTORY OF PRESENT ILLNESS: * - Ms. James is a 62 year old female with a recently diagnosed breast cancer. She also has a family history of breast, colon and other cancer types. * - She was referred to the Cancer Genetics Clinic at [facility] by her physician, Dr. Ortiz. * - She is interested in genetic testing to clarify her personal risks for cancer, as well as the risks to her family members. * - The appointment today was conducted via telephone due to the current COVID- 19 pandemic. * CANCER MEDICAL HISTORY: * Personal History of Cancer? * - Yes. * - 02/14/23-- Bilateral screening mammogram. * - 02/19/23-- Right breast. * - 02/21/23-- Right breast ultrasound guided core needle biopsy yielded. * - 02/26/23-- Radiology consult of outside images showed developing focal asymmetry visualized in the medial superior right breast at mid depth-- this persists on additional mammographic views as an equal density mass with partially spiculated and partially obscured borders-- ultrasound confirms an irregular heterogeneously hypoechoic mass at the 1 o'clock position, 3 cm from the nipple measuring1.2 x 1.0 x 1.0 cm-- there is minimal internal Doppler blood flow--this corresponds in size and location with the mammographic finding-- there are no sonographic images of the right axilla. * PREVIOUS GENETIC TESTING? * - Yes-- 2011 had genetic counseling through [facility] (no testing ordered)-- a few years agohad genetic testing through [facility] (BRCA1/2 genes and other genes). * CANCER SCREENING HISTORY: * Mammograms? * - Yes. * Breast biopsies? * - Yes. * Vaginal ultrasound to screen for ovarian cancer? * - No. * CA-125? * - No. * PAP smear? * - Yes-- all normal. * Colonoscopy? * - Yes. * ---- COLONOSCOPY 2017 * ---- COLONOSCOPY W/BIOPSY 09-11-12 * ---- Most recent colonoscopy 02/12/23 ([facility])---- One 8 mm polyp in the sigmoidcolon, removed * with a hot snare-- resected and retrieved-- Diverticulosis in the recto- sigmoid colon and in the sigmoid colon. * Endoscopy? * - Yes-- most recent EGD 10/02/22--Z-line regular, gastritis, normal duodenum; bxs showed mild chronic * inactive gastritis, neg celiac, neg duodenitis, neg esophagitis. * Hysterectomy? * - Yes-- 47. * Oophorectomy? * - Yes-- left oophorectomy at 47. * Dermatology? * - Yes-- 07/2006-- basal cell removed-- around 10 moles removed in total. * OTHER MEDICAL CONCERNS: * - Sjogrens. * - Anxiety. * - Depression. * REPRODUCTIVE HISTORY: * # Children: * - 3 (one daughter ). * # Pregnancies: * - 3. * Age first : * - 24. * Breast feeding?: * - No. * Menarche (age): * - 14. * Menopause (age): * - Yes--47-- surgical menopause hysterectomy, left oophorectomy. * OCP: * - Yes-- 4 years in total. * HRT: * - Yes-- 1 month in total. * SOCIAL HISTORY: * - Former smoker-- quit 09/22/2013. * FAMILY HISTORY: * A 4-generation pedigree was obtained. The family history was significant for the following: * - Daughter was diagnosed with triple negative breast cancer at 25-- she at 26-- she tested negative for BRCA1, BRCA2 and TP53 genes (in 2011)-- a copy of her genetic test report was not available for my review. * - Daughter, 32 years old, has auditory processing disorder, cystitis and cervical dysplasia. * - Son, 25 years old, may be 'on the spectrum.' * - Niece, 45 years old, had a fibroid adenoma removed from her breast at 24. She also had >3 miscarriages. * - Mother, 86 years old, was diagnosed with ER positive breast cancer at 80-- no genetic testing. She also has Sjogrens. * - Maternal grandmother was diagnosed with ER positive breast cancer at 52-- she was diagnosed with a contralateral breast cancer at 85-- she at 89. * - Maternal grandfather from a stroke in his late 80's. * - Maternal aunt from dementia in her 90's. * - Maternal aunt, 80 years old, was diagnosed with thyroid cancer at 75. * - Brother, 69 years old, had basal cell carcinoma (hx of a lot of sun exposure). * - Father, 90 years old, was diagnosed with melanoma at 78. He was diagnosed with colon caner at 80 -- he has not had genetic testing. * - Paternal aunt was diagnosed with colon cancer at 79-- she at 88. * - Paternal grandmother from multiple sclerosis at 89. * - Paternal grandfather from emphysema. * Consanguinity and Ashkenazi Orthodoxy ancestry were denied. The patient s maternal side is of Sam[place] descent, and the patient s paternal side is of [place] descent. The remainder of the family history was negative for intellectual disability, defects, miscarriages/stillbirths, blindness, deafness, kidney disease, heart disease, cancer, muscle disease, and blood disorders. [employer] Work Phone: Hospital Discharge instructions* Activity:activity as tolerated. May shower. May not drive while taking narcotics. * Wound Care 1:Wound Site: right breastWound Type: surgical incisionInstructions: no lotions, creams,or tub soaks * Call Provider If:Breathing faster than normal. Breathing harder than normal or having retractions. Fever of 100.4 F (38 C) or higher. Chills. Drinking less than normal. Urinating less than normal, over 1 day. Acting very sleepy and difficult to awaken. Vomiting (throwing up) and not able to eat or drink for 12 hours. 3 or more loose, watery bowel movements in 24 hours (diarrhea). Any new concerning symptoms. * Follow Up Appointment 1:Physician/Dept/Service: primary doctorCall to Schedule in: 1 week * Follow Up Appointment 2:Physician/Dept/Service: Dr Yamil Payan for Referral: breast surgeonScheduled Date/Time: 10-Jun-2023 [facility] for referral (narrative)* Outpatient Procedure (Routine) - Authorized Specialty Diagnoses / Procedures Referred By Ney galarza [facility] Diagnoses Diminished pulses in lower extremity Procedures PVR ANK PRESS KOLE VAS LAB NON-INVAS PHYSIOLOGIC STD EXTREMITY ART [address] [place] [address] [facility] [address] [place] [address] Referral ID Status Reason Start Date Expiration Date Visits Requested Visits Authorized [id number] Authorized Auto-Generat ed Referral 01/08/2022 01/08/2023 1 1 * Diagnostic Procedure Only (Routine) - Closed Specialty Diagnoses / Procedures Referred By Contac t Referred To Contact XR IMAGING Diagnoses Subungual exostosis Procedures XR TOE AP/LAT/OBL LEFT RADEX TOE MINIMUM 2 VIEWS Raf Romeo [address] [place] [address] Xr Imaging Referral ID Status Reason Start Date Expiration Date V isits Requested Visits Authorized [id number] Closed Auto-Generate d Referral 01/08/2022 02/07/2023 1 1 * Diagnostic Procedure Only (Routine) - Closed Specialty Diagnoses / Procedures Referred By Contac t Referred To Contact XR IMAGING Diagnoses Subungual exostosis Procedures XR TOE AP/LAT/OBL RIGHT RADEX TOE MINIMUM 2 VIEWS Raf Romeo [address] [place] [address] Xr Imaging Referral ID Status Reason Start Date Expiration Date V isits Requested Visits Authorized [id number] Closed Auto-Generate d Referral 01/08/2022 02/07/2023 1 1 [facility] for referral (narrative)* Outpatient Procedure (Routine) - Authorized Specialty Diagnoses / Procedures Referred By Contac t Referred To Contact Diagnoses Nausea Abdominal bloating Procedures EGD DIAGNOSTIC EGD DIAGNOSTIC ESOPHAGOGASTRODUODENOSCOPY TRANSORAL DIAGNOSTIC Royce Wells MD [address] [place] [address] [facility] [address] [place] [id number] Referral ID Status Reason Start Date Expiration Date Visits Requested Visits Authorized [id number] Authorized Auto-Generat ed Referral 10/01/2022 10/01/2023 1 1 [facility] for referral (narrative)* Outpatient Procedure (Routine) - Closed Specialty Diagnoses / Procedures Referred By Ney galarza Referred To Contact Diagnoses Nausea Abdominal bloating Procedures EGD DIAGNOSTIC EGD DIAGNOSTIC ESOPHAGOGASTRODUODENOSCOPY TRANSORAL DIAGNOSTIC Royce Wells MD [address] [place] [address] [facility] [address] [place] [address] Referral ID Status Reason Start Date Expiration Date V isits Requested Visits Authorized [id number] Closed Auto-Generate d Referral 10/01/2022 10/01/2023 1 1 [facility] for referral (narrative)* Diagnostic Procedure Only (Routine) - Pending Review Specialty Diagnoses / Procedures Referred By Ney galarza Referred To Contact BR IMAGING Diagnoses Abnormal ultrasound of breast Procedures ZEV DIAGNOSTIC RIGHT DIAGNOSTIC MAMMOGRAPHY COMPUTER-AIDED DETCJ UNI Marbella Gross MD [address] [place] [address] [facility] [address] [place] [address] Referral ID Status Reason Start Date Expiration Date Visits Requested Visits Authorized [id number] Pending Review Auto-Generat ed Referral 02/20/2023 03/21/2024 1 1 [facility] for visit Narrative* Outpatient Procedure (Routine) - Closed Specialty Diagnoses / Procedures Referred By Ney galarza Referred To Contact Diagnoses Nausea Abdominal bloating Procedures EGD DIAGNOSTIC EGD DIAGNOSTIC ESOPHAGOGASTRODUODENOSCOPY TRANSORAL DIAGNOSTIC Royce Wells MD [address] [place] [address] [facility] [address] [place] [address] Referral ID Status Reason Start Date Expiration Date V isits Requested Visits Authorized [id number] Closed Auto-Generate d Referral 10/01/2022 10/01/2023 1 1 [facility] Advance Directives No Advanced Directives Records FoundDocuments on File Type Date Recorded Patient Pharmacy Coordinator Expl anation Advance Directive(s) Documents on File Type Date Recorded Patient Pharmacy Coordinator Expl anation Advance Directive(s) Documents on File Type Date Recorded Patient Pharmacy Coordinator Expl anation Living Will 05/02/2023 3:57 PM Healthcare Power of Atty 05/02/2023 3:57 PM Healthcare Power of Atty 05/02/2023 Living Will 05/02/2023 Medications Administered Section Inactive Administered Medications - up to 3 most recent administrations Medication Order MAR Action Action Date Dose Rate Site lactated ringers iv infusion 30 mL/hr, INTRAVENOUS, CONTINUOUS, Starting on Fri10/02/22 at 1300, Until Fri10/02/22 at 1321, Preprocedure New Bag/Syringe/Bottle 10/02/2022 1:07 PM EST 30 mL/hr 30 mL/hr Reason for Referral Specialty Diagnoses / Procedures [facility] Diagnoses Malignant neoplasm of upper-outer quadrant of right breast in female, estrogen receptor positive (HCC) Procedures MRI BREAST WO/W IVCON BILATERAL MRI BREAST WITHOUT&WITH CONTRAST W/CAD BILATERAL Meek Torres, DO [address] [place] [address] Mr Imaging Referral ID Status Reason Start Date Expiration Date Visits Requested Visits Authorized [id number] Authorized Auto-Generat ed Referral 02/26/2023 03/27/2024 1 1 [facility] Diagnoses / [facility] Diagnoses Malignant neoplasm of lower-inner quadrant of right breast of female, estrogen receptor positive (HCC) Lung nodules Procedures CT CHEST W IVCON DIAGNOSTIC COMPUTED TOMOGRAPHY THORAX W/CONTRAST Meek Torres, DO [address] [place] [address] [place] [address] Referral ID Status Reason Start Date Expiration Date Visits Requested Visits Authorized [id number] Authorized Auto-Generat ed Referral 08/29/2023 09/27/2024 1 1 [facility]ty Diagnoses / [facility] Diagnoses Malignant neoplasm of lower-inner quadrant of right breast of female, estrogen receptor positive (HCC) Lung nodules Procedures CT ABD/PEL W IVCON CT ABD & PELVIS W/CONTRAST Meek Torrse, [address] [place] [address] [place] [address] Referral ID Status Reason Start Date Expiration Date Visits Requested Visits Authorized [id number] Authorized Auto-Generat ed Referral 08/29/2023 09/27/2024 1 1 Summary Purpose Family History No Family History Records FoundUnknown Family Member Name Dates Details Family history of rheumatoid arthritis: Sister(V17.7, Z82.61) Status:Active Family history of hypertensi on: Father, Sister, Brother(V17.49, Z82.49) Status:Active Family history of diabetes m ellitus: Maternal Grandmother, Maternal Grandfather(V18.0, Z83.3) Status:Active Family history of malignant neoplasm of colon: Father, Paternal Aunt(V16.0, Z80.0) Status:Active Family history of malignant neoplasm of breast: Mother, Daughter, Maternal Grandmother(V16.3, Z80.3) Status:Active Family history of malignant neoplasm of thyroid: Maternal Aunt(V16.8, Z80.8) Status:Active Family history of malignant melanoma: Father(V16.8, Z80.8) Status:Active Family history of multiple s clerosis: Paternal Grandmother(V17.2, Z82.0) Status:Active Unknown Family Member Name Dates Details Family history of rheumatoid arthritis: Sister(V17.7, Z82.61) Status:Active Family history of hypertensi on: Father, Sister, Brother(V17.49, Z82.49) Status:Active Family history of diabetes m ellitus: Maternal Grandmother, Maternal Grandfather(V18.0, Z83.3) Status:Active Family history of malignant neoplasm of colon: Father, Paternal Aunt(V16.0, Z80.0) Status:Active Family history of malignant neoplasm of breast: Mother, Daughter, Maternal Grandmother(V16.3, Z80.3) Status:Active Family history of malignant neoplasm of thyroid: Maternal Aunt(V16.8, Z80.8) Status:Active Family history of malignant melanoma: Father(V16.8, Z80.8) Status:Active Family history of multiple s clerosis: Paternal Grandmother(V17.2, Z82.0) Status:Active Unknown Family Member Name Dates Details Family history of rheumatoid arthritis: Sister(V17.7, Z82.61) Status:Active Family history of hypertensi on: Father, Sister, Brother(V17.49, Z82.49) Status:Active Family history of diabetes m ellitus: Maternal Grandmother, Maternal Grandfather(V18.0, Z83.3) Status:Active Family history of malignant neoplasm of colon: Father, Paternal Aunt(V16.0, Z80.0) Status:Active Family history of malignant neoplasm of breast: Mother, Daughter, Maternal Grandmother(V16.3, Z80.3) Status:Active Family history of malignant neoplasm of thyroid: Maternal Aunt(V16.8, Z80.8) Status:Active Family history of malignant melanoma: Father(V16.8, Z80.8) Status:Active Family history of multiple s clerosis: Paternal Grandmother(V17.2, Z82.0) Status:Active Unknown Family Member Name Dates Details Family history of rheumatoid arthritis: Sister(V17.7, Z82.61) Status:Active Family history of hypertensi on: Father, Sister, Brother(V17.49, Z82.49) Status:Active Family history of diabetes m ellitus: Maternal Grandmother, Maternal Grandfather(V18.0, Z83.3) Status:Active Family history of malignant neoplasm of colon: Father, Paternal Aunt(V16.0, Z80.0) Status:Active Family history of malignant neoplasm of breast: Mother, Daughter, Maternal Grandmother(V16.3, Z80.3) Status:Active Family history of malignant neoplasm of thyroid: Maternal Aunt(V16.8, Z80.8) Status:Active Family history of malignant melanoma: Father(V16.8, Z80.8) Status:Active Family history of multiple s clerosis: Paternal Grandmother(V17.2, Z82.0) Status:Active Malignant neoplasm of breast in female, estrogen receptor negative, unspecified laterality, unspecified site of breast: Daughter Status:Active Unknown Family Member Name Dates Details Family history of rheumatoid arthritis: Sister(V17.7, Z82.61) Status:Active Family history of hypertensi on: Father, Sister, Brother(V17.49, Z82.49) Status:Active Family history of diabetes m ellitus: Maternal Grandmother, Maternal Grandfather(V18.0, Z83.3) Status:Active Family history of malignant neoplasm of colon: Father, Paternal Aunt(V16.0, Z80.0) Status:Active Family history of malignant neoplasm of breast: Mother, Daughter, Maternal Grandmother(V16.3, Z80.3) Status:Active Family history of malignant neoplasm of thyroid: Maternal Aunt(V16.8, Z80.8) Status:Active Family history of malignant melanoma: Father(V16.8, Z80.8) Status:Active Family history of multiple s clerosis: Paternal Grandmother(V17.2, Z82.0) Status:Active Malignant neoplasm of breast in female, estrogen receptor negative, unspecified laterality, unspecified site of breast: Daughter Status:Active Unknown Family Member Name Dates Details Family history of rheumatoid arthritis: Sister(V17.7, Z82.61) Status:Active Family history of malignant melanoma: Father(V16.8, Z80.8) Status:Active Family history of multiple s clerosis: Paternal Grandmother(V17.2, Z82.0) Status:Active Family history of malignant neoplasm of breast: Mother, Daughter, Maternal Grandmother(V16.3, Z80.3) Status:Active Family history of malignant neoplasm of colon: Father, Paternal Aunt(V16.0, Z80.0) Status:Active Malignant neoplasm of breast in female, estrogen receptor negative, unspecified laterality, unspecified site of breast: Daughter Status:Active Family history of hypertensi on: Father, Sister, Brother(V17.49, Z82.49) Status:Active Family history of diabetes m ellitus: Maternal Grandmother, Maternal Grandfather(V18.0, Z83.3) Status:Active Family history of malignant neoplasm of thyroid: Maternal Aunt(V16.8, Z80.8) Status:Active Unknown Family Member Name Dates Details Family history of rheumatoid arthritis: Sister(V17.7, Z82.61) Status:Active Family history of hypertensi on: Father, Sister, Brother(V17.49, Z82.49) Status:Active Family history of diabetes m ellitus: Maternal Grandmother, Maternal Grandfather(V18.0, Z83.3) Status:Active Family history of malignant neoplasm of breast: Mother, Daughter, Maternal Grandmother(V16.3, Z80.3) Status:Active Family history of malignant melanoma: Father(V16.8, Z80.8) Status:Active Family history of malignant neoplasm of colon: Father, Paternal Aunt(V16.0, Z80.0) Status:Active Malignant neoplasm of breast in female, estrogen receptor negative, unspecified laterality, unspecified site of breast: Daughter Status:Active Family history of malignant neoplasm of thyroid: Maternal Aunt(V16.8, Z80.8) Status:Active Family history of multiple s clerosis: Paternal Grandmother(V17.2, Z82.0) Status:Active Unknown Family Member Name Dates Details Family history of rheumatoid arthritis: Sister(V17.7, Z82.61) Status:Active Family history of hypertensi on: Father, Sister, Brother(V17.49, Z82.49) Status:Active Family history of diabetes m ellitus: Maternal Grandmother, Maternal Grandfather(V18.0, Z83.3) Status:Active Family history of malignant neoplasm of breast: Mother, Daughter, Maternal Grandmother(V16.3, Z80.3) Status:Active Family history of malignant melanoma: Father(V16.8, Z80.8) Status:Active Family history of malignant neoplasm of colon: Father, Paternal Aunt(V16.0, Z80.0) Status:Active Malignant neoplasm of breast in female, estrogen receptor negative, unspecified laterality, unspecified site of breast: Daughter Status:Active Family history of malignant neoplasm of thyroid: Maternal Aunt(V16.8, Z80.8) Status:Active Family history of multiple s clerosis: Paternal Grandmother(V17.2, Z82.0) Status:Active Unknown Family Member Name Dates Details Family history of rheumatoid arthritis: Sister(V17.7, Z82.61) Status:Active Family history of hypertensi on: Father, Sister, Brother(V17.49, Z82.49) Status:Active Family history of diabetes m ellitus: Maternal Grandmother, Maternal Grandfather(V18.0, Z83.3) Status:Active Family history of malignant neoplasm of breast: Mother, Daughter, Maternal Grandmother(V16.3, Z80.3) Status:Active Family history of malignant melanoma: Father(V16.8, Z80.8) Status:Active Family history of malignant neoplasm of colon: Father, Paternal Aunt(V16.0, Z80.0) Status:Active Malignant neoplasm of breast in female, estrogen receptor negative, unspecified laterality, unspecified site of breast: Daughter Status:Active Family history of malignant neoplasm of thyroid: Maternal Aunt(V16.8, Z80.8) Status:Active Family history of multiple s clerosis: Paternal Grandmother(V17.2, Z82.0) Status:Active Unknown Family Member Name Dates Details Family history of diabetes m ellitus: Maternal Grandmother, Maternal Grandfather(V18.0, Z83.3) Status:Active Family history of multiple s clerosis: Paternal Grandmother(V17.2, Z82.0) Status:Active Family history of malignant neoplasm of breast: Mother, Daughter, Maternal Grandmother(V16.3, Z80.3) Status:Active Family history of malignant neoplasm of colon: Father, Paternal Aunt(V16.0, Z80.0) Status:Active Family history of malignant melanoma: Father(V16.8, Z80.8) Status:Active Family history of hypertensi on: Father, Sister, Brother(V17.49, Z82.49) Status:Active Family history of rheumatoid arthritis: Sister(V17.7, Z82.61) Status:Active Malignant neoplasm of breast in female, estrogen receptor negative, unspecified laterality, unspecified site of breast: Daughter Status:Active Family history of malignant neoplasm of thyroid: Maternal Aunt(V16.8, Z80.8) Status:Active Chief Complaint A telephone visit (audio only) between the patient (at the originating site) and the provider (at the distant site) was utilized to provide this telehealth service.New patient: screen detected right breast cancerFollow-up: right breast cancers/p right breast magseed localized partial mastectomy, right axillary sentinel lymph node biopsy with intraoperative mapping and right breast tissue rearrangement on 04/30/23 for right breast invasive ductal carcinoma, grade 2, ER+ 99%, RI + 95%, HER2 negative, clinical stage IA. Final pathology showed [id number], clinical stage IA.Post of follow up s/p right partial mastectomy, right breast infection.post-op visitright breast abscess Additional Source Comments Source Comments (unrecognize d section and content) In the event this informatio n is protected by the Federal Confidentiality of Alcohol and Drug Abuse Patient Records regulations: The Federal rules restrict any use of the information to criminally investigate or prosecute any alcohol or drug abuse patient.[facility] the event this information is protected by the Federal Confidentiality of Alcohol and Drug Abuse Patient Records regulations: The Federal rules restrict any use of the information to criminally investigate or prosecute any alcohol or drug abuse patient.[facility] SystemIn the event this information is protected by the Federal Confidentiality of Alcohol and Drug Abuse Patient Records regulations: The Federal rules restrict any use of the information to criminally investigate or prosecute any alcohol or drug abuse patient.[facility] SystemIn the event this information is protected by the Federal Confidentiality of Alcohol and Drug Abuse Patient Records regulations: The Federal rules restrict any use of the information to criminally investigate or prosecute any alcohol or drug abuse patient.[facility] SystemIn the event this information is protected by the Federal Confidentiality of Alcohol and Drug Abuse Patient Records regulations: The Federal rules restrict any use of the information to criminally investigate or prosecute any alcohol or drug abuse patient.[facility] SystemIn the event this information is protected by the Federal Confidentiality of Alcohol and Drug Abuse Patient Records regulations: The Federal rules restrict any use of the information to criminally investigate or prosecute any alcohol or drug abuse patient.[facility] SystemIn the event this information is protected by the Federal Confidentiality of Alcohol and Drug Abuse Patient Records regulations: The Federal rules restrict any use of the information to criminally investigate or prosecute any alcohol or drug abuse patient.[facility] SystemIn the event this information is protected by the Federal Confidentiality of Alcohol and Drug Abuse Patient Records regulations: The Federal rules restrict any use of the information to criminally investigate or prosecute any alcohol or drug abuse patient.[facility] SystemIn the event this information is protected by the Federal Confidentiality of Alcohol and Drug Abuse Patient Records regulations: The Federal rules restrict any use of the information to criminally investigate or prosecute any alcohol or drug abuse patient.[facility] SystemIn the event this information is protected by the Federal Confidentiality of Alcohol and Drug Abuse Patient Records regulations: The Federal rules restrict any use of the information to criminally investigate or prosecute any alcohol or drug abuse patient.[facility] SystemIn the event this information is protected by the Federal Confidentiality of Alcohol and Drug Abuse Patient Records regulations: The Federal rules restrict any use of the information to criminally investigate or prosecute any alcohol or drug abuse patient.[facility] SystemIn the event this information is protected by the Federal Confidentiality of Alcohol and Drug Abuse Patient Records regulations: The Federal rules restrict any use of the information to criminally investigate or prosecute any alcohol or drug abuse patient.[facility] SystemIn the event this information is protected by the Federal Confidentiality of Alcohol and Drug Abuse Patient Records regulations: The Federal rules restrict any use of the information to criminally investigate or prosecute any alcohol or drug abuse patient.[facility] SystemIn the event this information is protected by the Federal Confidentiality of Alcohol and Drug Abuse Patient Records regulations: The Federal rules restrict any use of the information to criminally investigate or prosecute any alcohol or drug abuse patient.[facility] SystemIn the event this information is protected by the Federal Confidentiality of Alcohol and Drug Abuse Patient Records regulations: The Federal rules restrict any use of the information to criminally investigate or prosecute any alcohol or drug abuse patient.[facility] SystemIn the event this information is protected by the Federal Confidentiality of Alcohol and Drug Abuse Patient Records regulations: The Federal rules restrict any use of the information to criminally investigate or prosecute any alcohol or drug abuse patient.[facility] SystemIn the event this information is protected by the Federal Confidentiality of Alcohol and Drug Abuse Patient Records regulations: The Federal rules restrict any use of the information to criminally investigate or prosecute any alcohol or drug abuse patient.[facility] SystemIn the event this information is protected by the Federal Confidentiality of Alcohol and Drug Abuse Patient Records regulations: The Federal rules restrict any use of the information to criminally investigate or prosecute any alcohol or drug abuse patient.[facility] SystemIn the event this information is protected by the Federal Confidentiality of Alcohol and Drug Abuse Patient Records regulations: The Federal rules restrict any use of the information to criminally investigate or prosecute any alcohol or drug abuse patient.[facility] SystemIn the event this information is protected by the Federal Confidentiality of Alcohol and Drug Abuse Patient Records regulations: The Federal rules restrict any use of the information to criminally investigate or prosecute any alcohol or drug abuse patient.[facility] SystemIn the event this information is protected by the Federal Confidentiality of Alcohol and Drug Abuse Patient Records regulations: The Federal rules restrict any use of the information to criminally investigate or prosecute any alcohol or drug abuse patient.[facility] SystemIn the event this information is protected by the Federal Confidentiality of Alcohol and Drug Abuse Patient Records regulations: The Federal rules restrict any use of the information to criminally investigate or prosecute any alcohol or drug abuse patient.[facility] SystemIn the event this information is protected by the Federal Confidentiality of Alcohol and Drug Abuse Patient Records regulations: The Federal rules restrict any use of the information to criminally investigate or prosecute any alcohol or drug abuse patient.[facility] Reason for Visit (unrecogniz ed section and content) Reason Comments Results Reason Comments Follow Up Reason Onset Date Comments Refill Request 05/06/2022 Reason Comments Consult Constant nausea Reason Comments Appointment Reason Comments Patient Update mtx Reason Comments Follow Up EGD follow up Reason Comments Release Of Medical Records Reason Comments Orders Diagnostic mammogram for post clip placement Reason Comments Consult US guided right leroy st biopsy Procedure US guided right core breast biopsy. Specialty Diagnoses / Procedures Referred By Ney galarza Referred To Contact General Surgery / GENERAL SURGERY Diagnoses Abnormal ultrasound of breast US guided breast biopsy Procedures BX BREAST W/DEVICE 1ST LESION ULTRASOUND GUID SURGERY 60 Self Marbella Gross MD [address] [place] [address] Referral ID Status Reason Start Date Expiration Date V isits Requested Visits Authorized [id number] Waiting for Response 02/20/2023 05/21/2023 1 1 Reason Comments Appointment Reason Comments Orders Reason Comments Question Reason Comments Patient Question Reason Comments Patient Care Reason Comments Patient Update Reason Comments Patient Question Patient Update Reason Comments Other right magseed LOC chintan mpectomy w/ SLNB Reason Comments Established Patient Specialty Diagnoses / Procedures Referred By Ney galarza Referred To Contact Hematology/Oncology / HEMATOLOGY/ONCOLOGY Diagnoses 2 MO OV* Procedures EST SIMPLE Meek Torres DO [address] [place] [address] Meek Torres DO [address] [place] [address] Referral ID Status Reason Start Date Expiration Date Visits Re quested Visits Authorized [id number] Closed 08/18/2023 09/21/2023 1 1 Care Teams (unrecognized sec tion and content) Allocation Analyst Relationship Specialty Start Date End Date Charles Hernandez DO [address] [place] [address] PCP - General Family Practice 02/15/21 Allocation Analyst Relationship Specialty Start Date End Date Aster Melendez [address] [place] [address] PCP - General Family Practice 02/01/22 Allocation Analyst Relationship Specialty Start Date End Date Aster Melendezer [address] [place] [address] PCP - General Family Practice 02/01/22 Allocation Analyst Relationship Specialty Start Date End Date Vilmaniyah Aster Deloris [address] [place] [address] PCP - General Family Medicine 02/01/22 Allocation Analyst Relationship Specialty Start Date End Date Vilmaniyah Aster Deloris [address] [place] [address] PCP - General Family Medicine 02/01/22 Allocation Analyst Relationship Specialty Start Date End Date Aster Melendez [address] [place] [address] PCP - General Family Medicine 02/01/22 Allocation Analyst Relationship Specialty Start Date End Date Aster Melendez [address] [place] [address] PCP - General Family Medicine 02/01/22 Allocation Analyst Relationship Specialty Start Date End Date Aster Melendez [address] [place] [address] PCP - General Family Medicine 02/01/22 Allocation Analyst Relationship Specialty Start Date End Date Aster Melendez [address] [place] [address] PCP - General Family Medicine 02/01/22 Allocation Analyst Relationship Specialty Start Date End Date Aster Melendez [address] [place] [address] PCP - General Family Medicine 02/01/22 Allocation Analyst Relationship Specialty Start Date End Date Aster Melendez [address] [place] [address] PCP - General Family Medicine 02/01/22 Allocation Analyst Relationship Specialty Start Date End Date Aster Melendez [address] [place] [address] PCP - General Family Medicine 02/01/22 Allocation Analyst Relationship Specialty Start Date End Date Aster Melendez [address] [place] [address] PCP - General Family Medicine 02/01/22 Allocation Analyst Relationship Specialty Start Date End Date Aster Melendez [address] [place] [address] PCP - General Family Medicine 02/01/22 Allocation Analyst Relationship Specialty Start Date End Date Aster Melendez [address] [place] [address] PCP - General Family Medicine 02/01/22 Yamil Ortiz MD [address] [place] [address] General Surgery 06/18/23 Madan Horan DO [address] [facility] [address] [place] [address] Radiation Oncology 06/18/23 Allocation Analyst Relationship Specialty Start Date End Date Aster Melendez [address] [facility] [address] [place] [address] PCP - General Family Medicine 02/01/22 Yamil Ortiz MD [address] [place] [address] General Surgery 06/18/23 Madan Horan DO [address] [facility] [address] [place] [address] Radiation Oncology 06/18/23 Allocation Analyst Relationship Specialty Start Date End Date Aster Melendez MD PCP - General 02/27/23 Allocation Analyst Relationship Specialty Start Date End Date Aster Melendez [address] [facility] [address] [place] [address] PCP - General Family Medicine 02/01/22 Yamil Ortiz MD [address] [place] [address] General Surgery 06/18/23 Madan Horan DO [address] [facility] [address] [place] [address] Radiation Oncology 06/18/23 INFORMATION SOURCE (unrecogn ized section and content) DATE CREATED AUTHOR AUTHOR'S ORGANIZ ATION 04/11/2023 [facility] DATE CREATED AUTHOR AUTHOR'S ORGANIZ ATION 06/09/2023 [facility] DATE CREATED AUTHOR AUTHOR'S ORGANIZ ATION 06/12/2023 [employer] DATE CREATED AUTHOR AUTHOR'S ORGANIZ ATION 07/04/2023 [facility] DATE CREATED AUTHOR AUTHOR'S ORGANIZ ATION 07/21/2023 [facility] DATE CREATED AUTHOR AUTHOR'S ORGANIZ ATION 08/07/2023 [facility] DATE CREATED AUTHOR AUTHOR'S ORGANIZ ATION 08/31/2023 [facility] <item> Privacy Markings (unrecogniz ed section and content) Section Author: Morena Thomas PROHIBITION ON REDISCLOSURE OF CONFIDENTIAL INFORMATION This notice accompanies a disclosure of information concerning a client made to you with the consent of such client. FOR RECORDS PERTAINING TO PATIENTS WHO ARE OR HAVE BEEN ENROLLED IN A CHEMICAL DEPENDENCY/SUBSTANCEABUSE PROGRAM, SOME INFORMATION MAY BE OMITTED. This clinical summary was aggregated from multiple sources. Caution should be exercised in using it in the provision of clinical care. This summary normalizes information from multiple sources, and as a consequence, information in this document may materially change the coding, format and clinical context of patient data. In addition, data may be omitted in some cases. CLINICAL DECISIONS SHOULD BE BASED ON THE PRIMARY CLINICAL RECORDS. [employer] provides no warranty or guarantee of the accuracy or completeness of information in this document.
[2023-10-26 10:13] LABS: Anion Gap 4 (5-15); BUN 9 mg/dL (7-18); BUN/Creat Ratio 11.7 RATIO (10-20); Calcium,Total 9.7 mg/dL (8.5-10.1); Chloride 105 mmol/L (98-107); Creatinine, Serum 0.77 mg/dL (0.55-1.02); EST Glomerular Filtration Rate 82 mL/min (>60); Est Glom Filt Rate - Afr Amer 99 mL/min (>60); Glucose 116 mg/dL (74-106); Potassium 3.8 mmol/L (3.5-5.1); Sodium Level 136 mmol/L (136-145); Thyroid Stim Hormone (TSH) 0.95 uIU/mL (0.358-3.74); Troponin-I HS 3 pg/mL (3.0-54.0)
[2023-10-26] MEDS: hydrOXYzine PAM 25 MG Capsule 50 MG PO (11:12)
[2023-10-26 11:42] VITALS: BP 144/81; PULSE 62
== END 2023-10-26 11:43 | disposition home or self-care (01) ==
PROVIDERS: Emergency Provider Emergency Medicine; PCP Family Medicine; Visit Provider Emergency Medicine
DX: F41.9 Anxiety disorder, unspecified (principal); R19.7 Diarrhea, unspecified; Z87.891 Personal history of nicotine dependence; Z85.3 Personal history of malignant neoplasm of breast
CPT/HCPCS: 80048; 84443; 84484; 85025; 87631; 93005; 96360; 99284; J7030; A4216

== ENCOUNTER → 2023-11-12 | Outpatient (CLI) | payer OTHER, SELFPAY ==
--- NOTE | 2023-11-12 12:44 | CT_ITS ---
STUDY: CT PELVIS WITH CONTRAST REASON FOR EXAM: Female, 63 years old. Pelvic pain/ H/O MRSA. [place] vaginal discharge. History of the breast carcinoma. RADIATION DOSAGE (If Supplied By Facility): CTDIvol = ( 28.20 ) mGy, DLP = ( 1095.30 ) mGycm TECHNIQUE: Transaxial imaging of the pelvis was performed without oral contrast. 100 CC ISOVUE 370 was administered intravenously. Individualized dose optimization techniques were used for this CT. COMPARISON: None. FINDINGS: Normal urinary bladder. Prior hysterectomy. Normal visualized small intestine. There are scattered colonic diverticula of the sigmoid colon consistent with chronic diverticulosis. There is no pelvic fluid. There is no pelvic lymphadenopathy or mass lesion. There is diffuse atherosclerotic calcification of the pelvic arteries. Normal abdominal wall. Normal osseous structures. CT/Pelvis WITH IV Contrast IMPRESSION: Sigmoid diverticulosis. Status post hysterectomy. Atherosclerotic calcification. Electronically Signed: Wilfrid Srinivasan MD at 15:28 EST ,
[2023-11-12 14:35] LABS: Absolute Lymphocyte Count 1.34 X10^3/uL (0.83-4.51); Absolute Neutrophil Count 8.5 X10^3/uL (2.0-7.7); Basophil# 0.04 X10^3/uL; Basophil% 0.4 % (0-1); Eosinophil# 0.18 X10^3/uL; Eosinophils% 1.6 % (0-5); Hematocrit 42.2 % (37-47); Hemoglobin 14.2 g/dL (12.0-15.0); Lymphocyte # 1.34 X10^3/ul (0.83-4.51); Lymphocyte % 12.2 % (19-41); Mean Corp Hgb Conc 33.6 g/dL (32-36); Mean Corpuscular Hgb 33.6 pg (27.0-32.0); Mean Corpuscular Volume 99.8 fL (81-99); Monocyte# 0.75 X10^3/uL; Monocyte% 6.8 % (0-10); NRBC Flagged by Analyzer 0 % (0-5); Neutrophil # 8.52 X10^3/uL (2.7-7.7); Neutrophil % 77.7 % (47-70); Platelet Count 219 K/mm3 (150-450); RBC Distribution Width CV 12.4 % (11.6-14.6); RBC Distribution Width SD 45.6 fl (35.1-43.9); Red Blood Count 4.23 M/mm3 (4.2-5.4)
== END | disposition home or self-care (01) ==
PROVIDERS: PCP Nurse Practitioner Family; Referring Provider Nurse Practitioner Women's Health; Visit Provider Nurse Practitioner Women's Health
DX: R10.2 Pelvic and perineal pain (principal); R30.0 Dysuria; Z86.14 Personal history of Methicillin resistant Staphylococcus aureus infection
CPT/HCPCS: 36415; 72193; 85025; 87070; 87086; 87205; Q9967

== ENCOUNTER → 2023-12-24 | Outpatient (CLI) | payer OTHER, SELFPAY ==
[2023-12-24 12:27] LABS: Absolute Lymphocyte Count 1.27 X10^3/uL (0.83-4.51); Absolute Neutrophil Count 4.4 X10^3/uL (2.0-7.7); Basophil# 0.04 X10^3/uL; Basophil% 0.7 % (0-1); Eosinophil# 0.07 X10^3/uL; Eosinophils% 1.1 % (0-5); Hematocrit 40.9 % (37-47); Hemoglobin 14.3 g/dL (12.0-15.0); Lymphocyte # 1.27 X10^3/ul (0.83-4.51); Lymphocyte % 20.8 % (19-41); Mean Corpuscular Hgb 34.3 pg (27.0-32.0); Mean Corpuscular Volume 98.1 fL (81-99); Mean Platelet Vol. 10.9 fl (6.2-12.0); Monocyte# 0.36 X10^3/uL; Monocyte% 5.9 % (0-10); NRBC Flagged by Analyzer 0 % (0-5); Neutrophil # 4.36 X10^3/uL (2.7-7.7); Neutrophil % 71.2 % (47-70); Platelet Count 205 K/mm3 (150-450); RBC Distribution Width CV 12.2 % (11.6-14.6); RBC Distribution Width SD 44.2 fl (35.1-43.9); Red Blood Count 4.17 M/mm3 (4.2-5.4); White Blood Count 6.1 K/mm3 (4.4-11.0)
[2023-12-24 12:40] LABS: Vitamin B12 1173 pg/mL (211-911); Vitamin D,25 Hydroxy 35.8 ng/mL
[2023-12-24 12:56] LABS: Ferritin 204 ng/mL (8-252); Iron 73 ug/dL (50-170); T4 Free Direct 1.21 ng/dL (0.76-1.46); Thyroid Stim Hormone (TSH) 1.88 uIU/mL (0.358-3.74)
== END | disposition home or self-care (01) ==
LOC: BFHLAB 10:47
PROVIDERS: PCP Nurse Practitioner Family; Visit Provider Nurse Practitioner Family
DX: R50.9 Fever, unspecified (principal); R53.83 Other fatigue; E55.9 Vitamin D deficiency, unspecified; E61.1 Iron deficiency; E03.9 Hypothyroidism, unspecified
CPT/HCPCS: 36415; 82306; 82607; 82728; 83540; 84439; 84443; 85025; 87086; 87088

== ENCOUNTER → 2024-01-07 | Outpatient (CLI) | payer OTHER, SELFPAY ==
--- NOTE | 2024-01-07 07:52 | BD_ITS ---
STUDY: DUAL ENERGY X-RAY ABSORPTIOMETRY / DXA REASON FOR EXAM: Female, 63 years old. Osteopenia TECHNIQUE: Bone Mineral Density (BMD) measurements of lumbar spine and bilateral hips were obtained. COMPARISON: None. FINDINGS: Lumbar Spine (L1-L4): g/cm2 (0.910) / T-score (-1.3) / Z-score (0.2) Findings are suggestive of osteopenia with a low fracture risk. Left Femur Total: g/cm2 (0.885) / T-score (-0.5) / Z-score (0.5) Left Femoral Neck: g/cm2 (0.786) / T-score (-0.6) / Z-score (0.8) Right Femur Total: g/cm2 (0.884) / T-score (-0.5) / Z-score (0.5) Right Femoral Neck: g/cm2 (0.793) / T-score (-0.5) / Z-score (0.8) BD/Dexa Bone Density Study IMPRESSION: The patient is considered osteopenic as outlined below according to World Nilson Organization (WHO) criteria with a low fracture risk. Reference Information: The T-score is the number of standard deviations above or below the standard which is normal for young adults at their peak bone mineral density. The World Health Organization (WHO) interprets the T-scores as follows: Above -1 Normal bone density Between -1 and -2.5 Osteopenia Equal to / or below -2.5 Osteoporosis As a practical clinical guideline, osteopenia may be graded as follows: Mild -1 through -1.5 Moderate -1.6 through -2.0 Severe -2.1 through -2.4 The Z-score is the number of standard deviations above or below age-matched controls. A Z-score of less than -1.5 would be considered abnormal. References: 1. NIH Osteoporosis and Related Bone Diseases www osteo.org 2. International Society for Clinical Densitometry www iscd.org 3. National Osteoporosis Foundation www nof.org Electronically Signed: Wilfrid Srinivasan MD at 9:38 EDT ,
== END | disposition home or self-care (01) ==
LOC: OPBD 07:52
PROVIDERS: PCP Nurse Practitioner Family; Referring Provider Nurse Practitioner Family; Visit Provider Nurse Practitioner Family
DX: M85.80 Other specified disorders of bone density and structure, unspecified site (principal)
CPT/HCPCS: 77080

== ENCOUNTER → 2024-06-11 | Outpatient (CLI) | payer OTHER, SELFPAY | END | disposition home or self-care (01) | LOC: LABSPEC 16:05 | PROVIDERS: PCP Nurse Practitioner Family; Referring Provider Nurse Practitioner Family; Visit Provider Nurse Practitioner Family | DX: R35.0 Frequency of micturition (principal) | CPT/HCPCS: 87086; 87088 ==

== ENCOUNTER → 2024-06-17 | Outpatient (CLI) | payer OTHER, SELFPAY ==
[2024-06-17 09:56] LABS: Erythrocyte Sedimentation Rate 8 mm/hr (0-30)
[2024-06-17 11:15] LABS: CRP < 2.90 mg/L (0.0-3.0)
[2024-06-21 02:07] LABS: Beef <0.10 kU/L (Class 0); Chocolate <0.10 kU/L (Class 0); Codfish <0.10 kU/L (Class 0); Corn <0.10 kU/L (Class 0); Egg, Whole <0.10 kU/L (Class 0); Milk (Cow) <0.10 kU/L (Class 0); Mussels <0.10 kU/L (Class 0); Peanut <0.10 kU/L (Class 0); Pork <0.10 kU/L (Class 0); Salmon <0.10 kU/L (Class 0); Shrimp <0.10 kU/L (Class 0); Soybean <0.10 kU/L (Class 0); Tuna <0.10 kU/L (Class 0); Wheat <0.10 kU/L (Class 0)
[2024-06-21 17:07] LABS: ACCA 38 units (0-90); ALCA 80 units (0-60); AMCA 16 units (0-100); Alpha-1-Globulins 0.2 g/dL (0.0-0.4); Alpha-2-Globulins 0.8 g/dL (0.4-1.0); Chromogranin A 60.6 ng/mL (0.0-101.8); Cytoplasmic Ab (C-ANCA) <1:20 titer (Neg:<1:20); Deamidated Gliadin IgA 2 units (0-19); Deamidated Gliadin IgG 2 units (0-19); Endomysial Antibody IgA Negative (Negative); Gamma Globulin 1.2 g/dL (0.4-1.8); Gastrin, Serum < 10 pg/mL (0-115); Immunoglobulin A 110 mg/dL (87-352); Immunoglobulin E 4 IU/mL (6-495); Immunoglobulin G 1101 mg/dL (586-1602); Immunoglobulin M 163 mg/dL (26-217); PROEL- TOTAL PROTEIN 7.3 g/dL (6.0-8.5); Perinuclear Ab (P-ANCA) <1:20 titer (Neg:<1:20); gASCA 36 units (0-50); t-Transglutaminase IgA <2 U/mL (0-3)
== END | disposition home or self-care (01) ==
LOC: LAB 09:11
PROVIDERS: PCP Nurse Practitioner Family; Referring Provider Internal Medicine Gastroenterology; Visit Provider Internal Medicine Gastroenterology
DX: R19.7 Diarrhea, unspecified (principal); K58.9 Irritable bowel syndrome, unspecified
CPT/HCPCS: 36415; 82746; 82784; 82785; 82941; 83516; 84165; 85652; 86003; 86005; 86036; 86140; 86255; 86256; 86316; 86334; 86671

== ENCOUNTER 2024-06-27 12:47 | Emergency (ER) | payer OTHER, SELFPAY ==
[2024-06-27 12:47] VITALS: BP 116/60; PULSE 84; RESP 14; TEMP 36.8; O2SAT 98; BMI 26.6
--- NOTE | 2024-06-27 13:07 | EX.ED.DYSGE1 ---
HPI History of Present Illness Chief Complaint: Abd Pain Narrative Narrative: 63-year-old female past medical history of recently diagnosed exocrine pancreatic insufficiency presents with generalized weakness and feelings of dehydration. She states that she has had problems with diarrhea for years. She has remote history of breast cancer as well. She was at her assistant kitchen manager/oncologist office, wanting stool studies because she has had endoscopy and colonoscopies in the past but they could never find a reason for her daily diarrhea and loose stools. She was found to have EPI. They are currently working her up for Crohn disease as well. She asked her park interpretive specialist if she could come to the office when she feels dehydrated for IV fluids and they referred her to the emergency department. She denies any fevers but states that she is chronically chilled, no recent nausea or vomiting, no abdominal pain except for when she has to have a bowel movement. She presents mainly for IV fluids and the feeling of generalized weakness and dehydration. [facility] Medical History Generalized anxiety disorder Benzodiazepine dependence Sinus infection IBS (irritable bowel syndrome) Goiter Breast CA Cancer Post-menopausal Depression Anxiety Bladder disease Back pain Injury of head and neck Migraine headache Gastritis Gastric reflux History of pain when walking PFO (patent foramen ovale) Tachycardia FH: colon cancer Cystocele Dense breast tissue Family history of breast cancer in first degree relative Sjogren's disease Thyroid disease Home Medications ?Medication ?Instructions ?Recorded ?Last Taken ?Type biotin 10,000 mcg capsule 10,000 mcg PO DAILY 12/27/20 Unknown History ascorbic acid (vitamin C) 500 mg 500 mg PO DAILY 09/30/22 Unknown History capsule calcium 600 mg (as carbonate)-vit 1 tab PO DAILY 07/30/23 Unknown History D3 20 mcg (800 unit) chewable tablet (Caltrate plus D) mecobalamin (vitamin B12) 1,000 1,000 mcg PO DAILY 08/27/23 Unknown History mcg chewable tablet folic acid 1 mg tablet 1 mg PO DAILY 11/03/23 Unknown History levothyroxine 25 mcg tablet 25 mcg PO DAILY #90 tabs 11/03/23 Unknown Rx (Synthroid) metoprolol tartrate 25 mg tablet 25 mg PO DAILY PRN palpitations 02/26/24 Unknown Rx #30 tabs nicotine 14 mg/24 hr daily 1 patch transdermal DAILY PRN 02/26/24 Unknown History transdermal patch nicotine clonazepam 0.5 mg tablet 0.5 mg PO DAILY anxiety/sleep #30 05/06/24 Unknown Rx tabs lipase 60,000-protease 1 cap PO QAC 06/25/24 Unknown History 189,600-amylase 252,600 unit capsule, delay rel (Zenpep) Allergy/AdvReac Type Severity Reaction Status Date / Time ciprofloxacin (From Cipro) Allergy Intermediate Other Verified 06/27/24 12:48 latex Allergy Swelling Verified 06/27/24 12:48 Sulfa (Sulfonamide Allergy Swelling Verified 06/27/24 12:48 Antibiotics) Antifungal - Imidazole AdvReac Severe Hearing Verified 06/27/24 12:48 Loss clindamycin AdvReac Severe Abd Verified 06/27/24 12:48 cramps/diarrhea hydroxychloroquine (From AdvReac Severe suicidal Verified 06/27/24 12:48 Plaquenil) thoughts metoprolol AdvReac Intermediate Other Verified 06/27/24 12:48 codeine AdvReac Other Verified 06/27/24 12:48 duloxetine HCl (From AdvReac Other Verified 06/27/24 12:48 Cymbalta) escitalopram oxalate (From AdvReac Other Verified 06/27/24 12:48 Lexapro) omeprazole AdvReac Diarrhea Verified 06/27/24 12:48 pantoprazole (From Protonix) AdvReac Diarrhea Verified 06/27/24 12:48 paroxetine (Paroxetine) AdvReac Other Verified 06/27/24 12:48 venlafaxine HCl (From AdvReac Other Verified 06/27/24 12:48 Effexor) Family History Daughter Breast cancer triple negative Mother Heart disease Breast cancer Hypertension Afib Father Heart disease Colon cancer Hypertension Grandmother Breast cancer maternal Diabetes Grandfather CVA (cerebral vascular accident) Diabetes Sister Hypertension Other Alcohol abuse Anxiety Autoimmune disorder Cervical cancer Depression Surgical History Hx of esophagogastroduodenoscopy Hx of colonoscopy Hx of tonsillectomy Hx of hysterectomy Hx of section History of cholecystectomy Social History adopted: No household members: spouse current occupational status: employed current occupation: [employer] pets and animals: No Smoking Status: Former smoker second hand exposure: No alcohol intake: never substance use type: does not use what type of physical activity do you participate in: decline to answer seatbelt use: always do you feel safe at home: Yes ROS ROS ED ROS Narrative Constitutional: No fever, chronic feeling of cold. Generalized weakness. Feels dehydrated. Cardiovascular: No chest pain. No palpitations. No pedal edema. Respiratory: No cough, no shortness of breath. Abdominal: No abdominal pain. No nausea. No vomiting. Daily, chronic diarrhea Genitourinary: No dysuria. No hematuria. Musculoskeletal: No myalgias. No arthralgias. Neurologic: No headaches. No dizziness. No lightheadedness. Skin: No rash. No change in color. Psychiatric: No depression. No anxiety. EXAM Physical Exam Narrative Exam Narrative: Afebrile. Vital signs noted. Regular rate and rhythm. Lungs clear to auscultation bilaterally. Abdomen soft nontender with normal active bowel sounds. No guarding or rebound. Neurological examination shows her to be awake, alert, responsive, nonfocal, nonlateralizing. Mucous membranes slightly tacky. Const Vital Signs: 06/27/24 12:47 06/27/24 13:55 Temperature 98.3 F 98.3 F Temperature Source Temporal Oral Pulse Rate 84 67 Respiratory Rate 14 16 Blood Pressure 116/60 127/65 H Blood Pressure Mean 78 85 Pulse Ox 98 98 Oxygen Delivery Method Room Air Room Air MDM MDM MDM Narrative Medical decision making narrative: Differential diagnosis includes dehydration/acute kidney injury from her chronic diarrhea versus intravascular volume depletion versus other electrolyte abnormality including hypokalemia. Patient will be bolused IV fluids. I do not feel that she requires CT of the abdomen and pelvis emergently as she is not having any abdominal pain currently. I will check a CBC and CMP to look at her electrolytes and her kidney function, ensure that she is not anemic as a cause of her generalized weakness, but history and physical does not support this. I reviewed her laboratory work and she has normal white count of 7.6 with hemoglobin slightly hemoconcentrated at 15.1 with hematocrit 44.6, platelet count normal at 235. Potassium is slightly low at 3.4 which was replaced orally with 40 leeanne equivalents, normal BUN of 13 and creatinine normal at 0.74, no profound dehydration. Glucose is appropriately elevated at 88. LFTs are grossly unremarkable. After her bolus of IV fluids, upon repeat examination at approximately 1435, she is feeling improved. I feel she can be discharged safely home with follow-up to her primary care provider and park interpretive specialist. Return instructions to the emergency department were reviewed. Patient motivated for discharge. Disposition is discharged home in stable condition. History & Record Review Discussion w/independent historian: Patient Lab Data Attestation: I reviewed the patient's lab results. Labs: Laboratory Results - last 24 hr 06/27/24 13:00 WBC 7.6 RBC 4.52 Hgb 15.1 H Hct 44.6 MCV 98.7 MCH 33.4 H MCHC 33.9 RDW Std Deviation 43.8 RDW Coeff of Jimbo 12.0 Plt Count 235 MPV 10.2 Immature Gran % (Auto) 0.300 Neut % (Auto) 68.9 Lymph % (Auto) 20.8 Dixie % (Auto) 7.4 Eos % (Auto) 2.1 Baso % (Auto) 0.5 Absolute Neuts (auto) 5.3 Absolute Lymphs (auto) 1.58 Nucleated RBC % 0 Sodium 138 Potassium 3.4 L Chloride 103 Carbon Dioxide 28.0 Anion Gap 7 BUN 13 Creatinine 0.74 Estim Creat Clear Calc 88.30 Est GFR (MDRD) Af Amer 102 Est GFR (MDRD) Non-Af 85 BUN/Creatinine Ratio 17.6 Glucose 88 Calcium 9.6 Total Bilirubin 0.40 AST 19 ALT 24 Alkaline Phosphatase 89 Total Protein 7.7 Albumin 4.1 Globulin 3.6 Albumin/Globulin Ratio 1.1 Discharge Plan Triage Chief Complaint: Abd Pain ED Provider: Fidencio Bonilla Dx/Rx/DC Orders Clinical Impression: Generalized weakness, Hypokalemia, Exocrine pancreatic insufficiency Instructions: ED Hypokalemia, ED Weakness (Uncertain Cause) Prescriptions: No Action biotin 10,000 mcg capsule 10,000 mcg PO DAILY folic acid 1 mg tablet 1 mg PO DAILY ascorbic acid (vitamin C) 500 mg capsule 500 mg PO DAILY Caltrate 600 plus D 600 mg-20 mcg (800 unit) tablet,chewable 1 tab PO DAILY mecobalamin (vitamin B12) 1,000 mcg tablet,chewable 1,000 mcg PO DAILY nicotine 14 mg/24 hr patch 24 hour 1 patch transdermal DAILY PRN (Reason: nicotine) metoprolol tartrate 25 mg tablet 25 mg PO DAILY PRN (Reason: palpitations) Qty: 30 3RF levothyroxine [Synthroid] 25 mcg tablet 25 mcg PO DAILY Qty: 90 3RF clonazepam 0.5 mg tablet 0.5 mg PO DAILY Qty: 30 2RF Zenpep 60,000-189,600- 252,600 unit capsule,delayed release(DR/EC) 1 cap PO QAC Patient Comments: Prescribed by Dr. Torres Rx Instructions: administer with meals and/or snacks Primary Care Provider: Marichuy Cadet Referrals: Meek Torres DO [Med Staff - Active Staff] - As soon as possible Karlo Seaman DO [Med Staff - Active Staff] - As soon as possible Marichuy Cadet, [employer] [Primary Care Provider] - Activity Restrictions/Additional Instructions: Follow-up with gastroenterology and your assistant kitchen manager/oncologist for further workup. Return with new or worsening symptoms. Print Language: Swiss Disposition Disposition: Home, Self Care Discharge Date/Time: 06/27/24 15:10
[2024-06-27] MEDS: 0.9% Normal Saline (1000mL) 1,000 ML 1000 ML IV (13:15)
[2024-06-27 13:18] LABS: Absolute Lymphocyte Count 1.58 X10^3/uL (0.83-4.51); Absolute Neutrophil Count 5.3 X10^3/uL (2.0-7.7); Basophil# 0.04 X10^3/uL; Basophil% 0.5 % (0-1); Eosinophil# 0.16 X10^3/uL; Eosinophils% 2.1 % (0-5); Hematocrit 44.6 % (37-47); Hemoglobin 15.1 g/dL (12.0-15.0); Lymphocyte # 1.58 X10^3/ul (0.83-4.51); Lymphocyte % 20.8 % (19-41); Mean Corp Hgb Conc 33.9 g/dL (32-36); Mean Corpuscular Hgb 33.4 pg (27.0-32.0); Mean Corpuscular Volume 98.7 fL (81-99); Mean Platelet Vol. 10.2 fl (6.2-12.0); Monocyte# 0.56 X10^3/uL; Monocyte% 7.4 % (0-10); NRBC Flagged by Analyzer 0 % (0-5); Neutrophil # 5.25 X10^3/uL (2.7-7.7); Neutrophil % 68.9 % (47-70); Platelet Count 235 K/mm3 (150-450); RBC Distribution Width SD 43.8 fl (35.1-43.9); Red Blood Count 4.52 M/mm3 (4.2-5.4); White Blood Count 7.6 K/mm3 (4.4-11.0)
[2024-06-27 13:51] LABS: ALB/GLOB Ratio 1.1 RATIO (0.9-2.4); AST(SGOT) 19 U/L (15-37); Alanine Aminotransfer ALT/SGPT 24 U/L (13-56); Albumin, Serum 4.1 g/dL (3.2-5.0); Alkaline Phosphatase 89 U/L (45-117); Anion Gap 7 (5-15); BUN 13 mg/dL (7-18); BUN/Creat Ratio 17.6 RATIO (10-20); Calcium,Total 9.6 mg/dL (8.5-10.1); Chloride 103 mmol/L (98-107); Creatinine, Serum 0.74 mg/dL (0.55-1.02); EST Glomerular Filtration Rate 85 mL/min (>60); Est Glom Filt Rate - Afr Amer 102 mL/min (>60); Globulin 3.6 g/dL (2.2-4.2); Glucose 88 mg/dL (74-106); Potassium 3.4 mmol/L (3.5-5.1); Protein, Total 7.7 g/dL (6.4-8.2); Sodium Level 138 mmol/L (136-145)
[2024-06-27 13:55] VITALS: BP 127/65; PULSE 67; RESP 16; TEMP 36.8; O2SAT 98
[2024-06-27] MEDS: Potassium Chloride Oral Tablet 20 MEQ 40 MEQ PO (14:57)
== END 2024-06-27 15:10 | disposition home or self-care (01) ==
PROVIDERS: Emergency Provider Emergency Medicine; PCP Nurse Practitioner Family; Visit Provider Emergency Medicine
DX: R53.1 Weakness (principal); E87.6 Hypokalemia; K86.89 Other specified diseases of pancreas; E07.9 Disorder of thyroid, unspecified; Z87.891 Personal history of nicotine dependence; Z79.899 Other long term (current) drug therapy
CPT/HCPCS: 80053; 85025; 96360; 99283; J7030; A4216

== ENCOUNTER → 2024-07-23 | Outpatient (CLI) | payer OTHER, SELFPAY ==
--- NOTE | 2024-07-23 08:24 | NM_ITS ---
CLINICAL: 63-year-old female with history of abdominal pain and nausea. SEMI-SOLID PHASE 99m Tc SULFUR COLLOID GASTRIC EMPTYING STUDY COMPARISON: None available FINDINGS: The patient was administered 1.0 mCi of 99m Tc sulfur colloid mixed with oatmeal and consumed per os. Image acquisitions in the anterior-posterior projections were obtained for 60 minutes. There is prompt visualization of the stomach. There is no gastroesophageal reflux identified. The T ? raw data emptying was calculated to be 15.07 minutes, (Normal: 12-56 minutes). NM/Gastric Emptying Study IMPRESSION: 1. NORMAL 99m Tc sulfur colloid semi-solid phase (oatmeal) gastric emptying imaging examination. A. There is lower limits of normal and preserved semi-solid phase gastric emptying compared to normal controls. (Slim et al, J Nucl Med Tech 38: 186, 2010). Electronically Signed: Cole Griffin DO at 9:26 EDT ,
== END | disposition home or self-care (01) ==
PROVIDERS: PCP Nurse Practitioner Family; Referring Provider Internal Medicine Gastroenterology; Visit Provider Internal Medicine Gastroenterology
DX: K58.9 Irritable bowel syndrome, unspecified (principal)
CPT/HCPCS: 78264; A9541

== ENCOUNTER → 2024-07-27 | Outpatient (CLI) | payer OTHER, SELFPAY ==
--- NOTE | 2024-07-27 09:10 | MRI_ITS ---
STUDY: MR ENTEROGRAPHY WITH CONTRAST REASON FOR EXAM: Female, 63 years old. K58.9 - Irritable bowel syndrome, unspecified TECHNIQUE: Multipulse sequence MRI performed with IV contrast according to standard MR enterography protocol following administration of oral contrast for maximal bowel distention. Images were obtained from the dome of the diaphragm to the symphysis pubis. IV 15ml clariscan was administered intravenously. TECHNICAL QUALITY: Image Quality: Satisfactory Small Bowel Distension: Adequate. COMPARISON: CT of abdomen and pelvis dated November 25, 2016. CT of the pelvis dated November 12, 2023. FINDINGS: Bowel: Bowel wall thickening: Absent. Skip lesions: Short segment of luminal stenosis in the proximal one third jejunum is seen on image 26/36 series 8 involving an 8.2 mm length of the bowel. This can also be seen on image /24 series 4. This is likely due to thin-walled mucosal fibrosis with narrowing or mild extrinsic mass effect due to fibrosis. Normal remaining small bowel loops. Vascularity: Normal. Enhancement: Normal. Fistula: None. Abscess: None. Other Findings: The lung bases are unremarkable. The visualized portions of the heart are within normal limits Normal liver. Normal gallbladder and extrahepatic biliary system. Normal spleen. Normal pancreas. Normal bilateral adrenal glands. Normal right kidney. Normal left kidney. Normal visualized stomach. Normal colon. There is no demonstrated diverticulosis. No abnormal adhesions or fistulous connections between the bowel loops are present. The appendix is nonvisualized. Normal abdominal aorta. Normal interior vena cava. Normal retroperitoneum. Normal urinary bladder. Normal abdominal wall. Normal osseous structures. MRI/Enterography Abd/Pel IMPRESSION: Focal sequela of prior enteritis/inflammation/inflammatory bowel disease 1. Short segment of luminal stenosis in the proximal one third jejunum is seen on image 26/36 series 8 involving an 8.2 mm length of the bowel. This can also be seen on image 20/24 series 4. This is likely due to thin-walled mucosal fibrosis with narrowing or mild extrinsic mass effect due to fibrosis. Normal remaining small bowel loops. Electronically Signed: Edenilson Lincoln MD at 13:31 EST ,
[2024-07-27 09:39] VITALS: BP 132/70; PULSE 75; RESP 18; TEMP 36.7; O2SAT 98; BMI 25.5
[2024-07-27] MEDS: 0.9% Saline Lock 10 ML Syringe IV (10:47)
[2024-07-27] MEDS: Glucagon 1 MG/ML Syringe IV (10:48)
[2024-07-27 11:19] VITALS: BP 125/70; PULSE 70; RESP 18; O2SAT 97
== END | disposition home or self-care (01) ==
PROVIDERS: PCP Nurse Practitioner Family; Referring Provider Internal Medicine Gastroenterology; Visit Provider Internal Medicine Gastroenterology
DX: K58.9 Irritable bowel syndrome, unspecified (principal)
CPT/HCPCS: 74183; 96374; A9575; A4216; J1610

== ENCOUNTER → 2024-08-06 | Outpatient (CLI) | payer OTHER, SELFPAY ==
[2024-08-06 10:36] LABS: Absolute Lymphocyte Count 1.18 X10^3/uL (0.83-4.51); Absolute Neutrophil Count 3.8 X10^3/uL (2.0-7.7); Basophil# 0.05 X10^3/uL; Basophil% 0.9 % (0-1); Eosinophil# 0.19 X10^3/uL; Eosinophils% 3.3 % (0-5); Hematocrit 41.3 % (37-47); Hemoglobin 14.4 g/dL (12.0-15.0); Lymphocyte # 1.18 X10^3/ul (0.83-4.51); Lymphocyte % 20.6 % (19-41); Mean Corp Hgb Conc 34.9 g/dL (32-36); Mean Corpuscular Hgb 33.6 pg (27.0-32.0); Mean Corpuscular Volume 96.3 fL (81-99); Mean Platelet Vol. 10.8 fl (6.2-12.0); Monocyte# 0.52 X10^3/uL; Monocyte% 9.1 % (0-10); NRBC Flagged by Analyzer 0 % (0-5); Neutrophil # 3.77 X10^3/uL (2.7-7.7); Neutrophil % 65.6 % (47-70); Platelet Count 260 K/mm3 (150-450); RBC Distribution Width CV 11.9 % (11.6-14.6); RBC Distribution Width SD 41.7 fl (35.1-43.9); Red Blood Count 4.29 M/mm3 (4.2-5.4); White Blood Count 5.7 K/mm3 (4.4-11.0)
[2024-08-06 10:49] LABS: Vitamin B12 620 pg/mL (211-911); Vitamin D,25 Hydroxy 40.5 ng/mL
[2024-08-06 11:36] LABS: Iron 138 ug/dL (50-170); Iron Binding Capacity,Total 330 ug/dL (250-450); PERCENT IRON SATURATION 41.8 % (15.0-55.0)
[2024-08-10 20:08] LABS: HEPATITIS B SURFACE AG Negative (Negative); Hep C Antibodies Non Reactive (Non Reactive); Hepatitis A IgM Antibody Negative (Negative); Hepatitis B Core AB IgM Negative (Negative); QNTFERON TB Mitogen Value > 10.00 IU/mL (.); QNTFERON TB Nil Value 0 IU/mL (.); QNTFERON TB1+ Ag Value 0.01 IU/mL (.); QNTFERON TB2+ Ag Value 0 IU/mL (.); QNTIFERON TB Positive Criteria Negative (Negative)
== END | disposition home or self-care (01) ==
PROVIDERS: Student in an Organized Health Care Education/Training Program; PCP Nurse Practitioner Family; Referring Provider Internal Medicine Gastroenterology; Visit Provider Internal Medicine Gastroenterology
DX: K50.90 Crohn's disease, unspecified, without complications (principal)
CPT/HCPCS: 36415; 80074; 82306; 82607; 82746; 83540; 83550; 85025; 86480

== ENCOUNTER → 2024-08-10 | Outpatient (CLI) | payer OTHER, SELFPAY | END | disposition home or self-care (01) | LOC: BFHLAB 15:26 | PROVIDERS: PCP Nurse Practitioner Family; Referring Provider Nurse Practitioner Family; Visit Provider Nurse Practitioner Family | DX: N39.0 Urinary tract infection, site not specified (principal) | CPT/HCPCS: 87077; 87086; 87088; 87186 ==

== ENCOUNTER → 2024-08-23 | Outpatient (CLI) | payer OTHER, SELFPAY | END | disposition home or self-care (01) | LOC: PSN 07:45 | PROVIDERS: PCP Nurse Practitioner Family; Referring Provider Nurse Practitioner Family; Visit Provider Nurse Practitioner Family | DX: R00.0 Tachycardia, unspecified (principal) | CPT/HCPCS: 93225; 93226 ==

== ENCOUNTER → 2024-09-20 | Outpatient (CLI) | payer OTHER, SELFPAY | END | disposition home or self-care (01) | LOC: SL 12:28 | PROVIDERS: Referring Provider Nurse Practitioner Family; Visit Provider Nurse Practitioner Family | DX: R06.89 Other abnormalities of breathing (principal); R06.81 Apnea, not elsewhere classified; G47.19 Other hypersomnia | CPT/HCPCS: 95806 ==

== ENCOUNTER → 2024-11-18 | Outpatient (CLI) | payer OTHER, SELFPAY | END | disposition home or self-care (01) | LOC: SL 13:51 | PROVIDERS: Referring Provider Nurse Practitioner Family; Visit Provider Nurse Practitioner Family | DX: Z46.89 Encounter for fitting and adjustment of other specified devices (principal) ==

== ENCOUNTER → 2025-02-01 | Outpatient (CLI) | payer OTHER, SELFPAY | END | disposition home or self-care (01) | LOC: MTLAB 07:38 | PROVIDERS: PCP Nurse Practitioner Family; Referring Provider Internal Medicine Endocrinology, Diabetes & Metabolism; Visit Provider Internal Medicine Endocrinology, Diabetes & Metabolism | DX: E03.8 Other specified hypothyroidism (principal); E06.3 Autoimmune thyroiditis | CPT/HCPCS: 36415; 84439; 84443 ==

== ENCOUNTER → 2025-04-22 | Outpatient (CLI) | payer OTHER, SELFPAY ==
--- NOTE | 2025-04-22 08:14 | BI_ITS ---
EXAM: SCRN MAMM (CAD)W/KAYLEE BILAT DATE: 04/22/2025 CLINICAL HISTORY: F, Age 64 y/o , H/O TREATED BREAST CANCER, ANNUAL SCREENING TECHNIQUE: SCRN MAMM (CAD)W/KAYLEE BILAT COMPARISON: Prior exam(s) dated mammograms 03/04/2024, 02/14/2023. MRI 10/15/2024, 03/26/2023 FINDINGS: TISSUE DENSITY: The breasts are heterogeneously dense, which may obscure small masses. The mammogram demonstrates that the patient has dense breasts. Supplemental screening with whole breast ultrasound or MRI may be considered for further evaluation. Bilateral Breast Mammographic Findings: There are stable postsurgical changes in the upper central right breast. No significant masses, calcifications or other abnormalities are identified. BI/SCRN MAMM (CAD)W/KAYLEE BILAT IMPRESSION: There is no mammographic evidence of malignancy. OVERALL FINAL ASSESSMENT BI-RADS 2: BENIGN RECOMMENDATION: Routine annual follow-up in 1 Year A letter with findings and recommendations will be mailed to the patient. Reading Location: [id number]
== END | disposition home or self-care (01) ==
LOC: OPBI 08:12
PROVIDERS: PCP Nurse Practitioner Family; Referring Provider Student in an Organized Health Care Education/Training Program; Visit Provider Student in an Organized Health Care Education/Training Program
DX: Z12.31 Encounter for screening mammogram for malignant neoplasm of breast (principal)
CPT/HCPCS: 77063; 77067

== ENCOUNTER → 2025-06-08 | Outpatient (CLI) | payer OTHER, SELFPAY | END | disposition home or self-care (01) | LOC: LABSPEC 15:10 | PROVIDERS: PCP Nurse Practitioner Family; Visit Provider Nurse Practitioner Family | DX: J32.9 Chronic sinusitis, unspecified (principal); Z86.14 Personal history of Methicillin resistant Staphylococcus aureus infection | CPT/HCPCS: 87641 ==